=== PATIENT | male | born 1945 | race Hispanic/Latino ===

== ENCOUNTER 2017-11-07 10:12 | Emergency (ER) | payer MEDICARE, OTHER ==
--- NOTE | 2017-11-07 11:08 | RAD ---
CHEST ONE VIEW: HISTORY: Chest pain. COMPARISON: 03/29/2016 FINDINGS: Since the prior examination, the dialysis catheter has been removed. Heart size is normal. No peric ardial effusion. No focal air space consolidation. IMPRESSION: No acute intrathoracic abnormality. POS: [facility]
[2017-11-07 11:18] LABS: #Eosinphils 0.1 thou/uL (0.0-0.7); #Monocytes 0.9 thou/uL (0.11-0.59); #Neutrophils 6.2 thou/uL (1.40-6.50); %Basophils 0.5 % (0.0-1.0); %Eosinophils 1.4 % (0.0-10.0); %Lymphocytes 12.5 % (21.0-51.0); %Monocytes 11.2 % (0.0-10.0); %Neutrophils 74.4 % (42.0-75.0); Hemoglobin 11.3 g/dL (14.0-18.0); Mean Corpuscular HGB CONC 32.7 g/dL (32.0-36.0); Mean Corpuscular Hemoglobin 31.1 pg (27.0-31.0); Mean Platelet Volume 9.4 fL (7.4-10.4); Platelet Count 170 thou/uL (130-400); RBC Distribution Width 14.3 % (11.5-14.5); Red Blood Cell (RBC) Count 3.62 mill/uL (4.70-6.10); White Blood Cell (WBC) Count 8.3 thou/uL (4.8-10.8)
[2017-11-07 11:39] LABS: ALT (SGPT) 13 U/L (8-55); AST (SGOT) 17 U/L (5-34); Albumin 4.2 g/dL (3.4-4.8); Alkaline Phosphatase 103 U/L (40-150); Anion Gap 20 mmol/L (10-20); BUN (Urea Nitrogen) 24 mg/dL (8.4-25.7); Bilirubin, Total 0.6 mg/dL (0.2-1.2); Calc. Creatinine Clearance 0 mL/min (70-130); Calcium 9.5 mg/dL (7.8-10.44); Carbon Dioxide 25 mmol/L (23-31); Chloride 95 mmol/L (98-107); Estimated GFR-MDRD 10; Globulin 4.9 g/dL (2.4-3.5); Glucose 141 mg/dL (83-110); Potassium 4.2 mmol/L (3.5-5.1); Protein, Total 9.1 g/dL (5.8-8.1); Sodium 136 mmol/L (136-145)
[2017-11-07] MEDS ORDERED: Amlodipine 5 MG TAB ONE (12:48)
[2017-11-07 13:03] LABS: Bilirubin Negative (Negative); Blood, Urine Trace (Negative); Clarity CLEAR (Clear); Glucose, Urine (Dipstick) 250 mg/dL (Negative); Leukocyte Negative (Negative); Nitrite Negative (Negative); Protein, Urine (Dipstick) 100 mg/dL (Neg-Trace); Urobilinogen 0.2 mg/dL (0.2-1.0)
[2017-11-07 13:05] LABS: Bacteria/HPF None Seen HPF (None Seen); Hyaline Casts/LPF 0-3 HYALINE CAST LPF (0-3 Hyaline); Pathc Cast-AUWi Flag 0.14 (0-2.49); RBC/HPF 0-3 HPF (0-3); Squamous Epithelial 0-3 HPF (0-3); WBC/HPF 0-3 HPF (0-3)
--- NOTE | 2017-11-10 12:25 | EKG ---
Test Reason : Blood Pressure : / mmHG Vent. Rate : 101 BPM Atrial Rate : 101 BPM P-R Int : 140 ms QRS Dur : 086 ms QT Int : 378 ms P-R-T Axes : 013 008 136 degrees QTc Int : 490 ms Sinus tachycardia Possible Left atrial enlargement Left ventricular hypertrophy with repolarization abnormality Abnormal ECG Confirmed by OLGA MCKEON ([id number]), purchasing expeditor MISHEL PEDRAZA ([id number]) on 11/10/2017 12:24:52 PM Referred By: Confirmed By:OLGA MCKEON
== END 2017-11-07 13:41 | disposition home or self-care (01) ==
LOC: ERS 10:12
DX: R53.83 Other fatigue (principal); I10 Essential (primary) hypertension; E11.9 Type 2 diabetes mellitus without complications; E78.5 Hyperlipidemia, unspecified; Z79.899 Other long term (current) drug therapy
CPT/HCPCS: 36415; 71045; 80053; 81003; 81015; 83605; 85025; 87040; 87804; 93005; 94760

== ENCOUNTER 2017-12-24 02:11 | Inpatient (IN) | payer MEDICARE, OTHER ==
[2017-12-24 02:43] LABS: #Basophils 0.1 thou/uL (0.0-0.2); #Eosinphils 0.1 thou/uL (0.0-0.7); #Lymphocytes 1.3 thou/uL (1.20-3.40); #Monocytes 1.4 thou/uL (0.11-0.59); #Neutrophils 13.6 thou/uL (1.40-6.50); %Basophils 0.4 % (0.0-1.0); %Eosinophils 0.7 % (0.0-10.0); %Lymphocytes 7.9 % (21.0-51.0); %Monocytes 8.6 % (0.0-10.0); %Neutrophils 82.4 % (42.0-75.0); Hemoglobin 10.7 g/dL (14.0-18.0); Mean Corpuscular Hemoglobin 32.7 pg (27.0-31.0); Mean Corpuscular Volume 96.3 fL (78.0-98.0); Mean Platelet Volume 9.2 fL (7.4-10.4); Platelet Count 238 thou/uL (130-400); RBC Distribution Width 13.8 % (11.5-14.5); Red Blood Cell (RBC) Count 3.27 mill/uL (4.70-6.10); White Blood Cell (WBC) Count 16.5 thou/uL (4.8-10.8)
[2017-12-24 03:07] LABS: ALT (SGPT) 11 U/L (8-55); AST (SGOT) 23 U/L (5-34); Albumin 3.7 g/dL (3.4-4.8); Alkaline Phosphatase 84 U/L (40-150); Anion Gap 23 mmol/L (10-20); BUN (Urea Nitrogen) 76 mg/dL (8.4-25.7); Bilirubin, Total 0.6 mg/dL (0.2-1.2); CK (CPK) 38 U/L (30-200); Calc. Creatinine Clearance 0 mL/min (70-130); Calcium 9.6 mg/dL (7.8-10.44); Carbon Dioxide 20 mmol/L (23-31); Chloride 99 mmol/L (98-107); Estimated GFR-MDRD 5; Globulin 4.9 g/dL (2.4-3.5); Glucose 178 mg/dL (83-110); Potassium 5.6 mmol/L (3.5-5.1); Protein, Total 8.6 g/dL (5.8-8.1); Sodium 136 mmol/L (136-145)
[2017-12-24 03:08] LABS: CKMB 1.5 ng/mL (0-6.6)
[2017-12-24 03:16] LABS: Troponin I 0.492 ng/mL (< 0.028)
[2017-12-24] MEDS ORDERED: Morphine 4 MG/ML VIAL ONE (03:21)
[2017-12-24] MEDS ORDERED: Nitroglycerin 0.4 MG TAB (25 Tab Bottle) ONE ×2 (03:59→20:11)
[2017-12-24] MEDS ORDERED: Nitroglycerin 2% Ointment 1 INCH/1 GM Packet ONE (03:59)
[2017-12-24] MEDS ORDERED: Enoxaparin Sodium 80 MG/0.8 ML SYRINGE ONE (04:16)
[2017-12-24] MEDS ORDERED: Piperacillin/Tazobactam 3.375 GM VIAL ONE (04:49)
[2017-12-24] MEDS ORDERED: Ondansetron ODT 4 MG TAB SL PRN (05:30)
[2017-12-24] MEDS ORDERED: Acetaminophen 325 MG TAB PO PRN (05:30)
[2017-12-24] MEDS ORDERED: Ondansetron PF 4 MG/2 ML Vial IVP PRN (05:30)
[2017-12-24 05:35] VITALS: BMI 30.5
[2017-12-24 06:43] LABS: Troponin I 0.496 ng/mL (< 0.028)
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
--- NOTE | 2017-12-24 08:59 | RAD ---
CHEST 1 VIEW: HISTORY: Chest pain. COMPARISON: Radiograph 11/07/2017. FINDINGS: There are moderate bilateral perihilar opacities. No pneumothorax. No large effusion. Cardiac silh ouette is similar. IMPRESSION: Small effusions with bilateral perihilar opacities concerning for edema, hemorrhage or ARDS. POS: [facility]
[2017-12-24 09:54] LABS: Troponin I 0.775 ng/mL (< 0.028)
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
[2017-12-24] MEDS ORDERED: Piperacillin/Tazobactam 3.375 GM in Sodium Chloride 0.9% 100 ML IVPB SCH (12:00)
[2017-12-24] MEDS ORDERED: Amlodipine 10 MG TAB PO SCH (12:15)
[2017-12-24] MEDS ORDERED: hydrALAZINE 20 MG/ML VIAL SLOW IVP PRN (12:16)
[2017-12-24] MEDS ORDERED: Labetalol HCl 100 MG/20 ML VIAL SLOW IVP PRN (12:17)
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
[2017-12-24] MEDS ORDERED: Dextrose 50% Abboject 50 ML SYRINGE SLOW IVP PRN (12:57)
[2017-12-24] MEDS ORDERED: Dextrose 5% in Water 1,000 ML IV PRN (12:57)
[2017-12-24] MEDS ORDERED: Calcium Carbonate 500 MG ChewTAB PO PRN (12:58)
[2017-12-24] MEDS: HumaLOG 300 UNITS/3 ML VIAL SC PRN (13:16)
[2017-12-24] MEDS: Gabapentin 300 MG CAP PO SCH ×2 (14:46→22:02)
[2017-12-24] MEDS ORDERED: Gabapentin 300 MG CAP PO SCH (15:00)
[2017-12-24] MEDS ORDERED: Heparin 5,000 UNITS/ML VIAL SC SCH (15:00)
[2017-12-24] MEDS ORDERED: ISOVUE-370 76%-LOCM 1 ML ONE (15:01)
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
[2017-12-24] MEDS ORDERED: Calcium Acetate 667 MG CAP PO SCH (17:00)
[2017-12-24] MEDS: Calcium Acetate 667 MG CAP PO SCH (17:07)
[2017-12-24] MEDS ORDERED: Atorvastatin Calcium 20 MG TAB PO SCH (21:00)
[2017-12-24] MEDS: Amoxicillin/Potassium Clav 500 MG TAB PO SCH (22:02)
[2017-12-24] MEDS: Atorvastatin Calcium 40 MG TAB PO SCH (22:02)
[2017-12-25 05:30] LABS: #Eosinphils 0.1 thou/uL (0.0-0.7); #Lymphocytes 1.2 thou/uL (1.20-3.40); #Monocytes 0.8 thou/uL (0.11-0.59); #Neutrophils 7.6 thou/uL (1.40-6.50); %Basophils 0.4 % (0.0-1.0); %Eosinophils 1.3 % (0.0-10.0); %Lymphocytes 11.9 % (21.0-51.0); %Monocytes 8.1 % (0.0-10.0); %Neutrophils 78.4 % (42.0-75.0); Hemoglobin 9.8 g/dL (14.0-18.0); Mean Corpuscular HGB CONC 32.4 g/dL (32.0-36.0); Mean Corpuscular Volume 98.7 fL (78.0-98.0); Mean Platelet Volume 9.2 fL (7.4-10.4); Platelet Count 219 thou/uL (130-400); RBC Distribution Width 13.7 % (11.5-14.5); Red Blood Cell (RBC) Count 3.05 mill/uL (4.70-6.10); White Blood Cell (WBC) Count 9.7 thou/uL (4.8-10.8)
[2017-12-25 05:31] LABS: Anion Gap 18 mmol/L (10-20); BUN (Urea Nitrogen) 46 mg/dL (8.4-25.7); Calc. Creatinine Clearance 10 mL/min (70-130); Carbon Dioxide 26 mmol/L (23-31); Chloride 97 mmol/L (98-107); Estimated GFR-MDRD 7; Glucose 126 mg/dL (83-110); Potassium 4.3 mmol/L (3.5-5.1); Sodium 137 mmol/L (136-145)
[2017-12-25] MEDS ORDERED: Levothyroxine Sodium 75 MCG TAB PO SCH (06:00)
[2017-12-25] MEDS: Levothyroxine Sodium 75 MCG TAB PO SCH (06:17)
[2017-12-25] MEDS ORDERED: Communication Order-Pharmacy FS SCH (09:00)
[2017-12-25] MEDS ORDERED: Amlodipine 10 MG TAB PO SCH (09:00)
--- NOTE | 2017-12-25 09:05 | PRG ---
DATE OF SERVICE: 12/25/2017 Mr. Gonzalez is currently doing well, no current complaints of chest pain or pressure. PHYSICAL EXAMINATION: VITAL SIGNS: Blood pressure is 135/64, pulse 95, temperature 98.3. LUNGS: Clear to auscultation. CARDIAC: Regular rate and rhythm. ABDOMEN: Soft, nontender, nondistended. EXTREMITIES: No edema. IMPRESSION: 1. Non-Q wave myocardial infarction. 2. End-stage renal disease. RECOMMENDATIONS: I discussed aggressive versus conservative approach with Mr. Gonzalez. Given his trop onin, would recommend coronary angiography plus PCI. I discussed the procedure in detail with he and his . The risks included, but are not limited to the following: , stroke, RI, need for emergency surgery, loss of limb, bleeding, and infection, as well as a re action to the dye causing kidney failure and needing long-term dialysis. I also discussed the risks of PCI to include all of the above including coronary dissection and perforation in addition to acute stent thrombosis and restenosis. All questions about the procedure were answered. Given the above, the patient agreed to proceed with coronary angiography and possible PCI. All questions were answered. The patient is agreeable. I also discussed drug-coated versus nondrug stent placement. We will proceed with drug-coated stent placement. There are no contraindications a fter discussing this in detail. Mr. Gonzalez will have dialysis prior to proceeding.
[2017-12-25] MEDS ORDERED: Lidocaine 1% (PF) 30 ML VIAL ONE (12:10)
[2017-12-25] MEDS: Gabapentin 300 MG CAP PO SCH ×3 (14:00→22:17)
[2017-12-25] MEDS: Calcium Acetate 667 MG CAP PO SCH ×3 (14:01→17:35)
[2017-12-25] MEDS: Folic Acid 1 MG TAB PO SCH (14:02)
[2017-12-25] MEDS: NIFEdipine XL 60 MG TAB PO SCH (14:02)
[2017-12-25] MEDS: Amlodipine 10 MG TAB PO SCH (14:04)
[2017-12-25] MEDS: Amoxicillin/Potassium Clav 500 MG TAB PO SCH ×2 (14:07→22:15)
--- NOTE | 2017-12-25 16:46 | PRG ---
DATE OF SERVICE: 12/25/2017 SERVICE: Pulmonary Medicine. INTERVAL HISTORY: The patient is doing great from a respiratory standpoint. That being said, last n ight, he had an episode of chest discomfort. He got 3 nitro's and his pain improved. He has never h ad an event like this before. Otherwise, there has been no interval change to his condition. PHYSICAL EXAMINATION: VITAL SIGNS: Afebrile, pulse 95, blood pressure 134/60, respirations 20, saturation 94% on 2 liters nasal cannula. GENERAL: The patient is awake, alert, no apparent distress. LUNGS: Decent air entry. There is no prolonged expiratory phase or wheezing present. 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 HEART: Normal rate, regular. ABDOMEN: Soft, nontender, nondistended. Bowel sounds are positive. MUSCULOSKELETAL: No cyanosis or clubbing. No pitting in the bilateral lower extremities. NEUROLOGIC: Grossly nonfocal. LABORATORY DATA: WBC 9.7, hemoglobin 9.8, platelets 219,000. Creatinine 7.40, dramatically improved , BUN 46. Basic metabolic profile is otherwise unremarkable. TSH is unremarkable. One or two blood cultures is growing coag-negative staph. IMAGING: Echocardiogram demonstrates a 45-50% ejection fraction. There is some diastolic dysfunctio n. ASSESSMENT: 1. Acute hypoxic respiratory failure, improved. 2. Acute on chronic diastolic heart failure. 3. Acute systolic heart failure. 4. Non-ST elevation myocardial infarction. 5. Chest pain. 6. Bilateral pleural effusions, and other CT findings consistent with volume overload. 7. End-stage renal disease, on hemodialysis, DISCUSSION AND PLAN: The patient is going to undergo a cardiac catheterization today. We will yohannes nue to pull fluid off with dialysis and wean oxygen as tolerated.
[2017-12-25] MEDS: HumaLOG 300 UNITS/3 ML VIAL SC PRN (17:44)
--- NOTE | 2017-12-25 20:19 | PDOC.PN ---
- Subjective Encounter Start Date: 12/25/17 Encounter Start Time: 14:00 Feeling much better today. Breathing better. Had episode of CP last night. Required nitro. - Objective Resuscitation Status: Resuscitation Status FULL:Full Resuscitation Vital Signs & Weight: Vital Signs (12 hours) Temp Pulse Resp BP Pulse Ox 12/25/17 16:30 97.9 F 94 16 142/59 H 95 12/25/17 14:04 95 12/25/17 14:02 95 Weight Weight 169 lb 12.095 oz I&O: 12/24/17 12/25/17 12/26/17 06:59 06:59 06:59 Intake Total 1050 Output Total 2475 Balance -1425 Result Diagrams: 12/25/17 04:20 12/25/17 04:20 Additional Labs: Accuchecks 12/25/17 12/25/17 12/24/17 16:36 05:45 20:32 POC Glucose 230 H 137 H 213 H Phys Exam - Physical Examination Constitutional: NAD NC O2 Respiratory: no wheezing, no rales, no rhonchi, clear to auscultation bilateral Cardiovascular: RRR, no significant murmur Gastrointestinal: soft, non-tender, no distention, positive bowel sounds Musculoskeletal: 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 Improved with fluid removal from dialysis. (2) NSTEMI (non-ST elevated myocardial infarction) Code(s): I21.4 - NON-ST ELEVATION (NSTEMI) MYOCARDIAL INFARCTION Status: Acute Comment: Cath tomorrow. (3) Volume overload Code(s): E87.70 - FLUID OVERLOAD, UNSPECIFIED Status: Acute Comment: Improved with dialysis. (4) DM type 2 (diabetes mellitus, type 2) Status: Chronic Comment: SSI and accuchecks. (5) ESRD (end stage renal disease) on dialysis Code(s): N18.6 - END STAGE RENAL DISEASE; Z99.2 - DEPENDENCE ON RENAL DIALYSIS Status: Chronic Comment: Followed by Nephrology. Continuing HD. (6) HTN (hypertension) Code(s): I10 - ESSENTIAL (PRIMARY) HYPERTENSION Status: Chronic Qualifiers: Hypertension type: essential hypertension Qualified Code(s): I10 - Essential (primary) hypertension Comment: Continue home meds. (7) Hypothyroidism Code(s): E03.9 - HYPOTHYROIDISM, UNSPECIFIED Status: Chronic Comment: Continue synthroid. (8) Dyslipidemia Code(s): E78.5 - HYPERLIPIDEMIA, UNSPECIFIED Status: Chronic Comment: Continue Statin - Plan * Above.
[2017-12-25] MEDS ORDERED: Heparin 5,000 UNITS/ML VIAL SC SCH (20:45)
[2017-12-25] MEDS: Atorvastatin Calcium 40 MG TAB PO SCH (22:15)
[2017-12-26 05:59] LABS: #Basophils 0.1 thou/uL (0.0-0.2); #Eosinphils 0.2 thou/uL (0.0-0.7); #Lymphocytes 1.8 thou/uL (1.20-3.40); #Monocytes 1.1 thou/uL (0.11-0.59); #Neutrophils 7.3 thou/uL (1.40-6.50); %Basophils 0.7 % (0.0-1.0); %Eosinophils 1.7 % (0.0-10.0); %Lymphocytes 17.6 % (21.0-51.0); %Monocytes 10.2 % (0.0-10.0); %Neutrophils 69.9 % (42.0-75.0); Hemoglobin 10.3 g/dL (14.0-18.0); Mean Corpuscular HGB CONC 33.1 g/dL (32.0-36.0); Mean Corpuscular Hemoglobin 32.1 pg (27.0-31.0); Mean Corpuscular Volume 96.9 fL (78.0-98.0); Mean Platelet Volume 9.2 fL (7.4-10.4); Platelet Count 222 thou/uL (130-400); RBC Distribution Width 13.5 % (11.5-14.5); Red Blood Cell (RBC) Count 3.21 mill/uL (4.70-6.10); White Blood Cell (WBC) Count 10.4 thou/uL (4.8-10.8)
[2017-12-26 06:18] LABS: Anion Gap 19 mmol/L (10-20); BUN (Urea Nitrogen) 32 mg/dL (8.4-25.7); Calc. Creatinine Clearance 12 mL/min (70-130); Calcium 9.2 mg/dL (7.8-10.44); Carbon Dioxide 25 mmol/L (23-31); Chloride 95 mmol/L (98-107); Estimated GFR-MDRD 10; Glucose 119 mg/dL (83-110); Potassium 4.5 mmol/L (3.5-5.1); Sodium 134 mmol/L (136-145)
[2017-12-26] MEDS: Levothyroxine Sodium 75 MCG TAB PO SCH (06:30)
[2017-12-26] MEDS: Folic Acid 1 MG TAB PO SCH (06:30)
[2017-12-26] MEDS: Amoxicillin/Potassium Clav 500 MG TAB PO SCH ×2 (06:30→20:55)
[2017-12-26] MEDS: Gabapentin 300 MG CAP PO SCH ×3 (06:31→20:56)
[2017-12-26] MEDS: NIFEdipine XL 60 MG TAB PO SCH (06:31)
[2017-12-26] MEDS: Amlodipine 10 MG TAB PO SCH (06:31)
[2017-12-26] MEDS ORDERED: Lidocaine 1% (PF) 30 ML VIAL ONE (06:38)
[2017-12-26] MEDS ORDERED: Midazolam HCl 2 mg/2 ml Vial ONE (07:26)
[2017-12-26] MEDS ORDERED: Fentanyl 100 MCG/2 ML VIAL ONE (07:27)
[2017-12-26] MEDS ORDERED: Acetaminophen/Codeine 30-300mg Tablet PO PRN ×2 (07:56)
[2017-12-26] MEDS ORDERED: traMADol HCl 50 MG TAB PO PRN (07:56)
[2017-12-26] MEDS ORDERED: Nitroglycerin 0.4 MG TAB (25 Tab Bottle) SL PRN (07:56)
[2017-12-26] MEDS ORDERED: Sodium Chloride 0.9% 200 ML IV SCH (08:00)
[2017-12-26] MEDS: Calcium Acetate 667 MG CAP PO SCH ×3 (09:17→16:46)
[2017-12-26] MEDS ORDERED: Iopamidol 370 76% 100 ML VIAL ONE (10:44)
--- NOTE | 2017-12-26 15:20 | PRG ---
DATE OF SERVICE: 12/26/2017 SERVICE: Pulmonary Medicine. INTERVAL HISTORY: Patient is doing fine from a respiratory standpoint. He is breathing comfortably. There has been no interval change to his condition. He did not have any more chest pain episodes. PHYSICAL EXAMINATION: VITAL SIGNS: Afebrile, pulse 81, blood pressure 126/62, respirations 16, saturation 96% on 2 liters nasal cannula. GENERAL: The patient is awake, alert, no apparent distress. LUNGS: Excellent air entry without prolonged expiratory phase or wheezing. HEART: Normal rate, regular. ABDOMEN: Soft, nontender, nondistended. Bowel sounds are positive. MUSCULOSKELETAL: No cyanosis or clubbing. There is no pitting in the bilateral lower extremities. NEUROLOGIC: Grossly nonfocal. LABORATORY DATA: WBC 10.4, hemoglobin 10.3, platelets 222,000. Creatinine 5.68, continuing to downt rend, BUN 32. Basic metabolic profile is otherwise unremarkable. One of two blood cultures growing coag-negative staph. ASSESSMENT: 1. Acute hypoxic respiratory failure, resolved. 2. Acute systolic heart failure. 3. Acute on chronic diastolic heart failure. 4. Non-ST elevation myocardial infarction. 5. Coronary artery disease, severe. 6. Angina, resolved. 7. Bilateral pleural effusions and other CT findings consistent with volume overload, likely improve d following significant volume removal. 8. End-stage renal disease. DISCUSSION AND PLAN: A Cardiothoracic Surgery consultation is currently pending. Pulmonary will con tinue to follow along as the patient is likely heading towards a bypass graft. He is currently optim ized from a respiratory standpoint to proceed with the surgery.
[2017-12-26] MEDS ORDERED: Heparin 10,000 UNITS/ 10 ML VIAL ONE (17:54)
[2017-12-26] MEDS: Atorvastatin Calcium 40 MG TAB PO SCH (20:56)
[2017-12-26] MEDS: HumaLOG 300 UNITS/3 ML VIAL SC PRN (21:16)
--- NOTE | 2017-12-26 22:58 | PDOC.PN ---
- Subjective Encounter Start Date: 12/26/17 Encounter Start Time: 10:30 Feeling much better. Had another episode of episode of chest pain. Relieved with nitro. - Objective Resuscitation Status: Resuscitation Status FULL:Full Resuscitation Vital Signs & Weight: Vital Signs (12 hours) Temp Pulse Resp BP Pulse Ox 12/26/17 20:00 98.4 F 86 18 143/63 H 98 12/26/17 12:00 98.1 F 81 16 126/62 96 Weight Weight 167 lb 4.8 oz I&O: 12/25/17 12/26/17 12/27/17 06:59 06:59 06:59 Intake Total 1050 50 Output Total 2475 0 Balance -1425 50 Result Diagrams: 12/26/17 04:48 12/26/17 04:48 Additional Labs: Accuchecks 12/26/17 12/26/17 12/26/17 20:24 11:03 05:58 POC Glucose 262 H 120 H 134 H Phys Exam - Physical Examination Constitutional: NAD Respiratory: no wheezing, no rales, no rhonchi, clear to auscultation bilateral Cardiovascular: no significant murmur II/ mumur Gastrointestinal: soft, non-tender, no distention Musculoskeletal: no edema Dx/Plan (1) Acute respiratory failure with hypoxemia Code(s): J96.01 - ACUTE RESPIRATORY FAILURE WITH HYPOXIA Status: Acute Comment: Secondary to volume overload. Improved with fluid removal from dialysis. (2) NSTEMI (non-ST elevated myocardial infarction) Code(s): I21.4 - NON-ST ELEVATION (NSTEMI) MYOCARDIAL INFARCTION Status: Acute Comment: Multivessel disease on cath. (3) Volume overload Code(s): E87.70 - FLUID OVERLOAD, UNSPECIFIED Status: Acute Comment: Improved with dialysis. (4) DM type 2 (diabetes mellitus, type 2) Status: Chronic Comment: SSI and accuchecks. (5) ESRD (end stage renal disease) on dialysis Code(s): N18.6 - END STAGE RENAL DISEASE; Z99.2 - DEPENDENCE ON RENAL DIALYSIS Status: Chronic Comment: Followed by Nephrology. Continuing HD. (6) HTN (hypertension) Code(s): I10 - ESSENTIAL (PRIMARY) HYPERTENSION Status: Chronic Qualifiers: Hypertension type: essential hypertension Qualified Code(s): I10 - Essential (primary) hypertension Comment: Continue home meds. (7) Hypothyroidism Code(s): E03.9 - HYPOTHYROIDISM, UNSPECIFIED Status: Chronic Comment: Continue synthroid. (8) Dyslipidemia Code(s): E78.5 - HYPERLIPIDEMIA, UNSPECIFIED Status: Chronic Comment: Continue Statin (9) Coronary artery disease Code(s): I25.10 - ATHSCL HEART DISEASE OF [place] CORONARY ARTERY W/O ANG PCTRS Status: Acute Comment: Severe three vessel disease. CV surgery consult pending. - Plan * CV surgery consult pending. * Continue HD under care of nephrology.
[2017-12-27 06:18] LABS: #Basophils 0.1 thou/uL (0.0-0.2); #Eosinphils 0.1 thou/uL (0.0-0.7); #Lymphocytes 1.1 thou/uL (1.20-3.40); #Monocytes 0.9 thou/uL (0.11-0.59); #Neutrophils 10.7 thou/uL (1.40-6.50); %Basophils 0.4 % (0.0-1.0); %Eosinophils 0.9 % (0.0-10.0); %Lymphocytes 8.7 % (21.0-51.0); Hemoglobin 10.3 g/dL (14.0-18.0); Mean Corpuscular HGB CONC 33.3 g/dL (32.0-36.0); Mean Corpuscular Hemoglobin 32.1 pg (27.0-31.0); Mean Corpuscular Volume 96.5 fL (78.0-98.0); Mean Platelet Volume 8.9 fL (7.4-10.4); Platelet Count 216 thou/uL (130-400); RBC Distribution Width 13.4 % (11.5-14.5); Red Blood Cell (RBC) Count 3.21 mill/uL (4.70-6.10); White Blood Cell (WBC) Count 12.9 thou/uL (4.8-10.8)
[2017-12-27 06:21] LABS: Anion Gap 15 mmol/L (10-20); BUN (Urea Nitrogen) 26 mg/dL (8.4-25.7); Calc. Creatinine Clearance 15 mL/min (70-130); Calcium 9.2 mg/dL (7.8-10.44); Carbon Dioxide 26 mmol/L (23-31); Chloride 97 mmol/L (98-107); Estimated GFR-MDRD 12; Glucose 158 mg/dL (83-110); Potassium 4.4 mmol/L (3.5-5.1); Sodium 134 mmol/L (136-145)
[2017-12-27] MEDS: Levothyroxine Sodium 75 MCG TAB PO SCH (06:22)
[2017-12-27] MEDS: Calcium Acetate 667 MG CAP PO SCH ×3 (08:14→17:17)
[2017-12-27] MEDS: Gabapentin 300 MG CAP PO SCH ×3 (08:14→20:44)
[2017-12-27] MEDS: Folic Acid 1 MG TAB PO SCH (08:14)
[2017-12-27] MEDS: NIFEdipine XL 60 MG TAB PO SCH (08:14)
[2017-12-27] MEDS: Amoxicillin/Potassium Clav 500 MG TAB PO SCH ×2 (08:14→20:44)
[2017-12-27] MEDS: Amlodipine 10 MG TAB PO SCH (08:14)
[2017-12-27] MEDS ORDERED: Clopidogrel Bisulfate 300 MG TAB PO SCH (11:00)
--- NOTE | 2017-12-27 19:23 | PDOC.PN ---
- Subjective Encounter Start Date: 12/27/17 Encounter Start Time: 16:00 Subjective: nsg notes rev, alejandrina ovn, no new issues today. family incl at bedside -: want to know if he will be getting surgery in [place] or not - Objective Resuscitation Status: Resuscitation Status FULL:Full Resuscitation Vital Signs & Weight: Vital Signs (12 hours) Temp Pulse Pulse Pulse Resp BP BP 12/27/17 11:35 98.1 F 60 16 12/27/17 11:26 84 95 150/66 H 12/27/17 08:14 82 139/63 12/27/17 08:00 12/27/17 07:35 98.3 F 82 18 BP BP Pulse Ox Pulse Ox Pulse Ox 12/27/17 11:35 129/60 96 12/27/17 11:26 160/69 H 96 99 12/27/17 08:14 12/27/17 08:00 97 12/27/17 07:35 139/63 97 Weight Weight 168 lb 3.2 oz I&O: 12/26/17 12/27/17 12/28/17 06:59 06:59 06:59 Intake Total 50 100 Output Total 0 100 Balance 50 0 Result Diagrams: 12/27/17 05:13 12/27/17 05:13 Additional Labs: Accuchecks 12/27/17 12/27/17 12/27/17 17:10 11:12 06:33 POC Glucose 138 H 198 H 150 H 12/26/17 20:24 POC Glucose 262 H Dx/Plan - Plan - Physical Examination Constitutional: NAD, lying in hospital bed Respiratory: no wheezing, no rales, no rhonchi, clear to auscultation bilateral Cardiovascular: no significant murmur II/ mumur Gastrointestinal: soft, non-tender, no distention Musculoskeletal: no edema in LLE, noted RLE prosthesis Dx/Plan (1) Acute respiratory failure with hypoxemia Code(s): J96.01 - ACUTE RESPIRATORY FAILURE WITH HYPOXIA Status: Acute. resolved Comment: Secondary to volume overload. Improved with fluid removal from dialysis. continue to closely monitor respiratory status (2) NSTEMI (non-ST elevated myocardial infarction) Code(s): I21.4 - NON-ST ELEVATION (NSTEMI) MYOCARDIAL INFARCTION Status: Acute Comment: Multivessel disease on cath. Apprec cardiology c/s and CV surg c/s regarding further mgmt (3) Volume overload Code(s): E87.70 - FLUID OVERLOAD, UNSPECIFIED Status: Acute Comment: Improved with dialysis. (4) DM type 2 (diabetes mellitus, type 2) Status: Chronic Comment: SSI and accuchecks. (5) ESRD (end stage renal disease) on dialysis Code(s): N18.6 - END STAGE RENAL DISEASE; Z99.2 - DEPENDENCE ON RENAL DIALYSIS Status: Chronic Comment: Followed by Nephrology. Continuing HD. (6) HTN (hypertension) Code(s): I10 - ESSENTIAL (PRIMARY) HYPERTENSION Status: Chronic Qualifiers: Hypertension type: essential hypertension Qualified Code(s): I10 - Essential (primary) hypertension Comment: Continue home meds. (7) Hypothyroidism Code(s): E03.9 - HYPOTHYROIDISM, UNSPECIFIED Status: Chronic Comment: Continue synthroid. (8) Dyslipidemia Code(s): E78.5 - HYPERLIPIDEMIA, UNSPECIFIED Status: Chronic Comment: Continue Statin (9) Coronary artery disease Code(s): I25.10 - ATHSCL HEART DISEASE OF [place] CORONARY ARTERY W/O ANG PCTRS Status: Acute Comment: Severe three vessel disease. - Plan d/w pt and his family at bedside that we will continue with medical management for the time being and monitor progression. greater than 30 min spent at bedside answering questions and discussing plan of care Review of Systems - Medications/Allergies Allergies/Adverse Reactions: Allergies Allergy/AdvReac Type Severity Reaction Status Date / Time No Known Allergies Allergy Verified 03/30/16 02:14 Medications: Current Medications Acetaminophen/Codeine Phosphate (Tylenol #3) 1 tab PO Q4H PRN PRN Reason: Mild Pain (1-3) Acetaminophen/Codeine Phosphate (Tylenol #3) 2 tab PO Q4H PRN PRN Reason: Moderate Pain (4-6) Amlodipine Besylate (Norvasc) 10 mg PO DAILY [facility] Last Admin: 12/27/17 08:14 Dose: 10 mg Amoxicillin/Clavulanate Potassium (Augmentin) 500 mg PO Q12HR [facility] Stop: 12/28/17 21:01 Last Admin: 12/27/17 08:14 Dose: 500 mg Aspirin (Aspirin Chewable) 81 mg PO DAILY [facility] Last Admin: 12/27/17 08:14 Dose: 81 mg Atorvastatin Calcium (Lipitor) 20 mg PO HS [facility] Last Admin: 12/26/17 20:56 Dose: 20 mg Calcium Acetate (Phoslo) 1,334 mg PO AC [facility] Last Admin: 12/27/17 17:17 Dose: 1,334 mg Calcium Carbonate (Tums) 1,000 mg PO BID-WM PRN PRN Reason: Indigestion Carvedilol (Coreg) 3.125 mg PO BID [facility] Cholecalciferol (Vitamin D3) 2,000 units PO DAILY [facility] Last Admin: 12/27/17 08:14 Dose: 2,000 units Clopidogrel Bisulfate (Plavix) 75 mg PO DAILY [facility] Dextrose/Water (Dextrose 50%) 25 gm SLOW IVP PRN PRN PRN Reason: Hypoglycemia Epoetin Michael (Procrit) 6,000 units SC Q7DAYS [facility] Folic Acid (Folvite) 1 mg PO DAILY [facility] Last Admin: 12/27/17 08:14 Dose: 1 mg Gabapentin (Neurontin) 300 mg PO TID [facility] Last Admin: 12/27/17 17:17 Dose: 300 mg Glucagon (Glucagon) 1 mg IM PRN PRN PRN Reason: Hypoglycemia Dextrose/Water (D5w) 1,000 mls @ 0 mls/hr IV .Q0M PRN PRN Reason: Hypoglycemia Insulin Human Lispro (Humalog) 0 units SC .MILD SLIDING SCALE PRN PRN Reason: Mild Correctional Scale Last Admin: 12/26/17 21:16 Dose: 4 unit Isosorbide Mononitrate (Imdur Er) 30 mg PO DAILY [facility] Labetalol HCl (Normodyne) 20 mg SLOW IVP Q15MIN PRN PRN Reason: SBP Greater Than 180 Levothyroxine Sodium (Synthroid) 75 mcg PO 0600 [facility] Last Admin: 12/27/17 06:22 Dose: 75 mcg Nifedipine (Procardia Xl) 60 mg PO DAILY [facility] Last Admin: 12/27/17 08:14 Dose: 60 mg Nitroglycerin (Nitrostat) 0.4 mg SL Q5MIN PRN PRN Reason: Chest Pain Sodium Chloride (Flush - Normal Saline) 10 ml IVF Q12HR [facility] Last Admin: 12/27/17 08:14 Dose: 10 ml Sodium Chloride (Flush - Normal Saline) 10 ml IVF PRN PRN PRN Reason: Saline Flush Tramadol HCl (Ultram) 50 mg PO Q6H PRN PRN Reason: Moderate Pain (4-6)
[2017-12-27] MEDS: Atorvastatin Calcium 40 MG TAB PO SCH (20:45)
[2017-12-27] MEDS: Carvedilol 3.125 MG TAB PO SCH (20:46)
[2017-12-28 05:38] LABS: #Eosinphils 0.2 thou/uL (0.0-0.7); #Lymphocytes 1.3 thou/uL (1.20-3.40); #Neutrophils 11.1 thou/uL (1.40-6.50); %Basophils 0.1 % (0.0-1.0); %Eosinophils 1.4 % (0.0-10.0); %Lymphocytes 9.8 % (21.0-51.0); %Monocytes 7.5 % (0.0-10.0); %Neutrophils 81.2 % (42.0-75.0); Hemoglobin 9.6 g/dL (14.0-18.0); Mean Corpuscular HGB CONC 32.8 g/dL (32.0-36.0); Mean Corpuscular Hemoglobin 31.9 pg (27.0-31.0); Mean Corpuscular Volume 97.3 fL (78.0-98.0); Platelet Count 201 thou/uL (130-400); RBC Distribution Width 13.5 % (11.5-14.5); Red Blood Cell (RBC) Count 3.02 mill/uL (4.70-6.10); White Blood Cell (WBC) Count 13.6 thou/uL (4.8-10.8)
[2017-12-28 05:54] LABS: Anion Gap 17 mmol/L (10-20); BUN (Urea Nitrogen) 48 mg/dL (8.4-25.7); Calc. Creatinine Clearance 10 mL/min (70-130); Calcium 8.8 mg/dL (7.8-10.44); Carbon Dioxide 24 mmol/L (23-31); Chloride 96 mmol/L (98-107); Estimated GFR-MDRD 7; Glucose 126 mg/dL (83-110); Potassium 4.9 mmol/L (3.5-5.1); Sodium 132 mmol/L (136-145)
[2017-12-28] MEDS: Levothyroxine Sodium 75 MCG TAB PO SCH (06:09)
--- NOTE | 2017-12-28 06:39 | PDOC.CTH ---
Cardiology Progress Note - Subjective Nocomplaints - Objective Vital Signs Temp Pulse Resp BP Pulse Ox 12/28/17 04:28 97.7 F 81 20 130/60 94 L 12/28/17 00:14 98.5 F 81 20 133/64 91 L 12/27/17 20:00 98.2 F 82 18 154/69 H 96 Weight 170 lb 6.4 oz 12/26/17 12/27/17 12/28/17 06:59 06:59 06:59 Intake Total 50 580 480 Output Total 0 1800 Balance 50 -1220 480 - Physical Examination General/Neuro: alert & oriented x3, NAD Neck: carotid US brisk, no JVD present Lungs: CTA, unlabored respirations Heart: PMI normal, RRR Abdomen: NT/ND, soft Extremities: + femoral B - Labs Result Diagrams: 12/28/17 05:11 12/28/17 05:11 Troponin/CKMB CK-MB (CK-2) 1.5 ng/mL (0-6.6) 12/24/17 02:35 Troponin I 0.775 ng/mL (< 0.028) H* 12/24/17 09:08 - Assessment/Plan [facility] Severe CAD ESRD Had a long discussion with family on 12/26, 12/28 on the plan to proceed with meds vs transfer to [place] for surgery 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
[2017-12-28] MEDS: Amlodipine 10 MG TAB PO SCH (10:04)
[2017-12-28] MEDS: Calcium Acetate 667 MG CAP PO SCH ×3 (10:04→16:40)
[2017-12-28] MEDS: Carvedilol 3.125 MG TAB PO SCH ×2 (10:04→21:11)
[2017-12-28] MEDS: Amoxicillin/Potassium Clav 500 MG TAB PO SCH ×2 (10:04→21:11)
[2017-12-28] MEDS: Gabapentin 300 MG CAP PO SCH ×3 (10:05→21:11)
[2017-12-28] MEDS: Folic Acid 1 MG TAB PO SCH (10:05)
[2017-12-28] MEDS: NIFEdipine XL 60 MG TAB PO SCH (10:05)
[2017-12-28] MEDS: Clopidogrel Bisulfate 75 MG TAB PO SCH (10:05)
[2017-12-28] MEDS ORDERED: Heparin 1,000 UNITS/ML VIAL ONE (11:11)
[2017-12-28] MEDS: Atorvastatin Calcium 40 MG TAB PO SCH (21:11)
--- NOTE | 2017-12-28 22:57 | PDOC.PN ---
- Subjective Encounter Start Date: 12/28/17 Encounter Start Time: 12:00 Subjective: nsg notes rev, alejandrina ovn, pt and pts at bedside, no new c/o - Objective Resuscitation Status: Resuscitation Status FULL:Full Resuscitation Vital Signs & Weight: Vital Signs (12 hours) Temp Pulse Resp BP BP Pulse Ox 12/28/17 16:00 98.5 F 97 16 117/58 L 99 12/28/17 12:00 98.5 F 100 18 135/63 98 12/28/17 11:40 99 Weight Weight 170 lb 6.4 oz I&O: 12/27/17 12/28/17 12/29/17 06:59 06:59 06:59 Intake Total 580 480 420 Output Total 1800 Balance -1220 480 420 Result Diagrams: 12/28/17 05:11 12/28/17 05:11 Additional Labs: Accuchecks 12/28/17 12/28/17 12/28/17 20:47 17:03 11:40 POC Glucose 173 H 151 H 130 H 12/28/17 06:00 POC Glucose 156 H Dx/Plan - Plan Physical Examination Constitutional: NAD, lying in hospital bed Respiratory: no wheezing, no rales, no rhonchi, clear to auscultation bilateral Cardiovascular: no significant murmur II/ mumur Gastrointestinal: soft, non-tender, no distention Musculoskeletal: no edema in LLE, noted RLE prosthesis Dx/Plan (1) Acute respiratory failure with hypoxemia Code(s): J96.01 - ACUTE RESPIRATORY FAILURE WITH HYPOXIA Status: Acute. resolved Comment: Secondary to volume overload. Improved with fluid removal from dialysis. continue to closely monitor respiratory status (2) NSTEMI (non-ST elevated myocardial infarction) Code(s): I21.4 - NON-ST ELEVATION (NSTEMI) MYOCARDIAL INFARCTION Status: Acute Comment: Multivessel disease on cath. Apprec cardiology c/s and CV surg c/s Pt will trial medical management at home first with very close outpatient cardiology follow up and then further determine course of action (3) Volume overload Code(s): E87.70 - FLUID OVERLOAD, UNSPECIFIED Status: Acute Comment: Improved with dialysis. Hemodynamically stable (4) DM type 2 (diabetes mellitus, type 2) Status: Chronic Comment: SSI and accuchecks. (5) ESRD (end stage renal disease) on dialysis Code(s): N18.6 - END STAGE RENAL DISEASE; Z99.2 - DEPENDENCE ON RENAL DIALYSIS Status: Chronic Comment: Followed by Nephrology. Continuing HD. (6) HTN (hypertension) Code(s): I10 - ESSENTIAL (PRIMARY) HYPERTENSION Status: Chronic Qualifiers: Hypertension type: essential hypertension Qualified Code(s): I10 - Essential (primary) hypertension Comment: Continue home meds. (7) Hypothyroidism Code(s): E03.9 - HYPOTHYROIDISM, UNSPECIFIED Status: Chronic Comment: Continue synthroid. (8) Dyslipidemia Code(s): E78.5 - HYPERLIPIDEMIA, UNSPECIFIED Status: Chronic Comment: Continue Statin (9) Coronary artery disease Code(s): I25.10 - ATHSCL HEART DISEASE OF [place] CORONARY ARTERY W/O ANG PCTRS Status: Acute Comment: Severe three vessel disease. See discussion above - Plan d/w pt and and pts at bedside d/w Dr. Gonsales Greater than 30 min spent discussing plan of care at bedside Review of Systems - Medications/Allergies Allergies/Adverse Reactions: Allergies Allergy/AdvReac Type Severity Reaction Status Date / Time No Known Allergies Allergy Verified 03/30/16 02:14 Medications: Current Medications Acetaminophen/Codeine Phosphate (Tylenol #3) 1 tab PO Q4H PRN PRN Reason: Mild Pain (1-3) Acetaminophen/Codeine Phosphate (Tylenol #3) 2 tab PO Q4H PRN PRN Reason: Moderate Pain (4-6) Amlodipine Besylate (Norvasc) 10 mg PO DAILY [facility] Last Admin: 12/28/17 10:04 Dose: Not Given Aspirin (Aspirin Chewable) 81 mg PO DAILY [facility] Last Admin: 12/28/17 10:04 Dose: Not Given Atorvastatin Calcium (Lipitor) 20 mg PO HS [facility] Last Admin: 12/28/17 21:11 Dose: 20 mg Calcium Acetate (Phoslo) 1,334 mg PO AC [facility] Last Admin: 12/28/17 16:40 Dose: 1,334 mg Calcium Carbonate (Tums) 1,000 mg PO BID-WM PRN PRN Reason: Indigestion Carvedilol (Coreg) 3.125 mg PO BID [facility] Last Admin: 12/28/17 21:11 Dose: 3.125 mg Cholecalciferol (Vitamin D3) 2,000 units PO DAILY [facility] Last Admin: 12/28/17 10:05 Dose: Not Given Clopidogrel Bisulfate (Plavix) 75 mg PO DAILY [facility] Last Admin: 12/28/17 10:05 Dose: Not Given Dextrose/Water (Dextrose 50%) 25 gm SLOW IVP PRN PRN PRN Reason: Hypoglycemia Epoetin Michael (Procrit) 6,000 units SC Q7DAYS [facility] Folic Acid (Folvite) 1 mg PO DAILY [facility] Last Admin: 12/28/17 10:05 Dose: Not Given Gabapentin (Neurontin) 300 mg PO TID [facility] Last Admin: 12/28/17 21:11 Dose: 300 mg Glucagon (Glucagon) 1 mg IM PRN PRN PRN Reason: Hypoglycemia Dextrose/Water (D5w) 1,000 mls @ 0 mls/hr IV .Q0M PRN PRN Reason: Hypoglycemia Insulin Human Lispro (Humalog) 0 units SC .MILD SLIDING SCALE PRN PRN Reason: Mild Correctional Scale Last Admin: 12/26/17 21:16 Dose: 4 unit Isosorbide Mononitrate (Imdur Er) 30 mg PO DAILY [facility] Last Admin: 12/28/17 10:05 Dose: Not Given Labetalol HCl (Normodyne) 20 mg SLOW IVP Q15MIN PRN PRN Reason: SBP Greater Than 180 Levothyroxine Sodium (Synthroid) 75 mcg PO 0600 [facility] Last Admin: 12/28/17 06:09 Dose: 75 mcg Nifedipine (Procardia Xl) 60 mg PO DAILY [facility] Last Admin: 12/28/17 10:05 Dose: Not Given Nitroglycerin (Nitrostat) 0.4 mg SL Q5MIN PRN PRN Reason: Chest Pain Sodium Chloride (Flush - Normal Saline) 10 ml IVF Q12HR [facility] Last Admin: 12/28/17 21:11 Dose: 10 ml Sodium Chloride (Flush - Normal Saline) 10 ml IVF PRN PRN PRN Reason: Saline Flush Tramadol HCl (Ultram) 50 mg PO Q6H PRN PRN Reason: Moderate Pain (4-6)
[2017-12-28] MEDS ORDERED: Bisacodyl 5 MG TAB PO SCH (23:30)
[2017-12-29] MEDS: Levothyroxine Sodium 75 MCG TAB PO SCH (05:20)
[2017-12-29 05:30] LABS: #Eosinphils 0.2 thou/uL (0.0-0.7); #Lymphocytes 1.6 thou/uL (1.20-3.40); #Neutrophils 10.6 thou/uL (1.40-6.50); %Basophils 0.3 % (0.0-1.0); %Eosinophils 1.2 % (0.0-10.0); %Lymphocytes 11.8 % (21.0-51.0); %Monocytes 7.6 % (0.0-10.0); %Neutrophils 79.1 % (42.0-75.0); Hemoglobin 8.7 g/dL (14.0-18.0); Mean Corpuscular Hemoglobin 32.1 pg (27.0-31.0); Mean Corpuscular Volume 97.3 fL (78.0-98.0); Mean Platelet Volume 8.6 fL (7.4-10.4); Platelet Count 181 thou/uL (130-400); RBC Distribution Width 13.6 % (11.5-14.5); Red Blood Cell (RBC) Count 2.72 mill/uL (4.70-6.10); White Blood Cell (WBC) Count 13.4 thou/uL (4.8-10.8)
[2017-12-29 06:12] LABS: Anion Gap 11 mmol/L (10-20); BUN (Urea Nitrogen) 32 mg/dL (8.4-25.7); Calc. Creatinine Clearance 13 mL/min (70-130); Calcium 8.7 mg/dL (7.8-10.44); Carbon Dioxide 30 mmol/L (23-31); Chloride 97 mmol/L (98-107); Estimated GFR-MDRD 10; Glucose 123 mg/dL (83-110); Potassium 4.4 mmol/L (3.5-5.1); Sodium 134 mmol/L (136-145)
[2017-12-29 07:53] VITALS: TEMP 98.3
[2017-12-29] MEDS: NIFEdipine XL 60 MG TAB PO SCH (09:05)
[2017-12-29] MEDS: Folic Acid 1 MG TAB PO SCH (09:06)
[2017-12-29] MEDS: Clopidogrel Bisulfate 75 MG TAB PO SCH (09:06)
[2017-12-29] MEDS: Amlodipine 10 MG TAB PO SCH (09:06)
[2017-12-29] MEDS: Calcium Acetate 667 MG CAP PO SCH ×2 (09:06→11:28)
[2017-12-29] MEDS: Gabapentin 300 MG CAP PO SCH ×2 (09:06→14:36)
[2017-12-29] MEDS: Carvedilol 3.125 MG TAB PO SCH (09:06)
--- NOTE | 2017-12-29 12:06 | PDOC.PN ---
- Subjective Encounter Start Date: 12/29/17 Encounter Start Time: 12:05 Mr. Gonzalez was seen today in follow-up of CAD and NSTEMI. He says he feels much better, He denies chest pain or dyspnea. - Objective Resuscitation Status: Resuscitation Status FULL:Full Resuscitation MAR Reviewed: Yes Vital Signs & Weight: Vital Signs (12 hours) Temp Pulse Resp BP BP Pulse Ox 12/29/17 09:06 80 12/29/17 09:05 80 127/60 12/29/17 07:32 98.3 F 80 14 127/60 92 L 12/29/17 04:00 98 F 80 18 128/60 94 L Weight Weight 171 lb 9.6 oz I&O: 12/28/17 12/29/17 12/30/17 06:59 06:59 06:59 Intake Total 480 420 Balance 480 420 Result Diagrams: 12/29/17 05:12 12/29/17 05:12 Additional Labs: Accuchecks 12/29/17 12/29/17 12/28/17 11:12 05:27 20:47 POC Glucose 130 H 127 H 173 H 12/28/17 17:03 POC Glucose 151 H Phys Exam - Physical Examination HEENT: PERRLA Respiratory: no wheezing, no rales, no rhonchi, clear to auscultation bilateral Cardiovascular: RRR, no significant murmur, no rub Gastrointestinal: soft, non-tender, no distention, positive bowel sounds Musculoskeletal: no edema Dx/Plan (1) Coronary artery disease Code(s): I25.10 - ATHSCL HEART DISEASE OF [place] CORONARY ARTERY W/O ANG PCTRS Status: Acute Comment: Severe three vessel disease. CV surgery consult pending. (2) NSTEMI (non-ST elevated myocardial infarction) Code(s): I21.4 - NON-ST ELEVATION (NSTEMI) MYOCARDIAL INFARCTION Status: Acute Comment: Multivessel disease on cath. (3) DM type 2 (diabetes mellitus, type 2) Status: Chronic Comment: SSI and accuchecks. (4) ESRD (end stage renal disease) on dialysis Code(s): N18.6 - END STAGE RENAL DISEASE; Z99.2 - DEPENDENCE ON RENAL DIALYSIS Status: Chronic Comment: Followed by Nephrology. Continuing HD. (5) HTN (hypertension) Code(s): I10 - ESSENTIAL (PRIMARY) HYPERTENSION Status: Chronic Qualifiers: Hypertension type: essential hypertension Qualified Code(s): I10 - Essential (primary) hypertension Comment: Continue home meds. - Plan * NSTEMI- the patient has opted for medical management * He is stable for discharge home..
[2017-12-29 12:55] VITALS: BP 141/65
--- NOTE | 2017-12-29 13:36 | DIS ---
DATE OF ADMISSION: 12/24/2017 DATE OF DISCHARGE: 12/29/2017 PRIMARY CARE PHYSICIAN: [facility] DISCHARGE DISPOSITION: Home. PRIMARY DISCHARGE DIAGNOSES: 1. Non-ST elevation myocardial infarction. 2. Coronary artery disease. 3. End-stage renal disease on hemodialysis. 4. Diabetes mellitus type 2, which is diet controlled. 5. Hyperlipidemia. DISCHARGE MEDICATIONS: Include Imdur 30 mg 1 p.o. daily, Procrit 6000 units as directed, Plavix 75 m g daily, carvedilol 3.125 mg twice daily, nifedipine 60 mg daily, levothyroxine 75 mcg daily, gabapen tin 300 mg t.i.d., folic acid 1 mg daily, vitamin D3 2000 units daily, calcium carbonate 1000 mg twic e a day, PhosLo 1334 mg p.o. q.a.c., Lipitor 20 mg at bedtime, aspirin 81 mg daily, amlodipine 10 mg daily. Carvedilol, Imdur and Plavix are new medications. PROCEDURES DONE DURING ADMISSION: The patient had a cardiac catheterization on 12/24/2017. It showe d 3-vessel coronary artery disease with 75% stenosis to the mid LAD, 80% stenosis of the first diagon al and 99% stenosis of the RCA. 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 The patient also had an ech ocardiogram showing an ejection fraction estimated at 45%-50%. There was some E to A flow reversal s uggestive of diastolic dysfunction, moderate mitral regurgitation. CODE STATUS: FULL CODE. ALLERGIES: No known drug allergies. HOSPITAL COURSE: Mr. Gonzalez is a pleasant 72-year-old gentleman who presented to the emergency room w ith complaints of chest pain. He also had some cough and some dyspnea. When he was evaluated in the emergency room, he was found to have an elevated troponin. Cardiology was consulted and the patient went urgently to cardiac catheterization. He was found to have 3-vessel coronary artery disease. H owever, due to the patient's end-stage renal disease and the anatomy that was found on the cardiac ca theterization, he was felt to be high risk for bypass surgery at our facility. He was given the opti on to be transferred to a tertiary care center in [place] versus being treated medically. The patien t opted for medical management and close follow up with Dr. Gonsales in the outpatient setting. The refore, after he was stabilized, he was subsequently discharged home to follow up with his primary ca re physician in 1-2 weeks and also with Dr. Gonsales as instructed.
[2017-12-31] MEDS ORDERED: Epoetin (ESRD) 20,000 UNITS/ML SC SCH (09:00)
== END 2017-12-29 14:45 | disposition home or self-care (01) | DRG 280 ==
LOC: ERS 02:11 → IMCU/EMU 05:17 → 2NO 18:38
PROVIDERS: ADMIT Internal Medicine; ATTEND Internal Medicine
PROC: 4A023N7 Measurement of Cardiac Sampling and Pressure, Left Heart, Percutaneous Approach (ICD-10-PCS; principal; 2017-12-24)
PROC: B2111ZZ Fluoroscopy of Multiple Coronary Arteries using Low Osmolar Contrast (ICD-10-PCS; 2017-12-24)
PROC: B2151ZZ Fluoroscopy of Left Heart using Low Osmolar Contrast (ICD-10-PCS; 2017-12-24)
PROC: 5A09357 Assistance with Respiratory Ventilation, Less than 24 Consecutive Hours, Continuous Positive Airway Pressure (ICD-10-PCS; 2017-12-24)
PROC: 5A1D70Z Performance of Urinary Filtration, Intermittent, Less than 6 Hours Per Day (ICD-10-PCS; 2017-12-24)
DX: I21.4 Non-ST elevation (NSTEMI) myocardial infarction (principal); N18.6 End stage renal disease; J96.01 Acute respiratory failure with hypoxia; I50.33 Acute on chronic diastolic (congestive) heart failure; I13.2 Hypertensive heart and chronic kidney disease with heart failure and with stage 5 chronic kidney disease, or end stage renal disease; J90 Pleural effusion, not elsewhere classified; E11.22 Type 2 diabetes mellitus with diabetic chronic kidney disease; E78.5 Hyperlipidemia, unspecified; Z89.511 Acquired absence of right leg below knee; Z99.2 Dependence on renal dialysis; Z86.73 Personal history of transient ischemic attack (TIA), and cerebral infarction without residual deficits; Z79.899 Other long term (current) drug therapy; Z79.82 Long term (current) use of aspirin; I25.119 Atherosclerotic heart disease of native coronary artery with unspecified angina pectoris; I34.0 Nonrheumatic mitral (valve) insufficiency; I95.9 Hypotension, unspecified; I73.9 Peripheral vascular disease, unspecified; E03.9 Hypothyroidism, unspecified
CPT/HCPCS: 36415; 36416; 70450; 70486; 71045; 71275; 72125; 80048; 80053; 82553; 83880; 84443; 84484; 85025; 87040; 87149; 90935; 93005; 93306; 93458; 93798; 94660; 94760; 96372; 96374; C1769; G0257; J1644; J1650; J2001; J2250; J2270; J2543; J3010; J7050; Q4081

== ENCOUNTER 2017-12-31 12:02 | Inpatient (IN) | payer MEDICARE, OTHER ==
[2017-12-31] MEDS ORDERED: ISOVUE-370 76%-LOCM 1 ML ONE (12:33)
[2017-12-31 12:41] LABS: #Monocytes 1.3 thou/uL (0.11-0.59); #Neutrophils 15.3 thou/uL (1.40-6.50); %Basophils 0.1 % (0.0-1.0); %Eosinophils 0.2 % (0.0-10.0); %Lymphocytes 5.7 % (21.0-51.0); %Monocytes 7.3 % (0.0-10.0); %Neutrophils 86.7 % (42.0-75.0); Hemoglobin 9.7 g/dL (14.0-18.0); Mean Corpuscular HGB CONC 33.6 g/dL (32.0-36.0); Mean Corpuscular Hemoglobin 31.9 pg (27.0-31.0); Mean Platelet Volume 9.6 fL (7.4-10.4); Platelet Count 243 thou/uL (130-400); RBC Distribution Width 13.6 % (11.5-14.5); Red Blood Cell (RBC) Count 3.04 mill/uL (4.70-6.10); White Blood Cell (WBC) Count 17.6 thou/uL (4.8-10.8)
--- NOTE | 2017-12-31 13:17 | RAD ---
SINGLE VIEW OF THE CHEST: Comparison: 12-24-17 History: Lethargy. Cough. FINDINGS: Single view of the chest shows a cardiomediastinal silhouette which is upper limits of normal in size with atherosclerotic calcifications in the aorta. Airspace opacity is seen in the right lung consist ent with pulmonary infiltrate. IMPRESSION: Right pulmonary infiltrate. POS: [facility]
[2017-12-31 13:21] LABS: ALT (SGPT) 12 U/L (8-55); AST (SGOT) 15 U/L (5-34); Albumin 3.6 g/dL (3.4-4.8); Alkaline Phosphatase 86 U/L (40-150); Anion Gap 24 mmol/L (10-20); BUN (Urea Nitrogen) 88 mg/dL (8.4-25.7); Bilirubin, Total 0.6 mg/dL (0.2-1.2); Calc. Creatinine Clearance 0 mL/min (70-130); Carbon Dioxide 17 mmol/L (23-31); Chloride 93 mmol/L (98-107); Estimated GFR-MDRD 5; Globulin 4.3 g/dL (2.4-3.5); Glucose 153 mg/dL (83-110); Potassium 5.2 mmol/L (3.5-5.1); Protein, Total 7.9 g/dL (5.8-8.1); Sodium 129 mmol/L (136-145)
--- NOTE | 2017-12-31 14:49 | CT ---
CT BRAIN WITHOUT CONTRAST: Date: 12/31/17 HISTORY: Fever. COMPARISON: CT brain dated 12/24/17. FINDINGS: No acute infarct or hemorrhage. No midline shift or mass effect. Ventricular size and extra-axial CSF spaces are normal. Calvarium is intact. Paranasal sinuses and mastoids are clear. IMPRESSION: Chronic changes. No acute intracranial abnormality. POS: [facility]
--- NOTE | 2017-12-31 14:55 | CT ---
CT ABDOMEN AND PELVIS WITH CONTRAST: Date: HISTORY: Abdominal pain. COMPARISON: None. FINDINGS: Abnormal air space opacities are present throughout the right middle and lower lobe. Small right effu sree. No pericardial effusion. There is a peripherally calcified area of fat necrosis on the midline anteri or abdominal wall. This is at prior incision. Prior ventral hernia repair. Extensive atherosclerotic plaque with narrowing at the origin of the celiac trunk and superior mesent rj arteries. Calcified and soft plaque. No retroperitoneal adenopathy. There is abnormal edema and inflammatory change along the right groin. There is focal occlusion of the right femoral artery. The adrenal glands are normal. IMPRESSION: 1. Extensive ground-glass opacity throughout the right middle and lower lobes, as well as layering e ffusion, reflecting asymmetric edema versus atypical infection. Bronchopneumonia is a possibility. 2. There is what appears to be possible hematoma on the right groin with occlusion of the right femo ral artery. Clinical correlation with recent procedure. 3. Low grade submucosal edema of the ascending colon, a sequelae of colitis, either infectious or in flammatory. 4. Extensive atherosclerotic plaque with moderate 50% narrowing of the trunk of the superior mesente nigel artery and the celiac trunk due to extensive calcific and soft plaque. 5. Hypodense inferior pole right kidney, not definitively a cyst. Nonemergent follow-up renal protoc ol CT or MRI in 6 months recommended. This measures approximately 1.3 cm in size. CODE: T POS: [facility]
[2017-12-31 14:59] LABS: Bilirubin Negative (Negative); Blood, Urine Trace (Negative); Clarity CLEAR (Clear); Glucose, Urine (Dipstick) 250 mg/dL (Negative); Leukocyte Negative (Negative); Nitrite Negative (Negative); Protein, Urine (Dipstick) 100 mg/dL (Neg-Trace); Specific Gravity, Urine 1.012 (1.002-1.036); Urobilinogen 0.2 mg/dL (0.2-1.0)
[2017-12-31 15:01] LABS: Bacteria/HPF None Seen HPF (None Seen); Hyaline Casts/LPF 0-3 HYALINE CAST LPF (0-3 Hyaline); RBC/HPF 0-3 HPF (0-3); Squamous Epithelial 0-3 HPF (0-3); WBC/HPF 0-3 HPF (0-3)
[2017-12-31] MEDS ORDERED: Piperacillin/Tazobactam 4.5 GM VIAL ONE (15:22)
[2017-12-31 15:52] LABS: CKMB 1.1 ng/mL (0-6.6); Troponin I 0.055 ng/mL (< 0.028)
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
[2017-12-31 16:53] LABS: Lactic Acid 0.8 mmol/L (0.5-2.2)
[2017-12-31] MEDS ORDERED: Zolpidem Tartrate 5 MG TAB PO PRN (19:00)
[2017-12-31] MEDS ORDERED: Calcium Carbonate 500 MG ChewTAB PO PRN (19:00)
[2017-12-31] MEDS ORDERED: Ondansetron PF 4 MG/2 ML Vial IVP PRN (19:00)
[2017-12-31] MEDS ORDERED: Levofloxacin 750 mg/D5W 500 MG in Premix Bag 1 BAG IVPB SCH (19:00)
[2017-12-31] MEDS ORDERED: Calcium Acetate 667 MG CAP PO SCH (19:15)
[2017-12-31] MEDS ORDERED: Cefepime 2 GM in Sodium Chloride 0.9% 100 ML IVPB SCH (21:00)
[2017-12-31 21:28] VITALS: BMI 28.2
[2017-12-31 21:35] LABS: Troponin I 0.138 ng/mL (< 0.028)
[2017-12-31] MEDS: Carvedilol 3.125 MG TAB PO SCH (21:53)
[2017-12-31] MEDS: Atorvastatin Calcium 20 MG TAB PO SCH (21:53)
[2017-12-31] MEDS: Heparin 5,000 UNITS/ML VIAL SC SCH (21:54)
[2018-01-01 02:24] LABS: CKMB 1.1 ng/mL (0-6.6); Troponin I 0.152 ng/mL (< 0.028)
[2018-01-01] MEDS: Levothyroxine Sodium 75 MCG TAB PO SCH (05:12)
[2018-01-01] MEDS: Carvedilol 3.125 MG TAB PO SCH ×2 (08:22→20:30)
[2018-01-01] MEDS: Clopidogrel Bisulfate 75 MG TAB PO SCH (08:22)
[2018-01-01] MEDS: NIFEdipine XL 60 MG TAB PO SCH (08:22)
[2018-01-01] MEDS: Folic Acid 1 MG TAB PO SCH (08:23)
[2018-01-01] MEDS: Amlodipine 10 MG TAB PO SCH (08:23)
[2018-01-01] MEDS: Calcium Acetate 667 MG CAP PO SCH ×3 (08:23→16:51)
[2018-01-01] MEDS: Heparin 5,000 UNITS/ML VIAL SC SCH ×3 (08:23→20:30)
[2018-01-01] MEDS: Acetaminophen 325 MG TAB PO PRN ×2 (08:28→19:44)
[2018-01-01] MEDS ORDERED: Prevnar 13-Val Conj/PF 0.5 ML SYRINGE IM ONE (09:00)
[2018-01-01] MEDS ORDERED: Epoetin (ESRD) 20,000 UNITS/ML SC SCH (09:00)
[2018-01-01] MEDS ORDERED: Cefepime 1 GM in Sodium Chloride 0.9% 100 ML IVPB SCH (10:00)
--- NOTE | 2018-01-01 10:17 | PDOC.PN ---
- Subjective Encounter Start Date: 01/01/18 Encounter Start Time: 10:14 Subjective: cogh, some fever - Objective Resuscitation Status: Resuscitation Status FULL:Full Resuscitation MAR Reviewed: Yes Vital Signs & Weight: Vital Signs (12 hours) Temp Pulse Resp BP BP Pulse Ox 01/01/18 08:23 98 142/59 H 01/01/18 08:22 92 142/59 H 01/01/18 08:00 100.0 F H 92 18 142/59 H 95 01/01/18 04:00 100.6 F H 98 18 135/71 92 L 01/01/18 00:00 99.6 F 102 H 18 111/65 95 Weight Weight 164 lb 4 oz I&O: 12/31/17 01/01/18 01/02/18 06:59 06:59 06:59 Intake Total 120 Balance 120 Result Diagrams: 12/31/17 12:15 12/31/17 12:15 Additional Labs: Accuchecks 01/01/18 04:18 POC Glucose 166 H Phys Exam - Physical Examination rales R post lung Cardiovascular: RRR, no significant murmur Gastrointestinal: soft Dx/Plan (1) PNA (pneumonia) Code(s): J18.9 - PNEUMONIA, UNSPECIFIED ORGANISM Status: Acute Qualifiers: Pneumonia type: due to unspecified organism Laterality: right Lung location: lower lobe of lung Qualified Code(s): J18.1 - Lobar pneumonia, unspecified organism (2) ESRD (end stage renal disease) Code(s): N18.6 - END STAGE RENAL DISEASE Status: Chronic (3) Coronary artery disease Code(s): I25.10 - ATHSCL HEART DISEASE OF [place] CORONARY ARTERY W/O ANG PCTRS Status: Acute Qualifiers: Coronary Disease-Associated Artery/Lesion type: [place] artery [place] vs. transplanted heart: [place] heart Associated angina: without angina Qualified Code(s): I25.10 - Atherosclerotic heart disease of [place] coronary artery without angina pectoris Comment: Severe three vessel disease. CV surgery consult pending. 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 (5) HTN (hypertension) Code(s): I10 - ESSENTIAL (PRIMARY) HYPERTENSION Status: Chronic Qualifiers: Hypertension type: essential hypertension Qualified Code(s): I10 - Essential (primary) hypertension Comment: Continue home meds. (6) Hypothyroidism Code(s): E03.9 - HYPOTHYROIDISM, UNSPECIFIED Status: Chronic Qualifiers: Hypothyroidism type: unspecified Qualified Code(s): E03.9 - Hypothyroidism , unspecified Comment: Continue synthroid. - Plan cont iv antibx-await C&S results -: cont selected home msds -: HD per renal * .
--- NOTE | 2018-01-01 15:00 | EKG ---
Test Reason : ELEV TROPONIN Blood Pressure : / mmHG Vent. Rate : 091 BPM Atrial Rate : 091 BPM P-R Int : 162 ms QRS Dur : 098 ms QT Int : 370 ms P-R-T Axes : 035 023 196 degrees QTc Int : 455 ms Normal sinus rhythm Possible Left atrial enlargement Left ventricular hypertrophy with repolarization abnormality Abnormal ECG Confirmed by DR. Jemima ADAIR ([id number]) on 01/01/2018 2:59:25 PM Referred By: Enedelia DEE Confirmed By:DR. Jemima ADAIR
[2018-01-01 20:13] LABS: CKMB 0.8 ng/mL (0-6.6); Troponin I 0.139 ng/mL (< 0.028)
[2018-01-01] MEDS: Atorvastatin Calcium 20 MG TAB PO SCH (20:30)
[2018-01-02] MEDS: Acetaminophen 325 MG TAB PO PRN ×2 (05:36→18:45)
[2018-01-02] MEDS: Levothyroxine Sodium 75 MCG TAB PO SCH (05:36)
--- NOTE | 2018-01-02 08:41 | PQF ---
SAP Supervisor Telephone Information Crystal Reports SHON Haines RUBÉN COBB MD [phone] [facility] [id number] CLINICAL DOCUMENTATION IMPROVEMENT CLARIFICATION FORM: ICD-10 Updated PLEASE DO AN ADDENDUM TO THE PROGRESS NOTE WITH ANY DOCUMENTATION UPDATES OR ADDITIONS AND CARRY THROUGH TO DC SUMMARY. THANK YOU. DATE: 01/02 ATTN: DR. RUBÉN DEE Please exercise your independent, professional judgment in responding to the clarification form. Clinical indicators are provided on the bottom of this form for your review. Please check appropriate box(s): [ ] Aspiration Pneumonia [ x ] Empirically treating Gram Negative Pneumonia [ ] Bronchopneumonia [ ] Other diagnosis [ ] Unable to determine For continuity of documentation, please document condition throughout progress notes and discharge summary. Thank You. CLINICAL INDICATORS - SIGNS / SYMPTOMS / LABS CXR 12/31: IMPRESSION: RIGHT PULMONARY INFILTRATE ER PHYSICIAN DOCUMENTATION 12/31: CC: SUDDEN ONSET GENERALIZED WEAKNESS & SLURRED SPEECH THAT OCCURRED TODAY. FAMILY REPORTS HIS SPEECH IS NOT CURRENTLY AT BASELINE. ER PHYSICIAN DIAGNOSIS 12/31: RIGHT SIDED PNEUMONIA H&P DOCUMENTATION 12/31: IMAGING: CXR REVEALS RIGHT MIDDLE LOBE & LOWER LOBE PNEUMONIA. ADMITTING DIAGNOSES: 1) HOSPITAL-ACQUIRED PNEUMONIA PN 01/01: DX/PLAN: 1) ACUTE, RLL PNEUMONIA RISK FACTOR: RECENT HOSPITALIZATION FOR HI TREATMENT: IV ANTIBIOTICS (CEFEPIME & LEVAQUIN 12/31 - PRESENT; VANCOMYCIN & ZOSYN IN ER ) THANK YOU! Marisel (This form is maintained as a part of the permanent medical record) 2014 [employer]. All Rights Reserved Marisel Dhillon RN, BSN [email or web address] Office: [phone] [facility] CENTERMelissa
[2018-01-02] MEDS: Calcium Acetate 667 MG CAP PO SCH ×3 (09:16→18:52)
[2018-01-02] MEDS: Amlodipine 10 MG TAB PO SCH (09:16)
[2018-01-02] MEDS: Clopidogrel Bisulfate 75 MG TAB PO SCH (09:17)
[2018-01-02] MEDS: Folic Acid 1 MG TAB PO SCH (09:17)
[2018-01-02] MEDS: Heparin 5,000 UNITS/ML VIAL SC SCH ×3 (09:17→20:38)
[2018-01-02] MEDS: Carvedilol 3.125 MG TAB PO SCH ×2 (09:17→20:40)
[2018-01-02] MEDS: NIFEdipine XL 60 MG TAB PO SCH (09:17)
--- NOTE | 2018-01-02 13:18 | PDOC.PN ---
- Subjective Encounter Start Date: 01/02/18 Encounter Start Time: 13:16 Subjective: code teresita called for AMS post HD - Objective Resuscitation Status: Resuscitation Status FULL:Full Resuscitation MAR Reviewed: Yes Vital Signs & Weight: Vital Signs (12 hours) Temp Pulse Resp BP Pulse Ox 01/02/18 09:17 83 01/02/18 09:16 83 01/02/18 08:00 99 01/02/18 07:32 98.2 F 83 17 122/54 L 99 01/02/18 04:00 98.4 F 84 16 116/56 L 97 Weight Admit Weight 164 lb 4 oz Weight 164 lb 4 oz I&O: 01/01/18 01/02/18 01/03/18 06:59 06:59 06:59 Intake Total 120 240 Balance 120 240 Result Diagrams: 01/02/18 13:18 01/02/18 13:18 Additional Labs: Accuchecks 01/02/18 01/01/18 01/01/18 04:11 19:15 16:45 POC Glucose 164 H 209 H 177 H Radiology Reviewed by me: Yes (CT brain- no acute intracranial process) EKG Reviewed by me: Yes (RSR, LVH with repolarization abnormality) Phys Exam - Physical Examination eyes open, moaning, does not respond to questions Neck: no JVD Respiratory: clear to auscultation bilateral on L, post rales on right Gastrointestinal: soft, positive bowel sounds tender R inguinal area Dx/Plan (1) PNA (pneumonia) Code(s): J18.9 - PNEUMONIA, UNSPECIFIED ORGANISM Status: Acute Qualifiers: Pneumonia type: due to unspecified organism Laterality: right Lung location: lower lobe of lung Qualified Code(s): J18.1 - Lobar pneumonia, unspecified organism (2) ESRD (end stage renal disease) Code(s): N18.6 - END STAGE RENAL DISEASE Status: Chronic (3) Coronary artery disease Code(s): I25.10 - ATHSCL HEART DISEASE OF [place] CORONARY ARTERY W/O ANG PCTRS Status: Acute Qualifiers: Coronary Disease-Associated Artery/Lesion type: [place] artery [place] vs. transplanted heart: [place] heart Associated angina: without angina Qualified Code(s): I25.10 - Atherosclerotic heart disease of [place] coronary artery without angina pectoris Comment: Severe three vessel disease. CV surgery consult pending. 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 (5) HTN (hypertension) Code(s): I10 - ESSENTIAL (PRIMARY) HYPERTENSION Status: Chronic Qualifiers: Hypertension type: essential hypertension Qualified Code(s): I10 - Essential (primary) hypertension Comment: Continue home meds. (6) Hypothyroidism Code(s): E03.9 - HYPOTHYROIDISM, UNSPECIFIED Status: Chronic Qualifiers: Hypothyroidism type: unspecified Qualified Code(s): E03.9 - Hypothyroidism , unspecified Comment: Continue synthroid. (7) Acute encephalopathy Code(s): G93.40 - ENCEPHALOPATHY, UNSPECIFIED Status: Acute (8) Femoral artery pseudo-aneurysm, right Code(s): I72.4 - ANEURYSM OF ARTERY OF LOWER EXTREMITY Status: Acute - Plan STAT CBC, CMP, ABG, CT head -: CVS consult, US right groin -: added vancomycin IV * .
[2018-01-02 13:21] LABS: Actual Bicarbonate (HCO3a) 25.6 mEq/L (22-28); Base Excess (BEa) 4.2 mEq/L (-2.0 to +3.0); CO2 Tension 27.6 mmHg (35.0-45.0); Calcium, Ionized 1.09 mmol/L (1.12-1.30); Carboxyhemoglobin (COHb) 1.5 gm% (0.0-3.0); Hemoglobin (Hb) 10.1 g/dL (14.0-18.0); Potassium - ABG Lab 4.59 mmol/L (3.70-5.30)
[2018-01-02 13:22] LABS: pH, Arterial 7.59 (7.35-7.45)
[2018-01-02 13:23] LABS: Puncture Site RT. AC
[2018-01-02 13:46] LABS: Hemoglobin 9.8 g/dL (14.0-18.0); Mean Corpuscular HGB CONC 31.6 g/dL (32.0-36.0); Mean Corpuscular Hemoglobin 31.1 pg (27.0-31.0); Mean Corpuscular Volume 98.6 fL (78.0-98.0); Mean Platelet Volume 9.6 fL (7.4-10.4); Platelet Count 266 thou/uL (130-400); RBC Distribution Width 13.7 % (11.5-14.5); Red Blood Cell (RBC) Count 3.15 mill/uL (4.70-6.10); White Blood Cell (WBC) Count 23.6 thou/uL (4.8-10.8)
[2018-01-02 14:02] LABS: ALT (SGPT) 15 U/L (8-55); AST (SGOT) 19 U/L (5-34); Albumin 3.7 g/dL (3.4-4.8); Alkaline Phosphatase 94 U/L (40-150); Anion Gap 20 mmol/L (10-20); BUN (Urea Nitrogen) 16 mg/dL (8.4-25.7); Bilirubin, Total 0.7 mg/dL (0.2-1.2); Calc. Creatinine Clearance 20 mL/min (70-130); Calcium 9.9 mg/dL (7.8-10.44); Carbon Dioxide 25 mmol/L (23-31); Chloride 98 mmol/L (98-107); Estimated GFR-MDRD 18; Glucose 145 mg/dL (83-110); Potassium 4.7 mmol/L (3.5-5.1); Protein, Total 8.7 g/dL (5.8-8.1); Sodium 138 mmol/L (136-145)
[2018-01-02] MEDS: Cefepime 1 GM in Sodium Chloride 0.9% 100 ML IVPB SCH (14:08)
[2018-01-02 14:23] LABS: Actual Bicarbonate (HCO3a) 21.8 mEq/L (22-28); Base Excess (BEa) 3.5 mEq/L (-2.0 to +3.0); Calcium, Ionized 1.07 mmol/L (1.12-1.30); Carboxyhemoglobin (COHb) 1.2 gm% (0.0-3.0); Hemoglobin (Hb) 11.9 g/dL (14.0-18.0); O2 Tension (PaO2) 112.4 mmHg (> 70.0); Potassium - ABG Lab 4.33 mmol/L (3.70-5.30)
[2018-01-02 14:24] LABS: CO2 Tension 18.4 mmHg (35.0-45.0); Puncture Site RBA; pH, Arterial 7.69 (7.35-7.45)
[2018-01-02 14:24] LABS: INR-International Normal Ratio 1.2; PTT 33.9 SEC (22.9-36.1); Prothrombin Time 14.9 SEC (12.0-14.7)
[2018-01-02 14:26] LABS: Band 2 % (5-11); Eosinophils 2 % (0-10); Lymphocytes 6 % (21-51); MDiff Complete? YES; Monocytes 6 % (0-10); Neutrophil 84 % (42-75); PLT Morphology Comment Appears Adequate; Polychromasia SLIGHT = 2-3 cells (100X) (0-2/hpf); Tear Drops SLIGHT = 2-5 cells (100X) (0-1/hpf)
[2018-01-02] MEDS ORDERED: Vancomycin HCl 1.5 GM in Sodium Chloride 0.9% 250 ML 300 ML IVPB SCH (14:30)
--- NOTE | 2018-01-02 14:34 | CT ---
CT HEAD NONCONTRAST: HISTORY: Altered mental status. Stroke alert. COMPARISON: 12/31/2017. FINDINGS: There is no evidence of acute intracranial hemorrhage or infarct. Diffuse cortical atrophy and chron ic ischemic small-vessel disease are again demonstrated. There is no mass effect or shift of midline structures. Visualized paranasal sinuses remain well aerated. IMPRESSION: Chronic-type findings are stable. No acute intracranial abnormalities are demonstrated. Findings were called to Dr. Gomez at 1322 hours. CODE CR POS: [facility]
[2018-01-02 14:42] LABS: Troponin I 0.099 ng/mL (< 0.028)
--- NOTE | 2018-01-02 15:12 | PDOC.EVN ---
Event Note - Event Note Event Note: cxr right sided infiltrate essentially cleared. now suspect dependent R PVC instead of PNA. Will cont vancomycin and cefepine, for infection, unknown source
--- NOTE | 2018-01-02 15:37 | RAD ---
RADIOGRAPH CHEST 1 VIEW: Date: 01-02-18 Time: 1:25 p.m. HISTORY: 72-year-old male with pneumonia. COMPARISON: 12-31-17 FINDINGS: The previously demonstrated extensive right sided infiltrates have dramatically improved. There is cu rrently mild residual subtle streaky linear density in the right lower lung zone. The rest of the rig ht lung is slightly hazy. The left lung is clear. No cardiomegaly. Lateral costophrenic angles are sh elfego. No pneumothorax. IMPRESSION: Significant interval improvement in the right sided infiltrates. MARYBETH POS: [facility]
[2018-01-02] MEDS ORDERED: VANCOMYCIN IVPB PRN (18:19)
--- NOTE | 2018-01-02 18:19 | PDOC.EVN ---
Event Note - Event Note Event Note: now awake, alert, appropriate, moves all ext, etc
[2018-01-02] MEDS ORDERED: Vancomycin HCl 500 MG in Sodium Chloride 0.9% 100 ML IVPB SCH (18:45)
[2018-01-02] MEDS ORDERED: Vancomycin HCl 1.25 GM in Sodium Chloride 0.9% 250 ML 250 ML IVPB SCH (18:45)
[2018-01-02] MEDS ORDERED: Vancomycin HCl 1 GM in Premix Bag 1 BAG IVPB SCH (18:45)
[2018-01-02] MEDS ORDERED: Vancomycin HCl 750 MG in Sodium Chloride 0.9% 250 ML 250 ML IVPB SCH (18:45)
[2018-01-02] MEDS ORDERED: HOLD VANCOMYCIN FOR LEVEL >20 FS SCH (18:45)
--- NOTE | 2018-01-02 19:00 | ULT ---
DOPPLER ARTERIAL EVALUATION OF THE RIGHT INGUINAL REGION 01/02/18 INDICATION: Concern for pseudoaneurysm. TECHNIQUE: Spectral doppler, dick scale and color doppler images were obtained in a right inguinal region. FINDINGS: There is a 2.5 x 1.4 cm hematoma adjacent to the right common femoral artery. No pseudoaneurysm is ev ident. There is a monophasic waveform within the right common femoral artery. There is appropriate fl ow within the right common femoral vein. IMPRESSION: Right inguinal hematoma. No pseudoaneurysm demonstrated. POS: [facility]
[2018-01-02] MEDS: Atorvastatin Calcium 20 MG TAB PO SCH (20:39)
--- NOTE | 2018-01-02 22:39 | CON ---
DATE OF CONSULTATION: 01/02/2018 HISTORY OF PRESENT ILLNESS: This is a 72-year-old dialysis patient who underwent cardiac catheterization last week for non-STEMI. He had severe triple vessel coronary artery disease, but unfortunately had a moderate-to- heavily calcified ascending aorta and it was recommended that he would be evaluated at another facility for possible ascending aortic replacement. In any event, he was constipated after discharge at home and was trying to have a bowel movement one evening, when he was noted to have trouble standing with his artificial limb. His brought him to the emergency room, where he was evaluated with chest x-ray, abdominal pelvic CT and brain CT scan. At that time , his abdominal CT scan was notable for some ecchymosis in the region of his cardiac catheterization site. His abdominal CT scan also showed bilateral pulmonary infiltrates with the right side being much more impressive than the left side and at least involving the lower lobe and the upper lobe was not clearly evaluated. He was begun on antibiotics; however, today he had an episode of confusion with a blank stare on his face. White count was noted to be increased from 17,000 to 23,000 and concern was raised as to whether he could have had a septic complication from his catheterization site. PAST MEDICAL HISTORY: Otherwise significant for diabetes mellitus, dyslipidemia , and hypertension. He reportedly has had a stroke in the past, although his CT scan showing no significant findings during this admission. PAST SURGICAL HISTORY: Includes hernia repair, appendectomy, and a previous right lower extremity amputation related to trauma. SOCIAL HISTORY: He is accompanied today by his ex- with whom he lives. MEDICATIONS: Listed in the chart and include nifedipine, Lipitor, levothyroxine , Coreg, Plavix, amlodipine. PHYSICAL EXAMINATION: VITAL SIGNS: Afebrile. Temperature is 98, blood pressure is 140 systolic, heart rate 90. GENERAL: He is awake, somewhat confused, but does respond to questions. NECK: Soft, nontender, mobile. LUNGS: Clear to auscultation anteriorly with no rales or rhonchi. CARDIAC: Systolic murmur with mild resting tachycardia. ABDOMEN: Soft. EXTREMITIES: No tenderness at all on superficial or deep palpation. His right groin also was soft. No ecchymosis, warmth, or cellulitis and is nontender to palpation. Both legs are somewhat cool to palpation. At this time, I think the pneumonia still the most likely etiology of his sepsis and certainly examination of the right groin is rather unremarkable at the present time and I do not think this is the source of sepsis. GIBSON
[2018-01-03] MEDS: Acetaminophen 325 MG TAB PO PRN (02:17)
[2018-01-03] MEDS: Levothyroxine Sodium 75 MCG TAB PO SCH (05:50)
[2018-01-03] MEDS: NIFEdipine XL 60 MG TAB PO SCH (08:19)
[2018-01-03] MEDS: Calcium Acetate 667 MG CAP PO SCH ×3 (08:19→16:17)
[2018-01-03] MEDS: Clopidogrel Bisulfate 75 MG TAB PO SCH (08:20)
[2018-01-03] MEDS: Carvedilol 3.125 MG TAB PO SCH ×2 (08:20→21:50)
[2018-01-03] MEDS: Heparin 5,000 UNITS/ML VIAL SC SCH ×3 (08:20→21:50)
[2018-01-03] MEDS: Amlodipine 10 MG TAB PO SCH (08:20)
[2018-01-03] MEDS: Folic Acid 1 MG TAB PO SCH (08:20)
[2018-01-03] MEDS: Cefepime 1 GM in Sodium Chloride 0.9% 100 ML IVPB SCH (11:18)
--- NOTE | 2018-01-03 11:45 | PDOC.PN ---
- Subjective Encounter Start Date: 01/03/18 Encounter Start Time: 09:00 Subjective: no chest pain, is not fully oriented, is awake -: moving all extemities - Objective Resuscitation Status: Resuscitation Status FULL:Full Resuscitation MAR Reviewed: Yes Vital Signs & Weight: Vital Signs (12 hours) Temp Pulse Resp BP Pulse Ox 01/03/18 08:20 75 01/03/18 08:19 75 01/03/18 07:46 97.9 F 75 16 157/70 H 100 01/03/18 04:00 98.6 F 75 16 126/60 96 01/02/18 23:56 97.9 F 79 18 132/60 99 Weight Admit Weight 164 lb 4 oz Weight 164 lb 4 oz I&O: 01/02/18 01/03/18 01/04/18 06:59 06:59 06:59 Intake Total 240 500 Balance 240 500 Result Diagrams: 01/02/18 13:18 01/02/18 13:18 Additional Labs: Accuchecks 01/03/18 01/03/18 01/02/18 10:37 05:45 20:41 POC Glucose 129 H 169 H 163 H 01/02/18 01/02/18 17:40 13:03 POC Glucose 139 H 141 H Phys Exam - Physical Examination HEENT: PERRLA, moist MMs Neck: no JVD, supple Respiratory: no wheezing, no rales Cardiovascular: RRR, no significant murmur Gastrointestinal: soft, non-tender, positive bowel sounds Musculoskeletal: no edema, pulses present Neurological: non-focal, moves all 4 limbs Dx/Plan (1) Acute encephalopathy Code(s): G93.40 - ENCEPHALOPATHY, UNSPECIFIED Status: Acute (2) PNA (pneumonia) Code(s): J18.9 - PNEUMONIA, UNSPECIFIED ORGANISM Status: Acute Qualifiers: Pneumonia type: due to unspecified organism Laterality: right Lung location: lower lobe of lung Qualified Code(s): J18.1 - Lobar pneumonia, unspecified organism (3) ESRD (end stage renal disease) Code(s): N18.6 - END STAGE RENAL DISEASE Status: Chronic (4) Carotid artery disease Code(s): I77.9 - DISORDER OF ARTERIES AND ARTERIOLES, UNSPECIFIED Status: Chronic (5) Coronary artery disease Code(s): I25.10 - ATHSCL HEART DISEASE OF [place] CORONARY ARTERY W/O ANG PCTRS Status: Acute Qualifiers: Coronary Disease-Associated Artery/Lesion type: [place] artery [place] vs. transplanted heart: [place] heart Associated angina: without angina Qualified Code(s): I25.10 - Atherosclerotic heart disease of [place] coronary artery without angina pectoris Comment: Severe three vessel disease. (6) Anemia of renal disease Code(s): D63.1 - ANEMIA IN CHRONIC KIDNEY DISEASE Status: Chronic (7) DM type 2 (diabetes mellitus, type 2) Status: Chronic Qualifiers: Diabetes mellitus senior care insulin use: without upset operator use Diabetes mellitus complication status: with kidney complications Chronic kidney disease stage: on chronic dialysis Comment: SSI and accuchecks. (8) Dyslipidemia Code(s): E78.5 - HYPERLIPIDEMIA, UNSPECIFIED Status: Chronic Comment: Continue Statin (9) HTN (hypertension) Code(s): I10 - ESSENTIAL (PRIMARY) HYPERTENSION Status: Chronic Qualifiers: Hypertension type: essential hypertension Qualified Code(s): I10 - Essential (primary) hypertension Comment: Continue home meds. (10) Hypothyroidism Code(s): E03.9 - HYPOTHYROIDISM, UNSPECIFIED Status: Chronic Qualifiers: Hypothyroidism type: unspecified Qualified Code(s): E03.9 - Hypothyroidism , unspecified Comment: Continue synthroid. - Plan still encephalopathic -: continue levaq, cefepime and vanc -: on procardia, coreg, asp, plavix and lipitor -: says he has f/u appt to see on when decision to go t -: -o [place] for cabg and avr will be decided * . Review of Systems - Medications/Allergies Allergies/Adverse Reactions: Allergies Allergy/AdvReac Type Severity Reaction Status Date / Time No Known Allergies Allergy Verified 01/01/18 11:29 Medications: Current Medications Acetaminophen (Tylenol) 650 mg PO Q4H PRN PRN Reason: Headache/Fever/Mild Pain (1-3) Last Admin: 01/03/18 02:17 Dose: 650 mg Amlodipine Besylate (Norvasc) 10 mg PO DAILY [facility] Last Admin: 01/03/18 08:20 Dose: 10 mg Aspirin (Aspirin Chewable) 81 mg PO DAILY [facility] Last Admin: 01/03/18 08:20 Dose: 81 mg Atorvastatin Calcium (Lipitor) 20 mg PO HS [facility] Last Admin: 01/02/18 20:39 Dose: 20 mg Calcium Acetate (Phoslo) 1,334 mg PO AC [facility] Last Admin: 01/03/18 11:17 Dose: 1,334 mg Calcium Carbonate (Tums) 1,000 mg PO BID-WM PRN PRN Reason: Indigestion Carvedilol (Coreg) 3.125 mg PO BID [facility] Last Admin: 01/03/18 08:20 Dose: 3.125 mg Clopidogrel Bisulfate (Plavix) 75 mg PO DAILY [facility] Last Admin: 01/03/18 08:20 Dose: 75 mg Epoetin Michael (Procrit) 6,000 units SC Q7DAYS [facility] Last Admin: 01/01/18 11:54 Dose: 6,000 units Folic Acid (Folvite) 1 mg PO DAILY [facility] Last Admin: 01/03/18 08:20 Dose: 1 mg Heparin Sodium (Porcine) (Heparin) 5,000 units SC TID [facility] Last Admin: 01/03/18 08:20 Dose: 5,000 units Levofloxacin 500 mg/ Device 100 mls @ 100 mls/hr IVPB Q2D@1700 [facility] Last Admin: 01/02/18 18:38 Dose: 100 mls Cefepime HCl 1 gm/ Sodium (Chloride) 100 mls @ 200 mls/hr IVPB Q24HR [facility] Last Admin: 01/03/18 11:18 Dose: 100 mls Vancomycin HCl 1.25 gm/ Sodium (Chloride) 250 mls @ 166.667 mls/hr IVPB WILLCALL [facility] Vancomycin HCl 1 gm/ Device 200 mls @ 200 mls/hr IVPB [facility] Vancomycin HCl 750 mg/ Sodium (Chloride) 250 mls @ 250 mls/hr IVPB [facility] Vancomycin HCl 500 mg/ Sodium (Chloride) 100 mls @ 100 mls/hr IVPB [facility] Isosorbide Mononitrate (Imdur Er) 30 mg PO DAILY [facility] Last Admin: 01/03/18 08:19 Dose: 30 mg Levothyroxine Sodium (Synthroid) 75 mcg PO 0600 [facility] Last Admin: 01/03/18 05:50 Dose: 75 mcg Miscellaneous Medication (Pharmacy To Dose) 1 each IVPB PRN PRN PRN Reason: Pharmacy to dose Nifedipine (Procardia Xl) 60 mg PO QAM [facility] Last Admin: 01/03/18 08:19 Dose: 60 mg Hold Vancomycin For (Level >20) 0 each FS .AT DIALYSIS [facility] Ondansetron HCl (Zofran) 4 mg IVP Q6H PRN PRN Reason: Nausea/Vomiting Zolpidem Tartrate (Ambien) 5 mg PO HSPRN PRN PRN Reason: Insomnia
[2018-01-03] MEDS: Atorvastatin Calcium 20 MG TAB PO SCH (21:50)
[2018-01-04] MEDS: Levothyroxine Sodium 75 MCG TAB PO SCH (05:36)
[2018-01-04 08:24] LABS: #Eosinphils 0.3 thou/uL (0.0-0.7); #Lymphocytes 1.5 thou/uL (1.20-3.40); #Monocytes 1.3 thou/uL (0.11-0.59); %Basophils 0.3 % (0.0-1.0); %Eosinophils 2.2 % (0.0-10.0); %Lymphocytes 12.3 % (21.0-51.0); %Monocytes 10.8 % (0.0-10.0); %Neutrophils 74.3 % (42.0-75.0); Hemoglobin 8.8 g/dL (14.0-18.0); Mean Corpuscular HGB CONC 32.8 g/dL (32.0-36.0); Mean Corpuscular Hemoglobin 31.8 pg (27.0-31.0); Mean Platelet Volume 8.8 fL (7.4-10.4); Platelet Count 226 thou/uL (130-400); RBC Distribution Width 13.5 % (11.5-14.5); Red Blood Cell (RBC) Count 2.76 mill/uL (4.70-6.10); White Blood Cell (WBC) Count 12.2 thou/uL (4.8-10.8)
[2018-01-04 08:47] LABS: Anion Gap 20 mmol/L (10-20); BUN (Urea Nitrogen) 56 mg/dL (8.4-25.7); Calc. Creatinine Clearance 8 mL/min (70-130); Calcium 9.1 mg/dL (7.8-10.44); Carbon Dioxide 25 mmol/L (23-31); Chloride 97 mmol/L (98-107); Estimated GFR-MDRD 7; Glucose 116 mg/dL (83-110); Potassium 4.6 mmol/L (3.5-5.1); Sodium 137 mmol/L (136-145)
[2018-01-04 09:07] LABS: Vancomycin, Random 32.4 ug/mL (See Comment)
--- NOTE | 2018-01-04 10:53 | PDOC.PN ---
- Subjective Encounter Start Date: 01/04/18 Encounter Start Time: 09:30 Subjective: is getting HD now -: no sob or chest pain - Objective Resuscitation Status: Resuscitation Status FULL:Full Resuscitation MAR Reviewed: Yes Vital Signs & Weight: Vital Signs (12 hours) Temp Pulse Resp BP Pulse Ox 01/04/18 07:53 97.7 F 100 22 H 177/75 H 93 L 01/04/18 04:00 98.2 F 72 19 130/60 100 01/03/18 23:57 97.8 F 74 18 130/60 94 L Weight Admit Weight 164 lb 4 oz Weight 164 lb 4 oz I&O: 01/03/18 01/04/18 01/05/18 06:59 06:59 06:59 Intake Total 500 250 Balance 500 250 Result Diagrams: 01/04/18 07:52 01/04/18 07:52 Additional Labs: Accuchecks 01/04/18 01/03/18 01/03/18 05:57 20:05 16:43 POC Glucose 119 H 137 H 168 H 01/03/18 10:37 POC Glucose 129 H Phys Exam - Physical Examination HEENT: PERRLA, moist MMs Neck: no JVD, supple Respiratory: no wheezing, no rales Cardiovascular: RRR, no significant murmur Gastrointestinal: soft, non-tender, positive bowel sounds Musculoskeletal: no edema, pulses present Neurological: non-focal, moves all 4 limbs Dx/Plan (1) Acute encephalopathy Code(s): G93.40 - ENCEPHALOPATHY, UNSPECIFIED Status: Acute Comment: resolving (2) PNA (pneumonia) Code(s): J18.9 - PNEUMONIA, UNSPECIFIED ORGANISM Status: Acute Qualifiers: Pneumonia type: due to unspecified organism Laterality: right Lung location: lower lobe of lung Qualified Code(s): J18.1 - Lobar pneumonia, unspecified organism (3) ESRD (end stage renal disease) Code(s): N18.6 - END STAGE RENAL DISEASE Status: Chronic (4) Carotid artery disease Code(s): I77.9 - DISORDER OF ARTERIES AND ARTERIOLES, UNSPECIFIED Status: Chronic (5) Coronary artery disease Code(s): I25.10 - ATHSCL HEART DISEASE OF [place] CORONARY ARTERY W/O ANG PCTRS Status: Acute Qualifiers: Coronary Disease-Associated Artery/Lesion type: [place] artery [place] vs. transplanted heart: [place] heart Associated angina: without angina Qualified Code(s): I25.10 - Atherosclerotic heart disease of [place] coronary artery without angina pectoris Comment: Severe three vessel disease. (6) Anemia of renal disease Code(s): D63.1 - ANEMIA IN CHRONIC KIDNEY DISEASE Status: Chronic (7) DM type 2 (diabetes mellitus, type 2) Status: Chronic Qualifiers: Diabetes mellitus paint roller covers supervisor insulin use: without paint roller covers supervisor use Diabetes mellitus complication status: with kidney complications Chronic kidney disease stage: on chronic dialysis Comment: SSI and accuchecks. (8) Dyslipidemia Code(s): E78.5 - HYPERLIPIDEMIA, UNSPECIFIED Status: Chronic Comment: Continue Statin (9) HTN (hypertension) Code(s): I10 - ESSENTIAL (PRIMARY) HYPERTENSION Status: Chronic Qualifiers: Hypertension type: essential hypertension Qualified Code(s): I10 - Essential (primary) hypertension Comment: Continue home meds. (10) Hypothyroidism Code(s): E03.9 - HYPOTHYROIDISM, UNSPECIFIED Status: Chronic Qualifiers: Hypothyroidism type: unspecified Qualified Code(s): E03.9 - Hypothyroidism , unspecified Comment: Continue synthroid. - Plan d/w ex at bedside, was cognitively good last evening when he was talki -: -ng to his son who came to visit him -: is mostly oriented now but still gets to repeat some things over and over -: will need placement, tx to medical floor -: to amb as tolerated, oob to chair as tolerated * . is on vanc, cefepime and levaquin, will switch to omnicef bid continue asp, lipitor, plavix, coreg and procardia. Review of Systems - Medications/Allergies Allergies/Adverse Reactions: Allergies Allergy/AdvReac Type Severity Reaction Status Date / Time No Known Allergies Allergy Verified 01/01/18 11:29 Medications: Current Medications Acetaminophen (Tylenol) 650 mg PO Q4H PRN PRN Reason: Headache/Fever/Mild Pain (1-3) Last Admin: 01/03/18 02:17 Dose: 650 mg Aspirin (Aspirin Chewable) 81 mg PO DAILY [facility] Last Admin: 01/03/18 08:20 Dose: 81 mg Atorvastatin Calcium (Lipitor) 20 mg PO HS [facility] Last Admin: 01/03/18 21:50 Dose: 20 mg Calcium Acetate (Phoslo) 1,334 mg PO AC [facility] Last Admin: 01/03/18 16:17 Dose: 1,334 mg Calcium Carbonate (Tums) 1,000 mg PO BID-WM PRN PRN Reason: Indigestion Carvedilol (Coreg) 3.125 mg PO BID [facility] Last Admin: 01/03/18 21:50 Dose: 3.125 mg Clopidogrel Bisulfate (Plavix) 75 mg PO DAILY [facility] Last Admin: 01/03/18 08:20 Dose: 75 mg Epoetin Michael (Procrit) 6,000 units SC Q7DAYS [facility] Last Admin: 01/01/18 11:54 Dose: 6,000 units Folic Acid (Folvite) 1 mg PO DAILY [facility] Last Admin: 01/03/18 08:20 Dose: 1 mg Heparin Sodium (Porcine) (Heparin) 5,000 units SC TID [facility] Last Admin: 01/03/18 21:50 Dose: 5,000 units Levofloxacin 500 mg/ Device 100 mls @ 100 mls/hr IVPB Q2D@1700 [facility] Last Admin: 01/02/18 18:38 Dose: 100 mls Cefepime HCl 1 gm/ Sodium (Chloride) 100 mls @ 200 mls/hr IVPB Q24HR [facility] Last Admin: 01/03/18 11:18 Dose: 100 mls Vancomycin HCl 1.25 gm/ Sodium (Chloride) 250 mls @ 166.667 mls/hr IVPB [facility]CALL [facility] Vancomycin HCl 1 gm/ Device 200 mls @ 200 [facility]ls[facility] Vancomycin HCl 750 mg/ Sodium (Chloride) 250 mls @ 250 mls/hr [facility] Vancomycin HCl 500 mg/ Sodium (Chloride) 100 mls @ 100 mls/hr IVPB [facility] Isosorbide Mononitrate (Imdur Er) 30 mg PO DAILY [facility] Last Admin: 01/03/18 08:19 Dose: 30 mg Levothyroxine Sodium (Synthroid) 75 mcg PO 0600 [facility] Last Admin: 01/04/18 05:36 Dose: 75 mcg Miscellaneous Medication (Pharmacy To Dose) 1 each IVPB PRN PRN PRN Reason: Pharmacy to dose Nifedipine (Procardia Xl) 60 mg PO QAM [facility] Last Admin: 01/03/18 08:19 Dose: 60 mg Hold Vancomycin For (Level >20) 0 each FS .AT [facility]YS[facility] Ondansetron HCl (Zofran) 4 mg IVP Q6H PRN PRN Reason: Nausea/Vomiting Zolpidem Tartrate (Ambien) 5 mg PO HSPRN PRN PRN Reason: Insomnia
[2018-01-04] MEDS: Heparin 5,000 UNITS/ML VIAL SC SCH ×3 (12:17→21:15)
[2018-01-04] MEDS: NIFEdipine XL 60 MG TAB PO SCH (12:27)
[2018-01-04] MEDS: Calcium Acetate 667 MG CAP PO SCH ×3 (12:28→18:33)
[2018-01-04] MEDS: Carvedilol 3.125 MG TAB PO SCH ×2 (12:29→21:15)
[2018-01-04] MEDS: Clopidogrel Bisulfate 75 MG TAB PO SCH (12:29)
[2018-01-04] MEDS: Folic Acid 1 MG TAB PO SCH (12:29)
--- NOTE | 2018-01-04 17:22 | ULT ---
BILATERAL LOWER EXTREMITY VENOUS DOPPLER ULTRASOUND: 01/04/18 HISTORY: Right leg amputation just below knee. Bilateral lower extremity pain. TECHNIQUE: [place] scale ultrasound with color flow and spectral doppler imaging of the deep venous system of the l ower extremities performed bilaterally. FINDINGS: There is flow, compression and augmentation noted in the common femoral, femoral, deep femoral, popli teal, veins and saphenofemoral junctions bilaterally and the left posterior tibial vein. IMPRESSION: No evidence of DVT in either lower extremity. POS: ADA
[2018-01-04 19:02] LABS: Legionella Urinary Ag Negative (Negative); Strep pneumo Urine Ag NEGATIVE (NEGATIVE)
--- NOTE | 2018-01-04 19:41 | CON ---
DATE OF CONSULTATION: 01/04/2018 REASON FOR CONSULTATION: Concern with sepsis, change in mental status. HISTORY OF PRESENT ILLNESS: A 72-year-old patient who has a history of type 2 diabetes with end-stag e renal disease on hemodialysis through an AV fistula in the left upper extremity as well as recent n on-ST segment elevation FL with cardiac catheterization. The patient was discharged on 12/29/2017 on Imdur, Procrit, Plavix, Coreg, nifedipine among other medications. The coronary angiogram showed 3- vessel coronary artery disease and apparently patient has been referred to [place] for bypass surgery because of the risk of the procedure in his case. Two days after admission, he developed cough, chi lls, and sweats and according to one of the relatives, he developed temperature of 102 and was admitt ed with abnormal chest x-ray in the right side, possible community or healthcare-associated pneumonia . The patient was given cefepime and levofloxacin, initially admitted to the 4th floor medical unit, but there developed change in mental status and was transferred to the neuro unit. Workup with CT o f brain, abdomen and pelvis ultrasound, chest x-ray remarkable for right inguinal hematoma. Normal C T of brain or at least without any acute findings and evidence of improvement in the right-sided infi ltrates. Also, his mental state has returned to normal. Right now, he is awake and oriented, appear s in no distress. No headaches, no change in visual symptoms, sore throat, odynophagia, dysphagia, n o toothache or back pain. A little bit of cough, but that has improved as well. No sputum productio n, no hemoptysis. No abdominal tenderness, no diarrhea. He still has some urinary output intermitte ntly. No joint symptoms. 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 FAMILY HISTORY: Noncontributory. SOCIAL HISTORY: Never a smoker. Lives in town. ALLERGIES: NONE. CURRENT MEDICATIONS: Tylenol, aspirin, Lipitor, PhosLo, Tums, Coreg, Omnicef, Plavix, Procrit, hepar in and nifedipine. PHYSICAL EXAMINATION: VITAL SIGNS: T-max 98.7, blood pressure 130/60, pulse 90, respirations 16. SKIN: Exam shows mild erythema in the presacral region. The patient has a functional left upper ext remity AV fistula, no Mendoza catheter. Right BKA stump appears normal. No lymphadenopathy. HEENT: Ocular movements conjugate. Sclerae are white. Pupils are equal. Oral cavity normal. [place]ume max[place] missing teeth with the remainder ones with quite a bit of decay and gum disease. NECK: Supple. No jugular vein distention. LUNGS: With symmetric air entry, fairly clear breath sounds. HEART: S1, S2, regular rate. No S3, S4. ABDOMEN: Soft, nondistended or tender. No bladder distention. EXTREMITIES: No joint inflammatory activity. Pulses diminished in dorsalis pedis. NEUROLOGIC: His cognitive function appears to be back to normal. LABORATORY DATA: White cell count 17,000 up to 23 and now it is down to 12.2, hemoglobin 8.8, platel ets 226, 74% neutrophils. Sodium 137 and creatinine 8.05. Liver profile within normal limits. Urin alysis was normal except for proteinuria. Microbiology with coagulase negative Staph and corynebacte rium from 12/24/2017, likely contaminant. More recent blood cultures no growth at 48 hours. Urine c ulture no growth at 48 hours. We have not had any recent influenza tests done. ASSESSMENT: 1. End-stage renal disease secondary to type 2 diabetes on hemodialysis through an AV fistula. 2. Coronary artery disease with recent non-ST segment elevation FL with planned bypass graft surgery in [place] shortly. 3. Recrudescence of fever, altered mental status with abnormal chest x-ray with fairly diffuse infil trates in the right hemithorax, which have cleared pretty much completely within 48 hours of admissio n. This was associated with neutrophilia with left shift, which is improving steadily. DISCUSSION: Differential diagnosis includes healthcare associated with community acquired pneumonia, viral pneumonia versus bacterial, noninfectious pneumonitis. Aspiration pneumonia appears to be les s likely, pulmonary hemorrhage also less likely. Patient has been transitioned to oral antimicrobial therapy and seems to have resumed his previous mental state, which was probably related to the toxic metabolic encephalopathy. May consider submitting legionella and strep pneumo antigen in urine to [facility] if we can achieve more precise diagnosis as well as respiratory virus PCR in view of the rapid imp rovement which would be somewhat too quick for a bacterial pneumonitis. Otherwise, would not change antimicrobial therapy at this point.
[2018-01-04] MEDS: Atorvastatin Calcium 20 MG TAB PO SCH (21:15)
[2018-01-05] MEDS: Levothyroxine Sodium 75 MCG TAB PO SCH (06:00)
[2018-01-05 06:23] LABS: #Basophils 0.1 thou/uL (0.0-0.2); #Eosinphils 0.2 thou/uL (0.0-0.7); #Lymphocytes 1.7 thou/uL (1.20-3.40); #Monocytes 1.4 thou/uL (0.11-0.59); #Neutrophils 9.3 thou/uL (1.40-6.50); %Basophils 0.5 % (0.0-1.0); %Eosinophils 1.4 % (0.0-10.0); %Lymphocytes 13.3 % (21.0-51.0); %Monocytes 10.7 % (0.0-10.0); %Neutrophils 74.1 % (42.0-75.0); Hemoglobin 9.9 g/dL (14.0-18.0); Mean Corpuscular HGB CONC 31.4 g/dL (32.0-36.0); Mean Corpuscular Hemoglobin 30.3 pg (27.0-31.0); Mean Corpuscular Volume 96.3 fL (78.0-98.0); Platelet Count 273 thou/uL (130-400); RBC Distribution Width 13.6 % (11.5-14.5); Red Blood Cell (RBC) Count 3.28 mill/uL (4.70-6.10); White Blood Cell (WBC) Count 12.6 thou/uL (4.8-10.8)
[2018-01-05 06:50] LABS: Anion Gap 20 mmol/L (10-20); BUN (Urea Nitrogen) 33 mg/dL (8.4-25.7); Calc. Creatinine Clearance 11 mL/min (70-130); Calcium 9.6 mg/dL (7.8-10.44); Carbon Dioxide 26 mmol/L (23-31); Chloride 95 mmol/L (98-107); Estimated GFR-MDRD 9; Glucose 130 mg/dL (83-110); Potassium 4.6 mmol/L (3.5-5.1); Sodium 136 mmol/L (136-145)
[2018-01-05] MEDS: Folic Acid 1 MG TAB PO SCH (07:51)
[2018-01-05] MEDS: Calcium Acetate 667 MG CAP PO SCH ×2 (07:51→12:04)
[2018-01-05] MEDS: NIFEdipine XL 60 MG TAB PO SCH (07:51)
[2018-01-05] MEDS: Carvedilol 3.125 MG TAB PO SCH (07:51)
[2018-01-05] MEDS: Clopidogrel Bisulfate 75 MG TAB PO SCH (07:51)
[2018-01-05] MEDS: Heparin 5,000 UNITS/ML VIAL SC SCH ×2 (07:53→15:08)
[2018-01-05 08:09] VITALS: BP 133/62; TEMP 98.2
[2018-01-05] MEDS ORDERED: Cefdinir 300 MG CAP PO SCH (09:00)
--- NOTE | 2018-01-05 10:21 | PDOC.PN ---
- Subjective Encounter Start Date: 01/05/18 Encounter Start Time: 10:00 Subjective: awake and oriented well this morning -: no sob or palp -: wants to wear his prosthesis and walk today - Objective Resuscitation Status: Resuscitation Status FULL:Full Resuscitation MAR Reviewed: Yes Vital Signs & Weight: Vital Signs (12 hours) Temp Pulse Resp BP Pulse Ox 01/05/18 08:00 98.2 F 80 18 133/62 97 01/05/18 07:51 78 01/05/18 04:21 98.3 F 78 16 131/60 96 01/05/18 00:24 98.5 F 72 14 122/56 L 98 Weight Admit Weight 164 lb 4 oz Weight 164 lb 4 oz I&O: 01/04/18 01/05/18 01/06/18 06:59 06:59 06:59 Intake Total 250 Balance 250 Result Diagrams: 01/05/18 06:10 01/05/18 06:10 Additional Labs: Accuchecks 01/04/18 01/04/18 01/04/18 21:21 17:24 12:37 POC Glucose 193 H 159 H 117 H Phys Exam - Physical Examination HEENT: PERRLA, moist MMs Neck: no JVD, supple Respiratory: no wheezing, no rales Cardiovascular: RRR, no significant murmur Gastrointestinal: soft, non-tender, positive bowel sounds Musculoskeletal: no edema, pulses present Neurological: non-focal, moves all 4 limbs right bka Psychiatric: normal affect, A&O x 3 Dx/Plan (1) Acute encephalopathy Code(s): G93.40 - ENCEPHALOPATHY, UNSPECIFIED Status: Resolved (2) PNA (pneumonia) Code(s): J18.9 - PNEUMONIA, UNSPECIFIED ORGANISM Status: Acute Qualifiers: Pneumonia type: due to unspecified organism Laterality: right Lung location: lower lobe of lung Qualified Code(s): J18.1 - Lobar pneumonia, unspecified organism (3) ESRD (end stage renal disease) Code(s): N18.6 - END STAGE RENAL DISEASE Status: Chronic (4) Carotid artery disease Code(s): I77.9 - DISORDER OF ARTERIES AND ARTERIOLES, UNSPECIFIED Status: Chronic (5) Coronary artery disease Code(s): I25.10 - ATHSCL HEART DISEASE OF [place] CORONARY ARTERY W/O ANG PCTRS Status: Acute Qualifiers: Coronary Disease-Associated Artery/Lesion type: [place] artery [place] vs. transplanted heart: [place] heart Associated angina: without angina Qualified Code(s): I25.10 - Atherosclerotic heart disease of [place] coronary artery without angina pectoris Comment: Severe three vessel disease. (6) Anemia of renal disease Code(s): D63.1 - ANEMIA IN CHRONIC KIDNEY DISEASE Status: Chronic (7) DM type 2 (diabetes mellitus, type 2) Status: Chronic Qualifiers: Diabetes mellitus fpc insulin use: without terminal system operator use Diabetes mellitus complication status: with kidney complications Chronic kidney disease stage: on chronic dialysis Comment: SSI and accuchecks. (8) Dyslipidemia Code(s): E78.5 - HYPERLIPIDEMIA, UNSPECIFIED Status: Chronic Comment: Continue Statin (9) HTN (hypertension) Code(s): I10 - ESSENTIAL (PRIMARY) HYPERTENSION Status: Chronic Qualifiers: Hypertension type: essential hypertension Qualified Code(s): I10 - Essential (primary) hypertension Comment: Continue home meds. (10) Hypothyroidism Code(s): E03.9 - HYPOTHYROIDISM, UNSPECIFIED Status: Chronic Qualifiers: Hypothyroidism type: unspecified Qualified Code(s): E03.9 - Hypothyroidism , unspecified Comment: Continue synthroid. - Plan hemostable -: on omnicef -: is fully oriented this morning, ex- at bedside -: awaiting rehab placement/swing bed -: to amb as tolerated with assistance and rw * . continue asp, lipitor, plavix, procardia and coreg Will eventually need cabg with aortic valve replacement in [place] when he gets physically stronger. Review of Systems - Medications/Allergies Allergies/Adverse Reactions: Allergies Allergy/AdvReac Type Severity Reaction Status Date / Time No Known Allergies Allergy Verified 01/01/18 11:29 Medications: Current Medications Acetaminophen (Tylenol) 650 mg PO Q4H PRN PRN Reason: Headache/Fever/Mild Pain (1-3) Last Admin: 01/03/18 02:17 Dose: 650 mg Aspirin (Aspirin Chewable) 81 mg PO DAILY [facility] Last Admin: 01/05/18 07:51 Dose: 81 mg Atorvastatin Calcium (Lipitor) 20 mg PO HS [facility] Last Admin: 01/04/18 21:15 Dose: 20 mg Calcium Acetate (Phoslo) 1,334 mg PO AC [facility] Last Admin: 01/05/18 07:51 Dose: 1,334 mg Calcium Carbonate (Tums) 1,000 mg PO BID-WM PRN PRN Reason: Indigestion Carvedilol (Coreg) 3.125 mg PO BID [facility] Last Admin: 01/05/18 07:51 Dose: 3.125 mg Cefdinir (Omnicef) 300 mg PO DAILY [facility] Last Admin: 01/05/18 07:51 Dose: 300 mg Clopidogrel Bisulfate (Plavix) 75 mg PO DAILY [facility] Last Admin: 01/05/18 07:51 Dose: 75 mg Epoetin Michael (Procrit) 6,000 units SC Q7DAYS [facility] Last Admin: 01/01/18 11:54 Dose: 6,000 units Folic Acid (Folvite) 1 mg PO DAILY [facility] Last Admin: 01/05/18 07:51 Dose: 1 mg Heparin Sodium (Porcine) (Heparin) 5,000 units SC TID [facility] Last Admin: 01/05/18 07:53 Dose: 5,000 units Isosorbide Mononitrate (Imdur Er) 30 mg PO DAILY [facility] Last Admin: 01/05/18 07:51 Dose: 30 mg Levothyroxine Sodium (Synthroid) 75 mcg PO 0600 [facility] Last Admin: 01/05/18 06:00 Dose: 75 mcg Nifedipine (Procardia Xl) 60 mg PO QAM [facility] Last Admin: 01/05/18 07:51 Dose: 60 mg Ondansetron HCl (Zofran) 4 mg IVP Q6H PRN PRN Reason: Nausea/Vomiting
--- NOTE | 2018-01-05 10:26 | EKG ---
Test Reason : Blood Pressure : / mmHG Vent. Rate : 087 BPM Atrial Rate : 087 BPM P-R Int : 156 ms QRS Dur : 114 ms QT Int : 372 ms P-R-T Axes : 032 017 184 degrees QTc Int : 447 ms Normal sinus rhythm Left ventricular hypertrophy with repolarization abnormality Abnormal ECG No previous ECGs available Confirmed by DR. Jemima ADAIR ([id number]) on 01/05/2018 10:26:16 AM Referred By: SANTA Confirmed By:DR. Jemima ADAIR
--- NOTE | 2018-01-05 21:59 | DIS ---
DATE OF ADMISSION: 12/31/2017 DATE OF DISCHARGE: 01/05/2018 DISCHARGE DISPOSITION: To inpatient rehabilitation. PRIMARY DISCHARGE DIAGNOSES: Acute encephalopathy, resolved; pneumonia, resolving; end-stage renal d isease on hemodialysis; patient has severe coronary artery disease for coronary artery bypass graftin and aortic valve replacement to be done in [place] when is more physically stronger; chronic anemia ; diabetes mellitus, type 2; dyslipidemia; hypertension; hypothyroidism. PROCEDURES DONE DURING HOSPITALIZATION: Abdominal and pelvic CAT scan done on the day of admission s howed extensive ground-glass opacity throughout right middle and lower lobes as well as layering effu sree, the possible hematoma in the right groin with occlusion of the right femoral artery. Extensive atherosclerotic plaque with moderate 50% narrowing of the trunk of the superior mesenteric artery an d the celiac trunk due to extensive calcific and soft plaque. Chest x-ray done showed right pulmonar y infiltrate. CT brain showed chronic findings with no acute intracranial abnormality. Ultrasound o f the abdomen and pelvis done showed right inguinal hematoma. No pseudoaneurysm was seen. The hemat laura is 2.5 x 1.4 cm adjacent to the right common femoral artery. There is also monophasic waveform w ithin the right common femoral artery. There is appropriate flow in the right common femoral vein. Blood cultures x2 no growth. Urine culture no growth. Respiratory virus panel, PCR negative. Ultra sound venous Doppler of lower extremities was negative for DVT. Had a white count of 17 on admission , which peaked up to 23 and discharge numbers of 12. H&H 10 and 31, platelet count is 273, BUN 33, c reatinine 6.1 on the day of discharge. Troponin indeterminate with peaking up to 0.13, CK-MB 0.8. L egionella pneumophila antigen was negative. Urine Strep pneumo antigen negative. INPATIENT CONSULTS: Dr. Damian for infectious disease; Dr. Delgado for thoracic surgery; Dr. Vito burleson for nephrology. DISCHARGE MEDICATIONS: Aspirin 81 mg p.o. daily, Plavix 75 mg p.o. daily, atorvastatin 20 mg p.o. at bedtime, calcium acetate 667 mg p.o. before meals, calcium carbonate 1000 mg p.o. twice daily, vitam in D3 of 2000 units p.o. daily, folic acid 1 mg p.o. daily, levothyroxine 75 mcg p.o. daily, Procardi a-XL 30 mg p.o. daily, Coreg 3.125 mg p.o. twice daily, Omnicef 300 mg p.o. daily for another 5 days, Imdur 30 mg p.o. daily. ALLERGIES: No known drug allergies. DISCHARGE PLAN: Patient is being discharged to inpatient rehab for further recuperation. He needs f ollow up with Dr. Gonsales and discuss about CABG and aortic valve replacement in [place]. BRIEF COURSE DURING HOSPITALIZATION: Patient initially got admitted on the with complaints of w eakness, cough, chills, sweating and confusion. His initial workup revealed right lung pneumonia. Oscar leal has had multiple workups done other than pneumonia, no acute abnormality explaining his symptoms we re seen. Patient has known history of severe 3-vessel coronary artery disease in need of CABG and po ssible aortic valve replacement as well. Due to his high risk CABG, he has been advised to go to [facility] in [place] to get the same done. He is awaiting follow up with Dr. Gonsales to set this u p per ex-, who is also the power of trade mark attorney for patient. Patient was on IV antibiotics and has had back to back hemodialysis done here. This morning, he is fully alert and oriented well. Patient has known history of [id number] on the left side and uses a prosthesis for ambulation. Oscar leal was deconditioning now and is being accepted to inpatient rehabilitation. Patient needs to get phy sically stronger prior to having his CABG done. Please see a [id number] documentation on [facility] for the day of discharge. The patient needs to continue Omnicef for a total of 5 days once daily. H is medications were optimized as well during his stay here. A total of 35 minutes was spent on discharge plan.
== END 2018-01-05 15:36 | DRG 193 ==
LOC: ERS 12:02 → ERHOLD 15:49 → T4-B 17:24 → 2SE 01-02 14:26 → ONC 01-04 20:06
PROVIDERS: ADMIT Internal Medicine; ATTEND Internal Medicine
DX: J18.9 Pneumonia, unspecified organism (principal); N18.6 End stage renal disease; I21.4 Non-ST elevation (NSTEMI) myocardial infarction; G93.40 Encephalopathy, unspecified; Y95 Nosocomial condition; Z89.511 Acquired absence of right leg below knee; I25.10 Atherosclerotic heart disease of native coronary artery without angina pectoris; E11.9 Type 2 diabetes mellitus without complications; E78.5 Hyperlipidemia, unspecified; I10 Essential (primary) hypertension; Z86.73 Personal history of transient ischemic attack (TIA), and cerebral infarction without residual deficits; Z99.2 Dependence on renal dialysis; E11.22 Type 2 diabetes mellitus with diabetic chronic kidney disease; Z79.899 Other long term (current) drug therapy; Z79.02 Long term (current) use of antithrombotics/antiplatelets; Z79.82 Long term (current) use of aspirin; E03.9 Hypothyroidism, unspecified; I77.9 Disorder of arteries and arterioles, unspecified; I72.4 Aneurysm of artery of lower extremity
CPT/HCPCS: 36415; 36416; 51701; 70450; 71045; 74177; 76700; 80048; 80053; 80202; 81003; 81015; 82550; 82553; 82805; 83021; 83605; 83690; 84165; 84484; 85025; 85610; 85730; 87086; 87633; 87899; 90471; 90670; 90935; 93005; 93010; 93970; 96365; 96375; G0009; G0257; G8978-GP-CM; G8979-GP-CK; G8987-GO-CM; G8988-GO-CK; J0692; J1644; J1956; J2543; J3370; J7050; Q4081

== ENCOUNTER 2018-06-20 08:10 | Inpatient (IN) | payer MEDICARE, OTHER ==
[2018-06-20 08:46] LABS: #Eosinphils 0.1 thou/uL (0.0-0.7); #Lymphocytes 0.9 thou/uL (1.20-3.40); #Monocytes 0.7 thou/uL (0.11-0.59); #Neutrophils 8.4 thou/uL (1.40-6.50); %Basophils 0.4 % (0.0-1.0); %Eosinophils 0.8 % (0.0-10.0); %Lymphocytes 8.6 % (21.0-51.0); %Monocytes 7.1 % (0.0-10.0); %Neutrophils 83.1 % (42.0-75.0); Hemoglobin 9.7 g/dL (14.0-18.0); Mean Corpuscular HGB CONC 30.5 g/dL (32.0-36.0); Mean Corpuscular Hemoglobin 29.1 pg (27.0-31.0); Mean Corpuscular Volume 95.7 fL (78.0-98.0); Mean Platelet Volume 9.2 fL (7.4-10.4); Platelet Count 238 thou/uL (130-400); RBC Distribution Width 14.1 % (11.5-14.5); Red Blood Cell (RBC) Count 3.33 mill/uL (4.70-6.10); White Blood Cell (WBC) Count 10.1 thou/uL (4.8-10.8)
[2018-06-20 09:20] LABS: ALT (SGPT) 8 U/L (8-55); AST (SGOT) 10 U/L (5-34); Albumin 3.4 g/dL (3.4-4.8); Alkaline Phosphatase 89 U/L (40-150); Anion Gap 19 mmol/L (10-20); BUN (Urea Nitrogen) 37 mg/dL (8.4-25.7); Bilirubin, Total 0.8 mg/dL (0.2-1.2); CK (CPK) 82 U/L (30-200); Calc. Creatinine Clearance 0 mL/min (70-130); Calcium 8.3 mg/dL (7.8-10.44); Carbon Dioxide 25 mmol/L (23-31); Chloride 100 mmol/L (98-107); Estimated GFR-MDRD 8; Globulin 3.2 g/dL (2.4-3.5); Glucose 166 mg/dL (83-110); Potassium 4.5 mmol/L (3.5-5.1); Protein, Total 6.6 g/dL (5.8-8.1); Sodium 139 mmol/L (136-145)
--- NOTE | 2018-06-20 09:28 | RAD ---
PORTABLE CHEST: Date: 06/20/18 HISTORY: Shortness of breath. COMPARISON: 01/02/18 study. FINDINGS: Heart size is within normal limits. There are atherosclerotic changes of the aorta. There are increas ed predominantly parahilar alveolar lung changes. Appearance is most suggestive of pulmonary edema, l ess likely some type of diffuse pneumonia. IMPRESSION: Parahilar interstitial and alveolar lung change, probably related to pulmonary edema, less likely on the basis of a diffuse pneumonia. POS: ADA
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
[2018-06-20 14:17] LABS: Troponin I 0.037 ng/mL (< 0.028)
[2018-06-20 16:20] LABS: Troponin I 0.032 ng/mL (< 0.028)
[2018-06-20 16:58] LABS: HBSAg Index 0.32 S/CO (0-0.99); Hep B Surf Ag Non-Reactive S/CO (NonReactive)
[2018-06-20] MEDS ORDERED: Ondansetron ODT 4 MG TAB SL PRN (18:42)
[2018-06-20] MEDS ORDERED: Acetaminophen 325 MG TAB PO PRN (18:42)
[2018-06-20] MEDS ORDERED: Ondansetron PF 4 MG/2 ML Vial IVP PRN (18:42)
[2018-06-20] MEDS ORDERED: Dextrose 5% in Water 1,000 ML IV PRN (20:56)
[2018-06-20] MEDS ORDERED: Dextrose 50% Abboject 50 ML SYRINGE SLOW IVP PRN (20:56)
[2018-06-20] MEDS ORDERED: HumaLOG 300 UNITS/3 ML VIAL SC PRN (20:56)
[2018-06-20 20:58] VITALS: BMI 28.5
[2018-06-20] MEDS ORDERED: Furosemide 40 MG/4 ML VIAL IVP SCH (21:00)
[2018-06-20] MEDS: Heparin 5,000 UNITS/ML VIAL SC SCH (21:08)
[2018-06-20 21:24] LABS: Hemoglobin A1c 5.6 % (4.0-6.0)
[2018-06-21 05:54] LABS: Anion Gap 17 mmol/L (10-20); BUN (Urea Nitrogen) 23 mg/dL (8.4-25.7); Calc. Creatinine Clearance 15 mL/min (70-130); Calcium 8.8 mg/dL (7.8-10.44); Carbon Dioxide 28 mmol/L (23-31); Chloride 98 mmol/L (98-107); Estimated GFR-MDRD 12; Glucose 119 mg/dL (83-110); Potassium 4.5 mmol/L (3.5-5.1); Sodium 138 mmol/L (136-145)
--- NOTE | 2018-06-21 06:27 | PDOC.FM ---
- Subjective Subjective: Reports improvement in shortness of breath after dialysis yesterday. Was able to lay down to sleep overnight. Denies fevers, chills. Cough improved. Urinated multiple times overnight - Objective MAR Reviewed: Yes Vital Signs & Weight: Vital Signs (12 hours) Temp Pulse Resp BP Pulse Ox 06/21/18 03:32 98.5 F 80 17 136/62 92 L 06/20/18 20:46 98.2 F 96 18 141/63 H 95 06/20/18 20:09 95 Weight Weight 75.614 kg I&O: 06/19/18 06/20/18 06/21/18 06:59 06:59 06:59 Intake Total 400 Output Total 100 Balance 300 Result Diagrams: 06/20/18 08:35 06/21/18 05:00 Phys Exam - Physical Examination Constitutional: NAD HEENT: moist MMs Neck: supple faint crackles. Decreased breath sounds diffusely, Much improved from yeste Cardiovascular: RRR systolic murmur Gastrointestinal: soft, non-tender, positive bowel sounds Musculoskeletal: no edema Right BKA Neurological: non-focal Psychiatric: normal affect, A&O x 3 Skin: no rash Dx/Plan (1) Coronary artery disease Code(s): I25.10 - ATHSCL HEART DISEASE OF [place] CORONARY ARTERY W/O ANG PCTRS Status: Acute Qualifiers: Coronary Disease-Associated Artery/Lesion type: [place] artery [place] vs. transplanted heart: [place] heart Associated angina: without angina Qualified Code(s): I25.10 - Atherosclerotic heart disease of [place] coronary artery without angina pectoris (2) Hemodialysis access, AV graft Code(s): Z99.2 - DEPENDENCE ON RENAL DIALYSIS Status: Acute (3) Hemodialysis patient Code(s): Z99.2 - DEPENDENCE ON RENAL DIALYSIS Status: Acute (4) Volume overload Code(s): E87.70 - FLUID OVERLOAD, UNSPECIFIED Status: Acute (5) Anemia of renal disease Code(s): D63.1 - ANEMIA IN CHRONIC KIDNEY DISEASE Status: Chronic (6) DM type 2 (diabetes mellitus, type 2) Status: Chronic Qualifiers: Diabetes mellitus nursing home insulin use: without nursing home use Diabetes mellitus complication status: with kidney complications Chronic kidney disease stage: on chronic dialysis (7) ESRD (end stage renal disease) Code(s): N18.6 - END STAGE RENAL DISEASE Status: Chronic (8) Hypertension Code(s): I10 - ESSENTIAL (PRIMARY) HYPERTENSION Status: Chronic (9) Hypothyroidism Code(s): E03.9 - HYPOTHYROIDISM, UNSPECIFIED Status: Chronic Qualifiers: Hypothyroidism type: unspecified Qualified Code(s): E03.9 - Hypothyroidism , unspecified - Plan Plan: Mr Gonzalez is a 72yo male with pmh of CAD, DMII, hx of [place], HTN, HFpEF and ESRD on HD MWF presenting with volume overload ESRD on HD MWF with pulmonary congestion 2/2 volume overload - CXR: pulm edema - Dr Barrera, nephrology consulted from ED. Apprec recs. Dialysis yesterday with plan again today - Continue to monitor resp status, currently on 2L NC. Wean O2 as tolerated. Keep O2 sats >94% - Strict I&Os - Daily wts, renal high protein diet with 1500ml fluid restriction - Echo to eval for worsening cardiac function DMII - A1c 5.6 - CC diet - ACHS accuchecks, mild SSI, hypoglycemic protocol HLD - Continue home meds HTN - Continue home meds CAD - Continue home meds Code Status: FULL DVT ppx: Heparin PCP: [facility] Addendum - Attending - Attending Attestation Date/Time: 06/21/18 1002 I personally evaluated the patient and discussed the management with Dr. Kerr. I agree with the History, Examination, Assessment and Plan documented above with any addition or exceptions noted below. The patient was seen in dialysis. He had some shortness of breath this morning but is starting to feel better.
[2018-06-21] MEDS ORDERED: Heparin 1,000 UNITS/ML VIAL ONE (11:11)
[2018-06-21] MEDS: Heparin 5,000 UNITS/ML VIAL SC SCH ×3 (11:28→20:05)
[2018-06-21] MEDS: Gabapentin 300 MG CAP PO SCH ×2 (16:30→20:04)
[2018-06-21] MEDS: Carvedilol 6.25 MG TAB PO SCH (20:05)
[2018-06-21] MEDS: Pantoprazole 40 MG GRANULES PACKET PO SCH (20:05)
[2018-06-21] MEDS ORDERED: Non-Formulary Item 1 EACH (Pantoprazole Sodium [Pantoprazole Sodium] 20 MG) PO SCH (21:00)
[2018-06-22 05:43] LABS: Anion Gap 18 mmol/L (10-20); BUN (Urea Nitrogen) 22 mg/dL (8.4-25.7); Calc. Creatinine Clearance 15 mL/min (70-130); Calcium 8.8 mg/dL (7.8-10.44); Carbon Dioxide 25 mmol/L (23-31); Chloride 96 mmol/L (98-107); Estimated GFR-MDRD 13; Glucose 125 mg/dL (83-110); Potassium 4.5 mmol/L (3.5-5.1); Sodium 134 mmol/L (136-145)
--- NOTE | 2018-06-22 06:33 | PDOC.FM ---
- Subjective Subjective: NAEO. Patient states he feels well this AM. Reports continued improvement in respiratory status and says he no longer has orthopnea. Denies any chest pain, fever/chills, LE edema, or N/V/D. - Objective MAR Reviewed: Yes Vital Signs & Weight: Vital Signs (12 hours) Temp Pulse Resp BP BP Pulse Ox 06/22/18 03:24 97.4 F L 70 18 144/60 H 96 06/21/18 20:11 94 L 06/21/18 20:05 122/60 06/21/18 19:54 98.2 F 92 16 122/60 94 L Weight Weight 71.668 kg I&O: 06/20/18 06/21/18 06/22/18 06:59 06:59 06:59 Intake Total 400 Output Total 100 Balance 300 Result Diagrams: 06/20/18 08:35 06/22/18 05:16 Radiology Reviewed by me: Yes (ECHO: EF of 35-40% w/ diastolic dysfunction) Phys Exam - Physical Examination Constitutional: NAD HEENT: moist MMs, sclera anicteric Neck: supple, full ROM Respiratory: no wheezing, no rales, no rhonchi, clear to auscultation bilateral Cardiovascular: RRR 3/6 systolic murmur heard best at R sternal border Musculoskeletal: no edema, pulses present Neurological: non-focal, moves all 4 limbs Psychiatric: normal affect, A&O x 3 Skin: no rash, normal turgor Dx/Plan (1) Coronary artery disease Code(s): I25.10 - ATHSCL HEART DISEASE OF [place] CORONARY ARTERY W/O ANG PCTRS Status: Chronic Qualifiers: Coronary Disease-Associated Artery/Lesion type: [place] artery [place] vs. transplanted heart: [place] heart Associated angina: without angina Qualified Code(s): I25.10 - Atherosclerotic heart disease of [place] coronary artery without angina pectoris (2) Hemodialysis patient Code(s): Z99.2 - DEPENDENCE ON RENAL DIALYSIS Status: Chronic (3) Anemia of renal disease Code(s): D63.1 - ANEMIA IN CHRONIC KIDNEY DISEASE Status: Chronic (4) DM type 2 (diabetes mellitus, type 2) Status: Chronic Qualifiers: Diabetes mellitus chcf insulin use: without chcf use Diabetes mellitus complication status: with kidney complications Chronic kidney disease stage: on chronic dialysis (5) ESRD (end stage renal disease) on dialysis Code(s): N18.6 - END STAGE RENAL DISEASE; Z99.2 - DEPENDENCE ON RENAL DIALYSIS Status: Chronic (6) Hypertension Code(s): I10 - ESSENTIAL (PRIMARY) HYPERTENSION Status: Chronic (7) Hypothyroidism Code(s): E03.9 - HYPOTHYROIDISM, UNSPECIFIED Status: Chronic Qualifiers: Hypothyroidism type: unspecified Qualified Code(s): E03.9 - Hypothyroidism , unspecified (8) Secondary hyperparathyroidism of renal origin Code(s): N25.81 - SECONDARY HYPERPARATHYROIDISM OF RENAL ORIGIN Status: Chronic - Plan Plan: Mr Gonzalez is a 72YOM with a pmh of CAD, DMII, hx of [place], HTN, HFpEF and ESRD on MWF HD presenting with volume overload. ESRD on HD MWF with pulmonary congestion 2/2 volume overload - CXR on admission significant for pulm edema. - Dr Barrera, nephrology, consulted from ED. Apprec recs. Recommended 3 dialysis sessions with plan for last session again today. However, patient significantly improved after 2 sessions so will touch base with Bruce today to relay patient' s status and decide if patient is ok to discharge and resume regular HD schedule rather than being dialyzed again today. - Continue to monitor resp status. Now off of supplemental O2 & maintaining sats of 94-98% on RA in last 24 hours. - Will continue strict I&Os, daily wts, & renal high protein diet with 1500ml QD fluid restriction - Likely a CHF component to overload as well as ECHO done yesterday showed worsening of EF down to 35-40% & noted diastolic dysfunction as well. Will consult CHF team for evaluation prior to discharge. DMII - A1c 5.6 - CC diet - ACHS accuchecks, mild SSI, hypoglycemic protocol HLD - Continue home meds HTN - Continue home meds CAD - Continue home meds Code Status: FULL DVT ppx: Heparin PCP: [facility] Dispo: Possible d/c home today with close follow-up with cardiology and nephrology. Addendum - Attending - Attending Attestation Date/Time: 06/22/18 1159 I personally evaluated the patient and discussed the management with Dr. Funes. I agree with the History, Examination, Assessment and Plan documented above with any addition or exceptions noted below. Pt is sitting up in bed and states "I feel 100% better." Will talk with Dr. Barrera to see if he was planning further dialysis, if not he can d/c home. Pt' s echo shows a decrease in systolic function and he has good follow-up with Dr. Gonsales, his clay press operator.
[2018-06-22 07:56] VITALS: TEMP 97.8
[2018-06-22] MEDS: Carvedilol 6.25 MG TAB PO SCH (08:27)
[2018-06-22] MEDS: Pantoprazole 40 MG GRANULES PACKET PO SCH (08:28)
[2018-06-22] MEDS: Gabapentin 300 MG CAP PO SCH ×2 (08:28→15:01)
[2018-06-22] MEDS: Heparin 5,000 UNITS/ML VIAL SC SCH ×2 (08:28→15:02)
[2018-06-22 08:37] VITALS: BP 122/60
[2018-06-22] MEDS ORDERED: NIFEdipine XL 60 MG TAB PO SCH (09:00)
[2018-06-22] MEDS ORDERED: Levothyroxine Sodium 75 MCG TAB PO SCH (09:00)
[2018-06-22] MEDS ORDERED: Atorvastatin Calcium 40 MG TAB PO SCH (09:00)
[2018-06-22] MEDS ORDERED: Clopidogrel Bisulfate 75 MG TAB PO SCH (09:00)
[2018-06-22] MEDS ORDERED: Allopurinol 100 MG TAB PO SCH (09:00)
[2018-06-22] MEDS ORDERED: Folic Acid 1 MG TAB PO SCH (09:00)
[2018-06-22] MEDS ORDERED: Non-Formulary Item 1 EACH (Cholecalciferol (Vitamin D3) [Vitamin D3] 2,000 UNIT) PO SCH (09:00)
--- NOTE | 2018-06-25 03:52 | PQF ---
[employer] Inspector Crystal Reports Winform Viewer SHON BENTLEY HUGO FOWLER MD [id number] CLINICAL DOCUMENTATION CLARIFICATION FORM: POST DISCHARGE Addendum to original discharge summary date: ____ Late entry note date: __ DATE: 06-25-2018 ATTN: Hugo Quintanilla Please exercise your independent, professional judgment in responding to the clarification form. Clinical indicators are provided on the bottom of this form for your review Based on your clinical judgment kindly clarify the acuity of the patients Diastolic CHF. Please check appropriate box(s): DIASTOLIC HEART FAILURE: ACUITY [ ] Acute [ x ] Acute on Chronic [ ] Chronic [ ] Other diagnosis please specify: [ ] Unable to determine In addition, please specify: Present on Admission (POA): [ x ] Yes [ ] No [ ] Unable to determine For continuity of documentation, please document condition throughout progress notes and discharge summary. Thank You. CLINICAL INDICATORS: H&P 05/ Pg1 by Dr. Kerr Reports SOB and weakness that worsened this morning which is what brought him to ED. H&P 05/ Pg5 by Dr. Kerr ESRD on HD with pulmonary congestion 2/2 volume overload H&P 05/ Pg6-[address] Kerr Acute hypoxic respiratory distress 2/2 pulmonary edema 2/2 ESRD vs HF exacerbation H&P 05/ Pg6-[address] Kerr CXR with pulmonary edema PN 05/ pg3 by Dr. Funes Likely a CHF component to overload as well as echo done yesterday showed worsening of EF down to 35-40% and noted diastolic dysfunction as well RISKS: H&P Dr. Kerr- CAD H&P Dr. Kerr-DM II H&P Dr. Kerr-HTN H&P Dr. Kerr-HfpEF H&P Dr. Kerr-ESRD TREATMENTS: H&P by Dr. Kerr 03/23- 2L NC H&P by Dr. Kerr 03/23-Fluid restriction H&P by Dr. Kerr 03/23-Daily Weighs Imaging by Dr. Dunn Chest Xray Echocardiogram by Dr. Escobar 06/21 Dialysis treatment (This form is maintained as a part of the permanent medical record) 2014 [employer]. All Rights Reserved Sharri [email or web address] [not provided] MTDD
== END 2018-06-22 18:50 | disposition home or self-care (01) | DRG 291 ==
LOC: ERS 08:10 → ERHOLD 14:27 → 2NO 18:42
PROVIDERS: ADMIT Family Medicine; ATTEND Family Medicine
PROC: 5A1D70Z Performance of Urinary Filtration, Intermittent, Less than 6 Hours Per Day (ICD-10-PCS; principal; 2018-06-20)
DX: I13.0 Hypertensive heart and chronic kidney disease with heart failure and stage 1 through stage 4 chronic kidney disease, or unspecified chronic kidney disease (principal); N18.6 End stage renal disease; I50.33 Acute on chronic diastolic (congestive) heart failure; N25.81 Secondary hyperparathyroidism of renal origin; I50.32 Chronic diastolic (congestive) heart failure; I25.10 Atherosclerotic heart disease of native coronary artery without angina pectoris; E11.22 Type 2 diabetes mellitus with diabetic chronic kidney disease; I25.2 Old myocardial infarction; D63.1 Anemia in chronic kidney disease; E03.9 Hypothyroidism, unspecified; E78.5 Hyperlipidemia, unspecified; J44.9 Chronic obstructive pulmonary disease, unspecified; Z90.49 Acquired absence of other specified parts of digestive tract; Z79.899 Other long term (current) drug therapy; Z89.511 Acquired absence of right leg below knee; Z99.2 Dependence on renal dialysis
CPT/HCPCS: 36415; 36416; 71045; 80048; 80053; 82550; 83036; 84145; 84484; 85025; 87340; 93005; 93306; 94760; J1644; J1940

== ENCOUNTER 2018-08-08 22:23 | Inpatient (IN) | payer MEDICARE ==
--- NOTE | 2018-08-08 23:12 | RAD ---
PORTABLE CHEST: 08/08/18 COMPARISON: 06/20/18 study. HISTORY: Dyspnea. Heart size appears slightly enlarged. Some of which may be related to the portable technique. There a re atherosclerotic changes of the aorta. Mild vascular engorgement but no overt failure. IMPRESSION: Borderline heart size with mild vascular prominence but no overt failure. POS: OFF
[2018-08-08 23:46] LABS: #Eosinphils 0.2 thou/uL (0.0-0.7); #Lymphocytes 1.1 thou/uL (1.20-3.40); #Monocytes 0.9 thou/uL (0.11-0.59); #Neutrophils 4.9 thou/uL (1.40-6.50); %Basophils 0.6 % (0.0-1.0); %Eosinophils 3.2 % (0.0-10.0); %Lymphocytes 14.9 % (21.0-51.0); %Monocytes 12.4 % (0.0-10.0); %Neutrophils 68.9 % (42.0-75.0); Hemoglobin 10.1 g/dL (14.0-18.0); Mean Corpuscular HGB CONC 33.4 g/dL (32.0-36.0); Mean Corpuscular Hemoglobin 32.8 pg (27.0-31.0); Mean Corpuscular Volume 98.3 fL (78.0-98.0); Mean Platelet Volume 7.8 fL (7.4-10.4); Platelet Count 184 thou/uL (130-400); RBC Distribution Width 14.8 % (11.5-14.5); Red Blood Cell (RBC) Count 3.07 mill/uL (4.70-6.10); White Blood Cell (WBC) Count 7.1 thou/uL (4.8-10.8)
[2018-08-09 00:08] LABS: ALT (SGPT) 13 U/L (8-55); AST (SGOT) 18 U/L (5-34); Albumin 3.5 g/dL (3.4-4.8); Alkaline Phosphatase 83 U/L (40-150); Anion Gap 20 mmol/L (10-20); BUN (Urea Nitrogen) 26 mg/dL (8.4-25.7); Bilirubin, Total 0.5 mg/dL (0.2-1.2); CK (CPK) 39 U/L (30-200); Calc. Creatinine Clearance 0 mL/min (70-130); Calcium 8.3 mg/dL (7.8-10.44); Carbon Dioxide 21 mmol/L (23-31); Chloride 101 mmol/L (98-107); Estimated GFR-MDRD 9; Globulin 3.3 g/dL (2.4-3.5); Glucose 103 mg/dL (83-110); Lipase 158 U/L (8-78); Potassium 4.2 mmol/L (3.5-5.1); Protein, Total 6.8 g/dL (5.8-8.1); Sodium 138 mmol/L (136-145)
[2018-08-09 00:29] LABS: CKMB 0.7 ng/mL (0-6.6)
[2018-08-09] MEDS ORDERED: Aspirin Chewable 81 MG TAB ONE (01:28)
[2018-08-09 03:14] LABS: Troponin I 0.037 ng/mL (< 0.028)
[2018-08-09 06:54] LABS: Troponin I 0.047 ng/mL (< 0.028)
[2018-08-09] MEDS ORDERED: HumaLOG 300 UNITS/3 ML VIAL SC PRN ×2 (08:07)
[2018-08-09] MEDS ORDERED: hydrALAZINE 20 MG/ML VIAL SLOW IVP PRN (08:07)
[2018-08-09] MEDS ORDERED: Dextrose 50% Abboject 50 ML SYRINGE SLOW IVP PRN (08:07)
[2018-08-09] MEDS ORDERED: Dextrose 5% in Water 1,000 ML IV PRN (08:07)
--- NOTE | 2018-08-09 10:07 | HP ---
PRIMARY CARE PHYSICIAN: Dr. Edgar Del Rio. CHIEF COMPLAINT: Generalized weakness. HISTORY OF PRESENT ILLNESS: The history of present illness is taken primarily from the patient in addition to reviewing the emergency room records as the family has left. The patient says that his daughter had to leave and take her home so he could work. Mr. Gonzalez is a 72-year-old gentleman, who has a history of end-stage renal disease, diabetes, and hypertension. He says that he has been extremely weak and he describes the problem as it started off like an explosion in his body that left him weak in both of his arms and legs and now he is unable to ambulate and has been essentially bedbound. Apparently, this all happened when he was in [place]. He went to the hospital there and apparently suffered a stroke while he was in the hospital. The patient says that he was brought here because it was easier for the family to come visit him and he would like to be placed in rehab so that he could strengthen himself and better ambulate. At this time, he has no complaints other than feeling weak and he says a little bit hot, but denies any fevers. No chills, no known sweats, no chest pain, no shortness of breath, no nausea, no vomiting, etc. REVIEW OF SYSTEMS: CONSTITUTIONAL: Again, no fevers or chills. No night sweats. No weight loss. HEENT: No headaches. No dizziness. No visual changes. No sore throat or rhinorrhea. NECK: No neck pain. No adenopathy. PULMONARY: No hemoptysis. No cough. No wheezing. CARDIOVASCULAR: He denies any chest pain. No shortness of breath. No PND. No orthopnea. GASTROINTESTINAL: He denies any abdominal pain. No nausea. No vomiting. No change in bowels. GENITOURINARY: No urinary frequency or hematuria. No hesitancy. NEUROLOGIC: He says that he is weak in both upper extremities as well as his left leg. He has an amputation on the right. However, he is alert and oriented to person, place, and time and situation. SKIN AND INTEGUMENT: He denies any skin changes. No rash. ENDOCRINE: No heat or cold intolerance. PAST MEDICAL HISTORY: Significant for end-stage renal disease, on hemodialysis; diabetes mellitus; hypertension; he has a history of ischemic colitis; coronary artery disease, status post [place]; and recently suffered a stroke about a week ago at a hospital in [place]. PAST SURGICAL HISTORY: He has had a right BKA as well as an umbilical hernia repair. ALLERGIES: NO KNOWN DRUG ALLERGIES. SOCIAL HISTORY: He is a nonsmoker and nondrinker. He lives with family. He is a full code. FAMILY HISTORY: No history of any heritable diseases. MEDICATIONS: Include; 1. Vitamin D3 of 2000 units daily. 2. Adalat CC 30 mg daily. 3. Atorvastatin 20 mg at bedtime. 4. Levothyroxine 75 mcg daily. 5. Folic acid 1 mg daily. PHYSICAL EXAMINATION: GENERAL: He is alert and oriented. He appears to be in no acute distress. VITAL SIGNS: Blood pressure is 140/80, heart rate 88, respiratory rate of 16, and temperature is 98.3. HEENT: Pupils are equal, round, and reactive to light. Extraocular muscles are intact. His sclerae are anicteric. Throat; there is no erythema. No exudates. He has poor dentition. NECK: No adenopathy. He had bilateral bruits. LUNGS: Clear to auscultation. There are no wheezing, no rales, no rhonchi. CARDIOVASCULAR: He has a normal S1 and S2. There is no S3 or S4. He did have a grade 2/6 systolic murmur, which radiated into the axilla. ABDOMEN: Soft. It is nontender and nondistended. Positive for bowel sounds. There is no rebound. No guarding. No organomegaly. EXTREMITIES: There is no edema. His stump site is good. There is a callus on the right stump. No skin breakdown. NEUROLOGIC: He did have some generalized weakness and discoordination in both his right and left upper extremity. He had some difficulty with [id number] as well as he had some past-pointing. SKIN AND INTEGUMENT: Again, the skin change on the stump with a callus, but no other rashes. LABORATORY DATA: White blood cell count 7.1, hemoglobin 10.1, hematocrit is 30.2, and platelet count was 184. Sodium 138, potassium 4.2, chloride is 101, CO2 is 21, BUN of 26, creatinine 6.01, and glucose is 103. Troponin 0.034. Natriuretic peptide was elevated at 2472. ASSESSMENT: This is a pleasant 72-year-old gentleman, who presents to the hospital with generalized weakness, which is more or less subacute. It appears that he has recently suffered a stroke in [place] and has gotten progressively weaker since then. It is unclear what sort of rehabilitation he had at that time. It does not appear that there is anything acute probably going on with him now. There does not appear to be any active infection. His troponins were slightly elevated but they tend to run a little bit high in review of his records. He may have a mild bit of failure, but this should easily be corrected with dialysis. 1. Generalized weakness. This is likely the result of the recent stroke. We will consult PT and OT and see if we can obtain the records from [place] and consult Case Management for rehab screen. 2. End-stage renal disease, on hemodialysis. We will consult Dr. Barrera, his purchasing supervisor for his maintenance hemodialysis and renal dose his medications. 3. Diabetes mellitus. We need to reconcile and restart his home medications and also place him on a sliding scale. 4. Hypertension. Again reconcile and restart home medicines as well as p.r.n. medications. 5. He will be placed on deep venous thrombosis and gastrointestinal prophylaxis. Job ID: [id number]
[2018-08-09 10:26] LABS: HBSAg Index 0.64 S/CO (0-0.99); Hep B Surf Ag Non-Reactive S/CO (NonReactive)
[2018-08-09] MEDS: Heparin 5,000 UNITS/ML VIAL SC SCH ×2 (10:38→19:45)
[2018-08-09] MEDS ORDERED: Heparin 1,000 UNITS/ML VIAL ONE (11:11)
[2018-08-09] MEDS: Acetaminophen 325 MG TAB PO PRN (19:47)
[2018-08-10 06:18] LABS: #Basophils 0.1 thou/uL (0.0-0.2); #Eosinphils 0.2 thou/uL (0.0-0.7); #Lymphocytes 1.1 thou/uL (1.20-3.40); #Monocytes 0.6 thou/uL (0.11-0.59); #Neutrophils 4.4 thou/uL (1.40-6.50); %Basophils 0.8 % (0.0-1.0); %Eosinophils 3.1 % (0.0-10.0); %Lymphocytes 17.4 % (21.0-51.0); %Monocytes 9.8 % (0.0-10.0); Hemoglobin 10.5 g/dL (14.0-18.0); Mean Corpuscular HGB CONC 32.8 g/dL (32.0-36.0); Mean Corpuscular Hemoglobin 32.3 pg (27.0-31.0); Mean Corpuscular Volume 98.6 fL (78.0-98.0); Mean Platelet Volume 7.9 fL (7.4-10.4); Platelet Count 164 thou/uL (130-400); RBC Distribution Width 14.7 % (11.5-14.5); Red Blood Cell (RBC) Count 3.26 mill/uL (4.70-6.10); White Blood Cell (WBC) Count 6.3 thou/uL (4.8-10.8)
[2018-08-10 06:40] LABS: Anion Gap 14 mmol/L (10-20); BUN (Urea Nitrogen) 17 mg/dL (8.4-25.7); Calc. Creatinine Clearance 14 mL/min (70-130); Calcium 8.7 mg/dL (7.8-10.44); Carbon Dioxide 28 mmol/L (23-31); Chloride 101 mmol/L (98-107); Estimated GFR-MDRD 13; Glucose 86 mg/dL (83-110); Potassium 3.7 mmol/L (3.5-5.1); Sodium 139 mmol/L (136-145)
[2018-08-10] MEDS: Heparin 5,000 UNITS/ML VIAL SC SCH ×2 (08:46→21:14)
--- NOTE | 2018-08-10 15:02 | PDOC.PN ---
- Subjective Encounter Start Date: 08/10/18 Encounter Start Time: 14:40 Subjective: f/u s/p CVA with general weakness, encephalopathy. Family -: reports some waxing and waning confusion and hallucinations. -: Overall improved from 2-3 days prior. - Objective Resuscitation Status - Order Detail: 08/09/18 07:40 Resuscitation Status Routine Resuscitation Status: FULL: Full Resuscitation MAR Reviewed: Yes Vital Signs & Weight: Vital Signs (12 hours) Temp Pulse Resp BP Pulse Ox 08/10/18 11:55 98.4 F 89 20 89/51 L 93 L 08/10/18 08:00 95 08/10/18 07:45 96.6 F L 82 18 124/59 L 95 08/10/18 04:00 97.9 F 82 20 106/53 L 99 Weight Admit Weight 157 lb Weight 153 lb 9.6 oz I&O: 08/09/18 08/10/18 08/11/18 06:59 06:59 06:59 Intake Total 720 350 Output Total 2000 Balance -1280 350 Result Diagrams: 08/10/18 05:44 08/10/18 05:44 Additional Labs: Accuchecks 08/10/18 08/10/18 08/09/18 10:29 05:43 20:08 POC Glucose 95 89 175 H Laboratory Tests 12/13/15 03/29/16 12/24/17 14:00 21:23 02:25 Hgb B-Natriuretic Peptide 952.3 H 418.8 H 1333.8 H Lipase 08/08/18 08/08/18 08/08/18 23:39 23:39 23:39 Hgb 10.1 L B-Natriuretic Peptide 2472.0 H Lipase 158 H Radiology Reviewed by me: Yes (PCXR - mild vasc prominence) EKG Reviewed by me: Yes (Tele - SR) Phys Exam - Physical Examination tearful, awake, states a few words HEENT: PERRLA, sclera anicteric, oral pharynx no lesions Neck: no nodes, no JVD, supple, full ROM Respiratory: no wheezing, no rales, no rhonchi, clear to auscultation bilateral S1, S2 Cardiovascular: RRR, no significant murmur, no rub, gallop Gastrointestinal: soft, non-tender, no distention, positive bowel sounds R BKA intact Musculoskeletal: no edema, pulses present Neurological: normal sensation, moves all 4 limbs Skin: normal turgor, cap refill <2 seconds Dx/Plan (1) CVA (cerebral vascular accident) Code(s): I63.9 - CEREBRAL INFARCTION, UNSPECIFIED Status: Acute Comment: Subacute CVA, supportive mgmt, Rehab evaluation, PT/OT for mobilization (2) Acute metabolic encephalopathy Code(s): G93.41 - METABOLIC ENCEPHALOPATHY Status: Acute Comment: Likely multifactorial including ESRD, recent CVA, limited mobility and recent hospitalization, supportive mgmt (3) ESRD (end stage renal disease) on dialysis Code(s): N18.6 - END STAGE RENAL DISEASE; Z99.2 - DEPENDENCE ON RENAL DIALYSIS Status: Chronic Comment: Followed by Nephrology. Continuing HD. (4) Generalized weakness Code(s): R53.1 - WEAKNESS Status: Chronic Comment: PT/OT for mobilization, fall risk precautions (5) Hypertension Code(s): I10 - ESSENTIAL (PRIMARY) HYPERTENSION Status: Chronic Qualifiers: Hypertension type: essential hypertension Qualified Code(s): I10 - Essential (primary) hypertension Comment: Resume home BP regimen, serial monitoring - Plan plan discussed w/ family, PT/OT, healthcare social worker, DVT proph w/SCDs Stable currently -: HD per Renal service -: Rehab screening in progress -: Resume home BP regimen -: AM lab: BMP * .
[2018-08-10] MEDS: Gabapentin 300 MG CAP PO SCH ×2 (16:24→21:13)
--- NOTE | 2018-08-10 16:42 | EKG ---
Test Reason : Blood Pressure : / mmHG Vent. Rate : 080 BPM Atrial Rate : 080 BPM P-R Int : 172 ms QRS Dur : 104 ms QT Int : 422 ms P-R-T Axes : 012 -11 148 degrees QTc Int : 486 ms Normal sinus rhythm Left ventricular hypertrophy with repolarization abnormality Prolonged QT Abnormal ECG Confirmed by COSME CAO, ROLAND ([id number]), acquisitions editor MISHEL PEDRAZA ([id number]) on 08/10/2018 4:42:24 PM Referred By: Confirmed By:ROLAND AGUIAR MD
[2018-08-10] MEDS: Carvedilol 6.25 MG TAB PO SCH (21:14)
[2018-08-11 04:08] LABS: Anion Gap 15 mmol/L (10-20); BUN (Urea Nitrogen) 13 mg/dL (8.4-25.7); Calc. Creatinine Clearance 17 mL/min (70-130); Calcium 9.1 mg/dL (7.8-10.44); Carbon Dioxide 29 mmol/L (23-31); Chloride 97 mmol/L (98-107); Estimated GFR-MDRD 16; Glucose 109 mg/dL (83-110); Potassium 3.8 mmol/L (3.5-5.1); Sodium 137 mmol/L (136-145)
[2018-08-11] MEDS: Levothyroxine Sodium 75 MCG TAB PO SCH (05:14)
[2018-08-11] MEDS: Carvedilol 6.25 MG TAB PO SCH (10:06)
[2018-08-11] MEDS: Clopidogrel Bisulfate 75 MG TAB PO SCH (10:06)
[2018-08-11] MEDS: Allopurinol 100 MG TAB PO SCH (10:06)
[2018-08-11] MEDS: Folic Acid 1 MG TAB PO SCH (10:06)
[2018-08-11] MEDS: Gabapentin 300 MG CAP PO SCH ×3 (10:07→21:12)
[2018-08-11] MEDS: Heparin 5,000 UNITS/ML VIAL SC SCH ×2 (10:07→21:12)
[2018-08-11 12:45] LABS: #Basophils 0.1 thou/uL (0.0-0.2); #Eosinphils 0.2 thou/uL (0.0-0.7); #Lymphocytes 1.2 thou/uL (1.20-3.40); #Monocytes 0.6 thou/uL (0.11-0.59); #Neutrophils 4.7 thou/uL (1.40-6.50); %Basophils 0.9 % (0.0-1.0); %Eosinophils 3.7 % (0.0-10.0); %Lymphocytes 17.1 % (21.0-51.0); %Monocytes 8.8 % (0.0-10.0); %Neutrophils 69.5 % (42.0-75.0); Hemoglobin 10.3 g/dL (14.0-18.0); Mean Corpuscular HGB CONC 32.8 g/dL (32.0-36.0); Mean Corpuscular Hemoglobin 32.5 pg (27.0-31.0); Mean Corpuscular Volume 99.1 fL (78.0-98.0); Mean Platelet Volume 8.2 fL (7.4-10.4); Platelet Count 170 thou/uL (130-400); RBC Distribution Width 14.8 % (11.5-14.5); Red Blood Cell (RBC) Count 3.16 mill/uL (4.70-6.10); White Blood Cell (WBC) Count 6.7 thou/uL (4.8-10.8)
--- NOTE | 2018-08-11 12:45 | PDOC.PN ---
- Subjective Encounter Start Date: 08/11/18 Encounter Start Time: 12:40 Subjective: Code Green for hypotension after receiving Coreg. Initially placed in -: Trendelenburg. Started IVF bolus x 2L now. - Objective Resuscitation Status - Order Detail: 08/09/18 07:40 Resuscitation Status Routine Resuscitation Status: FULL: Full Resuscitation MAR Reviewed: Yes Vital Signs & Weight: Vital Signs (12 hours) Temp Pulse Resp BP BP Pulse Ox 08/11/18 10:06 112/53 L 08/11/18 08:00 99.4 F 92 20 112/53 L 96 08/11/18 04:00 98.4 F 88 12 117/58 L 97 Weight Admit Weight 157 lb Weight 152 lb I&O: 08/10/18 08/11/18 08/12/18 06:59 06:59 06:59 Intake Total 720 1050 Output Total 1999 1999 Balance -1280 -950 Result Diagrams: 08/10/18 05:44 08/11/18 03:12 Additional Labs: Accuchecks 08/11/18 08/11/18 08/10/18 10:51 05:35 20:14 POC Glucose 127 H 105 118 H 08/10/18 17:03 POC Glucose 139 H Laboratory Tests 12/13/15 03/29/16 12/24/17 14:00 21:23 02:25 Hgb B-Natriuretic Peptide 952.3 H 418.8 H 1333.8 H Lipase 08/08/18 08/08/18 08/08/18 23:39 23:39 23:39 Hgb 10.1 L B-Natriuretic Peptide 2472.0 H Lipase 158 H Radiology Reviewed by me: Yes (Echo - EF 35-40%, + diast dysfxn) EKG Reviewed by me: Yes (NSR, no acute changes, nl axis) Phys Exam - Physical Examination alert, states a few words, answers questions HEENT: PERRLA, sclera anicteric, oral pharynx no lesions Neck: no nodes, no JVD, supple, full ROM Respiratory: no wheezing, no rhonchi, clear to auscultation bilateral Cardiovascular: RRR, no significant murmur, no rub, gallop Gastrointestinal: soft, non-tender, no distention, positive bowel sounds R BKA Musculoskeletal: no edema, pulses present Neurological: normal sensation, moves all 4 limbs alert, responsive to questions Skin: normal turgor, cap refill <2 seconds Dx/Plan (1) Hypotension Status: Acute Qualifiers: Hypotension type: hypotension due to drug Qualified Code(s): I95.2 - Hypotension due to drugs Comment: Iatrogenic hypotension due to Coreg, hold all BP meds, IVF NS x 2L now , transfer to CCU for close monitoring and potential need for vasopressor support (2) CVA (cerebral vascular accident) Code(s): I63.9 - CEREBRAL INFARCTION, UNSPECIFIED Status: Acute Comment: Subacute CVA, supportive mgmt, Rehab evaluation, PT/OT for mobilization when BP stabilizes (3) Acute metabolic encephalopathy Code(s): G93.41 - METABOLIC ENCEPHALOPATHY Status: Acute Comment: Likely multifactorial including ESRD, recent CVA, limited mobility and recent hospitalization, contribution of hypotension, see above (4) ESRD (end stage renal disease) on dialysis Code(s): N18.6 - END STAGE RENAL DISEASE; Z99.2 - DEPENDENCE ON RENAL DIALYSIS Status: Chronic Comment: Followed by Nephrology. Continuing HD. Last HD , hold HD until stabilizing BP trend (5) Generalized weakness Code(s): R53.1 - WEAKNESS Status: Chronic Comment: PT/OT for mobilization, fall risk precautions (6) Hypertension Code(s): I10 - ESSENTIAL (PRIMARY) HYPERTENSION Status: Chronic Qualifiers: Hypertension type: essential hypertension Qualified Code(s): I10 - Essential (primary) hypertension Comment: Resume home BP regimen, serial monitoring - Plan plan discussed w/ family, PT/OT, social worker health services Transfer to CCU -: IVF NS x 2L now -: Hold all BP medications -: Stat CMP, CBC, EKG -: AM lab: BMP, CBC * Consider Palliative care screening * * Total Critical care time: 35min
[2018-08-11 13:10] LABS: ALT (SGPT) 13 U/L (8-55); AST (SGOT) 17 U/L (5-34); Albumin 3.4 g/dL (3.4-4.8); Alkaline Phosphatase 81 U/L (40-150); Anion Gap 17 mmol/L (10-20); BUN (Urea Nitrogen) 19 mg/dL (8.4-25.7); Bilirubin, Total 0.5 mg/dL (0.2-1.2); Calc. Creatinine Clearance 13 mL/min (70-130); Calcium 8.7 mg/dL (7.8-10.44); Carbon Dioxide 26 mmol/L (23-31); Chloride 96 mmol/L (98-107); Estimated GFR-MDRD 12; Globulin 3.8 g/dL (2.4-3.5); Glucose 111 mg/dL (83-110); Potassium 4.5 mmol/L (3.5-5.1); Protein, Total 7.2 g/dL (5.8-8.1); Sodium 134 mmol/L (136-145)
[2018-08-12] MEDS ORDERED: Sodium Chloride 0.9% 500 ML IVPB SCH (01:30)
[2018-08-12] MEDS: Levothyroxine Sodium 75 MCG TAB PO SCH (06:14)
[2018-08-12 07:31] LABS: Anion Gap 19 mmol/L (10-20); BUN (Urea Nitrogen) 28 mg/dL (8.4-25.7); Calc. Creatinine Clearance 11 mL/min (70-130); Calcium 8.5 mg/dL (7.8-10.44); Carbon Dioxide 19 mmol/L (23-31); Chloride 104 mmol/L (98-107); Estimated GFR-MDRD 10; Glucose 90 mg/dL (83-110); Potassium 4.6 mmol/L (3.5-5.1); Sodium 137 mmol/L (136-145)
[2018-08-12] MEDS: Gabapentin 300 MG CAP PO SCH ×3 (08:07→21:21)
[2018-08-12] MEDS: Clopidogrel Bisulfate 75 MG TAB PO SCH (08:07)
[2018-08-12] MEDS: Folic Acid 1 MG TAB PO SCH (08:07)
[2018-08-12] MEDS: Allopurinol 100 MG TAB PO SCH (08:07)
[2018-08-12] MEDS: Heparin 5,000 UNITS/ML VIAL SC SCH ×2 (08:08→21:21)
[2018-08-12 08:28] LABS: Band 3 % (5-11); Eosinophils 2 % (0-10); Hemoglobin 10.1 g/dL (14.0-18.0); Lymphocytes 18 % (21-51); MDiff Complete? YES; Mean Corpuscular HGB CONC 33.5 g/dL (32.0-36.0); Mean Corpuscular Hemoglobin 32.8 pg (27.0-31.0); Mean Corpuscular Volume 97.9 fL (78.0-98.0); Mean Platelet Volume 8.4 fL (7.4-10.4); Neutrophil 77 % (42-75); Platelet Count 155 thou/uL (130-400); Platelet Morphology Comment Appears Adequate; Polychromasia SLIGHT = 2-3 cells (100X) (0-2/hpf); RBC Distribution Width 14.5 % (11.5-14.5); White Blood Cell (WBC) Count 7.9 thou/uL (4.8-10.8)
[2018-08-12] MEDS ORDERED: Heparin 10,000 UNITS/ 10 ML VIAL ONE (11:00)
--- NOTE | 2018-08-12 16:07 | PDOC.PN ---
- Subjective Encounter Start Date: 08/12/18 Encounter Start Time: 14:00 Subjective: f/u for iatrogenic hypotension. Feels much better overall. BP stabilizing -: per nursing. - Objective Resuscitation Status - Order Detail: 08/09/18 07:40 Resuscitation Status Routine Resuscitation Status: FULL: Full Resuscitation MAR Reviewed: Yes Vital Signs & Weight: Vital Signs (12 hours) Temp Pulse Ox 08/12/18 12:00 97.2 F L 08/12/18 08:00 97.0 F L 08/12/18 07:49 100 Weight Admit Weight 157 lb Weight 156 lb 15.506 oz Most Recent Monitor Data Heart Rate from ECG 83 NIBP 102/60 NIBP BP-Mean 74 Respiration from ECG 20 SpO2 100 I&O: 08/11/18 08/12/18 08/13/18 06:59 06:59 06:59 Intake Total 1050 3080 550 Output Total 2000 0 0 Balance -950 3080 550 Result Diagrams: 08/12/18 07:01 08/12/18 07:01 Additional Labs: Accuchecks 08/12/18 08/12/18 08/11/18 11:26 06:20 21:24 POC Glucose 105 95 109 08/11/18 17:28 POC Glucose 110 Laboratory Tests 12/13/15 03/29/16 12/24/17 14:00 21:23 02:25 Hgb B-Natriuretic Peptide 952.3 H 418.8 H 1333.8 H Lipase 08/08/18 08/08/18 08/08/18 23:39 23:39 23:39 Hgb 10.1 L B-Natriuretic Peptide 2472.0 H Lipase 158 H EKG Reviewed by me: Yes (Tele - SR) Phys Exam - Physical Examination Constitutional: NAD alert, responsive HEENT: PERRLA, sclera anicteric, oral pharynx no lesions Neck: no nodes, no JVD, supple, full ROM Respiratory: no wheezing, no rales, no rhonchi, clear to auscultation bilateral S1, S2 Cardiovascular: RRR, no significant murmur, no rub, gallop Gastrointestinal: soft, non-tender, no distention, positive bowel sounds R BKA with stump intact Musculoskeletal: pulses present Neurological: normal sensation, moves all 4 limbs Skin: normal turgor, cap refill <2 seconds Dx/Plan (1) Hypotension Status: Acute Qualifiers: Hypotension type: hypotension due to drug Qualified Code(s): I95.2 - Hypotension due to drugs Comment: Iatrogenic, improved, hold BP meds another 24-48h (2) CVA (cerebral vascular accident) Code(s): I63.9 - CEREBRAL INFARCTION, UNSPECIFIED Status: Acute Comment: Subacute CVA, supportive mgmt, Rehab evaluation, PT/OT for mobilization when BP stabilizes (3) Acute metabolic encephalopathy Code(s): G93.41 - METABOLIC ENCEPHALOPATHY Status: Acute Comment: Likely multifactorial including ESRD, recent CVA, limited mobility and recent hospitalization, contribution of hypotension, see above (4) ESRD (end stage renal disease) on dialysis Code(s): N18.6 - END STAGE RENAL DISEASE; Z99.2 - DEPENDENCE ON RENAL DIALYSIS Status: Chronic Comment: Followed by Nephrology. Continuing HD. Last HD , hold HD until stabilizing BP trend (5) Generalized weakness Code(s): R53.1 - WEAKNESS Status: Chronic Comment: PT/OT for mobilization, fall risk precautions (6) Hypertension Code(s): I10 - ESSENTIAL (PRIMARY) HYPERTENSION Status: Chronic Qualifiers: Hypertension type: essential hypertension Qualified Code(s): I10 - Essential (primary) hypertension Comment: BP meds on hold - Plan PT/OT, social work program coordinator Stable currently -: Hold all BP meds -: OOB/PT -: Rehab screening -: Transfer to Telemetry * HD when BP stabilizes, limit volume removal when resuming
[2018-08-13] MEDS: Levothyroxine Sodium 75 MCG TAB PO SCH (06:05)
[2018-08-13] MEDS: Folic Acid 1 MG TAB PO SCH (09:50)
[2018-08-13] MEDS: Gabapentin 300 MG CAP PO SCH ×3 (09:50→20:56)
[2018-08-13] MEDS: Allopurinol 100 MG TAB PO SCH (09:51)
[2018-08-13] MEDS: Heparin 5,000 UNITS/ML VIAL SC SCH ×2 (09:51→20:56)
[2018-08-13] MEDS: Clopidogrel Bisulfate 75 MG TAB PO SCH (09:51)
[2018-08-13] MEDS: Acetaminophen 325 MG TAB PO PRN (09:54)
--- NOTE | 2018-08-13 14:43 | PDOC.PN ---
- Subjective Encounter Start Date: 08/13/18 Encounter Start Time: 14:35 Subjective: f/u for iatrogenic hypotension now resolved. Feels better overall -: and tolerating po intake. - Objective Resuscitation Status - Order Detail: 08/09/18 07:40 Resuscitation Status Routine Resuscitation Status: FULL: Full Resuscitation MAR Reviewed: Yes Vital Signs & Weight: Vital Signs (12 hours) Temp Pulse Ox 08/13/18 11:00 98.9 F 08/13/18 08:00 99 08/13/18 07:00 98.1 F 08/13/18 04:00 98.2 F Weight Admit Weight 157 lb Weight 154 lb 8.705 oz Most Recent Monitor Data Heart Rate from ECG 80 NIBP 135/66 NIBP BP-Mean 89 Respiration from ECG 25 SpO2 100 I&O: 08/12/18 08/13/18 08/14/18 06:59 06:59 06:59 Intake Total 3080 870 640 Output Total 0 1 1 Balance 3080 869 639 Result Diagrams: 08/12/18 07:01 08/12/18 07:01 Additional Labs: Accuchecks 08/13/18 08/13/18 08/12/18 11:44 06:09 21:26 POC Glucose 102 101 114 H 08/12/18 17:13 POC Glucose 145 H Laboratory Tests 12/13/15 03/29/16 12/24/17 14:00 21:23 02:25 Hgb B-Natriuretic Peptide 952.3 H 418.8 H 1333.8 H Lipase 08/08/18 08/08/18 08/08/18 23:39 23:39 23:39 Hgb 10.1 L B-Natriuretic Peptide 2472.0 H Lipase 158 H EKG Reviewed by me: Yes (Tele - SR) Phys Exam - Physical Examination Constitutional: NAD HEENT: PERRLA, sclera anicteric, oral pharynx no lesions Neck: no nodes, no JVD, supple, full ROM Respiratory: no wheezing, no rales, no rhonchi, clear to auscultation bilateral S1, S2 Cardiovascular: RRR, no significant murmur, no rub, gallop Gastrointestinal: soft, non-tender, no distention, positive bowel sounds LUE with AV fistula in place Musculoskeletal: no edema, pulses present Neurological: normal sensation, moves all 4 limbs Psychiatric: A&O x 3 Skin: normal turgor, cap refill <2 seconds Dx/Plan (1) Hypotension Status: Acute Qualifiers: Hypotension type: hypotension due to drug Qualified Code(s): I95.2 - Hypotension due to drugs Comment: Iatrogenic, improved, hold BP meds another 24-48h (2) CVA (cerebral vascular accident) Code(s): I63.9 - CEREBRAL INFARCTION, UNSPECIFIED Status: Acute Comment: Subacute CVA, supportive mgmt, Rehab evaluation, PT/OT for mobilization when BP stabilizes (3) Acute metabolic encephalopathy Code(s): G93.41 - METABOLIC ENCEPHALOPATHY Status: Acute Comment: Likely multifactorial including ESRD, recent CVA, limited mobility and recent hospitalization, contribution of hypotension, see above (4) ESRD (end stage renal disease) on dialysis Code(s): N18.6 - END STAGE RENAL DISEASE; Z99.2 - DEPENDENCE ON RENAL DIALYSIS Status: Chronic Comment: Followed by Nephrology. Continuing HD. Last HD , hold HD until stabilizing BP trend (5) Generalized weakness Code(s): R53.1 - WEAKNESS Status: Chronic Comment: PT/OT for mobilization, fall risk precautions (6) Hypertension Code(s): I10 - ESSENTIAL (PRIMARY) HYPERTENSION Status: Chronic Qualifiers: Hypertension type: essential hypertension Qualified Code(s): I10 - Essential (primary) hypertension Comment: BP meds on hold - Plan PT/OT, social secretary, out of bed/ambulate Stable currently -: Hold all BP meds -: OOB/PT -: CM for Rehab/SNF options -: Transfer to telemetry * Continue Plavix 75mg daily
--- NOTE | 2018-08-13 15:59 | CON ---
DATE OF CONSULTATION: 08/13/2018 HISTORY OF PRESENT ILLNESS: Mr. Gonzalez is a pleasant 72-year-old male, who is admitted with weakness. Apparently, he is on dialysis Sunday, Sunday, and Sunday. He apparently was recently hospitalized at [facility] with a stroke. He subsequently was admitted and then yesterday became hypotensive with morning medications, was transferred to critical care unit. He says he feels fine now. PAST MEDICAL HISTORY: Remarkable for; 1. End-stage renal disease. 2. Diabetes. 3. Hypertension. 4. History of ischemic colitis. 5. Recent stroke. 6. History of myocardial infarction. 7. History of a right BKA. 8. History of herniorrhaphy. SOCIAL HISTORY: He is not a smoker or drinker. ALLERGIES: HE HAS NO DRUG ALLERGIES. FAMILY HISTORY: Negative for lung disease in early age. MEDICATIONS: Prior to admission, he is on; 1. Adalat. 2. Atorvastatin. 3. Synthroid. 4. Folate. 5. I was told Coreg was the drug that created the hypotension yesterday. REVIEW OF SYSTEMS: A 10-point review of systems completed, otherwise negative. Other than being weak, he says he is back to his baseline. PHYSICAL EXAMINATION: GENERAL: Mr. Gonzalez is a pleasant 72-year-old male. VITAL SIGNS: He is afebrile and heart rate is 80. Blood pressure 135/66. Intake and output are recorded as positive 869. HEENT: Sclerae is anicteric. NECK: Supple. No lymphadenopathy. LUNGS: Clear. HEART: Regular rhythm. S1 and S2 are normal. ABDOMEN: Soft and nontender. EXTREMITIES: No isolated lower extremity edema. LABORATORY DATA: White count 7.9, hemoglobin 10.1, and platelets 155. Sodium 137, potassium 4.6, chloride 104, bicarb 19, BUN 20, and creatinine 5.74. IMPRESSION AND PLAN: Transient hypotension associated with a blood pressure medication. He appears to be stable at this time. He can be moved out of the critical care unit. TIME SPENT: This is a 50-minute consult, with greater than 50% of the time was spent on the unit coordinating care. Job ID: [id number] MTDD
[2018-08-14] MEDS: Levothyroxine Sodium 75 MCG TAB PO SCH (05:24)
[2018-08-14] MEDS: Heparin 5,000 UNITS/ML VIAL SC SCH ×2 (13:56→22:45)
[2018-08-14] MEDS: Allopurinol 100 MG TAB PO SCH (13:56)
[2018-08-14] MEDS: Folic Acid 1 MG TAB PO SCH (13:57)
[2018-08-14] MEDS: Gabapentin 300 MG CAP PO SCH ×3 (13:57→22:45)
[2018-08-14] MEDS: Clopidogrel Bisulfate 75 MG TAB PO SCH (13:58)
--- NOTE | 2018-08-14 15:04 | PRG ---
DATE OF SERVICE: 08/14/2018 SUBJECTIVE: Mr. Gonzalez had no complaints today. . OBJECTIVE: VITAL SIGNS: He is afebrile. Heart rate 82, respiratory rate , oximetry is 100% on room air, blood pressure 135/61. LUNGS: Clear. HEART: Regular rhythm. ABDOMEN: Soft. LABORATORY DATA: Glucose 116 today. IMPRESSION: 1. Status post hypotension, brought on by Coreg. 2. End-stage renal disease, on dialysis. 3. Recent cerebrovascular accident. 4. Diabetes. 5. Hypertension. 6. History of ischemic colitis. 7. History of myocardial infarction. 8. History of right below knee amputation. 9. History of herniorrhaphy. PLAN: Continue supportive care. No suggestions. At this point, there are no acute pulmonary issues. We will sign off. Job ID: [id number]
--- NOTE | 2018-08-14 17:43 | PDOC.PN ---
- Subjective Encounter Start Date: 08/14/18 Encounter Start Time: 17:15 Subjective: f/u for iatrogenic hypotension, ESRD on HD and s/p CVA with -: residual dysarthria and weakness. Feels better overall. - Objective Resuscitation Status - Order Detail: 08/09/18 07:40 Resuscitation Status Routine Resuscitation Status: FULL: Full Resuscitation MAR Reviewed: Yes Vital Signs & Weight: Vital Signs (12 hours) Temp Pulse Pulse Pulse Resp BP BP 08/14/18 14:47 84 82 117/57 L 119/59 L 08/14/18 12:05 97.6 F 82 18 08/14/18 07:50 97.4 F L 82 18 08/14/18 07:45 BP Pulse Ox 08/14/18 14:47 08/14/18 12:05 135/61 100 08/14/18 07:50 108/60 98 08/14/18 07:45 98 Weight Admit Weight 157 lb Weight 156 lb Most Recent Monitor Data Heart Rate from ECG 80 NIBP 155/77 NIBP BP-Mean 103 Respiration from ECG 24 SpO2 100 I&O: 08/13/18 08/14/18 08/15/18 06:59 06:59 06:59 Intake Total 870 1190 Output Total 1 1 Balance 869 1189 Result Diagrams: 08/12/18 07:01 08/12/18 07:01 Additional Labs: Accuchecks 08/14/18 08/13/18 08/13/18 05:17 20:52 08:11 POC Glucose 116 H 105 98 Laboratory Tests 12/13/15 03/29/16 12/24/17 14:00 21:23 02:25 Hgb B-Natriuretic Peptide 952.3 H 418.8 H 1333.8 H Lipase 08/08/18 08/08/18 08/08/18 23:39 23:39 23:39 Hgb 10.1 L B-Natriuretic Peptide 2472.0 H Lipase 158 H EKG Reviewed by me: Yes (Tele - SR) Phys Exam - Physical Examination Constitutional: NAD HEENT: PERRLA, sclera anicteric, oral pharynx no lesions Neck: no nodes, no JVD, supple, full ROM Respiratory: no wheezing, no rales, no rhonchi, clear to auscultation bilateral S1, S2 Cardiovascular: RRR, no significant murmur, no rub, gallop Gastrointestinal: soft, non-tender, no distention, positive bowel sounds Musculoskeletal: no edema, pulses present dysarthria Neurological: normal sensation, moves all 4 limbs Skin: normal turgor, cap refill <2 seconds Dx/Plan (1) Hypotension Status: Acute Qualifiers: Hypotension type: hypotension due to drug Qualified Code(s): I95.2 - Hypotension due to drugs Comment: Iatrogenic, improved, hold BP meds and monitor serial BP trend (2) CVA (cerebral vascular accident) Code(s): I63.9 - CEREBRAL INFARCTION, UNSPECIFIED Status: Acute Comment: Subacute CVA, supportive mgmt, Rehab evaluation, PT/OT for mobilization when BP stabilizes (3) Acute metabolic encephalopathy Code(s): G93.41 - METABOLIC ENCEPHALOPATHY Status: Acute Comment: Likely multifactorial including ESRD, recent CVA, limited mobility and recent hospitalization, contribution of hypotension, see above (4) ESRD (end stage renal disease) on dialysis Code(s): N18.6 - END STAGE RENAL DISEASE; Z99.2 - DEPENDENCE ON RENAL DIALYSIS Status: Chronic Comment: Followed by Nephrology. Continuing HD. Last HD , hold HD until stabilizing BP trend (5) Generalized weakness Code(s): R53.1 - WEAKNESS Status: Chronic Comment: PT/OT for mobilization, fall risk precautions (6) Hypertension Code(s): I10 - ESSENTIAL (PRIMARY) HYPERTENSION Status: Chronic Qualifiers: Hypertension type: essential hypertension Qualified Code(s): I10 - Essential (primary) hypertension Comment: BP meds on hold - Plan PT/OT, social sciences chair, out of bed/ambulate Stable currently -: Continue Plavix 75mg daily -: PT/OT for mobilization/ROM excercises -: CM for SNF options -: HD per Renal service * .
[2018-08-14 20:13] LABS: #Basophils 0.1 thou/uL (0.0-0.2); #Eosinphils 0.1 thou/uL (0.0-0.7); #Lymphocytes 0.9 thou/uL (1.20-3.40); #Monocytes 0.5 thou/uL (0.11-0.59); #Neutrophils 4.3 thou/uL (1.40-6.50); %Eosinophils 2.1 % (0.0-10.0); %Lymphocytes 15.7 % (21.0-51.0); %Monocytes 8.7 % (0.0-10.0); %Neutrophils 72.4 % (42.0-75.0); Hemoglobin 10.3 g/dL (14.0-18.0); Mean Corpuscular HGB CONC 32.6 g/dL (32.0-36.0); Mean Corpuscular Hemoglobin 31.6 pg (27.0-31.0); Mean Corpuscular Volume 96.9 fL (78.0-98.0); Mean Platelet Volume 8.9 fL (7.4-10.4); Platelet Count 121 thou/uL (130-400); RBC Distribution Width 14.3 % (11.5-14.5); Red Blood Cell (RBC) Count 3.24 mill/uL (4.70-6.10)
--- NOTE | 2018-08-14 20:26 | PDOC.EVN ---
Event Note - Event Note Event Note: Code teresita called for patient having low BP, systolic into the 60s. Patient had once before with significant weakness symptoms, but this time feels fine. Recheck low multiple times. Bolus of fluid given and came up to 70s. Had 1 liter of fluid removed at dialysis today. Will bolus up to 1 liter of fluid to improve BP. Move to IMCU (CCU since no beds) and monitor closely. EKG without acute changes. No fever/tachycardia/chest pain/SOB/N/V/abd pain or other symptoms.
[2018-08-14 20:42] LABS: Lactic Acid 1.8 mmol/L (0.5-2.2)
[2018-08-14 21:00] LABS: ALT (SGPT) 20 U/L (8-55); AST (SGOT) 18 U/L (5-34); Albumin 3.3 g/dL (3.4-4.8); Alkaline Phosphatase 89 U/L (40-150); Anion Gap 17 mmol/L (10-20); BUN (Urea Nitrogen) 17 mg/dL (8.4-25.7); Bilirubin, Total 0.4 mg/dL (0.2-1.2); CK (CPK) 23 U/L (30-200); Calc. Creatinine Clearance 16 mL/min (70-130); Calcium 8.3 mg/dL (7.8-10.44); Carbon Dioxide 25 mmol/L (23-31); Chloride 96 mmol/L (98-107); Estimated GFR-MDRD 15; Globulin 3.4 g/dL (2.4-3.5); Glucose 160 mg/dL (83-110); Magnesium 1.7 mg/dL (1.6-2.6); Potassium 4.1 mmol/L (3.5-5.1); Protein, Total 6.7 g/dL (5.8-8.1); Sodium 134 mmol/L (136-145)
[2018-08-15 02:15] LABS: Troponin I 0.032 ng/mL (< 0.028)
[2018-08-15] MEDS: Levothyroxine Sodium 75 MCG TAB PO SCH (06:25)
[2018-08-15 07:45] LABS: #Eosinphils 0.1 thou/uL (0.0-0.7); #Lymphocytes 1.1 thou/uL (1.20-3.40); #Monocytes 0.6 thou/uL (0.11-0.59); #Neutrophils 4.4 thou/uL (1.40-6.50); %Basophils 0.4 % (0.0-1.0); %Eosinophils 2.3 % (0.0-10.0); %Lymphocytes 17.6 % (21.0-51.0); %Monocytes 9.2 % (0.0-10.0); %Neutrophils 70.5 % (42.0-75.0); Hemoglobin 8.9 g/dL (14.0-18.0); Mean Corpuscular HGB CONC 33.8 g/dL (32.0-36.0); Mean Corpuscular Hemoglobin 32.9 pg (27.0-31.0); Mean Corpuscular Volume 97.3 fL (78.0-98.0); Platelet Count 112 thou/uL (130-400); RBC Distribution Width 14.6 % (11.5-14.5); Red Blood Cell (RBC) Count 2.71 mill/uL (4.70-6.10); White Blood Cell (WBC) Count 6.2 thou/uL (4.8-10.8)
[2018-08-15 08:00] LABS: Anion Gap 14 mmol/L (10-20); BUN (Urea Nitrogen) 24 mg/dL (8.4-25.7); Calc. Creatinine Clearance 14 mL/min (70-130); Calcium 7.9 mg/dL (7.8-10.44); Carbon Dioxide 23 mmol/L (23-31); Chloride 101 mmol/L (98-107); Estimated GFR-MDRD 12; Glucose 102 mg/dL (83-110); Potassium 4.3 mmol/L (3.5-5.1); Sodium 134 mmol/L (136-145)
[2018-08-15] MEDS: Allopurinol 100 MG TAB PO SCH (09:20)
[2018-08-15] MEDS: Clopidogrel Bisulfate 75 MG TAB PO SCH (09:20)
[2018-08-15] MEDS: Folic Acid 1 MG TAB PO SCH (09:21)
[2018-08-15] MEDS: Heparin 5,000 UNITS/ML VIAL SC SCH ×2 (09:21→20:19)
[2018-08-15] MEDS: Gabapentin 300 MG CAP PO SCH ×3 (09:21→20:19)
--- NOTE | 2018-08-15 15:13 | PDOC.PN ---
- Subjective Encounter Start Date: 08/15/18 Encounter Start Time: 15:10 Subjective: f/u for hypotensive episode last pm after HD. Received IVF bolus -: and transferred to [facility] for observation. Feels ok overall but weak. - Objective Resuscitation Status - Order Detail: 08/09/18 07:40 Resuscitation Status Routine Resuscitation Status: FULL: Full Resuscitation MAR Reviewed: Yes Vital Signs & Weight: Vital Signs (12 hours) Temp 08/15/18 11:27 97.5 F L 08/15/18 07:41 97.9 F 08/15/18 03:51 97.8 F Weight Admit Weight 157 lb Weight 162 lb 14.746 oz Most Recent Monitor Data Heart Rate from ECG 85 NIBP 85/62 NIBP BP-Mean 69 Respiration from ECG 12 SpO2 97 I&O: 08/14/18 08/15/18 08/16/18 06:59 06:59 06:59 Intake Total 1190 220 Output Total 1 Balance 1189 220 Result Diagrams: 08/15/18 07:17 08/15/18 07:17 Additional Labs: Accuchecks 08/15/18 08/15/18 08/14/18 10:35 05:40 19:56 POC Glucose 147 H 107 165 H Laboratory Tests 12/13/15 03/29/16 12/24/17 14:00 21:23 02:25 Hgb B-Natriuretic Peptide 952.3 H 418.8 H 1333.8 H Lipase 08/08/18 08/08/18 08/08/18 23:39 23:39 23:39 Hgb 10.1 L B-Natriuretic Peptide 2472.0 H Lipase 158 H EKG Reviewed by me: Yes (Tele - SR) Phys Exam - Physical Examination Constitutional: NAD HEENT: PERRLA, sclera anicteric, oral pharynx no lesions Neck: no nodes, no JVD, supple, full ROM Respiratory: no wheezing, no rales, no rhonchi, clear to auscultation bilateral S1, S2 Cardiovascular: RRR, no significant murmur, no rub, gallop Gastrointestinal: soft, non-tender, no distention, positive bowel sounds Musculoskeletal: no edema, pulses present Neurological: normal sensation, moves all 4 limbs Skin: normal turgor, cap refill <2 seconds Dx/Plan (1) Hypotension Status: Acute Qualifiers: Hypotension type: hypotension due to drug Qualified Code(s): I95.2 - Hypotension due to drugs Comment: Iatrogenic, improved, all BP meds discontinued, may need adjustment to HD and volume removed due to recurrent hypotension (2) CVA (cerebral vascular accident) Code(s): I63.9 - CEREBRAL INFARCTION, UNSPECIFIED Status: Acute Comment: Subacute CVA, supportive mgmt, Rehab evaluation, PT/OT for mobilization when BP stabilizes (3) Acute metabolic encephalopathy Code(s): G93.41 - METABOLIC ENCEPHALOPATHY Status: Acute Comment: Likely multifactorial including ESRD, recent CVA, limited mobility and recent hospitalization, contribution of hypotension, see above (4) ESRD (end stage renal disease) on dialysis Code(s): N18.6 - END STAGE RENAL DISEASE; Z99.2 - DEPENDENCE ON RENAL DIALYSIS Status: Chronic Comment: Followed by Nephrology. Continuing HD. Last HD , hold HD until stabilizing BP trend (5) Generalized weakness Code(s): R53.1 - WEAKNESS Status: Chronic Comment: PT/OT for mobilization, fall risk precautions (6) Hypertension Code(s): I10 - ESSENTIAL (PRIMARY) HYPERTENSION Status: Chronic Qualifiers: Hypertension type: essential hypertension Qualified Code(s): I10 - Essential (primary) hypertension Comment: BP meds discontinued due to persistent hypotension - Plan PT/OT, healthcare social worker Stable currently -: Continue supportive mgmt -: D/C all BP meds -: Limited HD due to persistent hypotension -: CM for SNF options * AM lab: H/H
[2018-08-16 01:40] LABS: #Basophils 0.1 thou/uL (0.0-0.2); #Eosinphils 0.2 thou/uL (0.0-0.7); #Lymphocytes 1.1 thou/uL (1.20-3.40); #Monocytes 0.5 thou/uL (0.11-0.59); #Neutrophils 5.8 thou/uL (1.40-6.50); %Basophils 0.7 % (0.0-1.0); %Eosinophils 2.8 % (0.0-10.0); %Lymphocytes 14.1 % (21.0-51.0); %Monocytes 5.9 % (0.0-10.0); %Neutrophils 76.5 % (42.0-75.0); Hemoglobin 10.2 g/dL (14.0-18.0); Mean Corpuscular HGB CONC 32.9 g/dL (32.0-36.0); Mean Corpuscular Hemoglobin 32.4 pg (27.0-31.0); Mean Corpuscular Volume 98.4 fL (78.0-98.0); Mean Platelet Volume 9.1 fL (7.4-10.4); Platelet Count 137 thou/uL (130-400); RBC Distribution Width 14.6 % (11.5-14.5); Red Blood Cell (RBC) Count 3.15 mill/uL (4.70-6.10); White Blood Cell (WBC) Count 7.6 thou/uL (4.8-10.8)
[2018-08-16 02:00] LABS: ALT (SGPT) 27 U/L (8-55); AST (SGOT) 24 U/L (5-34); Albumin 3.5 g/dL (3.4-4.8); Alkaline Phosphatase 95 U/L (40-150); Anion Gap 18 mmol/L (10-20); BUN (Urea Nitrogen) 41 mg/dL (8.4-25.7); Bilirubin, Total 0.5 mg/dL (0.2-1.2); Calc. Creatinine Clearance 10 mL/min (70-130); Carbon Dioxide 23 mmol/L (23-31); Chloride 98 mmol/L (98-107); Estimated GFR-MDRD 8; Globulin 3.8 g/dL (2.4-3.5); Glucose 124 mg/dL (83-110); Magnesium 1.7 mg/dL (1.6-2.6); Potassium 4.4 mmol/L (3.5-5.1); Protein, Total 7.3 g/dL (5.8-8.1); Sodium 135 mmol/L (136-145)
[2018-08-16] MEDS: Levothyroxine Sodium 75 MCG TAB PO SCH (06:31)
--- NOTE | 2018-08-16 07:54 | RAD ---
XR Chest 1 View Portable History: Chest pain. Shortness of breath. Comparison: Radiograph 08/08/2017 Findings: Mild interstitial developing alveolar edema. Mild thickening right minor fissure. There is a focal area of consolidation within the right upper lobe. Mild blunting left lateral costophrenic sulcus. No pneumothorax. Impression: Progressive interstitial and alveolar opacities suggesting pulmonary edema. Likely a foca l area of alveolar edema and less likely infiltrate right upper lobe. Follow-up recommended.
[2018-08-16] MEDS: Clopidogrel Bisulfate 75 MG TAB PO SCH (09:25)
[2018-08-16] MEDS: Allopurinol 100 MG TAB PO SCH (09:25)
[2018-08-16] MEDS: Gabapentin 300 MG CAP PO SCH ×3 (09:25→20:35)
[2018-08-16] MEDS: Folic Acid 1 MG TAB PO SCH (09:25)
[2018-08-16] MEDS: Heparin 5,000 UNITS/ML VIAL SC SCH ×2 (09:26→20:35)
--- NOTE | 2018-08-16 15:36 | PDOC.PN ---
- Subjective Encounter Start Date: 08/16/18 Encounter Start Time: 15:35 Subjective: 72 y/o male with ESRD on HD, DM admitted due to generalized weakness. -: Has had 2 code green since admission for hypotension which resolved with NS -: Feeling better but still weak. - Objective Resuscitation Status - Order Detail: 08/09/18 07:40 Resuscitation Status Routine Resuscitation Status: FULL: Full Resuscitation Vital Signs & Weight: Vital Signs (12 hours) Temp Pulse Ox 08/16/18 12:00 97.8 F 08/16/18 08:00 97.9 F 08/16/18 07:45 95 08/16/18 04:00 97.6 F Weight Admit Weight 157 lb Weight 153 lb 7.068 oz Most Recent Monitor Data Heart Rate from ECG 101 NIBP 133/81 NIBP BP-Mean 98 Respiration from ECG 16 SpO2 94 I&O: 08/15/18 08/16/18 08/17/18 06:59 06:59 06:59 Intake Total 220 240 Balance 220 240 Result Diagrams: 08/16/18 01:19 08/16/18 01:19 Additional Labs: Accuchecks 08/16/18 08/16/18 08/15/18 11:09 05:58 19:49 POC Glucose 171 H 111 H 107 08/15/18 16:42 POC Glucose 116 H Phys Exam - Physical Examination Constitutional: NAD HEENT: moist MMs Neck: no JVD fair air enbtry bilaterally with few bibasal crackles Cardiovascular: RRR murmur noted Gastrointestinal: soft, non-tender, no distention, positive bowel sounds Musculoskeletal: no edema, pulses present Pulse are weak however Neurological: non-focal, moves all 4 limbs Sleepy Psychiatric: A&O x 3 Dx/Plan (1) Physical deconditioning Code(s): R53.81 - OTHER MALAISE Status: Acute (2) Acute metabolic encephalopathy Code(s): G93.41 - METABOLIC ENCEPHALOPATHY Status: Acute Comment: Likely multifactorial including ESRD, recent CVA, limited mobility and recent hospitalization, contribution of hypotension, see above (3) Hypotension Status: Acute Qualifiers: Hypotension type: hypotension due to drug Qualified Code(s): I95.2 - Hypotension due to drugs Comment: Iatrogenic, improved, all BP meds discontinued, may need adjustment to HD and volume removed due to recurrent hypotension (4) Generalized weakness Code(s): R53.1 - WEAKNESS Status: Chronic Comment: PT/OT for mobilization, fall risk precautions (5) Hemodialysis access, AV graft Code(s): Z99.2 - DEPENDENCE ON RENAL DIALYSIS Status: Acute (6) Anemia of renal disease Code(s): D63.1 - ANEMIA IN CHRONIC KIDNEY DISEASE Status: Chronic (7) DM type 2 (diabetes mellitus, type 2) Status: Chronic Qualifiers: Diabetes mellitus prison insulin use: without buttermaker continuous churn use Diabetes mellitus complication status: with kidney complications Chronic kidney disease stage: on chronic dialysis Comment: SSI and accuchecks. (8) ESRD (end stage renal disease) on dialysis Code(s): N18.6 - END STAGE RENAL DISEASE; Z99.2 - DEPENDENCE ON RENAL DIALYSIS Status: Chronic Comment: Followed by Nephrology. Continuing HD. Last HD , hold HD until stabilizing BP trend (9) Hypothyroidism Code(s): E03.9 - HYPOTHYROIDISM, UNSPECIFIED Status: Chronic Qualifiers: Hypothyroidism type: unspecified Qualified Code(s): E03.9 - Hypothyroidism , unspecified Comment: Continue synthroid. - Plan Rule out acute PA with serial troponin. -: Get cortisol and calcitonin -: Continue close monitoring and supportive care. -: HD as per Credit Union Examiner * .
[2018-08-16 16:21] LABS: Troponin I 1.311 ng/mL (< 0.028)
[2018-08-17] MEDS: Levothyroxine Sodium 75 MCG TAB PO SCH (05:57)
[2018-08-17] MEDS: Heparin 5,000 UNITS/ML VIAL SC SCH ×2 (09:20→20:18)
[2018-08-17] MEDS: Gabapentin 300 MG CAP PO SCH ×3 (09:20→20:18)
[2018-08-17] MEDS: Folic Acid 1 MG TAB PO SCH (09:20)
[2018-08-17] MEDS: Allopurinol 100 MG TAB PO SCH (09:20)
[2018-08-17] MEDS: Clopidogrel Bisulfate 75 MG TAB PO SCH (09:20)
--- NOTE | 2018-08-17 13:47 | PDOC.PN ---
- Subjective Encounter Start Date: 08/17/18 Encounter Start Time: 13:46 Subjective: Still complaining of generalized weakness. denied chest pain. -: Tolerated HD yesterday. - Objective Resuscitation Status - Order Detail: 08/09/18 07:40 Resuscitation Status Routine Resuscitation Status: FULL: Full Resuscitation Vital Signs & Weight: Vital Signs (12 hours) Temp Pulse Ox 08/17/18 11:16 97.8 F 08/17/18 08:13 97 08/17/18 07:18 97.8 F 08/17/18 03:42 98.7 F Weight Admit Weight 157 lb Weight 152 lb 1.903 oz Most Recent Monitor Data Heart Rate from ECG 87 NIBP 104/62 NIBP BP-Mean 76 Respiration from ECG 10 SpO2 100 I&O: 08/16/18 08/17/18 08/18/18 06:59 06:59 06:59 Intake Total 240 1150 Output Total 1500 Balance 240 -350 Result Diagrams: 08/16/18 01:19 08/16/18 01:19 Additional Labs: Accuchecks 08/17/18 08/16/18 08/16/18 10:48 19:40 16:42 POC Glucose 138 H 107 118 H Phys Exam - Physical Examination Constitutional: NAD fatigued HEENT: moist MMs Neck: no JVD, supple Respiratory: no wheezing, no rhonchi, clear to auscultation bilateral Cardiovascular: RRR systolic murmur noted Gastrointestinal: soft, non-tender, no distention, positive bowel sounds Musculoskeletal: no edema, pulses present Right BKA noted Neurological: non-focal conscious and alert, moves all limbs but weakly Dx/Plan (1) Elevated troponin Code(s): R74.8 - ABNORMAL LEVELS OF OTHER SERUM ENZYMES Status: Acute Comment: This in the context of hypotension and generalized weakness is concerning for CAD. (2) Physical deconditioning Code(s): R53.81 - OTHER MALAISE Status: Acute (3) Acute metabolic encephalopathy Code(s): G93.41 - METABOLIC ENCEPHALOPATHY Status: Acute Comment: Likely multifactorial including ESRD, recent CVA, limited mobility and recent hospitalization, contribution of hypotension, see above (4) Hypotension Status: Acute Qualifiers: Hypotension type: hypotension due to drug Qualified Code(s): I95.2 - Hypotension due to drugs Comment: Iatrogenic, improved, all BP meds discontinued, may need adjustment to HD and volume removed due to recurrent hypotension (5) Generalized weakness Code(s): R53.1 - WEAKNESS Status: Chronic Comment: PT/OT for mobilization, fall risk precautions (6) Hemodialysis access, AV graft Code(s): Z99.2 - DEPENDENCE ON RENAL DIALYSIS Status: Acute (7) Anemia of renal disease Code(s): D63.1 - ANEMIA IN CHRONIC KIDNEY DISEASE Status: Chronic (8) DM type 2 (diabetes mellitus, type 2) Status: Chronic Qualifiers: Diabetes mellitus terminal carman insulin use: without terminal carman use Diabetes mellitus complication status: with kidney complications Chronic kidney disease stage: on chronic dialysis Comment: SSI and accuchecks. (9) ESRD (end stage renal disease) on dialysis Code(s): N18.6 - END STAGE RENAL DISEASE; Z99.2 - DEPENDENCE ON RENAL DIALYSIS Status: Chronic Comment: Followed by Nephrology. Continuing HD. Last HD , hold HD until stabilizing BP trend (10) Hypothyroidism Code(s): E03.9 - HYPOTHYROIDISM, UNSPECIFIED Status: Chronic Qualifiers: Hypothyroidism type: unspecified Qualified Code(s): E03.9 - Hypothyroidism , unspecified Comment: Continue synthroid. - Plan Continue to hold antihypertensives. -: Start ASA -: Consult cardiology -: PT/OT * .
[2018-08-17 14:28] LABS: Platelet Count 140 thou/uL (130-400)
--- NOTE | 2018-08-17 14:52 | CON ---
DATE OF CONSULTATION: 08/17/2018 PRIMARY FORENSIC SCIENCE TECHNICIAN: Remington Gonsales MD REASON FOR CONSULTATION: Chest pain and non-STEMI. HISTORY OF PRESENT ILLNESS: Mr. Gonzalez is a pleasant 72-year-old gentleman, who comes to the hospital for weakness and shortness of breath. He has end-stage renal disease and has been on dialysis for some years now. He had a heart catheterization by Dr. Gonsales last year and he had multivessel coronary artery disease. Revascularization was only possible with bypass. He was deemed to be too weak for this and he would not survive, so he has been treated medically since. He has been in the hospital for the weakness and he has been dialyzed on and off. His blood pressure dropped when they take just a little bit of fluid out. He had an episode of chest pain yesterday. Troponins were drawn in the positive range and Cardiology consulted for this. On my evaluation, Mr. Gonzalez has not had any chest pain since last night. PAST MEDICAL HISTORY: 1. End-stage renal disease on hemodialysis. 2. Type 2 diabetes. 3. Hypertension. 4. History of ischemic colitis. 5. Multivessel coronary artery disease. 6. Stroke, 2 week ago in a hospital at [place]. PAST SURGICAL HISTORY: 1. Right BKA. 2. Umbilical hernia repair . SOCIAL HISTORY: No alcohol, tobacco, or drugs. MEDICATIONS: Outpatient medications; 1. Pantoprazole 20 mg p.o. b.i.d. 2. Nifedipine 60 mg a day. 3. Levothyroxine 75 mcg a day. 4. Isosorbide mononitrate 30 mg a day. 5. Gabapentin. 6. Folic acid. 7. Plavix 75 mg a day. 8. Vitamin D3. 9. Coreg 6.25 b.i.d. 10. Atorvastatin 40 mg at bedtime. 11. Allopurinol. ALLERGIES: NO KNOWN DRUG ALLERGIES. REVIEW OF SYSTEMS: A 12-point review of systems was done and was all negative unless stated in the history of present illness. PHYSICAL EXAMINATION: VITAL SIGNS: Temperature 97.8, pulse 86, respiratory rate 12, sat 100% on 2 L nasal cannula, blood pressure 104/62. GENERAL: Awake, alert, oriented x3. No distress. HEENT: Normocephalic and atraumatic. NECK: Supple. LUNGS: Clear. CARDIOVASCULAR: S1 and S2. No S3 or S4. No murmurs. There is a grade 2/6 systolic murmur at the right upper sternal border. ABDOMEN: Soft. Positive bowel sounds. EXTREMITIES: BKA. SKIN: Warm and dry. LABORATORY DATA: Laboratory work was reviewed. CBC; white count of 7, hemoglobin of 10, hematocrit of 31, and platelet count of 137. Chemistry; most recent troponin initially of 0.02 which was negative, then 0.19, now 1.3. BNP on arrival. Sodium was 135 otherwise, BUN 21, creatinine of 6.6, GFR of 8, albumin of 3.5. Serology, hep B surface antigen was nonreactive. EKG was reviewed. ASSESSMENT/PLAN: 1. Pps-JC-pyxkayyob myocardial infarction. 2. End-stage renal disease. 3. Multivessel severe coronary artery disease. 4. Severe deconditioning. PLAN: 1. His coronary anatomy is severe that it requires bypass for revascularization. He is too weak and would not survive an open-heart procedure at this time. We can only do medical therapy for this. I would do full anticoagulation for 48 hours with heparin. Continue his other medications, some of them are being held due to low blood pressure which is inevitable at this time. 2. He has an ischemic cardiomyopathy and EF of 35% to 40% on an echo about 2 months ago. 3. We will continue to monitor in IMCU. 4. He is severely ill and would not be unexpected. The family and his were updated about this. Thank you for allowing me to participate in the care of your patient. We will follow. Job ID: [id number]
[2018-08-17] MEDS: Heparin 10,000 UNITS/ 10 ML VIAL SLOW IVP SCH (17:27)
[2018-08-17] MEDS: Heparin 25,000 units/D5W 500 ML IVPB SCH (17:32)
--- NOTE | 2018-08-17 17:40 | RAD ---
CHEST ONE VIEW: 08/17/18 COMPARISON: 08/16/18 HISTORY: Central line placement. FINDINGS: Interval placement of a left sided subclavian central venous catheter. Distal tip projects over the e xpected region of the superior vena cava. Stable atherosclerosis, cardiomegaly, pulmonary vascular pr ominence and interstitial/alveolar opacification. IMPRESSION: 1. Stable findings compatible with congestive heart failure. 2. Interval placement of a left sided subclavian central venous catheter. No pneumothorax. POS: OFF
--- NOTE | 2018-08-18 01:48 | OP ---
DATE OF PROCEDURE: 08/17/2018 PREOPERATIVE DIAGNOSES: 1. Acute qxv-PS-yofbttupg myocardial infarction. 2. Chronic renal failure. POSTOPERATIVE DIAGNOSES: 1. Acute phx-OC-jjrkirbmq myocardial infarction. 2. Chronic renal failure. PROCEDURE PERFORMED: Placement of left subclavian triple-lumen central venous catheter. INDICATIONS FOR PROCEDURE: A 72-year-old man admitted with acute ysd-WD-ajpbcsxrj myocardial infarction. The patient has a history of diabetes mellitus, essential hypertension, and chronic kidney failure. Multiple attempts to secure the peripheral IV access has been unsuccessful. I was asked to place a central venous catheter to facilitate therapeutic intervention. DESCRIPTION OF PROCEDURE: Informed consent was obtained from the patient and was placed in supine position. The left chest wall was sterilely prepped and draped in usual fashion. The skin below the left clavicle was anesthetized with 1% lidocaine. Left subclavian vein was cannulated with an 18-gauge introducer needle returning dark venous blood. Guidewire was passed through the needle and advanced into the left subclavian vein without resistance. Needle was withdrawn over the guidewire. A stab incision was made adjacent to the guidewire using 11 scalpel. Dilator was passed over the guidewire dilating the subcutaneous tissues. Dilator was removed and a triple-lumen central venous catheter was advanced over the guidewire and placed in the left subclavian vein without resistance and stopping at the 18 cm geoffrey. Guidewire was removed. Dark venous blood was aspirated from all 3 ports, which were individually flushed with saline. The catheter was secured to the anterior chest wall using 3-0 silk suture at 2 points. Sterile dressings were applied. The patient tolerated the procedure without any apparent complication. He remained hemodynamically stable following completion of procedure. A chest x-ray obtained confirming proper placement of the catheter and no pneumothorax was present. Job ID: [id number]
[2018-08-18] MEDS: Levothyroxine Sodium 75 MCG TAB PO SCH (05:56)
[2018-08-18] MEDS: Folic Acid 1 MG TAB PO SCH (10:48)
[2018-08-18] MEDS: Aspirin Chewable 81 MG TAB PO SCH (10:48)
[2018-08-18] MEDS: Clopidogrel Bisulfate 75 MG TAB PO SCH (10:48)
[2018-08-18] MEDS: Allopurinol 100 MG TAB PO SCH (10:48)
[2018-08-18] MEDS: Gabapentin 300 MG CAP PO SCH ×3 (10:48→20:29)
[2018-08-18] MEDS: Heparin 5,000 UNITS/ML VIAL SC SCH (10:49)
--- NOTE | 2018-08-18 11:44 | PDOC.CTH ---
Cardiology Progress Note - Subjective Doing well. No chest pain. - Objective Vital Signs Temp Pulse Ox 08/18/18 11:03 97.8 F 08/18/18 07:59 95 08/18/18 07:23 97.7 F 08/18/18 04:00 97.6 F 08/18/18 00:00 97.5 F L Admit Weight 157 lb Weight 154 lb 8 oz 08/17/18 08/18/18 08/19/18 06:59 06:59 06:59 Intake Total 1150 1303 Output Total 1500 0 Balance -350 1303 - Physical Examination General/Neuro: alert & oriented x3, NAD Neck: no JVD present Lungs: CTA, unlabored respirations Heart: RRR Abdomen: NT/ND Extremities: other: (no edema) - Telemetry Telemetry Rhythm: NSR - Labs Result Diagrams: 08/17/18 14:16 08/16/18 01:19 Troponin/CKMB CK-MB (CK-2) 5.0 ng/mL (0-6.6) 08/16/18 07:16 Troponin I 1.311 ng/mL (< 0.028) H* 08/16/18 15:33 - Assessment/Plan 1. NSTEMI 2. ESRD 3. Multivessel CAD. 4. Severe deconditioning. 5. Iscghemic CM EF at 35-40% on last echo 2 months ago. PLAN: - Continue conservative management as he would not survive surgical revascularization in his weakened state. - Heparin drip for 48 hrs - Aspirin, will add statin. - BP borderline low to start BB ort ACEI. - Continue plavix. - Will need to re evaluate echo make sure LV has not dropped further as he may need a lifevest or AICD. - 30 minutes critical care.
--- NOTE | 2018-08-18 13:21 | PDOC.PN ---
- Subjective Encounter Start Date: 08/18/18 Encounter Start Time: 13:19 Subjective: No new problem. -: Feeling better. denied chest pain, nausea, or vomiting. - Objective Resuscitation Status - Order Detail: 08/09/18 07:40 Resuscitation Status Routine Resuscitation Status: FULL: Full Resuscitation Vital Signs & Weight: Vital Signs (12 hours) Temp Pulse Ox 08/18/18 11:03 97.8 F 08/18/18 07:59 95 08/18/18 07:23 97.7 F 08/18/18 04:00 97.6 F Weight Admit Weight 157 lb Weight 154 lb 8 oz Most Recent Monitor Data Heart Rate from ECG 84 NIBP 93/62 NIBP BP-Mean 72 Respiration from ECG 7 SpO2 99 I&O: 08/17/18 08/18/18 08/19/18 06:59 06:59 06:59 Intake Total 1150 1303 Output Total 1500 0 Balance -350 1303 Result Diagrams: 08/17/18 14:16 08/16/18 01:19 Additional Labs: Accuchecks 08/18/18 08/17/18 08/17/18 10:39 21:37 16:38 POC Glucose 134 H 144 H 108 08/17/18 05:58 POC Glucose 124 H Phys Exam - Physical Examination chronically ill looking. afebrile HEENT: moist MMs Neck: no JVD, supple Respiratory: no rales, no rhonchi, clear to auscultation bilateral Cardiovascular: RRR systolic murmur noted Gastrointestinal: soft, non-tender, no distention Musculoskeletal: no edema, pulses present Right BKA noted Neurological: non-focal, moves all 4 limbs Sleeping but arousable Dx/Plan (1) NSTEMI (non-ST elevated myocardial infarction) Code(s): I21.4 - NON-ST ELEVATION (NSTEMI) MYOCARDIAL INFARCTION Status: Acute (2) Elevated troponin Code(s): R74.8 - ABNORMAL LEVELS OF OTHER SERUM ENZYMES Status: Acute Comment: This in the context of hypotension and generalized weakness is concerning for CAD. (3) Physical deconditioning Code(s): R53.81 - OTHER MALAISE Status: Acute (4) Acute metabolic encephalopathy Code(s): G93.41 - METABOLIC ENCEPHALOPATHY Status: Acute Comment: Likely multifactorial including ESRD, recent CVA, limited mobility and recent hospitalization, contribution of hypotension, see above (5) Hypotension Status: Acute Qualifiers: Hypotension type: hypotension due to drug Qualified Code(s): I95.2 - Hypotension due to drugs Comment: Medications +/- NSTEMI. improved. (6) Generalized weakness Code(s): R53.1 - WEAKNESS Status: Chronic Comment: PT/OT for mobilization, fall risk precautions (7) Hemodialysis access, AV graft Code(s): Z99.2 - DEPENDENCE ON RENAL DIALYSIS Status: Acute (8) Anemia of renal disease Code(s): D63.1 - ANEMIA IN CHRONIC KIDNEY DISEASE Status: Chronic (9) DM type 2 (diabetes mellitus, type 2) Status: Chronic Qualifiers: Diabetes mellitus terminal superintendent insulin use: without fdc use Diabetes mellitus complication status: with kidney complications Chronic kidney disease stage: on chronic dialysis Comment: SSI and accuchecks. (10) ESRD (end stage renal disease) on dialysis Code(s): N18.6 - END STAGE RENAL DISEASE; Z99.2 - DEPENDENCE ON RENAL DIALYSIS Status: Chronic Comment: Followed by Nephrology. Continuing HD. Last HD , hold HD until stabilizing BP trend (11) Hypothyroidism Code(s): E03.9 - HYPOTHYROIDISM, UNSPECIFIED Status: Chronic Qualifiers: Hypothyroidism type: unspecified Qualified Code(s): E03.9 - Hypothyroidism , unspecified Comment: Continue synthroid. - Plan Continue antithrombotic therapy with heparin, ASA and plavix. -: No KEON/ARB or beta henny due to low BP. -: Awaiting repeat echo for systolic function assessment. -: HD as per nephrology -: Continue other treatments * .
[2018-08-18] MEDS: Heparin 10,000 UNITS/ 10 ML VIAL SLOW IVP SCH (19:23)
[2018-08-18] MEDS: Atorvastatin Calcium 20 MG TAB PO SCH (20:29)
[2018-08-18] MEDS: Acetaminophen 325 MG TAB PO PRN (22:36)
[2018-08-18] MEDS ORDERED: Nitroglycerin 0.4 MG TAB (25 Tab Bottle) SL PRN (23:54)
[2018-08-19] MEDS: Heparin 25,000 units/D5W 500 ML IVPB SCH (01:14)
[2018-08-19] MEDS: Levothyroxine Sodium 75 MCG TAB PO SCH (06:01)
[2018-08-19] MEDS: Aspirin Chewable 81 MG TAB PO SCH (09:42)
[2018-08-19] MEDS: Allopurinol 100 MG TAB PO SCH (09:42)
[2018-08-19] MEDS: Gabapentin 300 MG CAP PO SCH ×3 (09:42→19:38)
[2018-08-19] MEDS: Clopidogrel Bisulfate 75 MG TAB PO SCH (09:42)
[2018-08-19] MEDS: Folic Acid 1 MG TAB PO SCH (09:42)
--- NOTE | 2018-08-19 11:08 | PDOC.PN ---
- Subjective Encounter Start Date: 08/19/18 Encounter Start Time: 11:07 Patient seen and examined, no new issues or complaints, all questions answered. No family at bedside. - Objective Resuscitation Status - Order Detail: 08/09/18 07:40 Resuscitation Status Routine Resuscitation Status: FULL: Full Resuscitation Vital Signs & Weight: Vital Signs (12 hours) Temp 08/19/18 07:16 97.4 F L 08/19/18 04:00 98.4 F 08/19/18 00:00 99.0 F Weight Admit Weight 157 lb Weight 157 lb Most Recent Monitor Data Heart Rate from ECG 100 NIBP 119/71 NIBP BP-Mean 87 Respiration from ECG 16 SpO2 98 I&O: 08/18/18 08/19/18 08/20/18 06:59 06:59 06:59 Intake Total 1303 1806 Output Total 0 Balance 1303 1806 Result Diagrams: 08/17/18 14:16 08/16/18 01:19 Additional Labs: Accuchecks 08/19/18 08/18/18 08/18/18 10:36 20:01 16:40 POC Glucose 125 H 126 H 135 H 08/18/18 06:08 POC Glucose 113 H Phys Exam - Physical Examination Constitutional: NAD HEENT: PERRLA, moist MMs, sclera anicteric Neck: no nodes, no JVD, supple Respiratory: no wheezing, no rales, no rhonchi Cardiovascular: RRR, no significant murmur, no rub Gastrointestinal: soft, non-tender, no distention, positive bowel sounds Musculoskeletal: no edema, pulses present Dx/Plan (1) Hypotension Status: Acute Qualifiers: Hypotension type: hypotension due to drug Qualified Code(s): I95.2 - Hypotension due to drugs Comment: Medications +/- NSTEMI. improved. (2) NSTEMI (non-ST elevated myocardial infarction) Code(s): I21.4 - NON-ST ELEVATION (NSTEMI) MYOCARDIAL INFARCTION Status: Acute (3) Physical deconditioning Code(s): R53.81 - OTHER MALAISE Status: Acute (4) Hemodialysis access, AV graft Code(s): Z99.2 - DEPENDENCE ON RENAL DIALYSIS Status: Acute (5) DM type 2 (diabetes mellitus, type 2) Status: Chronic Qualifiers: Diabetes mellitus fpc insulin use: without terminal operations supervisor use Diabetes mellitus complication status: with kidney complications Chronic kidney disease stage: on chronic dialysis Comment: SSI and accuchecks. (6) Dyslipidemia Code(s): E78.5 - HYPERLIPIDEMIA, UNSPECIFIED Status: Chronic Comment: Continue Statin (7) HTN (hypertension) Code(s): I10 - ESSENTIAL (PRIMARY) HYPERTENSION Status: Chronic Qualifiers: Hypertension type: essential hypertension Qualified Code(s): I10 - Essential (primary) hypertension Comment: Continue home meds. (8) Hypothyroidism Code(s): E03.9 - HYPOTHYROIDISM, UNSPECIFIED Status: Chronic Qualifiers: Hypothyroidism type: unspecified Qualified Code(s): E03.9 - Hypothyroidism , unspecified Comment: Continue synthroid. - Plan * talk had with patient regarding expectations vs what is realistically achievable, patient states he would like some time to make a decision * palliative care team also following * will continue current plan of care for now * overall prognosis appears to be poor * HD per renal
[2018-08-19 12:47] LABS: #Eosinphils 0.3 thou/uL (0.0-0.7); #Lymphocytes 0.9 thou/uL (1.20-3.40); #Monocytes 0.6 thou/uL (0.11-0.59); #Neutrophils 5.6 thou/uL (1.40-6.50); %Basophils 0.4 % (0.0-1.0); %Eosinophils 3.5 % (0.0-10.0); %Lymphocytes 12.5 % (21.0-51.0); %Monocytes 7.8 % (0.0-10.0); %Neutrophils 75.8 % (42.0-75.0); Hemoglobin 8.7 g/dL (14.0-18.0); Mean Corpuscular HGB CONC 33.9 g/dL (32.0-36.0); Mean Corpuscular Hemoglobin 32.5 pg (27.0-31.0); Mean Corpuscular Volume 95.7 fL (78.0-98.0); Mean Platelet Volume 8.8 fL (7.4-10.4); Platelet Count 155 thou/uL (130-400); RBC Distribution Width 14.6 % (11.5-14.5); Red Blood Cell (RBC) Count 2.67 mill/uL (4.70-6.10); White Blood Cell (WBC) Count 7.4 thou/uL (4.8-10.8)
[2018-08-19 12:48] LABS: Hemoglobin 8.6 g/dL (14.0-18.0); Platelet Count 159 thou/uL (130-400)
[2018-08-19 13:08] LABS: Albumin 3.1 g/dL (3.4-4.8); Anion Gap 21 mmol/L (10-20); BUN (Urea Nitrogen) 62 mg/dL (8.4-25.7); BUN/Creatinine Ratio 7.08; Calc. Creatinine Clearance 7 mL/min (70-130); Calcium 8.2 mg/dL (7.8-10.44); Carbon Dioxide 21 mmol/L (23-31); Chloride 92 mmol/L (98-107); Estimated GFR-MDRD 6; Glucose 138 mg/dL (83-110); Phosphorus 6.2 mg/dL (2.3-4.7); Potassium 4.6 mmol/L (3.5-5.1); Sodium 129 mmol/L (136-145)
--- NOTE | 2018-08-19 14:50 | PDOC.PALCO ---
Palliative Care Consult - Consult Details Requesting Physician: Dr Rodriguez Reason for Consult: complex decision-making Family Members Present: Angela patient ex-, daughter Pearl - Pertinent HPI Patient has an amputation to his right lower extremity related to a work accident. Has been on dialysis for aprox 4 years. Patient was in [place] in June to see a family member graduate, had an exacerbation of symptoms and ended up in the hospital s/p cpr. Patient was eventually brought to [facility] from the hospital in [place]. Patient admitted, fragile state. Hypotensive, angina, difficulty with dialysis secondary to decline/hypotension. - Pertinent PMH Acute metabolic encepha, hypotension, ESRD on dialysis, hypothyroid, Anemia related to renal disease, nonstemi, CVD,DM II - Social History Living Situation: with partner - Medications MAR Reviewed: Yes - Allergies Allergies/Adverse Reactions: Allergies Allergy/AdvReac Type Severity Reaction Status Date / Time No Known Drug Allergies Allergy Verified 02/05/18 15:01 - Subjective Patient chronically ill appearing. Patient mildly lethargic, but oriented. Tearful. - Objective Vital Signs: Vital Signs - Most Recent Temp Pulse Resp BP Pulse Ox 97.5 F L 92 14 132/65 97 08/19/18 11:15 08/15/18 15:50 08/18/18 20:25 08/15/18 15:50 08/19/18 07:51 Palliative Performance Scale: 30 - Advance Directives Medical Power of Negotiator: Patient Angela - Physical Exam Constitutional: mild distress HEENT: moist MMs, EOMI Deviation from normal: Perioribital edema Gastrointestinal: soft Deviation from normal: mildly distended, umbilical hernia Musculoskeletal: edema present Deviation from normal: right bka Deviation from normal: Depressed Deviation from normal: Brusing to abdomen, dressing over wound to right stump - Problem List (1) Palliative care encounter Code(s): Z51.5 - ENCOUNTER FOR PALLIATIVE CARE Current Visit: Yes Status: Acute Comments: Lengthy discussion with patient, ex , and daughter in relation to recent CPR , current health status. - Plan/Recommendations Plan: *MPOA signed today *Discussion in relation to fragile health status with limited life span *Return 08/20 to further explore realistic outcomes to determine plan of care for quality of life. [80] minutes spent on this encounter with >50% of the time in counseling and coordination of care. Thank you for this very appropriate consult.
--- NOTE | 2018-08-19 18:36 | PRG ---
DATE OF SERVICE: SUBJECTIVE: Mr. Gonzalez is doing well. He continues to be weak. No current complaints. No chest pain, pressure, or other associated symptoms. His most recent echo dated 08/18/2018 with LVEF 35% to 40%. I also reviewed his previous angio. He has a severe 3-vessel disease. He also had a code green called due to abnormal behavior and drowsiness. The patient's blood pressure is also markedly diminished. He was resuscitated successfully. OBJECTIVE: GENERAL: Patient is a pleasant male, who is in no acute distress. The patient appears their stated age. VITAL SIGNS: Blood pressure 105/56, pulse 99, temperature afebrile. NEUROLOGIC: The patient is alert and oriented x3 with no focal neurologic deficits. HEENT: Sclerae without icterus. Mouth has moist mucous membranes with normal pallor. NECK: No JVD. Carotid upstroke brisk. No bruits bilaterally. LUNGS: Clear to auscultation with unlabored respirations. BACK: No scoliosis or kyphosis. CARDIAC: Regular rate and rhythm with normal S1 and S2. No S3 or S4 noted. No significant rubs, murmurs, thrills, or gallops noted throughout the precordium. PMI is not displaced. There is no parasternal heave. ABDOMEN: Soft, nontender, nondistended. No peritoneal signs present. No hepatosplenomegaly. No abnormal striae. EXTREMITIES: 2+ femoral and 2+ dorsalis pedis pulses. No cyanosis, clubbing, or edema. SKIN: No gross abnormalities. PERTINENT LABORATORY DATA: Hemoglobin 8.7. Creatinine 8.76, sodium 129. IMPRESSION: 1. Weakness, fatigue. 2. Shortness of breath. 3. Severe 3-vessel disease. 4. Ischemic cardiomyopathy. 5. End-stage renal disease. 6. Recent stroke. RECOMMENDATIONS: I had a long discussion with Mr. Gonzalez as well as his family. I discussed treatment options knowing the treatment options have been limited. We would recommend to continue medical therapy. I would not recommend a more aggressive approach. He is not felt to be an appropriate candidate for percutaneous intervention or for bypass surgery. At this point, the family is very reluctant to accept his terminal state. I did state he has multiorgan failure including end-stage renal disease, cardiomyopathy, and recent stroke. I discussed DNR status with the family. At this point, they are not ready to make him a true DNR. From a CV standpoint, we will continue aspirin, atorvastatin in addition to Plavix. We would also recommend low-dose beta-henny therapy once the blood pressure and heart rate are more stable. Otherwise, I have limited options. Job ID: [id number]
[2018-08-19] MEDS: Atorvastatin Calcium 20 MG TAB PO SCH (19:38)
[2018-08-19] MEDS: Acetaminophen 325 MG TAB PO PRN (21:16)
[2018-08-20] MEDS: Heparin 25,000 units/D5W 500 ML IVPB SCH (00:36)
[2018-08-20] MEDS: Levothyroxine Sodium 75 MCG TAB PO SCH (05:42)
--- NOTE | 2018-08-20 08:43 | PDOC.CTH ---
Cardiology Progress Note - Subjective No changes noted overnight - Objective Vital Signs Temp Pulse Ox 08/20/18 07:44 97 08/20/18 07:13 97.6 F 08/20/18 03:51 97.2 F L 08/20/18 00:00 98.8 F Admit Weight 157 lb Weight 157 lb 13.616 oz 08/19/18 08/20/18 08/21/18 06:59 06:59 06:59 Intake Total 1806 1684 Output Total 1400 Balance 1806 284 - Physical Examination General/Neuro: alert & oriented x3, NAD Neck: carotid US brisk, no JVD present Lungs: unlabored respirations Heart: RRR Abdomen: NT/ND, soft Extremities: + femoral B - Labs Result Diagrams: 08/19/18 12:32 08/19/18 12:32 Troponin/CKMB CK-MB (CK-2) 5.0 ng/mL (0-6.6) 08/16/18 07:16 Troponin I 1.311 ng/mL (< 0.028) H* 08/16/18 15:33 - Assessment/Plan Severe CAD SOB Weakness ESRD Previous CVA Non-ambulatory See previous note No good supervisor intermediates options Recommend continued medial therapy with ASA, statin, BB (when tolerated), ACEI, nitrates Was not a good candiatie for CABG 6 months ago and has continued to decline No further reocmmendations Reconsult if changes occur that my input would change pts course
[2018-08-20] MEDS: Clopidogrel Bisulfate 75 MG TAB PO SCH (09:38)
[2018-08-20] MEDS: Gabapentin 300 MG CAP PO SCH ×3 (09:38→20:48)
[2018-08-20] MEDS: Folic Acid 1 MG TAB PO SCH (09:38)
[2018-08-20] MEDS: Aspirin Chewable 81 MG TAB PO SCH (09:38)
[2018-08-20] MEDS: Allopurinol 100 MG TAB PO SCH (09:38)
--- NOTE | 2018-08-20 11:34 | PDOC.PN ---
- Subjective Encounter Start Date: 08/20/18 Encounter Start Time: 11:32 Patient seen and examined, no new issues or complaints, all questions answered. - Objective Resuscitation Status - Order Detail: 08/09/18 07:40 Resuscitation Status Routine Resuscitation Status: FULL: Full Resuscitation Vital Signs & Weight: Vital Signs (12 hours) Temp Pulse Ox 08/20/18 10:31 98.2 F 08/20/18 07:44 97 08/20/18 07:13 97.6 F 08/20/18 03:51 97.2 F L 08/20/18 00:00 98.8 F Weight Admit Weight 157 lb Weight 157 lb 13.616 oz Most Recent Monitor Data Heart Rate from ECG 110 NIBP 103/66 NIBP BP-Mean 78 Respiration from ECG 24 SpO2 96 I&O: 08/19/18 08/20/18 08/21/18 06:59 06:59 06:59 Intake Total 1806 1684 Output Total 1400 Balance 1806 284 Result Diagrams: 08/19/18 12:32 08/19/18 12:32 Additional Labs: Accuchecks 08/20/18 08/20/18 08/19/18 10:01 05:36 20:20 POC Glucose 146 H 135 H 137 H 08/19/18 08/19/18 16:36 05:44 POC Glucose 100 121 H Phys Exam - Physical Examination Constitutional: NAD HEENT: PERRLA, moist MMs Neck: no nodes, no JVD, supple Respiratory: no wheezing, no rales, no rhonchi Cardiovascular: RRR systolic murmur Gastrointestinal: soft, non-tender, no distention Musculoskeletal: pulses present, edema present Dx/Plan (1) Hypotension Status: Acute Qualifiers: Hypotension type: hypotension due to drug Qualified Code(s): I95.2 - Hypotension due to drugs Comment: Medications +/- NSTEMI. improved. (2) NSTEMI (non-ST elevated myocardial infarction) Code(s): I21.4 - NON-ST ELEVATION (NSTEMI) MYOCARDIAL INFARCTION Status: Acute (3) Physical deconditioning Code(s): R53.81 - OTHER MALAISE Status: Acute (4) Hemodialysis access, AV graft Code(s): Z99.2 - DEPENDENCE ON RENAL DIALYSIS Status: Acute (5) DM type 2 (diabetes mellitus, type 2) Status: Chronic Qualifiers: Diabetes mellitus alf insulin use: without termite inspector use Diabetes mellitus complication status: with kidney complications Chronic kidney disease stage: on chronic dialysis Comment: MIGUEL ANGEL and accjay. (6) Dyslipidemia Code(s): E78.5 - HYPERLIPIDEMIA, UNSPECIFIED Status: Chronic Comment: Continue Statin (7) HTN (hypertension) Code(s): I10 - ESSENTIAL (PRIMARY) HYPERTENSION Status: Chronic Qualifiers: Hypertension type: essential hypertension Qualified Code(s): I10 - Essential (primary) hypertension Comment: Continue home meds. (8) Hypothyroidism Code(s): E03.9 - HYPOTHYROIDISM, UNSPECIFIED Status: Chronic Qualifiers: Hypothyroidism type: unspecified Qualified Code(s): E03.9 - Hypothyroidism , unspecified Comment: Continue synthroid. - Plan * cont current plan of care * overall prognosis is very poor, lengthy discussion held, palliative care team also at beside * patient stated he understood his condition and agreed to discuss hospice options * will place CM consult for hospice evaluation * overall prognosis is very poor and hospice would be the appropriate call her * patient states he'd like to talk to his prior to becoming DNR/DNI, will keep full code for now * case and plan d/w patient at length, he understood and agreed with this plan.
[2018-08-20] MEDS: EPOETIN ALFA-EPBX (ESRD) 3,000 UNIT/ML VIAL SC SCH (16:41)
[2018-08-20] MEDS: Atorvastatin Calcium 20 MG TAB PO SCH (20:48)
[2018-08-21] MEDS: Heparin 25,000 units/D5W 500 ML IVPB SCH (02:44)
[2018-08-21] MEDS: Levothyroxine Sodium 75 MCG TAB PO SCH (06:19)
[2018-08-21] MEDS: Gabapentin 300 MG CAP PO SCH ×3 (09:25→21:12)
[2018-08-21] MEDS: Clopidogrel Bisulfate 75 MG TAB PO SCH (09:25)
[2018-08-21] MEDS: Folic Acid 1 MG TAB PO SCH (09:25)
[2018-08-21] MEDS: Aspirin Chewable 81 MG TAB PO SCH (09:25)
[2018-08-21] MEDS: Allopurinol 100 MG TAB PO SCH (09:25)
[2018-08-21 14:59] LABS: Platelet Count 204 thou/uL (130-400)
--- NOTE | 2018-08-21 15:42 | PRG ---
DATE OF SERVICE: 08/21/2018 SUBJECTIVE: The patient is seen and examined at bedside. His is present in the room during my visit. She does not have much complaints to offer. OBJECTIVE: VITAL SIGNS: Blood pressure is 128/78, pulse is 95, and temperature is 98. HEENT: His head is atraumatic and normocephalic. He has some facial droop on the right side. His sclerae are nonicteric. NECK: Supple. LUNGS: Breath sounds diminished at both bases with bilateral crackles at both bases. HEART: S1 and S2, somewhat irregular. No S3. No S4. ABDOMEN: Soft and nontender. Bowel sounds present. EXTREMITIES: He has a left BKA. NEUROLOGIC: He follows my commands. LABORATORY DATA: Labs showed glycemia is ranging from 139 to 145. IMPRESSION: 1. Hypotension. 2. Non-ST elevation myocardial infarction. 3. Physical deconditioning. 4. Type 2 diabetes mellitus. 5. Dyslipidemia. 6. End-stage renal disease, on hemodialysis. 7. Hypertension. 8. Hypothyroidism. 9. Previous stroke and previous myocardial infarction. DISCUSSION: I had a long discussion with both of them and explained that he has multiple medical problems and long-term prognosis is very poor and he should reconsider hospice services at this point, they want to have him a full code and will discuss this and let me know whether hospice consultation will be allowed. I will continue his current regimen. His diabetes is well controlled. He will continue on his clopidogrel and atorvastatin along with aspirin, allopurinol, gabapentin, levothyroxine, and nitroglycerin p.r.n. He will continue his hemodialysis, which is somewhat limited because of his hypotension, which is somewhat better today. Job ID: [id number]
[2018-08-21] MEDS: Atorvastatin Calcium 20 MG TAB PO SCH (21:12)
[2018-08-22] MEDS: Levothyroxine Sodium 75 MCG TAB PO SCH (05:58)
[2018-08-22] MEDS: Aspirin Chewable 81 MG TAB PO SCH (09:32)
[2018-08-22] MEDS: Gabapentin 300 MG CAP PO SCH ×3 (09:32→21:30)
[2018-08-22] MEDS: Folic Acid 1 MG TAB PO SCH (09:32)
[2018-08-22] MEDS: Allopurinol 100 MG TAB PO SCH (09:32)
[2018-08-22] MEDS: Clopidogrel Bisulfate 75 MG TAB PO SCH (09:32)
--- NOTE | 2018-08-22 12:41 | PDOC.PN ---
- Subjective Encounter Start Date: 08/22/18 Encounter Start Time: 12:39 Patient seen and examined, no new issues, daughter at bedside, all questions answered. - Objective Resuscitation Status - Order Detail: 08/09/18 07:40 Resuscitation Status Routine Resuscitation Status: FULL: Full Resuscitation Vital Signs & Weight: Vital Signs (12 hours) Temp 08/22/18 10:43 98.6 F 08/22/18 07:07 98.3 F 08/22/18 04:00 98.0 F Weight Admit Weight 157 lb Weight 157 lb 3.033 oz Most Recent Monitor Data Heart Rate from ECG 81 NIBP 102/59 NIBP BP-Mean 73 Respiration from ECG 7 SpO2 99 I&O: 08/21/18 08/22/18 08/23/18 06:59 06:59 06:59 Intake Total 1449 680 Balance 1449 680 Result Diagrams: 08/21/18 14:45 08/19/18 12:32 Additional Labs: Accuchecks 08/22/18 08/22/18 08/21/18 10:30 05:42 20:34 POC Glucose 106 106 133 H 08/21/18 16:07 POC Glucose 139 H Phys Exam - Physical Examination Constitutional: NAD HEENT: PERRLA, moist MMs Neck: no nodes, no JVD, supple Respiratory: no wheezing, no rales, no rhonchi Cardiovascular: RRR, no significant murmur, no rub Gastrointestinal: no distention, positive bowel sounds Musculoskeletal: pulses present, edema present (trace) Dx/Plan (1) Hypotension Status: Acute Qualifiers: Hypotension type: hypotension due to drug Qualified Code(s): I95.2 - Hypotension due to drugs Comment: Medications +/- NSTEMI. improved. (2) NSTEMI (non-ST elevated myocardial infarction) Code(s): I21.4 - NON-ST ELEVATION (NSTEMI) MYOCARDIAL INFARCTION Status: Acute (3) Physical deconditioning Code(s): R53.81 - OTHER MALAISE Status: Acute (4) Hemodialysis access, AV graft Code(s): Z99.2 - DEPENDENCE ON RENAL DIALYSIS Status: Acute (5) DM type 2 (diabetes mellitus, type 2) Status: Chronic Qualifiers: Diabetes mellitus terminal computer operator insulin use: without terminal computer operator use Diabetes mellitus complication status: with kidney complications Chronic kidney disease stage: on chronic dialysis Comment: SSI and accuchecks. (6) Dyslipidemia Code(s): E78.5 - HYPERLIPIDEMIA, UNSPECIFIED Status: Chronic Comment: Continue Statin (7) HTN (hypertension) Code(s): I10 - ESSENTIAL (PRIMARY) HYPERTENSION Status: Chronic Qualifiers: Hypertension type: essential hypertension Qualified Code(s): I10 - Essential (primary) hypertension Comment: Continue home meds. (8) Hypothyroidism Code(s): E03.9 - HYPOTHYROIDISM, UNSPECIFIED Status: Chronic Qualifiers: Hypothyroidism type: unspecified Qualified Code(s): E03.9 - Hypothyroidism , unspecified Comment: Continue synthroid. - Plan * overall poor prognosis * lengthy discussion held with patient and daughter * want to be DNR and also requesting information on hospice * will change to DNR status, will also transfer to med/sx room * hospice evaluation pending for now * DC to SNF with hospice once arrangements made * supportive care till then * case and plan d/w patient and daughter at length, they understood and agreed with this plan.
[2018-08-22] MEDS: Atorvastatin Calcium 20 MG TAB PO SCH (21:30)
[2018-08-23] MEDS: Levothyroxine Sodium 75 MCG TAB PO SCH (06:12)
--- NOTE | 2018-08-23 12:49 | PDOC.PN ---
- Subjective Encounter Start Date: 08/23/18 Encounter Start Time: 12:47 Patient seen and examined, no new issues. - Objective Resuscitation Status - Order Detail: 08/09/18 07:40 Resuscitation Status Routine Resuscitation Status: DNAR: NO Resuscitation Discussed with: Patient and daughter Vital Signs & Weight: Vital Signs (12 hours) Temp Pulse Resp BP Pulse Ox 08/23/18 07:57 98.1 F 94 16 98/66 98 08/23/18 05:00 98.2 F 91 18 108/72 100 08/23/18 00:52 97.6 F 93 16 124/76 100 Weight Admit Weight 157 lb Weight 173 lb 14.4 oz Most Recent Monitor Data Heart Rate from ECG 93 NIBP 112/69 NIBP BP-Mean 83 Respiration from ECG 14 SpO2 100 I&O: 08/22/18 08/23/18 08/24/18 06:59 06:59 06:59 Intake Total 680 970 Balance 680 970 Result Diagrams: 08/21/18 14:45 08/19/18 12:32 Additional Labs: Accuchecks 08/23/18 08/22/18 08/22/18 05:36 20:27 16:25 POC Glucose 108 125 H 157 H Phys Exam - Physical Examination Constitutional: NAD HEENT: PERRLA, moist MMs Neck: no nodes, no JVD Respiratory: no wheezing, no rales, no rhonchi Cardiovascular: RRR, no significant murmur, no rub Gastrointestinal: soft, non-tender, no distention Musculoskeletal: pulses present, edema present Dx/Plan (1) Hypotension Status: Acute Qualifiers: Hypotension type: hypotension due to drug Qualified Code(s): I95.2 - Hypotension due to drugs Comment: Medications +/- NSTEMI. improved. (2) NSTEMI (non-ST elevated myocardial infarction) Code(s): I21.4 - NON-ST ELEVATION (NSTEMI) MYOCARDIAL INFARCTION Status: Acute (3) Physical deconditioning Code(s): R53.81 - OTHER MALAISE Status: Acute (4) Hemodialysis access, AV graft Code(s): Z99.2 - DEPENDENCE ON RENAL DIALYSIS Status: Acute (5) DM type 2 (diabetes mellitus, type 2) Status: Chronic Qualifiers: Diabetes mellitus fci insulin use: without long lines operator use Diabetes mellitus complication status: with kidney complications Chronic kidney disease stage: on chronic dialysis Comment: SSI and accuchecks. (6) Dyslipidemia Code(s): E78.5 - HYPERLIPIDEMIA, UNSPECIFIED Status: Chronic Comment: Continue Statin (7) HTN (hypertension) Code(s): I10 - ESSENTIAL (PRIMARY) HYPERTENSION Status: Chronic Qualifiers: Hypertension type: essential hypertension Qualified Code(s): I10 - Essential (primary) hypertension Comment: Continue home meds. (8) Hypothyroidism Code(s): E03.9 - HYPOTHYROIDISM, UNSPECIFIED Status: Chronic Qualifiers: Hypothyroidism type: unspecified Qualified Code(s): E03.9 - Hypothyroidism , unspecified Comment: Continue synthroid. - Plan * cont current plan of care * pending placement * overall very poor prognosis * no family at bedside.
[2018-08-23 14:22] LABS: Hemoglobin 8.4 g/dL (14.0-18.0); Platelet Count 218 thou/uL (130-400)
[2018-08-23] MEDS: Allopurinol 100 MG TAB PO SCH (14:29)
[2018-08-23] MEDS: Aspirin Chewable 81 MG TAB PO SCH (14:29)
[2018-08-23] MEDS: Folic Acid 1 MG TAB PO SCH (14:30)
[2018-08-23] MEDS: Gabapentin 300 MG CAP PO SCH ×3 (14:30→20:47)
[2018-08-23] MEDS: Clopidogrel Bisulfate 75 MG TAB PO SCH (14:37)
[2018-08-23] MEDS: Acetaminophen 325 MG TAB PO PRN (20:47)
[2018-08-23] MEDS: Atorvastatin Calcium 20 MG TAB PO SCH (20:47)
[2018-08-24] MEDS: Levothyroxine Sodium 75 MCG TAB PO SCH (06:18)
[2018-08-24] MEDS: Acetaminophen 325 MG TAB PO PRN (06:18)
[2018-08-24] MEDS: Aspirin Chewable 81 MG TAB PO SCH (08:19)
[2018-08-24] MEDS: Clopidogrel Bisulfate 75 MG TAB PO SCH (08:19)
[2018-08-24] MEDS: Gabapentin 300 MG CAP PO SCH ×3 (08:19→20:44)
[2018-08-24] MEDS: Folic Acid 1 MG TAB PO SCH (08:19)
[2018-08-24] MEDS: Allopurinol 100 MG TAB PO SCH (08:20)
--- NOTE | 2018-08-24 11:55 | PDOC.PN ---
- Subjective Encounter Start Date: 08/24/18 Encounter Start Time: 11:53 Patient seen and examined, family at bedside, as well, patient now states he'd like to not be a DNR and wants to be a full code, would like to try and get better and wants to go to a SNF to continue dialysis. - Objective Resuscitation Status - Order Detail: 08/23/18 20:49 Resuscitation Status Routine Co-Sign Provider: Resuscitation Status: FULL: Full Resuscitation Discussed with: Patient and daughter Additional comments: Patient refused to sign the DNR consent today and daughter states she is MPOA and both request a FULL code status. Discussed with MICHAEL Aguilar Vital Signs & Weight: Vital Signs (12 hours) Temp Pulse Resp BP BP Pulse Ox 08/24/18 08:00 97.3 F L 87 12 99/66 99 08/24/18 05:00 98.0 F 90 16 127/78 100 08/24/18 01:09 98.9 F 90 16 105/72 100 Weight Admit Weight 157 lb Weight 165 lb 9.074 oz Most Recent Monitor Data Heart Rate from ECG 93 NIBP 112/69 NIBP BP-Mean 83 Respiration from ECG 14 SpO2 100 I&O: 08/23/18 08/24/18 08/25/18 06:59 06:59 06:59 Intake Total 970 320 Balance 970 320 Result Diagrams: 08/23/18 14:05 08/19/18 12:32 Additional Labs: Accuchecks 08/24/18 08/24/18 08/23/18 05:21 00:05 19:11 POC Glucose 107 95 138 H 08/23/18 16:50 POC Glucose 145 H Phys Exam - Physical Examination Constitutional: NAD HEENT: PERRLA, moist MMs, sclera anicteric Neck: no nodes, no JVD, supple Respiratory: no wheezing, no rales, no rhonchi Cardiovascular: RRR, no significant murmur, no rub Gastrointestinal: soft, non-tender, no distention Musculoskeletal: no edema, pulses present Dx/Plan (1) Hypotension Status: Acute Qualifiers: Hypotension type: hypotension due to drug Qualified Code(s): I95.2 - Hypotension due to drugs Comment: Medications +/- NSTEMI. improved. (2) NSTEMI (non-ST elevated myocardial infarction) Code(s): I21.4 - NON-ST ELEVATION (NSTEMI) MYOCARDIAL INFARCTION Status: Acute (3) Physical deconditioning Code(s): R53.81 - OTHER [place] Status: Acute (4) Hemodialysis access, AV graft Code(s): Z99.2 - DEPENDENCE ON RENAL DIALYSIS Status: Acute (5) DM type 2 (diabetes mellitus, type 2) Status: Chronic Qualifiers: Diabetes mellitus fpc insulin use: without seismic engineer use Diabetes mellitus complication status: with kidney complications Chronic kidney disease stage: on chronic dialysis Comment: SSI and accuchecks. (6) Dyslipidemia Code(s): E78.5 - HYPERLIPIDEMIA, UNSPECIFIED Status: Chronic Comment: Continue Statin (7) HTN (hypertension) Code(s): I10 - ESSENTIAL (PRIMARY) HYPERTENSION Status: Chronic Qualifiers: Hypertension type: essential hypertension Qualified Code(s): I10 - Essential (primary) hypertension Comment: Continue home meds. (8) Hypothyroidism Code(s): E03.9 - HYPOTHYROIDISM, UNSPECIFIED Status: Chronic Qualifiers: Hypothyroidism type: unspecified Qualified Code(s): E03.9 - Hypothyroidism , unspecified Comment: Continue synthroid. - Plan * change code status to full code * will consult CM for SNF placement * patient keeps changing his decisions, at this point in time, after a lengthy discussion with patient and whole family, they understand he has very poor prognosis * HD per renal for now * no changes in plan of care * await placement * case and plan d/w patient and family at length, they understood and agreed with this plan.
[2018-08-24] MEDS: Atorvastatin Calcium 20 MG TAB PO SCH (20:44)
[2018-08-25] MEDS: Levothyroxine Sodium 75 MCG TAB PO SCH (05:46)
[2018-08-25] MEDS: Folic Acid 1 MG TAB PO SCH (08:55)
[2018-08-25] MEDS: Aspirin Chewable 81 MG TAB PO SCH (08:55)
[2018-08-25] MEDS: Allopurinol 100 MG TAB PO SCH (08:55)
[2018-08-25] MEDS: Gabapentin 300 MG CAP PO SCH ×3 (08:55→21:27)
[2018-08-25] MEDS: Clopidogrel Bisulfate 75 MG TAB PO SCH (08:55)
[2018-08-25 14:49] LABS: Hemoglobin 8.2 g/dL (14.0-18.0); Platelet Count 230 thou/uL (130-400)
--- NOTE | 2018-08-25 14:55 | PDOC.PN ---
- Subjective Encounter Start Date: 08/25/18 Encounter Start Time: 12:30 Subjective: pt up in bed eating with family - Objective Resuscitation Status - Order Detail: 08/23/18 20:49 Resuscitation Status Routine Co-Sign Provider: Resuscitation Status: FULL: Full Resuscitation Discussed with: Patient and daughter Additional comments: Patient refused to sign the DNR consent today and daughter states she is MPOA and both request a FULL code status. Discussed with MICHAEL Aguilar Vital Signs & Weight: Vital Signs (12 hours) Temp Pulse Resp BP Pulse Ox 08/25/18 07:36 97.8 F 91 18 118/74 100 Weight Admit Weight 157 lb Weight 167 lb 1.766 oz Most Recent Monitor Data Heart Rate from ECG 93 NIBP 112/69 NIBP BP-Mean 83 Respiration from ECG 14 SpO2 100 I&O: 08/24/18 08/25/18 08/26/18 06:59 06:59 06:59 Intake Total 320 350 Balance 320 350 Result Diagrams: 08/25/18 14:39 08/19/18 12:32 Additional Labs: Accuchecks 08/25/18 08/25/18 08/24/18 11:20 05:47 19:36 POC Glucose 169 H 110 174 H 08/24/18 16:32 POC Glucose 122 H Phys Exam - Physical Examination Neck: no nodes, no JVD, supple, full ROM Respiratory: no wheezing, no rales, no rhonchi, wheezing present, clear to auscultation bilateral Cardiovascular: RRR, no significant murmur, no rub, gallop, irregular Gastrointestinal: soft, non-tender, no distention, positive bowel sounds Dx/Plan (1) Hypotension Status: Acute Qualifiers: Hypotension type: hypotension due to drug Qualified Code(s): I95.2 - Hypotension due to drugs Comment: Medications +/- NSTEMI. improved. (2) CVA (cerebral vascular accident) Code(s): I63.9 - CEREBRAL INFARCTION, UNSPECIFIED Status: Acute Comment: Subacute CVA, supportive mgmt, Rehab evaluation, PT/OT for mobilization when BP stabilizes (3) NSTEMI (non-ST elevated myocardial infarction) Code(s): I21.4 - NON-ST ELEVATION (NSTEMI) MYOCARDIAL INFARCTION Status: Acute (4) Physical deconditioning Code(s): R53.81 - OTHER [place] Status: Acute (5) Generalized weakness Code(s): R53.1 - WEAKNESS Status: Chronic Comment: PT/OT for mobilization, fall risk precautions (6) Coronary artery disease Code(s): I25.10 - ATHSCL HEART DISEASE OF [place] CORONARY ARTERY W/O ANG PCTRS Status: Chronic Qualifiers: Coronary Disease-Associated Artery/Lesion type: [place] artery [place] vs. transplanted heart: [place] heart Associated angina: without angina Qualified Code(s): I25.10 - Atherosclerotic heart disease of [place] coronary artery without angina pectoris Comment: Severe three vessel disease. (7) Dyslipidemia Code(s): E78.5 - HYPERLIPIDEMIA, UNSPECIFIED Status: Chronic Comment: Continue Statin - Plan will continue curre mediacations -: waiting for placement -: vitals are stable * . Review of Systems - Review of Systems Cardiovascular: negative: chest pain, palpitations, orthopnea, paroxysmal nocturnal dyspnea, edema, light headedness, other Gastrointestinal: negative: Nausea, Vomiting, Abdominal Pain, Diarrhea, Constipation, Melena, Hematochezia, Other Genitourinary: negative: Dysuria, Frequency, Incontinence, Hematuria, Retention , Other - Medications/Allergies Allergies/Adverse Reactions: Allergies Allergy/AdvReac Type Severity Reaction Status Date / Time No Known Drug Allergies Allergy Verified 02/05/18 15:01 Medications: Current Medications Acetaminophen (Tylenol) 650 mg PO Q4H PRN PRN Reason: Headache/Fever/Mild Pain (1-3) Last Admin: 08/24/18 06:18 Dose: 650 mg Allopurinol (Zyloprim) 50 mg PO DAILY [facility] Last Admin: 08/25/18 08:55 Dose: 50 mg Aspirin (Aspirin Chewable) 81 mg PO DAILY [facility] Last Admin: 08/25/18 08:55 Dose: 81 mg Atorvastatin Calcium (Lipitor) 20 mg PO HS [facility] Last Admin: 08/24/18 20:44 Dose: 20 mg Cholecalciferol (Vitamin D3) 2,000 units PO DAILY [facility] Last Admin: 08/25/18 08:55 Dose: 2,000 units Clopidogrel Bisulfate (Plavix) 75 mg PO DAILY [facility] Last Admin: 08/25/18 08:55 Dose: 75 mg Dextrose/Water (Dextrose 50%) 25 gm SLOW IVP PRN PRN PRN Reason: Hypoglycemia Epoetin Michael-epbx (Retacrit) 6,000 unit SC Q7D [facility] Last Admin: 08/20/18 16:41 Dose: 6,000 unit Folic Acid (Folvite) 1 mg PO DAILY [facility] Last Admin: 08/25/18 08:55 Dose: 1 mg Gabapentin (Neurontin) 300 mg PO TID [facility] Last Admin: 08/25/18 08:55 Dose: 300 mg Glucagon (Glucagon) 1 mg IM PRN PRN PRN Reason: Hypoglycemia Dextrose/Water (D5w) 1,000 mls @ 0 mls/hr IV .Q0M PRN PRN Reason: Hypoglycemia Insulin Human Lispro (Humalog) 0 units SC .MODERATE SLIDING SC PRN PRN Reason: Moderate Correctional Scale Insulin Human Lispro (Humalog) 0 units SC .BEDTIME SLIDING SC PRN PRN Reason: Bedtime Correctional Scale Levothyroxine Sodium (Synthroid) 75 mcg PO 0600 [facility] Last Admin: 08/25/18 05:46 Dose: 75 mcg Nitroglycerin (Nitrostat) 0.4 mg SL Q5MIN PRN PRN Reason: Chest Pain Last Admin: 08/19/18 00:02 Dose: 0.4 mg Sodium Chloride (Flush - Normal Saline) 10 ml IVF Q12HR [facility] Last Admin: 08/25/18 08:55 Dose: 10 ml Sodium Chloride (Flush - Normal Saline) 10 ml IVF PRN PRN PRN Reason: Saline Flush
[2018-08-25] MEDS: Atorvastatin Calcium 20 MG TAB PO SCH (21:27)
[2018-08-26 00:03] LABS: Troponin I 8.318 ng/mL (< 0.028)
[2018-08-26 00:58] LABS: Troponin I 8.272 ng/mL (< 0.028)
[2018-08-26] MEDS ORDERED: Heparin 25,000 units/D5W 500 ML IVPB SCH (01:00)
[2018-08-26] MEDS ORDERED: Heparin 10,000 UNITS/ 10 ML VIAL SLOW IVP SCH (01:00)
--- NOTE | 2018-08-26 01:16 | PDOC.EVN ---
Event Note - Event Note Event Note: Patient c/o of chest pain this evening, EKG and Troponin ordered. Troponin was 8.318, nurse requested a redraw and it was 8.2. Patient reports CP has resolved. Heparin protocol started and patient transferred to Tele for monitoring. Per Dr. Gonsales's notes, patient has CAD which is being medically managed and is not currently a candidate for intervention. Cardiology has been involved in patient's case on this visit but signed off on 08/20. Will ask them to see patient later in AM. Case discussed with Dr. Berman who agrees with plan.
[2018-08-26 01:27] LABS: Hemoglobin 7.7 g/dL (14.0-18.0); Platelet Count 207 thou/uL (130-400)
[2018-08-26 05:21] LABS: Critical Call Chem Troponin I RESULT DECREASING; Troponin I 7.943 ng/mL (< 0.028)
[2018-08-26] MEDS: Levothyroxine Sodium 75 MCG TAB PO SCH (05:49)
[2018-08-26 08:19] LABS: Troponin I 7.799 ng/mL (< 0.028)
[2018-08-26 09:33] LABS: INR-International Normal Ratio 1.1; Prothrombin Time 14.2 SEC (12.0-14.7)
[2018-08-26 09:51] LABS: PTT 140.4 SEC (22.9-36.1)
[2018-08-26] MEDS: Aspirin Chewable 81 MG TAB PO SCH (10:09)
[2018-08-26] MEDS: Allopurinol 100 MG TAB PO SCH (10:09)
[2018-08-26] MEDS: Gabapentin 300 MG CAP PO SCH ×3 (10:09→20:28)
[2018-08-26] MEDS: Clopidogrel Bisulfate 75 MG TAB PO SCH (10:09)
[2018-08-26] MEDS: Folic Acid 1 MG TAB PO SCH (10:09)
[2018-08-26] MEDS ORDERED: Polyethylene Glycol 3350 17 GM Packet PO PRN (10:11)
--- NOTE | 2018-08-26 10:11 | PDOC.PN ---
- Subjective Encounter Start Date: 08/26/18 Encounter Start Time: 10:00 Subjective: f/u NSTEMI after c/o CP overnight. Started on Heparin gtt and transfused -: 1u PRBC's with Hbg 7.7. No new complaints of CP currently. Feels fatigued -: and receiving HD. - Objective Resuscitation Status - Order Detail: 08/23/18 20:49 Resuscitation Status Routine Co-Sign Provider: Resuscitation Status: FULL: Full Resuscitation Discussed with: Patient and daughter Additional comments: Patient refused to sign the DNR consent today and daughter states she is MPOA and both request a FULL code status. Discussed with MICHAEL Aguilar MAR Reviewed: Yes Vital Signs & Weight: Vital Signs (12 hours) Temp Pulse Pulse Resp BP BP Pulse Ox 08/26/18 07:49 98.3 F 91 15 111/67 95 08/26/18 06:10 98.5 F 87 18 118/67 100 08/26/18 03:30 97.9 F 86 18 120/60 96 08/26/18 03:14 98 F 86 18 123/59 L 96 08/26/18 02:55 96.6 F L 85 15 115/56 L 97 08/26/18 01:08 98.8 F 88 18 124/65 99 08/26/18 00:25 98.3 F 88 18 124/65 100 Weight Admit Weight 157 lb Weight 162 lb 6.4 oz Most Recent Monitor Data Heart Rate from ECG 93 NIBP 112/69 NIBP BP-Mean 83 Respiration from ECG 14 SpO2 100 I&O: 08/25/18 08/26/18 08/27/18 06:59 06:59 06:59 Intake Total 752.8 Balance 752.8 Result Diagrams: 08/26/18 01:20 08/19/18 12:32 Additional Labs: Accuchecks 08/26/18 08/25/18 08/25/18 05:20 19:15 16:21 POC Glucose 134 H 133 H 136 H 08/25/18 11:20 POC Glucose 169 H Laboratory Tests 12/13/15 03/29/16 12/24/17 14:00 21:23 02:25 Hgb B-Natriuretic Peptide 952.3 H 418.8 H 1333.8 H Troponin I Lipase 08/08/18 08/08/18 08/08/18 23:39 23:39 23:39 Hgb 10.1 L B-Natriuretic Peptide 2472.0 H Troponin I Lipase 158 H 08/16/18 08/19/18 08/19/18 15:33 12:32 12:32 Hgb 8.6 L 8.7 L B-Natriuretic Peptide Troponin I 1.311 H* Lipase 08/21/18 08/23/18 08/25/18 14:45 14:05 14:39 Hgb 9.0 L 8.4 L 8.2 L B-Natriuretic Peptide Troponin I Lipase 08/25/18 08/26/18 08/26/18 23:17 00:25 04:03 Hgb B-Natriuretic Peptide Troponin I 8.318 H* 8.272 H* 7.943 H* Lipase 08/26/18 07:24 Hgb B-Natriuretic Peptide Troponin I 7.799 H* Lipase Radiology Reviewed by me: Yes (Echo - EF 35-40%, mild LAE, diast dysfxn) EKG Reviewed by me: Yes (Tele - SR ) Phys Exam - Physical Examination Constitutional: NAD HEENT: PERRLA, sclera anicteric, oral pharynx no lesions Neck: no nodes, no JVD, supple, full ROM Respiratory: no wheezing, no rales, no rhonchi, clear to auscultation bilateral II/ DAISY in RUSB, S1, S2 Cardiovascular: RRR, no rub, gallop Gastrointestinal: soft, non-tender, no distention, positive bowel sounds Musculoskeletal: no edema, pulses present Neurological: normal sensation, moves all 4 limbs Skin: normal turgor, cap refill <2 seconds Dx/Plan (1) NSTEMI (non-ST elevated myocardial infarction) Code(s): I21.4 - NON-ST ELEVATION (NSTEMI) MYOCARDIAL INFARCTION Status: Acute Comment: Continue Heparin gtt, Cardiology consulted, continue ASA/Plavix , likely med mgmt is only option given multiple co-morbid conditions, EF 35-40% (2) Anemia of renal disease Code(s): D63.1 - ANEMIA IN CHRONIC KIDNEY DISEASE Status: Acute Comment: Acute/chronic anemia due to CKD, s/p 1u PRBC's, recheck H/H and monitor trend (3) Hypotension Status: Acute Qualifiers: Hypotension type: hypotension due to drug Qualified Code(s): I95.2 - Hypotension due to drugs Comment: Medications +/- NSTEMI, Improved overall trend (4) CVA (cerebral vascular accident) Code(s): I63.9 - CEREBRAL INFARCTION, UNSPECIFIED Status: Acute Comment: Subacute CVA, supportive mgmt, SNF pending, PT/OT for mobilization when BP stabilizes (5) Acute metabolic encephalopathy Code(s): G93.41 - METABOLIC ENCEPHALOPATHY Status: Acute Comment: Likely multifactorial including ESRD, recent CVA, limited mobility and recent hospitalization, contribution of hypotension, see above (6) ESRD (end stage renal disease) on dialysis Code(s): N18.6 - END STAGE RENAL DISEASE; Z99.2 - DEPENDENCE ON RENAL DIALYSIS Status: Chronic Comment: Followed by Nephrology. Continuing HD currently (7) Generalized weakness Code(s): R53.1 - WEAKNESS Status: Chronic Comment: PT/OT for mobilization, fall risk precautions (8) Hypertension Code(s): I10 - ESSENTIAL (PRIMARY) HYPERTENSION Status: Chronic Qualifiers: Hypertension type: essential hypertension Qualified Code(s): I10 - Essential (primary) hypertension Comment: BP meds discontinued due to persistent hypotension - Plan PT/OT, rn social services Continue Heparin gtt per protocol -: Continue ASA/Plavix -: Continue Lipitor -: Consider Palliative care options given multiple co-morbid conditions -: SNF options pending * Serial H/H monitoring * HD today * AM lab: H/H, BMP
[2018-08-26 14:31] LABS: Hemoglobin 8.8 g/dL (14.0-18.0); Platelet Count 194 thou/uL (130-400)
--- NOTE | 2018-08-26 14:40 | CON ---
DATE OF CONSULTATION: 08/26/2018 REASON FOR CONSULTATION: Non-Q-wave ID. HISTORY OF PRESENT ILLNESS: Mr. Gonzalez is a 72-year-old gentleman, whom I saw and evaluated in July. At that time, it was felt that he was not a revascularization candidate. He has a history of severe multivessel coronary artery disease and was turned down for surgery in January 2018. His clinical status has worsened. He has become weaker and has also developed a stroke. He recently complained of chest pain. His troponin was drawn and was elevated at 8. PAST MEDICAL HISTORY: End-stage renal disease, diabetes mellitus, hypertension, ischemic colitis, recent stroke, right BKA. CURRENT MEDICATIONS: Include, 1. Nifedipine. 2. Levothyroxine. 3. Isosorbide. 4. Gabapentin. 5. Folic acid. 6. Pantoprazole. 7. Plavix. 8. Coreg. 9. Atorvastatin. 10. Allopurinol. ALLERGIES: NONE. REVIEW OF SYMPTOMS: Ten-point review of systems is reviewed and as above, otherwise negative. PHYSICAL EXAMINATION: GENERAL: Patient is a pleasant male who is in no acute distress. The patient appears their stated age. VITAL SIGNS: Blood pressure 129/62, pulse 93, respirations 20. NEUROLOGIC: The patient is alert and oriented x3 with no focal neurologic deficits. HEENT: Sclerae without icterus. Mouth has moist mucous membranes with normal pallor. NECK: No JVD. Carotid upstroke brisk. No bruits bilaterally. LUNGS: Clear to auscultation with unlabored respirations. BACK: No scoliosis or kyphosis. CARDIAC: Regular rate and rhythm with normal S1 and S2. No S3 or S4 noted. No significant rubs, murmurs, thrills, or gallops noted throughout the precordium. PMI is not displaced. There is no parasternal heave. ABDOMEN: Soft, nontender, nondistended. No peritoneal signs present. No hepatosplenomegaly. No abnormal striae. EXTREMITIES: 2+ femoral and 2+ dorsalis pedis pulses. No cyanosis, clubbing, or edema. SKIN: No gross abnormalities. PERTINENT LABORATORY DATA: Hemoglobin 7.7. Peak troponin 8.3, CK-MB not drawn. IMPRESSION: 1. Non-Q-wave myocardial infarction. 2. End-stage renal disease. 3. Previous stroke. 4. Severe coronary artery disease. RECOMMENDATIONS: I once again reviewed Mr. Gonzalez's films. He has severe disease present of the proximal portion of the OM branch in addition to the mid circumflex artery at the branch point of the OM branch. There is also severe disease present within the LAD and completely occluded right coronary artery. I reviewed the film to see if there was a place where Mr. Gonzalez could be revascularized. I am unsure where his symptoms are actually coming from. They could be coming from his right coronary artery or his OM branch. He also has disease of a diagonal branch. At this point, recommendations are unchanged. We will continue with continued medical therapy. We will discontinue heparin after 24 hours. He is receiving blood transfusion for anemia. Unfortunately, as previously discussed, options are limited. The patient is aware and prepared. We will add low-dose Coreg. Continue aspirin and Plavix, and add low-dose Imdur. Job ID: [id number] MTDD
[2018-08-26 14:47] LABS: Anion Gap 14 mmol/L (10-20); BUN (Urea Nitrogen) 15 mg/dL (8.4-25.7); Calc. Creatinine Clearance 19 mL/min (70-130); Calcium 8.9 mg/dL (7.8-10.44); Carbon Dioxide 28 mmol/L (23-31); Chloride 98 mmol/L (98-107); Estimated GFR-MDRD 17; Glucose 225 mg/dL (83-110); Sodium 136 mmol/L (136-145)
[2018-08-26] MEDS: Atorvastatin Calcium 20 MG TAB PO SCH (20:28)
[2018-08-26] MEDS: Carvedilol 6.25 MG TAB PO SCH (20:28)
[2018-08-26] MEDS: Senokot S 8.6-50 MG TAB PO SCH (20:28)
[2018-08-27] MEDS: Levothyroxine Sodium 75 MCG TAB PO SCH (05:41)
[2018-08-27 05:50] LABS: Anion Gap 16 mmol/L (10-20); BUN (Urea Nitrogen) 26 mg/dL (8.4-25.7); Calc. Creatinine Clearance 14 mL/min (70-130); Calcium 9.1 mg/dL (7.8-10.44); Carbon Dioxide 25 mmol/L (23-31); Chloride 96 mmol/L (98-107); Estimated GFR-MDRD 12; Glucose 116 mg/dL (83-110); Potassium 4.5 mmol/L (3.5-5.1); Sodium 132 mmol/L (136-145)
--- NOTE | 2018-08-27 07:53 | PDOC.CTH ---
Cardiology Progress Note - Subjective NO new changes present. - Objective Vital Signs Temp Pulse Resp BP BP Pulse Ox 08/27/18 03:34 97.9 F 83 14 127/58 L 94 L 08/26/18 23:45 97.9 F 92 16 111/56 L 95 08/26/18 20:28 112/53 L 08/26/18 20:23 98.6 F 95 18 133/62 99 Admit Weight 157 lb Weight 158 lb 4.67 oz 08/26/18 08/27/18 08/28/18 06:59 06:59 06:59 Intake Total 752.8 300 Balance 752.8 300 - Physical Examination General/Neuro: NAD Neck: carotid US brisk, no JVD present Lungs: unlabored respirations Heart: RRR Abdomen: no HSM, NT/ND Extremities: + edema B - Labs Result Diagrams: 08/27/18 14:26 08/27/18 04:49 Troponin/CKMB CK-MB (CK-2) 5.0 ng/mL (0-6.6) 08/16/18 07:16 Troponin I 7.799 ng/mL (< 0.028) H* 08/26/18 07:24 - Assessment/Plan NQWMI CAD ESRD CVA Continue with conservative treatment See changes in meds 08/26 No good revascularization options Pt understands No other recommendations
[2018-08-27] MEDS: Allopurinol 100 MG TAB PO SCH (10:14)
[2018-08-27] MEDS: Clopidogrel Bisulfate 75 MG TAB PO SCH (10:15)
[2018-08-27] MEDS: Senokot S 8.6-50 MG TAB PO SCH ×2 (10:15→21:00)
[2018-08-27] MEDS: Aspirin Chewable 81 MG TAB PO SCH (10:15)
[2018-08-27] MEDS: Gabapentin 300 MG CAP PO SCH ×3 (10:16→21:00)
[2018-08-27] MEDS: Folic Acid 1 MG TAB PO SCH (10:16)
[2018-08-27] MEDS: Carvedilol 6.25 MG TAB PO SCH ×2 (10:16→21:00)
[2018-08-27] MEDS: EPOETIN ALFA-EPBX (ESRD) 3,000 UNIT/ML VIAL SC SCH (14:48)
[2018-08-27 14:53] LABS: Hemoglobin 9.4 g/dL (14.0-18.0); Platelet Count 223 thou/uL (130-400)
--- NOTE | 2018-08-27 15:11 | PDOC.PN ---
- Subjective Encounter Start Date: 08/27/18 Encounter Start Time: 15:09 Subjective: feels Ok. -: discussed cod estatus and wants everything done - Objective Resuscitation Status - Order Detail: 08/23/18 20:49 Resuscitation Status Routine Co-Sign Provider: Resuscitation Status: FULL: Full Resuscitation Discussed with: Patient and daughter Additional comments: Patient refused to sign the DNR consent today and daughter states she is MPOA and both request a FULL code status. Discussed with MICHAEL Aguilar MAR Reviewed: Yes Vital Signs & Weight: Vital Signs (12 hours) Temp Pulse Pulse Pulse Pulse Resp BP 08/27/18 11:22 98.3 F 82 20 08/27/18 09:56 88 85 93 93/52 L 08/27/18 08:15 08/27/18 08:00 97.8 F 85 20 08/27/18 03:34 97.9 F 83 14 BP BP BP BP Pulse Ox 08/27/18 11:22 91/51 L 98 08/27/18 09:56 83/43 L 100/51 L 08/27/18 08:15 95 08/27/18 08:00 107/55 L 95 08/27/18 03:34 127/58 L 94 L Weight Admit Weight 157 lb Weight 158 lb 4.67 oz Most Recent Monitor Data Heart Rate from ECG 93 NIBP 112/69 NIBP BP-Mean 83 Respiration from ECG 14 SpO2 100 I&O: 08/26/18 08/27/18 08/28/18 06:59 06:59 06:59 Intake Total 752.8 300 Balance 752.8 300 Result Diagrams: 08/27/18 14:26 08/27/18 04:49 Additional Labs: Accuchecks 08/27/18 08/27/18 08/26/18 11:11 05:24 20:22 POC Glucose 176 H 125 H 112 H 08/26/18 17:09 POC Glucose 110 Laboratory Tests 08/16/18 08/16/18 08/25/18 07:16 15:33 23:17 Troponin I 0.194 H 1.311 H* 8.318 H* 08/26/18 08/26/18 08/26/18 00:25 04:03 07:24 Troponin I 8.272 H* 7.943 H* 7.799 H* Phys Exam - Physical Examination Constitutional: NAD HEENT: PERRLA, moist MMs, sclera anicteric, oral pharynx no lesions Neck: no nodes, no JVD, supple, full ROM Respiratory: no wheezing, no rales, no rhonchi, clear to auscultation bilateral Cardiovascular: RRR, no significant murmur, no rub Gastrointestinal: soft, non-tender, no distention, positive bowel sounds Musculoskeletal: edema present (R BKA) R BKA Neurological: non-focal, normal sensation, moves all 4 limbs Psychiatric: normal affect, A&O x 3 Skin: no rash Dx/Plan (1) NSTEMI (non-ST elevated myocardial infarction) Code(s): I21.4 - NON-ST ELEVATION (NSTEMI) MYOCARDIAL INFARCTION Status: Acute Comment: Continue ASA+Plavix,Statin,Coreg and Imdur as much as BP tolerates. Cardiology recs noted, med mgmt is only option given multiple co-morbid conditions, EF 35-40% (2) Hypotension Status: Acute Comment: improved.monitor (3) Physical deconditioning Code(s): R53.81 - OTHER MALAISE Status: Chronic (4) Coronary artery disease Code(s): I25.10 - ATHSCL HEART DISEASE OF [place] CORONARY ARTERY W/O ANG PCTRS Status: Chronic Qualifiers: Coronary Disease-Associated Artery/Lesion type: [place] artery [place] vs. transplanted heart: [place] heart Associated angina: without angina Qualified Code(s): I25.10 - Atherosclerotic heart disease of [place] coronary artery without angina pectoris Comment: Severe three vessel disease. (5) DM type 2 (diabetes mellitus, type 2) Status: Chronic Qualifiers: Diabetes mellitus detention insulin use: without terminal carman use Diabetes mellitus complication status: with kidney complications Chronic kidney disease stage: on chronic dialysis Comment: SSI and accuchecks. (6) Dyslipidemia Code(s): E78.5 - HYPERLIPIDEMIA, UNSPECIFIED Status: Chronic Comment: Continue Statin (7) ESRD (end stage renal disease) on dialysis Code(s): N18.6 - END STAGE RENAL DISEASE; Z99.2 - DEPENDENCE ON RENAL DIALYSIS Status: Chronic (8) Hypertension Code(s): I10 - ESSENTIAL (PRIMARY) HYPERTENSION Status: Chronic Qualifiers: Hypertension type: essential hypertension Qualified Code(s): I10 - Essential (primary) hypertension Comment: BP meds discontinued due to persistent hypotension (9) Hypothyroidism Code(s): E03.9 - HYPOTHYROIDISM, UNSPECIFIED Status: Chronic Qualifiers: Hypothyroidism type: unspecified Qualified Code(s): E03.9 - Hypothyroidism , unspecified Comment: Continue synthroid. (10) Secondary hyperparathyroidism of renal origin Code(s): N25.81 - SECONDARY HYPERPARATHYROIDISM OF RENAL ORIGIN Status: Chronic - Plan DVT proph w/SCDs Full code -: placement as pt not rady for home w hospice -: cont meds as above and monitor BP response -: HD per nephrology -: am labs * . Review of Systems - Review of Systems Constitutional: weakness, malaise ENT: negative: Ear Pain, Ear Discharge, Nose Pain, Nose Discharge, Nose Congestion, Mouth Pain, Mouth Swelling, Throat Pain, Throat Swelling, Other Respiratory: negative: Cough, Dry, Shortness of Breath, Hemoptysis, SOB with Excertion, Pleuritic Pain, Sputum, Wheezing Cardiovascular: negative: chest pain, palpitations, orthopnea, paroxysmal nocturnal dyspnea, edema, light headedness, other Gastrointestinal: negative: Nausea, Vomiting, Abdominal Pain, Diarrhea, Constipation, Melena, Hematochezia, Other Genitourinary: negative: Dysuria, Frequency, Incontinence, Hematuria, Retention , Other Musculoskeletal: Other - Medications/Allergies Allergies/Adverse Reactions: Allergies Allergy/AdvReac Type Severity Reaction Status Date / Time No Known Drug Allergies Allergy Verified 02/05/18 15:01 Medications: Current Medications Acetaminophen (Tylenol) 650 mg PO Q4H PRN PRN Reason: Headache/Fever/Mild Pain (1-3) Last Admin: 08/24/18 06:18 Dose: 650 mg Allopurinol (Zyloprim) 50 mg PO DAILY [facility] Last Admin: 08/27/18 10:14 Dose: 50 mg Aspirin (Aspirin Chewable) 81 mg PO DAILY [facility] Last Admin: 08/27/18 10:15 Dose: 81 mg Atorvastatin Calcium (Lipitor) 20 mg PO HS [facility] Last Admin: 08/26/18 20:28 Dose: 20 mg Carvedilol (Coreg) 3.125 mg PO BID [facility] Last Admin: 08/27/18 10:16 Dose: 3.125 mg Cholecalciferol (Vitamin D3) 2,000 units PO DAILY [facility] Last Admin: 08/27/18 10:16 Dose: 2,000 units Clopidogrel Bisulfate (Plavix) 75 mg PO DAILY [facility] Last Admin: 08/27/18 10:15 Dose: 75 mg Dextrose/Water (Dextrose 50%) 25 gm SLOW IVP PRN PRN PRN Reason: Hypoglycemia Epoetin Michael-epbx (Retacrit) 6,000 unit SC Q7D [facility] Last Admin: 08/27/18 14:48 Dose: 6,000 unit Folic Acid (Folvite) 1 mg PO DAILY [facility] Last Admin: 08/27/18 10:16 Dose: 1 mg Gabapentin (Neurontin) 300 mg PO TID [facility] Last Admin: 08/27/18 14:46 Dose: 300 mg Glucagon (Glucagon) 1 mg IM PRN PRN PRN Reason: Hypoglycemia Dextrose/Water (D5w) 1,000 mls @ 0 mls/hr IV .Q0M PRN PRN Reason: Hypoglycemia Insulin Human Lispro (Humalog) 0 units SC .MODERATE SLIDING SC PRN PRN Reason: Moderate Correctional Scale Insulin Human Lispro (Humalog) 0 units SC .BEDTIME SLIDING SC PRN PRN Reason: Bedtime Correctional Scale Isosorbide Mononitrate (Imdur Er) 30 mg PO DAILY [facility] Last Admin: 08/27/18 10:16 Dose: 30 mg Levothyroxine Sodium (Synthroid) 75 mcg PO 0600 [facility] Last Admin: 08/27/18 05:41 Dose: 75 mcg Nitroglycerin (Nitrostat) 0.4 mg SL Q5MIN PRN PRN Reason: Chest Pain Last Admin: 08/19/18 00:02 Dose: 0.4 mg Polyethylene Glycol (Miralax) 17 gm PO DAILYPRN PRN PRN Reason: Constipation Senna/Docusate Sodium (Senokot S) 1 tab PO BID [facility] Last Admin: 08/27/18 10:15 Dose: 1 tab Sodium Chloride (Flush - Normal Saline) 10 ml IVF Q12HR [facility] Last Admin: 08/27/18 10:18 Dose: 10 ml Sodium Chloride (Flush - Normal Saline) 10 ml IVF PRN PRN PRN Reason: Saline Flush Sodium Chloride (Flush - Normal Saline) 10 ml IVF PRN PRN PRN Reason: Saline Flush
--- NOTE | 2018-08-27 16:40 | PDOC.EVN ---
Event Note - Event Note Event Note: Hold KEON-I/ARB as BP running low. start low dose if BP improves
[2018-08-27] MEDS: Atorvastatin Calcium 20 MG TAB PO SCH (21:00)
[2018-08-28] MEDS: Levothyroxine Sodium 75 MCG TAB PO SCH (06:41)
[2018-08-28] MEDS ORDERED: Heparin 10,000 UNITS/ 10 ML VIAL ONE (10:00)
[2018-08-28] MEDS: Allopurinol 100 MG TAB PO SCH (13:17)
[2018-08-28] MEDS: Aspirin Chewable 81 MG TAB PO SCH (13:18)
[2018-08-28] MEDS: Gabapentin 300 MG CAP PO SCH ×3 (13:18→22:21)
[2018-08-28] MEDS: Folic Acid 1 MG TAB PO SCH (13:19)
[2018-08-28] MEDS: Carvedilol 6.25 MG TAB PO SCH ×2 (13:21→22:17)
[2018-08-28] MEDS: Clopidogrel Bisulfate 75 MG TAB PO SCH (13:22)
[2018-08-28] MEDS: Senokot S 8.6-50 MG TAB PO SCH ×2 (13:22→22:16)
--- NOTE | 2018-08-28 13:22 | PDOC.PN ---
- Subjective Encounter Start Date: 08/28/18 Encounter Start Time: 13:20 Subjective: feels OK.seen & examined in dialysis. - Objective Resuscitation Status - Order Detail: 08/23/18 20:49 Resuscitation Status Routine Co-Sign Provider: Resuscitation Status: FULL: Full Resuscitation Discussed with: Patient and daughter Additional comments: Patient refused to sign the DNR consent today and daughter states she is MPOA and both request a FULL code status. Discussed with MIHCAEL Aguilar MAR Reviewed: Yes Vital Signs & Weight: Vital Signs (12 hours) Temp Pulse Resp BP BP Pulse Ox 08/28/18 07:36 95 08/28/18 07:32 97.5 F L 84 12 122/58 L 95 08/28/18 04:00 97.9 F 83 17 126/58 L 97 Weight Admit Weight 157 lb Weight 157 lb 10.088 oz Most Recent Monitor Data Heart Rate from ECG 93 NIBP 112/69 NIBP BP-Mean 83 Respiration from ECG 14 SpO2 100 I&O: 08/27/18 08/28/18 08/29/18 06:59 06:59 06:59 Intake Total 300 440 Balance 300 440 Result Diagrams: 08/27/18 14:26 08/27/18 04:49 Additional Labs: Accuchecks 08/28/18 08/28/18 08/27/18 11:05 05:18 17:32 POC Glucose 88 117 H 122 H Phys Exam - Physical Examination Constitutional: NAD HEENT: PERRLA, moist MMs, sclera anicteric, oral pharynx no lesions Neck: no nodes, no JVD, supple, full ROM Respiratory: no wheezing, no rales, no rhonchi, clear to auscultation bilateral Cardiovascular: RRR, no significant murmur Gastrointestinal: soft, non-tender, no distention, positive bowel sounds Musculoskeletal: no edema, pulses present R BKA Neurological: non-focal, normal sensation, moves all 4 limbs Dx/Plan (1) NSTEMI (non-ST elevated myocardial infarction) Code(s): I21.4 - NON-ST ELEVATION (NSTEMI) MYOCARDIAL INFARCTION Status: Acute Comment: Continue ASA+Plavix,Statin,Coreg and Imdur as much as BP tolerates. Cardiology recs noted, med mgmt is only option given multiple co-morbid conditions, EF 35-40% (2) Hypotension Status: Acute Comment: improved.monitor (3) Physical deconditioning Code(s): R53.81 - OTHER [place]AISE Status: Chronic (4) Coronary artery disease Code(s): I25.10 - ATHSCL HEART DISEASE OF [place] CORONARY ARTERY W/O ANG PCTRS Status: Chronic Qualifiers: Coronary Disease-Associated Artery/Lesion type: [place] artery [place] vs. transplanted heart: [place] heart Associated angina: without angina Qualified Code(s): I25.10 - Atherosclerotic heart disease of [place] coronary artery without angina pectoris Comment: Severe three vessel disease. (5) DM type 2 (diabetes mellitus, type 2) Status: Chronic Qualifiers: Diabetes mellitus exterminator helper insulin use: without exterminator helper use Diabetes mellitus complication status: with kidney complications Chronic kidney disease stage: on chronic dialysis Comment: SSI and accuchecks. (6) Dyslipidemia Code(s): E78.5 - HYPERLIPIDEMIA, UNSPECIFIED Status: Chronic Comment: Continue Statin (7) ESRD (end stage renal disease) on dialysis Code(s): N18.6 - END STAGE RENAL DISEASE; Z99.2 - DEPENDENCE ON RENAL DIALYSIS Status: Chronic Comment: HD as tolerated (8) Hypertension Code(s): I10 - ESSENTIAL (PRIMARY) HYPERTENSION Status: Chronic Qualifiers: Hypertension type: essential hypertension Qualified Code(s): I10 - Essential (primary) hypertension Comment: BP meds discontinued due to persistent hypotension (9) Hypothyroidism Code(s): E03.9 - HYPOTHYROIDISM, UNSPECIFIED Status: Chronic Qualifiers: Hypothyroidism type: unspecified Qualified Code(s): E03.9 - Hypothyroidism , unspecified Comment: Continue synthroid. (10) Secondary hyperparathyroidism of renal origin Code(s): N25.81 - SECONDARY HYPERPARATHYROIDISM OF RENAL ORIGIN Status: Chronic - Plan PT/OT, incentive spirometry, DVT proph w/SCDs PT will need to go to rehab as he does not want hospice -: discussed w CM.will arrange -: high risk of readmission given co-morbidities. -: am labs * . Review of Systems - Review of Systems Constitutional: weakness, malaise Respiratory: negative: Cough, Dry, Shortness of Breath, Hemoptysis, SOB with Excertion, Pleuritic Pain, Sputum, Wheezing Cardiovascular: negative: chest pain, palpitations, orthopnea, paroxysmal nocturnal dyspnea, edema, light headedness, other Gastrointestinal: negative: Nausea, Vomiting, Abdominal Pain, Diarrhea, Constipation, Melena, Hematochezia, Other Genitourinary: negative: Dysuria, Frequency, Incontinence, Hematuria, Retention , Other Musculoskeletal: negative: Neck Pain, Shoulder Pain, Arm Pain, Back Pain, Hand Pain, Leg Pain, Foot Pain, Other Neurological: negative: Weakness, Numbness, Incoordination, Change in Speech, Confusion, Seizures, Other - Medications/Allergies Allergies/Adverse Reactions: Allergies Allergy/AdvReac Type Severity Reaction Status Date / Time No Known Drug Allergies Allergy Verified 02/05/18 15:01 Medications: Current Medications Acetaminophen (Tylenol) 650 mg PO Q4H PRN PRN Reason: Headache/Fever/Mild Pain (1-3) Last Admin: 08/24/18 06:18 Dose: 650 mg Allopurinol (Zyloprim) 50 mg PO DAILY [facility] Last Admin: 08/27/18 10:14 Dose: 50 mg Aspirin (Aspirin Chewable) 81 mg PO DAILY [facility] Last Admin: 08/27/18 10:15 Dose: 81 mg Atorvastatin Calcium (Lipitor) 20 mg PO HS [facility] Last Admin: 08/27/18 21:00 Dose: Not Given Carvedilol (Coreg) 3.125 mg PO BID [facility] Last Admin: 08/27/18 21:00 Dose: 3.125 mg Cholecalciferol (Vitamin D3) 2,000 units PO DAILY [facility] Last Admin: 08/27/18 10:16 Dose: 2,000 units Clopidogrel Bisulfate (Plavix) 75 mg PO DAILY [facility] Last Admin: 08/27/18 10:15 Dose: 75 mg Dextrose/Water (Dextrose 50%) 25 gm SLOW IVP PRN PRN PRN Reason: Hypoglycemia Epoetin Michael-epbx (Retacrit) 6,000 unit SC Q7D [facility] Last Admin: 08/27/18 14:48 Dose: 6,000 unit Folic Acid (Folvite) 1 mg PO DAILY [facility] Last Admin: 08/27/18 10:16 Dose: 1 mg Gabapentin (Neurontin) 300 mg PO TID [facility] Last Admin: 08/27/18 21:00 Dose: 300 mg Glucagon (Glucagon) 1 mg IM PRN PRN PRN Reason: Hypoglycemia Dextrose/Water (D5w) 1,000 mls @ 0 mls/hr IV .Q0M PRN PRN Reason: Hypoglycemia Insulin Human Lispro (Humalog) 0 units SC .MODERATE SLIDING SC PRN PRN Reason: Moderate Correctional Scale Insulin Human Lispro (Humalog) 0 units SC .BEDTIME SLIDING SC PRN PRN Reason: Bedtime Correctional Scale Last Admin: 08/27/18 22:30 Dose: 2 unit Isosorbide Mononitrate (Imdur Er) 30 mg PO DAILY [facility] Last Admin: 08/27/18 10:16 Dose: 30 mg Levothyroxine Sodium (Synthroid) 75 mcg PO 0600 [facility] Last Admin: 08/28/18 06:41 Dose: 75 mcg Nitroglycerin (Nitrostat) 0.4 mg SL Q5MIN PRN PRN Reason: Chest Pain Last Admin: 08/19/18 00:02 Dose: 0.4 mg Polyethylene Glycol (Miralax) 17 gm PO DAILYPRN PRN PRN Reason: Constipation Senna/Docusate Sodium (Senokot S) 1 tab PO BID [facility] Last Admin: 08/27/18 21:00 Dose: 1 tab Sodium Chloride (Flush - Normal Saline) 10 ml IVF Q12HR [facility] Last Admin: 08/27/18 21:00 Dose: 10 ml Sodium Chloride (Flush - Normal Saline) 10 ml IVF PRN PRN PRN Reason: Saline Flush Sodium Chloride (Flush - Normal Saline) 10 ml IVF PRN PRN PRN Reason: Saline Flush
[2018-08-28] MEDS: Atorvastatin Calcium 20 MG TAB PO SCH (22:16)
[2018-08-29] MEDS ORDERED: Sodium Chloride 0.9% 250 ML IV SCH (03:00)
[2018-08-29 05:41] LABS: #Eosinphils 0.2 thou/uL (0.0-0.7); #Monocytes 0.6 thou/uL (0.11-0.59); %Basophils 0.1 % (0.0-1.0); %Eosinophils 2.4 % (0.0-10.0); %Monocytes 8.8 % (0.0-10.0); %Neutrophils 73.8 % (42.0-75.0); Hemoglobin 8.4 g/dL (14.0-18.0); Mean Corpuscular HGB CONC 32.9 g/dL (32.0-36.0); Mean Corpuscular Hemoglobin 32.3 pg (27.0-31.0); Mean Corpuscular Volume 98.2 fL (78.0-98.0); Mean Platelet Volume 8.3 fL (7.4-10.4); Platelet Count 210 thou/uL (130-400); RBC Distribution Width 15.5 % (11.5-14.5); Red Blood Cell (RBC) Count 2.59 mill/uL (4.70-6.10); White Blood Cell (WBC) Count 6.8 thou/uL (4.8-10.8)
[2018-08-29 06:01] LABS: Anion Gap 13 mmol/L (10-20); BUN (Urea Nitrogen) 21 mg/dL (8.4-25.7); Calc. Creatinine Clearance 15 mL/min (70-130); Calcium 8.9 mg/dL (7.8-10.44); Carbon Dioxide 28 mmol/L (23-31); Chloride 98 mmol/L (98-107); Estimated GFR-MDRD 13; Glucose 97 mg/dL (83-110); Potassium 4.3 mmol/L (3.5-5.1); Sodium 135 mmol/L (136-145)
[2018-08-29] MEDS: Levothyroxine Sodium 75 MCG TAB PO SCH (06:20)
[2018-08-29] MEDS: Allopurinol 100 MG TAB PO SCH (10:39)
[2018-08-29] MEDS: Aspirin Chewable 81 MG TAB PO SCH (10:40)
[2018-08-29] MEDS: Gabapentin 300 MG CAP PO SCH ×3 (10:40→20:36)
[2018-08-29] MEDS: Folic Acid 1 MG TAB PO SCH (10:40)
[2018-08-29] MEDS: Clopidogrel Bisulfate 75 MG TAB PO SCH (10:40)
[2018-08-29] MEDS: Senokot S 8.6-50 MG TAB PO SCH ×2 (10:40→20:36)
[2018-08-29] MEDS: Carvedilol 6.25 MG TAB PO SCH (10:41)
--- NOTE | 2018-08-29 16:27 | PDOC.PN ---
- Subjective Encounter Start Date: 08/29/18 Encounter Start Time: 16:25 Subjective: FEELS OK -: had code green last night for low BP. meds held this morning -: once again desires rehab and denies hospice - Objective Resuscitation Status - Order Detail: 08/23/18 20:49 Resuscitation Status Routine Co-Sign Provider: Resuscitation Status: FULL: Full Resuscitation Discussed with: Patient and daughter Additional comments: Patient refused to sign the DNR consent today and daughter states she is MPOA and both request a FULL code status. Discussed with MICHAEL Aguilar Reviewed: Yes Vital Signs & Weight: Vital Signs (12 hours) Temp Pulse Pulse Pulse Resp BP BP 08/29/18 14:22 87 88 123/59 L 08/29/18 10:41 92/53 L 08/29/18 07:49 97.7 F 83 20 BP BP Pulse Ox 08/29/18 14:22 111/56 L 08/29/18 10:41 08/29/18 07:49 98/54 L 100 Weight Admit Weight 157 lb Weight 163 lb 9.6 oz Most Recent Monitor Data Heart Rate from ECG 93 NIBP 112/69 NIBP BP-Mean 83 Respiration from ECG 14 SpO2 100 I&O: 08/28/18 08/29/18 08/30/18 06:59 06:59 06:59 Intake Total 440 1210 480 Output Total 1999 Balance 440 -790 480 Result Diagrams: 08/29/18 05:28 08/29/18 05:28 Additional Labs: Accuchecks 08/29/18 08/29/18 08/28/18 10:42 05:32 16:56 POC Glucose 141 H 118 H 115 H Laboratory Tests 08/26/18 08/26/18 08/27/18 01:20 14:16 14:26 Hgb 7.7 L 8.8 L 9.4 L 08/29/18 05:28 Hgb 8.4 L Phys Exam - Physical Examination Constitutional: NAD HEENT: PERRLA, moist MMs, sclera anicteric, oral pharynx no lesions Neck: no nodes, no JVD, supple, full ROM Respiratory: no wheezing, no rales, no rhonchi, clear to auscultation bilateral Cardiovascular: RRR, no significant murmur, no rub Gastrointestinal: soft, non-tender, no distention, positive bowel sounds Musculoskeletal: no edema, pulses present R BKA Neurological: non-focal, normal sensation, moves all 4 limbs Psychiatric: normal affect, A&O x 3 Skin: no rash Dx/Plan (1) NSTEMI (non-ST elevated myocardial infarction) Code(s): I21.4 - NON-ST ELEVATION (NSTEMI) MYOCARDIAL INFARCTION Status: Acute Comment: Continue ASA+Plavix,Statin,Coreg and Imdur as much as BP tolerates. Cardiology recs noted, med mgmt is only option given multiple co-morbid conditions, EF 35-40% (2) Hypotension Status: Acute Comment: improved.monitor (3) Physical deconditioning Code(s): R53.81 - OTHER [place]AISE Status: Chronic (4) Coronary artery disease Code(s): I25.10 - ATHSCL HEART DISEASE OF [place] CORONARY ARTERY W/O ANG PCTRS Status: Chronic Qualifiers: Coronary Disease-Associated Artery/Lesion type: [place] artery [place] vs. transplanted heart: [place] heart Associated angina: without angina Qualified Code(s): I25.10 - Atherosclerotic heart disease of [place] coronary artery without angina pectoris Comment: Severe three vessel disease. (5) DM type 2 (diabetes mellitus, type 2) Status: Chronic Qualifiers: Diabetes mellitus supervisor intermediates insulin use: without supervisor intermediates use Diabetes mellitus complication status: with kidney complications Chronic kidney disease stage: on chronic dialysis Comment: SSI and accuchecks. (6) Dyslipidemia Code(s): E78.5 - HYPERLIPIDEMIA, UNSPECIFIED Status: Chronic Comment: Continue Statin (7) ESRD (end stage renal disease) on dialysis Code(s): N18.6 - END STAGE RENAL DISEASE; Z99.2 - DEPENDENCE ON RENAL DIALYSIS Status: Chronic Comment: HD as tolerated (8) Hypertension Code(s): I10 - ESSENTIAL (PRIMARY) HYPERTENSION Status: Chronic Qualifiers: Hypertension type: essential hypertension Qualified Code(s): I10 - Essential (primary) hypertension Comment: BP meds discontinued due to persistent hypotension (9) Hypothyroidism Code(s): E03.9 - HYPOTHYROIDISM, UNSPECIFIED Status: Chronic Qualifiers: Hypothyroidism type: unspecified Qualified Code(s): E03.9 - Hypothyroidism , unspecified Comment: Continue synthroid. (10) Secondary hyperparathyroidism of renal origin Code(s): N25.81 - SECONDARY HYPERPARATHYROIDISM OF RENAL ORIGIN Status: Chronic - Plan PT/OT, respiratory therapy, incentive spirometry, DVT proph w/SCDs awaiting placement as he refused home w hospice -: monitor hemodynamics -: am labs * . Review of Systems - Review of Systems Constitutional: weakness, malaise Respiratory: negative: Cough, Dry, Shortness of Breath, Hemoptysis, SOB with Excertion, Pleuritic Pain, Sputum, Wheezing Cardiovascular: negative: chest pain, palpitations, orthopnea, paroxysmal nocturnal dyspnea, edema, light headedness, other Gastrointestinal: negative: Nausea, Vomiting, Abdominal Pain, Diarrhea, Constipation, Melena, Hematochezia, Other Genitourinary: negative: Dysuria, Frequency, Incontinence, Hematuria, Retention , Other - Medications/Allergies Allergies/Adverse Reactions: Allergies Allergy/AdvReac Type Severity Reaction Status Date / Time No Known Drug Allergies Allergy Verified 02/05/18 15:01 Medications: Current Medications Acetaminophen (Tylenol) 650 mg PO Q4H PRN PRN Reason: Headache/Fever/Mild Pain (1-3) Last Admin: 08/24/18 06:18 Dose: 650 mg Allopurinol (Zyloprim) 50 mg PO DAILY [facility] Last Admin: 08/29/18 10:39 Dose: 50 mg Aspirin (Aspirin Chewable) 81 mg PO DAILY [facility] Last Admin: 08/29/18 10:40 Dose: 81 mg Atorvastatin Calcium (Lipitor) 20 mg PO HS [facility] Last Admin: 08/28/18 22:16 Dose: 20 mg Carvedilol (Coreg) 3.125 mg PO BID [facility] Cholecalciferol (Vitamin D3) 2,000 units PO DAILY [facility] Last Admin: 08/29/18 10:40 Dose: 2,000 units Clopidogrel Bisulfate (Plavix) 75 mg PO DAILY [facility] Last Admin: 08/29/18 10:40 Dose: 75 mg Dextrose/Water (Dextrose 50%) 25 gm SLOW IVP PRN PRN PRN Reason: Hypoglycemia Epoetin Michael-epbx (Retacrit) 6,000 unit SC Q7D [facility] Last Admin: 08/27/18 14:48 Dose: 6,000 unit Folic Acid (Folvite) 1 mg PO DAILY [facility] Last Admin: 08/29/18 10:40 Dose: 1 mg Gabapentin (Neurontin) 300 mg PO TID [facility] Last Admin: 08/29/18 10:40 Dose: 300 mg Glucagon (Glucagon) 1 mg IM PRN PRN PRN Reason: Hypoglycemia Dextrose/Water (D5w) 1,000 mls @ 0 mls/hr IV .Q0M PRN PRN Reason: Hypoglycemia Insulin Human Lispro (Humalog) 0 units SC .MODERATE SLIDING SC PRN PRN Reason: Moderate Correctional Scale Insulin Human Lispro (Humalog) 0 units SC .BEDTIME SLIDING SC PRN PRN Reason: Bedtime Correctional Scale Last Admin: 08/27/18 22:30 Dose: 2 unit Isosorbide Mononitrate (Imdur Er) 30 mg PO DAILY [facility] Levothyroxine Sodium (Synthroid) 75 mcg PO 0600 [facility] Last Admin: 08/29/18 06:20 Dose: 75 mcg Nitroglycerin (Nitrostat) 0.4 mg SL Q5MIN PRN PRN Reason: Chest Pain Last Admin: 08/19/18 00:02 Dose: 0.4 mg Polyethylene Glycol (Miralax) 17 gm PO DAILYPRN PRN PRN Reason: Constipation Senna/Docusate Sodium (Senokot S) 1 tab PO BID [facility] Last Admin: 08/29/18 10:40 Dose: 1 tab Sodium Chloride (Flush - Normal Saline) 10 ml IVF Q12HR [facility] Last Admin: 08/29/18 10:41 Dose: 10 ml Sodium Chloride (Flush - Normal Saline) 10 ml IVF PRN PRN PRN Reason: Saline Flush Sodium Chloride (Flush - Normal Saline) 10 ml IVF PRN PRN PRN Reason: Saline Flush
[2018-08-29] MEDS: Carvedilol 3.125 MG TAB PO SCH (20:36)
[2018-08-29] MEDS: Atorvastatin Calcium 20 MG TAB PO SCH (20:40)
[2018-08-30 05:29] LABS: Anion Gap 17 mmol/L (10-20); BUN (Urea Nitrogen) 36 mg/dL (8.4-25.7); Calc. Creatinine Clearance 11 mL/min (70-130); Calcium 9.4 mg/dL (7.8-10.44); Carbon Dioxide 23 mmol/L (23-31); Chloride 94 mmol/L (98-107); Estimated GFR-MDRD 9; Glucose 140 mg/dL (83-110); Potassium 4.1 mmol/L (3.5-5.1); Sodium 130 mmol/L (136-145)
[2018-08-30] MEDS: Levothyroxine Sodium 75 MCG TAB PO SCH (06:02)
[2018-08-30] MEDS: Clopidogrel Bisulfate 75 MG TAB PO SCH (08:36)
[2018-08-30] MEDS: Carvedilol 3.125 MG TAB PO SCH ×2 (08:36→21:40)
[2018-08-30] MEDS: Aspirin Chewable 81 MG TAB PO SCH (08:36)
[2018-08-30] MEDS: Allopurinol 100 MG TAB PO SCH (08:36)
[2018-08-30] MEDS: Gabapentin 300 MG CAP PO SCH ×3 (08:36→21:40)
[2018-08-30] MEDS: Folic Acid 1 MG TAB PO SCH (08:36)
[2018-08-30] MEDS: Senokot S 8.6-50 MG TAB PO SCH ×2 (08:37→21:40)
--- NOTE | 2018-08-30 15:37 | PDOC.PN ---
- Subjective Encounter Start Date: 08/30/18 Encounter Start Time: 15:30 Subjective: f/u for deconditioining, hypotension, ESRD, end-stage CAD. Overall -: feels ok but very weak. - Objective Resuscitation Status - Order Detail: 08/23/18 20:49 Resuscitation Status Routine Co-Sign Provider: Resuscitation Status: FULL: Full Resuscitation Discussed with: Patient and daughter Additional comments: Patient refused to sign the DNR consent today and daughter states she is MPOA and both request a FULL code status. Discussed with MICHAEL Aguilar Reviewed: Yes Vital Signs & Weight: Vital Signs (12 hours) Temp Pulse Pulse Pulse Pulse Resp BP 08/30/18 14:00 87 92 87 125/60 08/30/18 12:32 97.9 F 88 14 08/30/18 08:00 08/30/18 07:39 97.9 F 86 16 BP BP BP Pulse Ox 08/30/18 14:00 146/65 H 84/53 L 08/30/18 12:32 121/62 98 08/30/18 08:00 98 08/30/18 07:39 132/64 98 Weight Admit Weight 157 lb Weight 163 lb 9.6 oz Most Recent Monitor Data Heart Rate from ECG 93 NIBP 112/69 NIBP BP-Mean 83 Respiration from ECG 14 SpO2 100 I&O: 08/29/18 08/30/18 08/31/18 06:59 06:59 06:59 Intake Total 1210 1470 Output Total 1999 Balance -790 1470 Result Diagrams: 08/29/18 05:28 08/30/18 04:49 Additional Labs: Accuchecks 08/30/18 08/30/18 08/29/18 12:31 05:16 20:13 POC Glucose 92 138 H 123 H 08/29/18 16:42 POC Glucose 125 H Laboratory Tests 12/13/15 03/29/16 12/24/17 14:00 21:23 02:25 Hgb B-Natriuretic Peptide 952.3 H 418.8 H 1333.8 H Troponin I Lipase 08/08/18 08/08/18 08/08/18 23:39 23:39 23:39 Hgb 10.1 L B-Natriuretic Peptide 2472.0 H Troponin I Lipase 158 H 08/16/18 08/19/18 08/19/18 15:33 12:32 12:32 Hgb 8.6 L 8.7 L B-Natriuretic Peptide Troponin I 1.311 H* Lipase 08/21/18 08/23/18 08/25/18 14:45 14:05 14:39 Hgb 9.0 L 8.4 L 8.2 L B-Natriuretic Peptide Troponin I Lipase 08/25/18 08/26/18 08/26/18 23:17 00:25 04:03 Hgb B-Natriuretic Peptide Troponin I 8.318 H* 8.272 H* 7.943 H* Lipase 08/26/18 07:24 Hgb B-Natriuretic Peptide Troponin I 7.799 H* Lipase EKG Reviewed by me: Yes (Tele - SR) Phys Exam - Physical Examination Constitutional: NAD HEENT: PERRLA, sclera anicteric, oral pharynx no lesions Neck: no nodes, no JVD, supple, full ROM Respiratory: no wheezing, no rales, no rhonchi, clear to auscultation bilateral S1, S2 Cardiovascular: RRR, no rub, gallop Gastrointestinal: soft, non-tender, no distention, positive bowel sounds Musculoskeletal: no edema, pulses present Neurological: moves all 4 limbs Skin: normal turgor, cap refill <2 seconds Dx/Plan (1) NSTEMI (non-ST elevated myocardial infarction) Code(s): I21.4 - NON-ST ELEVATION (NSTEMI) MYOCARDIAL INFARCTION Status: Acute Comment: Continue ASA+Plavix,Statin,Coreg and Imdur as much as BP tolerates. Cardiology recs noted, med mgmt is only option given multiple co-morbid conditions, EF 35-40% (2) Anemia of renal disease Code(s): D63.1 - ANEMIA IN CHRONIC KIDNEY DISEASE Status: Acute Comment: Acute/chronic anemia due to CKD, s/p 1u PRBC's, recheck H/H and monitor trend (3) Hypotension Status: Acute Qualifiers: Hypotension type: hypotension due to drug Qualified Code(s): I95.2 - Hypotension due to drugs Comment: Medications +/- NSTEMI, Improved overall trend (4) CVA (cerebral vascular accident) Code(s): I63.9 - CEREBRAL INFARCTION, UNSPECIFIED Status: Acute Comment: Subacute CVA, supportive mgmt, SNF pending, PT/OT for mobilization when BP stabilizes (5) Acute metabolic encephalopathy Code(s): G93.41 - METABOLIC ENCEPHALOPATHY Status: Acute Comment: Likely multifactorial including ESRD, recent CVA, limited mobility and recent hospitalization, contribution of hypotension, see above (6) ESRD (end stage renal disease) on dialysis Code(s): N18.6 - END STAGE RENAL DISEASE; Z99.2 - DEPENDENCE ON RENAL DIALYSIS Status: Chronic Comment: Followed by Nephrology. 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
[2018-08-30] MEDS: Atorvastatin Calcium 20 MG TAB PO SCH (21:40)
[2018-08-31] MEDS: Levothyroxine Sodium 75 MCG TAB PO SCH (05:27)
[2018-08-31 06:06] LABS: Anion Gap 14 mmol/L (10-20); BUN (Urea Nitrogen) 24 mg/dL (8.4-25.7); Calc. Creatinine Clearance 14 mL/min (70-130); Calcium 9.4 mg/dL (7.8-10.44); Carbon Dioxide 28 mmol/L (23-31); Chloride 97 mmol/L (98-107); Estimated GFR-MDRD 13; Glucose 109 mg/dL (83-110); Potassium 4.1 mmol/L (3.5-5.1); Sodium 135 mmol/L (136-145)
[2018-08-31] MEDS: Allopurinol 100 MG TAB PO SCH (08:28)
[2018-08-31] MEDS: Clopidogrel Bisulfate 75 MG TAB PO SCH (08:29)
[2018-08-31] MEDS: Aspirin Chewable 81 MG TAB PO SCH (08:29)
[2018-08-31] MEDS: Carvedilol 3.125 MG TAB PO SCH ×2 (08:29→21:53)
[2018-08-31] MEDS: Folic Acid 1 MG TAB PO SCH (08:30)
[2018-08-31] MEDS: Gabapentin 300 MG CAP PO SCH ×3 (08:30→21:51)
[2018-08-31] MEDS: Senokot S 8.6-50 MG TAB PO SCH ×2 (08:30→21:51)
--- NOTE | 2018-08-31 10:01 | PDOC.PN ---
- Subjective Encounter Start Date: 08/31/18 Encounter Start Time: 09:40 Subjective: f/u for ESRD, hypotension and gen weakness. Tolerated HD 08/30/18 -: but still feels weak. Worked with PT but arm strength lagging. - Objective Resuscitation Status - Order Detail: 08/23/18 20:49 Resuscitation Status Routine Co-Sign Provider: Resuscitation Status: FULL: Full Resuscitation Discussed with: Patient and daughter Additional comments: Patient refused to sign the DNR consent today and daughter states she is MPOA and both request a FULL code status. Discussed with MICHAEL Aguilar MAR Reviewed: Yes Vital Signs & Weight: Vital Signs (12 hours) Temp Pulse Resp BP Pulse Ox 08/31/18 07:44 98.2 F 84 16 150/66 H 100 08/31/18 03:25 97.3 F L 84 18 121/59 L 95 Weight Admit Weight 157 lb Weight 152 lb Most Recent Monitor Data Heart Rate from ECG 93 NIBP 112/69 NIBP BP-Mean 83 Respiration from ECG 14 SpO2 100 I&O: 08/30/18 08/31/18 09/01/18 06:59 06:59 06:59 Intake Total 1470 960 Balance 1470 960 Result Diagrams: 08/29/18 05:28 08/31/18 05:12 Additional Labs: Accuchecks 08/31/18 08/30/18 08/30/18 05:32 20:21 17:13 POC Glucose 113 H 157 H 111 H 08/30/18 12:31 POC Glucose 92 Laboratory Tests 12/13/15 03/29/16 12/24/17 14:00 21:23 02:25 Hgb B-Natriuretic Peptide 952.3 H 418.8 H 1333.8 H Troponin I Lipase 08/08/18 08/08/18 08/08/18 23:39 23:39 23:39 Hgb 10.1 L B-Natriuretic Peptide 2472.0 H Troponin I Lipase 158 H 08/16/18 08/19/18 08/19/18 15:33 12:32 12:32 Hgb 8.6 L 8.7 L B-Natriuretic Peptide Troponin I 1.311 H* Lipase 08/21/18 08/23/18 08/25/18 14:45 14:05 14:39 Hgb 9.0 L 8.4 L 8.2 L B-Natriuretic Peptide Troponin I Lipase 08/25/18 08/26/18 08/26/18 23:17 00:25 04:03 Hgb B-Natriuretic Peptide Troponin I 8.318 H* 8.272 H* 7.943 H* Lipase 08/26/18 07:24 Hgb B-Natriuretic Peptide Troponin I 7.799 H* Lipase EKG Reviewed by me: Yes (Tele - SR) Phys Exam - Physical Examination Constitutional: NAD alert, responsive HEENT: PERRLA, sclera anicteric, oral pharynx no lesions Neck: no nodes, no JVD, supple, full ROM Respiratory: no wheezing, no rales, no rhonchi, clear to auscultation bilateral S1, S2 Cardiovascular: RRR, no rub, gallop Gastrointestinal: soft, non-tender, no distention, positive bowel sounds LUE AV fistula in place Musculoskeletal: no edema, pulses present Neurological: normal sensation, moves all 4 limbs A x O x 2 Skin: normal turgor, cap refill <2 seconds Dx/Plan (1) NSTEMI (non-ST elevated myocardial infarction) Code(s): I21.4 - NON-ST ELEVATION (NSTEMI) MYOCARDIAL INFARCTION Status: Acute Comment: Continue ASA+Plavix,Statin,Coreg and Imdur as much as BP tolerates. Cardiology recs noted, med mgmt is only option given multiple co-morbid conditions, EF 35-40% (2) Anemia of renal disease Code(s): D63.1 - ANEMIA IN CHRONIC KIDNEY DISEASE Status: Acute Comment: Acute/chronic anemia due to CKD, s/p 1u PRBC's, recheck H/H and monitor trend (3) Hypotension Status: Acute Qualifiers: Hypotension type: hypotension due to drug Qualified Code(s): I95.2 - Hypotension due to drugs Comment: Medications +/- NSTEMI, Improved overall trend (4) CVA (cerebral vascular accident) Code(s): I63.9 - CEREBRAL INFARCTION, UNSPECIFIED Status: Acute Comment: Subacute CVA, supportive mgmt, SNF pending, PT/OT for mobilization when BP stabilizes (5) Acute metabolic encephalopathy Code(s): G93.41 - METABOLIC ENCEPHALOPATHY Status: Acute Comment: Likely multifactorial including ESRD, recent CVA, limited mobility and recent hospitalization, contribution of hypotension, see above, improved (6) ESRD (end stage renal disease) on dialysis Code(s): N18.6 - END STAGE RENAL DISEASE; Z99.2 - DEPENDENCE ON RENAL DIALYSIS Status: Chronic Comment: Followed by Nephrology. 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
[2018-08-31] MEDS: Atorvastatin Calcium 20 MG TAB PO SCH (21:51)
[2018-09-01] MEDS: Levothyroxine Sodium 75 MCG TAB PO SCH (06:31)
[2018-09-01 06:59] LABS: Anion Gap 16 mmol/L (10-20); BUN (Urea Nitrogen) 39 mg/dL (8.4-25.7); Calc. Creatinine Clearance 10 mL/min (70-130); Calcium 9.1 mg/dL (7.8-10.44); Carbon Dioxide 26 mmol/L (23-31); Chloride 96 mmol/L (98-107); Estimated GFR-MDRD 8; Glucose 98 mg/dL (83-110); Potassium 4.2 mmol/L (3.5-5.1); Sodium 134 mmol/L (136-145)
[2018-09-01] MEDS: Allopurinol 100 MG TAB PO SCH (08:16)
[2018-09-01] MEDS: Aspirin Chewable 81 MG TAB PO SCH (08:16)
[2018-09-01] MEDS: Carvedilol 3.125 MG TAB PO SCH ×2 (08:17→21:24)
[2018-09-01] MEDS: Senokot S 8.6-50 MG TAB PO SCH ×2 (08:17→21:24)
[2018-09-01] MEDS: Clopidogrel Bisulfate 75 MG TAB PO SCH (08:17)
[2018-09-01] MEDS: Gabapentin 300 MG CAP PO SCH ×3 (08:17→21:22)
[2018-09-01] MEDS: Folic Acid 1 MG TAB PO SCH (08:17)
--- NOTE | 2018-09-01 12:52 | PDOC.PN ---
- Subjective Encounter Start Date: 09/01/18 Encounter Start Time: 12:25 Subjective: f/u for ESRD, hypotension, gen weakness. Feels weak in upper extremities. - Objective Resuscitation Status - Order Detail: 08/23/18 20:49 Resuscitation Status Routine Co-Sign Provider: Resuscitation Status: FULL: Full Resuscitation Discussed with: Patient and daughter Additional comments: Patient refused to sign the DNR consent today and daughter states she is MPOA and both request a FULL code status. Discussed with MICHAEL Aguilar MAR Reviewed: Yes Vital Signs & Weight: Vital Signs (12 hours) Temp Pulse Resp BP BP Pulse Ox 09/01/18 12:15 97.4 F L 80 18 122/59 L 99 09/01/18 07:40 98.2 F 84 18 111/62 96 09/01/18 04:00 97.9 F 81 18 118/58 L 98 Weight Admit Weight 157 lb Weight 155 lb Most Recent Monitor Data Heart Rate from ECG 93 NIBP 112/69 NIBP BP-Mean 83 Respiration from ECG 14 SpO2 100 I&O: 08/31/18 09/01/18 09/02/18 06:59 06:59 06:59 Intake Total 960 Balance 960 Result Diagrams: 08/29/18 05:28 09/01/18 06:31 Additional Labs: Accuchecks 09/01/18 09/01/18 08/31/18 11:09 05:29 20:29 POC Glucose 141 H 107 169 H 08/31/18 16:39 POC Glucose 141 H Laboratory Tests 12/13/15 03/29/16 12/24/17 14:00 21:23 02:25 Hgb B-Natriuretic Peptide 952.3 H 418.8 H 1333.8 H Troponin I Lipase 08/08/18 08/08/18 08/08/18 23:39 23:39 23:39 Hgb 10.1 L B-Natriuretic Peptide 2472.0 H Troponin I Lipase 158 H 08/16/18 08/19/18 08/19/18 15:33 12:32 12:32 Hgb 8.6 L 8.7 L B-Natriuretic Peptide Troponin I 1.311 H* Lipase 08/21/18 08/23/18 08/25/18 14:45 14:05 14:39 Hgb 9.0 L 8.4 L 8.2 L B-Natriuretic Peptide Troponin I Lipase 08/25/18 08/26/18 08/26/18 23:17 00:25 04:03 Hgb B-Natriuretic Peptide Troponin I 8.318 H* 8.272 H* 7.943 H* Lipase 08/26/18 07:24 Hgb B-Natriuretic Peptide Troponin I 7.799 H* Lipase EKG Reviewed by me: Yes (Tele - SR) Phys Exam - Physical Examination Constitutional: NAD HEENT: PERRLA, sclera anicteric, oral pharynx no lesions Neck: no nodes, no JVD, supple, full ROM Respiratory: no wheezing, no rales, no rhonchi, clear to auscultation bilateral S1, S2 Cardiovascular: RRR, no significant murmur, no rub, gallop Gastrointestinal: soft, non-tender, no distention, positive bowel sounds LUE AV fistula R BKA Musculoskeletal: pulses present Neurological: normal sensation, moves all 4 limbs Skin: normal turgor, cap refill <2 seconds Dx/Plan (1) NSTEMI (non-ST elevated myocardial infarction) Code(s): I21.4 - NON-ST ELEVATION (NSTEMI) MYOCARDIAL INFARCTION Status: Acute Comment: Continue ASA+Plavix,Statin,Coreg and Imdur as much as BP tolerates. Cardiology recs noted, med mgmt is only option given multiple co-morbid conditions, EF 35-40% (2) Anemia of renal disease Code(s): D63.1 - ANEMIA IN CHRONIC KIDNEY DISEASE Status: Acute Comment: Acute/chronic anemia due to CKD, s/p 1u PRBC's, recheck H/H and monitor trend (3) Hypotension Status: Acute Qualifiers: Hypotension type: hypotension due to drug Qualified Code(s): I95.2 - Hypotension due to drugs Comment: Medications +/- NSTEMI, Improved overall trend (4) CVA (cerebral vascular accident) Code(s): I63.9 - CEREBRAL INFARCTION, UNSPECIFIED Status: Acute Comment: Subacute CVA, supportive mgmt, SNF pending, PT/OT for mobilization when BP stabilizes (5) Acute metabolic encephalopathy Code(s): G93.41 - METABOLIC ENCEPHALOPATHY Status: Acute Comment: Likely multifactorial including ESRD, recent CVA, limited mobility and recent hospitalization, contribution of hypotension, see above, improved (6) ESRD (end stage renal disease) on dialysis Code(s): N18.6 - END STAGE RENAL DISEASE; Z99.2 - DEPENDENCE ON RENAL DIALYSIS Status: Chronic Comment: Followed by Nephrology. 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
[2018-09-01] MEDS: Atorvastatin Calcium 20 MG TAB PO SCH (21:22)
[2018-09-02 05:45] LABS: Anion Gap 17 mmol/L (10-20); BUN (Urea Nitrogen) 53 mg/dL (8.4-25.7); Calc. Creatinine Clearance 8 mL/min (70-130); Carbon Dioxide 23 mmol/L (23-31); Chloride 96 mmol/L (98-107); Estimated GFR-MDRD 6; Glucose 98 mg/dL (83-110); Potassium 4.4 mmol/L (3.5-5.1); Sodium 132 mmol/L (136-145)
[2018-09-02] MEDS: Levothyroxine Sodium 75 MCG TAB PO SCH (06:12)
[2018-09-02 12:48] VITALS: BMI 27.4
[2018-09-02] MEDS: Allopurinol 100 MG TAB PO SCH (13:16)
[2018-09-02] MEDS: Senokot S 8.6-50 MG TAB PO SCH ×2 (13:17→20:23)
[2018-09-02] MEDS: Carvedilol 3.125 MG TAB PO SCH ×2 (13:17→20:23)
[2018-09-02] MEDS: Aspirin Chewable 81 MG TAB PO SCH (13:17)
[2018-09-02] MEDS: Gabapentin 300 MG CAP PO SCH ×3 (13:18→20:23)
[2018-09-02] MEDS: Folic Acid 1 MG TAB PO SCH (13:18)
[2018-09-02] MEDS: Clopidogrel Bisulfate 75 MG TAB PO SCH (13:18)
--- NOTE | 2018-09-02 13:40 | PDOC.PN ---
- Subjective Encounter Start Date: 09/02/18 Encounter Start Time: 13:37 Subjective: slowly improving.tired with minimal exertion - Objective Resuscitation Status - Order Detail: 08/23/18 20:49 Resuscitation Status Routine Co-Sign Provider: Resuscitation Status: FULL: Full Resuscitation Discussed with: Patient and daughter Additional comments: Patient refused to sign the DNR consent today and daughter states she is MPOA and both request a FULL code status. Discussed with MICHAEL Aguilar MAR Reviewed: Yes Vital Signs & Weight: Vital Signs (12 hours) Temp Pulse Resp BP Pulse Ox 09/02/18 11:55 97.9 F 80 18 123/54 L 94 L 09/02/18 07:15 98.3 F 87 18 119/57 L 96 09/02/18 04:00 97.7 F 81 16 87/51 L 99 Weight Admit Weight 157 lb Weight 160 lb Most Recent Monitor Data Heart Rate from ECG 93 NIBP 112/69 NIBP BP-Mean 83 Respiration from ECG 14 SpO2 100 I&O: 09/01/18 09/02/18 09/03/18 06:59 06:59 06:59 Intake Total 240 Balance 240 Result Diagrams: 08/29/18 05:28 09/02/18 04:54 Additional Labs: Accuchecks 09/02/18 09/01/18 09/01/18 05:27 20:05 17:10 POC Glucose 113 H 142 H 122 H 08/28/18 08/27/18 20:04 20:27 POC Glucose 207 H 139 H Phys Exam - Physical Examination Neck: no JVD Respiratory: clear to auscultation bilateral Cardiovascular: RRR, no significant murmur Gastrointestinal: soft, positive bowel sounds Musculoskeletal: no edema Dx/Plan (1) Cardiomyopathy Code(s): I42.9 - CARDIOMYOPATHY, UNSPECIFIED Status: Acute (2) Acute metabolic encephalopathy Code(s): G93.41 - METABOLIC ENCEPHALOPATHY Status: Acute Comment: Likely multifactorial including ESRD, recent CVA, limited mobility and recent hospitalization, contribution of hypotension, see above, improved (3) Elevated troponin Code(s): R74.8 - ABNORMAL LEVELS OF OTHER SERUM ENZYMES Status: Acute Comment: This in the context of hypotension and generalized weakness is concerning for CAD. (4) Hypotension Status: Resolved Qualifiers: Hypotension type: hypotension due to drug Qualified Code(s): I95.2 - Hypotension due to drugs Comment: Medications +/- NSTEMI, Improved overall trend (5) NSTEMI (non-ST elevated myocardial infarction) Code(s): I21.4 - NON-ST ELEVATION (NSTEMI) MYOCARDIAL INFARCTION Status: Resolved Comment: Continue ASA+Plavix,Statin,Coreg and Imdur as much as BP tolerates. Cardiology recs noted, med mgmt is only option given multiple co-morbid conditions, EF 35-40% (6) Generalized weakness Code(s): R53.1 - WEAKNESS Status: Chronic Comment: PT/OT for mobilization, fall risk precautions, SNF options pending (7) Coronary artery disease Code(s): I25.10 - ATHSCL HEART DISEASE OF [place] CORONARY ARTERY W/O ANG PCTRS Status: Chronic Qualifiers: Coronary Disease-Associated Artery/Lesion type: [place] artery [place] vs. transplanted heart: [place] heart Associated angina: without angina Qualified Code(s): I25.10 - Atherosclerotic heart disease of [place] coronary artery without angina pectoris Comment: Severe three vessel disease. (8) ESRD (end stage renal disease) on dialysis Code(s): N18.6 - END STAGE RENAL DISEASE; Z99.2 - DEPENDENCE ON RENAL DIALYSIS Status: Chronic Comment: HD as tolerated (9) HTN (hypertension) Code(s): I10 - ESSENTIAL (PRIMARY) HYPERTENSION Status: Chronic Qualifiers: Hypertension type: essential hypertension Qualified Code(s): I10 - Essential (primary) hypertension Comment: Continue home meds. (10) Hypothyroidism Code(s): E03.9 - HYPOTHYROIDISM, UNSPECIFIED Status: Chronic Qualifiers: Hypothyroidism type: unspecified Qualified Code(s): E03.9 - Hypothyroidism , unspecified Comment: Continue synthroid. - Plan cont coreg,iisosorbide -: no KEON/ARB- renal failure/hypotension -: cont HD -: cont levo-thyroxine -: cont PT/OT * .
[2018-09-02] MEDS: Atorvastatin Calcium 20 MG TAB PO SCH (20:23)
[2018-09-03] MEDS: Levothyroxine Sodium 75 MCG TAB PO SCH (05:39)
[2018-09-03 05:49] LABS: Anion Gap 16 mmol/L (10-20); BUN (Urea Nitrogen) 28 mg/dL (8.4-25.7); Calc. Creatinine Clearance 13 mL/min (70-130); Carbon Dioxide 25 mmol/L (23-31); Chloride 98 mmol/L (98-107); Estimated GFR-MDRD 11; Glucose 91 mg/dL (83-110); Potassium 4.8 mmol/L (3.5-5.1); Sodium 134 mmol/L (136-145)
[2018-09-03] MEDS: Senokot S 8.6-50 MG TAB PO SCH (09:26)
[2018-09-03] MEDS: Clopidogrel Bisulfate 75 MG TAB PO SCH (09:26)
[2018-09-03] MEDS: Allopurinol 100 MG TAB PO SCH (09:26)
[2018-09-03] MEDS: Folic Acid 1 MG TAB PO SCH (09:26)
[2018-09-03] MEDS: Gabapentin 300 MG CAP PO SCH ×2 (09:26→15:08)
[2018-09-03] MEDS: Carvedilol 3.125 MG TAB PO SCH (09:27)
[2018-09-03] MEDS: Aspirin Chewable 81 MG TAB PO SCH (09:27)
--- NOTE | 2018-09-03 09:47 | PDOC.PN ---
- Subjective Encounter Start Date: 09/03/18 Encounter Start Time: 09:46 Subjective: no distress - Objective Resuscitation Status - Order Detail: 08/23/18 20:49 Resuscitation Status Routine Co-Sign Provider: Resuscitation Status: FULL: Full Resuscitation Discussed with: Patient and daughter Additional comments: Patient refused to sign the DNR consent today and daughter states she is MPOA and both request a FULL code status. Discussed with MICHAEL Aguilar Reviewed: Yes Vital Signs & Weight: Vital Signs (12 hours) Temp Pulse Resp BP Pulse Ox 09/03/18 04:00 99.6 F 85 18 120/58 L 96 09/02/18 23:56 98.1 F 86 18 137/64 93 L Weight Admit Weight 157 lb Weight 154 lb 15.759 oz Most Recent Monitor Data Heart Rate from ECG 93 NIBP 112/69 NIBP BP-Mean 83 Respiration from ECG 14 SpO2 100 I&O: 09/02/18 09/03/18 09/04/18 06:59 06:59 06:59 Intake Total 240 900 Output Total 60 Balance 240 840 Result Diagrams: 08/29/18 05:28 09/03/18 05:27 Additional Labs: Accuchecks 09/03/18 09/02/18 09/02/18 05:38 20:27 17:02 POC Glucose 95 118 H 136 H Phys Exam - Physical Examination Neck: no JVD Respiratory: clear to auscultation bilateral Cardiovascular: RRR, no significant murmur Gastrointestinal: soft, non-tender Musculoskeletal: no edema Dx/Plan (1) Cardiomyopathy Code(s): I42.9 - CARDIOMYOPATHY, UNSPECIFIED Status: Acute Qualifiers: Cardiomyopathy type: unspecified Qualified Code(s): I42.9 - Cardiomyopathy , unspecified (2) Acute metabolic encephalopathy Code(s): G93.41 - METABOLIC ENCEPHALOPATHY Status: Resolved Comment: Likely multifactorial including ESRD, recent CVA, limited mobility and recent hospitalization, contribution of hypotension, see above, improved (3) Elevated troponin Code(s): R74.8 - ABNORMAL LEVELS OF OTHER SERUM ENZYMES Status: Acute Comment: This in the context of hypotension and generalized weakness is concerning for CAD. (4) Hypotension Status: Resolved Qualifiers: Hypotension type: hypotension due to drug Qualified Code(s): I95.2 - Hypotension due to drugs Comment: Medications +/- NSTEMI, Improved overall trend (5) NSTEMI (non-ST elevated myocardial infarction) Code(s): I21.4 - NON-ST ELEVATION (NSTEMI) MYOCARDIAL INFARCTION Status: Resolved Comment: Continue ASA+Plavix,Statin,Coreg and Imdur as much as BP tolerates. Cardiology recs noted, med mgmt is only option given multiple co-morbid conditions, EF 35-40% (6) Generalized weakness Code(s): R53.1 - WEAKNESS Status: Chronic Comment: PT/OT for mobilization, fall risk precautions, SNF options pending (7) Coronary artery disease Code(s): I25.10 - ATHSCL HEART DISEASE OF [place] CORONARY ARTERY W/O ANG PCTRS Status: Chronic Qualifiers: Coronary Disease-Associated Artery/Lesion type: [place] artery [place] vs. transplanted heart: [place] heart Associated angina: without angina Qualified Code(s): I25.10 - Atherosclerotic heart disease of [place] coronary artery without angina pectoris Comment: Severe three vessel disease. (8) ESRD (end stage renal disease) on dialysis Code(s): N18.6 - END STAGE RENAL DISEASE; Z99.2 - DEPENDENCE ON RENAL DIALYSIS Status: Chronic Comment: HD as tolerated (9) HTN (hypertension) Code(s): I10 - ESSENTIAL (PRIMARY) HYPERTENSION Status: Chronic Qualifiers: Hypertension type: essential hypertension Qualified Code(s): I10 - Essential (primary) hypertension Comment: Continue home meds. (10) Hypothyroidism Code(s): E03.9 - HYPOTHYROIDISM, UNSPECIFIED Status: Chronic Qualifiers: Hypothyroidism type: unspecified Qualified Code(s): E03.9 - Hypothyroidism , unspecified Comment: Continue synthroid. - Plan cont HD -: cont OT/PT -: cont asa., plavix, coreg, imdur etc * .
[2018-09-03] MEDS: EPOETIN ALFA-EPBX (ESRD) 3,000 UNIT/ML VIAL SC SCH (11:48)
[2018-09-03 13:10] VITALS: TEMP 97.8
--- NOTE | 2018-09-03 15:25 | DIS ---
DATE OF ADMISSION: 08/09/2018 DATE OF DISCHARGE: 09/03/2018 PRIMARY CARE PROVIDER: Dr. dEgar Del Rio. DISCHARGE DISPOSITION: Discharged to [facility]. FINAL DIAGNOSES: 1. Non-ST elevation myocardial infarction. 2. End-stage renal disease, on hemodialysis. 3. Hypertension related to medical therapy. 4. Cardiomyopathy. 5. CVA. 6. Generalized weakness. 7. Physical deconditioning. 8. Acute encephalopathy, resolved. 9. Anemia of chronic renal disease. 10. History of ischemic colitis. 11. Lower GI bleed. 12. Coronary artery disease. 13. 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 14. Dyslipidemia. 15. Hyperkalemia, resolved. 16. Lactic acidosis, resolved. CODE STATUS: Full resuscitation. DIET: Renal high-protein. PENDING AT TIME OF DISCHARGE: Nothing. HOSPITAL COURSE: The patient was brought to the hospital. Emergency Department eventually referred to [facility]. The patient with end-stage renal disease, diabetes, hypertension, profound weakness, apparently was thought to have had a stroke when he was out of town. He was placed in the hospital with generalized weakness, end-stage renal disease, diabetes mellitus type 2, hypertension. On 08/11/2018, the patient had code green called for low blood pressure. He was transferred to CCU. The patient had had dialysis that day. He was given a fluid bolus. Blood pressure medicines at that time were discontinued. The patient was confused. His initial laboratory; hemoglobin 10.1, white count 7.1, platelet count 184,000. Initial chemistries; lytes were balanced, BUN 26, creatinine 6.01. Troponins were 0.034, 0.037, 0.047. BNP was 2472. Consultations on 08/13/[address] Francis Martinez. The patient was only transiently in ICU. On 08/17/2018, Dr. Lau was consulted for chest pain, recommended anticoagulation for 48 hours with heparin. Echocardiogram revealed ischemic cardiomyopathy 35% to 40% two months prior. Laboratory at that time revealed a troponin of 0.194 followed by 1.31 with a diagnosis of a non-ST elevation OR made. On 08/17/2018, Dr. Gael Golden put a left subclavian triple-lumen central venous catheter in. Echocardiogram done on 08/18/2018 again revealed an EF of 35% to 40%. He was seen by Palliative Care. Subsequent to all of these events, antihypertensives were reintroduced slowly. At the present time, the patient is profoundly weak, deconditioned, needing physical therapy, occupational therapy which is the reason for him being transferred to a intermediate facility. Currently, his cardiorespiratory exam is unremarkable. His vital signs; pulse of 80, respirations of 18, room air saturation in the mid 90s, blood pressure 125/60 and 134/63, temperature is afebrile. As I mentioned, chest is clear. Heart had a regular rate and rhythm. The patient is currently doing well, has improved well enough to go to intermediate facility. As I said, we will have physical therapy and occupational therapy there. Outpatient hemodialysis has been arranged on Sunday, Sunday, Sunday, for which he can be taken from the intermediate facility to dialysis. TIME SPENT: 35 minutes was spent preparing this discharge. Job ID: [id number]
[2018-09-03 19:56] VITALS: BP 102/58
== END 2018-09-03 17:55 | DRG 280 ==
LOC: ERS 22:23 → 2NO 08-09 01:05 → CCU 08-11 12:49 → 2NO 08-13 18:18 → IMCU/EMU 08-14 20:37 → T4-A 08-22 13:15 → 2NO 08-26 01:04
PROVIDERS: ADMIT Hospitalist; ATTEND Hospitalist
PROC: 05H633Z Insertion of Infusion Device into Left Subclavian Vein, Percutaneous Approach (ICD-10-PCS; principal; 2018-08-17)
DX: I21.4 Non-ST elevation (NSTEMI) myocardial infarction (principal); N18.6 End stage renal disease; I63.9 Cerebral infarction, unspecified; G93.41 Metabolic encephalopathy; I13.2 Hypertensive heart and chronic kidney disease with heart failure and with stage 5 chronic kidney disease, or end stage renal disease; K92.2 Gastrointestinal hemorrhage, unspecified; E87.2 Acidosis; N25.81 Secondary hyperparathyroidism of renal origin; Z51.5 Encounter for palliative care; D63.1 Anemia in chronic kidney disease; I25.10 Atherosclerotic heart disease of native coronary artery without angina pectoris; E11.22 Type 2 diabetes mellitus with diabetic chronic kidney disease; I25.5 Ischemic cardiomyopathy; I95.2 Hypotension due to drugs; T44.7X5A Adverse effect of beta-adrenoreceptor antagonists, initial encounter; E78.5 Hyperlipidemia, unspecified; E87.5 Hyperkalemia; E03.9 Hypothyroidism, unspecified; I25.2 Old myocardial infarction; Z79.4 Long term (current) use of insulin; Z89.511 Acquired absence of right leg below knee
CPT/HCPCS: 36415; 36416; 36430; 71045; 80048; 80053; 80069; 82533; 82550; 82553; 83605; 83690; 83735; 83880; 84145; 84484; 85007; 85014; 85018; 85025; 85027; 85049; 85610; 85730; 86850; 86900; 86901; 87340; 90935; 93005; 93010; 93306; G0257; J1644; P9016; Q5105

== ENCOUNTER 2018-11-01 12:21 | Inpatient (IN) | payer MEDICARE ==
[2018-11-01] MEDS ORDERED: ISOVUE-370 76%-LOCM 1 ML ONE (12:47)
[2018-11-01 13:01] LABS: #Eosinphils 0.1 thou/uL (0.0-0.7); #Lymphocytes 1.2 thou/uL (1.20-3.40); #Neutrophils 8.2 thou/uL (1.40-6.50); %Basophils 0.3 % (0.0-1.0); %Eosinophils 0.5 % (0.0-10.0); %Lymphocytes 11.1 % (21.0-51.0); %Monocytes 9.5 % (0.0-10.0); %Neutrophils 78.7 % (42.0-75.0); Hemoglobin 12.4 g/dL (14.0-18.0); Mean Corpuscular HGB CONC 33.6 g/dL (32.0-36.0); Mean Corpuscular Hemoglobin 32.8 pg (27.0-31.0); Mean Corpuscular Volume 97.5 fL (78.0-98.0); Platelet Count 161 thou/uL (130-400); RBC Distribution Width 14.8 % (11.5-14.5); Red Blood Cell (RBC) Count 3.79 mill/uL (4.70-6.10); White Blood Cell (WBC) Count 10.5 thou/uL (4.8-10.8)
[2018-11-01 13:07] LABS: INR-International Normal Ratio 1.1; PTT 29.1 SEC (22.9-36.1); Prothrombin Time 14.1 SEC (12.0-14.7)
--- NOTE | 2018-11-01 13:08 | CT ---
CT OF THE HEAD NONCONTRAST: INDICATION: Stroke. FINDINGS: There is no acute intracranial hemorrhage, mass effect, or midline shift. There is a stable remote c avitary lacunar infarction at the anterior left thalamus and anterior aspect of the posterior limb le ft internal capsule. There is scattered hypoattenuation indicative of microvascular ischemic disease . IMPRESSION: 1. No acute intracranial hemorrhage or mass effect. 2. Chronic ischemic disease and superimposed remote cavitary lacunar infarction. POS: [facility]
[2018-11-01 13:23] LABS: ALT (SGPT) 7 U/L (8-55); AST (SGOT) 18 U/L (5-34); Albumin 3.9 g/dL (3.4-4.8); Alkaline Phosphatase 89 U/L (40-150); Anion Gap 22 mmol/L (10-20); BUN (Urea Nitrogen) 54 mg/dL (8.4-25.7); Bilirubin, Total 1.1 mg/dL (0.2-1.2); CK (CPK) 26 U/L (30-200); Calc. Creatinine Clearance 0 mL/min (70-130); Calcium 9.2 mg/dL (7.8-10.44); Carbon Dioxide 24 mmol/L (23-31); Chloride 94 mmol/L (98-107); Estimated GFR-MDRD 7; Globulin 3.9 g/dL (2.4-3.5); Glucose 130 mg/dL (83-110); Potassium 5.8 mmol/L (3.5-5.1); Protein, Total 7.8 g/dL (5.8-8.1); Sodium 134 mmol/L (136-145)
--- NOTE | 2018-11-01 13:36 | CT ---
CTA Angio Head WITH AND WITHOUT PERFUSION CT ANGIOGRAM NECK WITH CONTRAST: History: Level 1 stroke. Comparison: CT angiogram 2017. Findings: CT angiogram of the head and neck was performed after the intravenous administration of contrast. 3- D rendering provided. Perfusion was added. There is no decreased cerebral blood flow, blood volume, or increase of mean transit time. There is a pproximately 50% narrowing distal left M1 segment for a length of 4 mm. Adequate peripheral vascular flow. [place] is otherwise intact. The right vertebral artery is very atretic. Severe calcificatio ns of the ectatic and tortuous right subclavian artery. Dense calcifications of the aorta. Pulmonary trunk is mildly dilated. Large effusions. High-grade pulmonary edema. Impression: 1. Approximately 50% narrowing terminal left M1 segment for length of 4 mm. Peripheral adequate vascu lar flow with normal perfusion. 2. Large bilateral pleural effusions with high-grade pulmonary edema. Code CR Transcribed Date/Time: 11/01/2018 2:47 PM
[2018-11-01] MEDS ORDERED: Aspirin Chewable 81 MG TAB ONE (16:12)
[2018-11-01 17:22] VITALS: BMI 27.0
[2018-11-01] MEDS ORDERED: HYDROcodone/Acetaminophen 5/325 mg Tablet PO PRN (17:50)
[2018-11-01] MEDS ORDERED: Acetaminophen 325 MG TAB PO PRN (17:50)
[2018-11-01] MEDS ORDERED: Polyethylene Glycol 3350 17 GM Packet PO PRN (17:56)
--- NOTE | 2018-11-01 19:30 | HP ---
PRIMARY CARE PHYSICIAN: [facility]. CHIEF COMPLAINT: Leg weakness, slurred speech. HISTORY OF PRESENT ILLNESS: Mr. Gonzalez is a 72-year-old man, who reported to the emergency room today after his family noted that he was having some slurred speech and trouble with his left leg. Family at the bedside reports that they tried to get him into the car to take him to his normal dialysis appointment and noticed that he was dragging his left leg. By the time they got to the dialysis center, he was not acting himself, and he was having difficulty moving the left side. The patient has a history of a previous stroke with right-sided residual. PAST MEDICAL HISTORY: Pertinent for end-stage renal disease, on hemodialysis; history of diabetes, diet controlled; hyperlipidemia; high cholesterol; hypertension; gets dialysis on Sunday, Sunday, Sunday; had a stroke in 2017 with right-sided facial deficit and has a history of [place] and a stroke in June 2018. PAST SURGICAL HISTORY: Right BKA, left arm surgery, back surgery, hernia repair, stent placed in June 2018. PSYCHIATRIC HISTORY: None. SOCIAL HISTORY: The patient lives at home with his family. He denies any alcohol or drug use. Has no smoking history. ALLERGIES: NONE. HOME MEDICATIONS: Per the ER, they still need to reconciled. 1. Adalat CC 30 mg p.o. once a day. 2. Atorvastatin 20 mg p.o. once a day at bedtime. 3. Calcium acetate 667 mg p.o. once a day after a meal. 4. Levothyroxine 75 mcg once a day. 5. Folic acid one tablet once a day. 6. Vitamin D3 of 2000 units one capsule once a day. 7. Aspirin 81 mg p.o. once a day. REVIEW OF SYSTEMS: The patient reports that he had some weakness on the left side. Family reports that he had some slurred speech, although that seems to be resolving. The patient is not a tPA candidate due to end-stage dialysis. He denied any headache, dizziness, chest pain, shortness of breath, abdominal pain, nausea, vomiting, or diarrhea. All other symptoms are reviewed and are negative unless mentioned in the HPI. PHYSICAL EXAMINATION: VITAL SIGNS: Blood pressure 88/54, pulse is 78, respirations are 15, pO2 saturations are 97% on 2 L of oxygen, temperature is 98.4. CONSTITUTIONAL: The patient appears nontoxic. He is alert and oriented to person, place, and time. He is in no apparent distress. HEENT: Head; there is some mild right facial droop. Otherwise, atraumatic, normocephalic. Eyes; eyelids are normal to inspection. Pupils are equally round and reactive to light. ENT; mouth exam is normal. Mucous membranes are moist. NECK: Normal range of motion. Trachea is midline. RESPIRATORY/CHEST: Breath sounds are clear. Chest movement is symmetrical. CARDIOVASCULAR/HEART: Regular rate and rhythm. Heart sounds are normal. ABDOMEN: Nontender. Bowel sounds are heard. BACK: Normal range of motion. No tenderness. EXTREMITIES: Upper extremities; normal range of motion. Strength is normal. Able to move and squeeze hands bilaterally. Sensation is equal. Radial pulses are normal. Lower extremities; motor strength is normal. Pedal pulse on the left leg is normal. The patient has a BKA on the right leg, but he is able to move both legs. NEUROLOGIC: Speech; difficulty speaking. SKIN: Warm, dry, normal color. PSYCHIATRIC: Normal affect. DIAGNOSTIC STUDIES: EKG in the emergency room shows beats per minute 80, marked ST abnormality, possible anterior subendocardial injury. [place] is normal. RADIOLOGY: Head CT is negative. CTA of the head and neck showed 50% narrowing for M1. Did perfusion scan, which looked normal per radiologist. ASSESSMENT AND PLAN: 1. Left-sided weakness is worrisome for repeat cerebrovascular accident. We will obtain an MRI of the brain without contrast. The patient had an echocardiogram done on 08/18/2018, which showed an EF of 35% to 40%, grade 2/3 diastolic dysfunction, mildly dilated left atrium, aortic stenosis. Aspirin will be given. We will restart statin. 2. End-stage renal disease. Dr. Barrera was contacted from the emergency room and he will arrange dialysis. Creatinine today is 7.48, which is more than it was on the last time it was checked on 09/03 and at that time, it was 5.10. 3. Hypercalcemia, mostly related to the fact that the patient did not have his dialysis today. See #2 above. We will recheck values in the morning. 4. Hypothyroidism. Restart home medications. We will check TSH in the morning. 5. Diabetes mellitus. We will reconcile home medications. Check sugar a.c. and h.s., and place him on a sliding scale. 6. Hypertension. Restart home medications, although he is a little on the low side today, which family reports is normal. 7. We will place on deep vein thrombosis prophylaxis and gastrointestinal prophylaxis. 8. Case was discussed with Dr. Samayoa, who agrees with plan. Job ID: [id number]
[2018-11-01 19:32] LABS: HBSAg Index 0.17 S/CO (0-0.99); Hep B Surf Ag Non-Reactive S/CO (NonReactive)
[2018-11-01] MEDS ORDERED: Atorvastatin Calcium 20 MG TAB PO SCH (21:00)
[2018-11-01] MEDS: Heparin 5,000 UNITS/ML VIAL SC SCH (21:31)
[2018-11-02 05:39] LABS: #Eosinphils 0.1 thou/uL (0.0-0.7); #Lymphocytes 0.7 thou/uL (1.20-3.40); #Monocytes 0.7 thou/uL (0.11-0.59); #Neutrophils 4.9 thou/uL (1.40-6.50); %Basophils 0.5 % (0.0-1.0); %Eosinophils 1.5 % (0.0-10.0); %Lymphocytes 11.6 % (21.0-51.0); %Monocytes 10.1 % (0.0-10.0); %Neutrophils 76.3 % (42.0-75.0); Hemoglobin 11.1 g/dL (14.0-18.0); Mean Corpuscular HGB CONC 33.7 g/dL (32.0-36.0); Mean Corpuscular Hemoglobin 33.3 pg (27.0-31.0); Mean Corpuscular Volume 99.1 fL (78.0-98.0); Platelet Count 129 thou/uL (130-400); RBC Distribution Width 14.5 % (11.5-14.5); Red Blood Cell (RBC) Count 3.33 mill/uL (4.70-6.10); White Blood Cell (WBC) Count 6.4 thou/uL (4.8-10.8)
[2018-11-02] MEDS ORDERED: Levothyroxine Sodium 75 MCG TAB PO SCH (06:00)
[2018-11-02 06:10] LABS: ALT (SGPT) Less than 7 U/L (8-55); AST (SGOT) 7 U/L (5-34); Albumin 3.5 g/dL (3.4-4.8); Alkaline Phosphatase 73 U/L (40-150); Anion Gap 13 mmol/L (10-20); BUN (Urea Nitrogen) 18 mg/dL (8.4-25.7); Bilirubin, Total 0.8 mg/dL (0.2-1.2); Calc. Creatinine Clearance 17 mL/min (70-130); Carbon Dioxide 29 mmol/L (23-31); Chloride 98 mmol/L (98-107); Estimated GFR-MDRD 15; Globulin 3.5 g/dL (2.4-3.5); Glucose 113 mg/dL (83-110); Potassium 3.6 mmol/L (3.5-5.1); Sodium 136 mmol/L (136-145)
[2018-11-02] MEDS ORDERED: Senokot S 8.6-50 MG TAB PO SCH (09:00)
[2018-11-02] MEDS ORDERED: Famotidine 20 MG TAB PO SCH (09:00)
[2018-11-02] MEDS ORDERED: Prevnar 13-Val Conj/PF 0.5 ML SYRINGE IM ONE (09:00)
[2018-11-02] MEDS ORDERED: Aspirin Chewable 81 MG TAB PO SCH (09:00)
[2018-11-02] MEDS: Heparin 5,000 UNITS/ML VIAL SC SCH ×2 (09:54→17:54)
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
--- NOTE | 2018-11-02 11:59 | PRG ---
DATE OF SERVICE: 11/02/2018 SUBJECTIVE: The patient is seen and examined at bedside. He feels weak and tired. OBJECTIVE: VITAL SIGNS: Blood pressure is 101/58, pulse is 84, respiratory rate is 16, and O2 saturation is 92% on room air. HEENT: His head is atraumatic and normocephalic. Eyes are PERRLA. Sclerae are nonicteric. He has a right facial droop. NECK: Supple. LUNGS: Clear. HEART: S1 and S2 normal. There is a systolic murmur 3 to 4/6 at the sternum bilaterally. ABDOMEN: Soft, nontender, and nondistended. EXTREMITIES: Right [id number] amputation status. Left lower extremity; no clubbing, cyanosis, or edema. NEUROLOGICAL: He follows my commands. He moves his all 4 extremities. There is no motor dysfunction in the upper and left lower extremity. He follows my commands. LABORATORY DATA: White count of 6.4, hemoglobin 11.1, hematocrit 33.0, and platelet count is 129,000. Normal electrolytes. Creatinine 3.94 and glucose 113. TSH 3rd generation 7.27. Hepatitis B surface antigen nonreactive. IMPRESSION: 1. Left-sided weakness improved. MRI of the brain is still pending. Neurology consultation is pending. 2. End-stage renal disease, on hemodialysis, status post dialysis yesterday. 3. Hyperkalemia, resolved post dialysis. 4. Hypothyroidism with elevated TSH. We will talk to the family to make sure that he is taking his thyroid supplement daily before we change the dosing. 5. Diabetes mellitus. 6. Cardiomyopathy with LVEF of 35%. 7. Anemia of chronic renal disease. 8. History of ischemic colitis. 9. History of lower gastrointestinal bleed. 10. Coronary artery disease. PLAN: Plan is to obtain MRI results. A neurology consultation is still pending, and based on those two, make decision about the next step. Job ID: [id number]
--- NOTE | 2018-11-02 14:17 | MRI ---
MRI brain without IV contrast: Multiplanar and multisequential imaging of brain obtained according to protocol. INDICATIONS: Left-sided weakness COMPARISON: none FINDINGS: Cortical volume loss. Ventricles have normal size and position. Moderate chronic ischemic white matte r change in both cerebral hemispheres. No evidence of restricted diffusion. No evidence of mass or edema. Intracranial internal carotid arteries, proximal cerebral arteries, and basilar arteries show normal flow voids. Dural venous sinuses appear patent. Mucous retention cyst in left maxillary sinus. Orbits appear unremarkable. Bony calvarium and soft tissues of the scalp appear unremarkable. IMPRESSION: No evidence of acute infarct. Moderate chronic ischemic white matter change.
[2018-11-02 15:58] VITALS: BP 129/70; TEMP 97.6
--- NOTE | 2018-11-02 16:00 | EKG ---
Test Reason : Blood Pressure : / mmHG Vent. Rate : 080 BPM Atrial Rate : 080 BPM P-R Int : 170 ms QRS Dur : 094 ms QT Int : 404 ms P-R-T Axes : 028 -01 181 degrees QTc Int : 465 ms Normal sinus rhythm Possible Left atrial enlargement Marked ST abnormality, possible anterior subendocardial injury Abnormal ECG Confirmed by DESHAUN CAO, FARSHAD ([id number]), field map editor MISHEL PEDRAZA ([id number]) on 11/02/2018 3:59:53 PM Referred By: Confirmed By:FARSHAD MEADE MD
--- NOTE | 2018-11-03 03:35 | DIS ---
DATE OF ADMISSION: 11/01/2018 DATE OF DISCHARGE: 11/02/2018 FINAL DIAGNOSES: 1. Transient ischemic attack. 2. End-stage renal disease, on hemodialysis. 3. Hyperkalemia, corrected. 4. Hypothyroidism with elevated TSH. 5. Diabetes mellitus. 6. Cardiomyopathy with left ventricular ejection fraction of 35%. 7. History of myocardial infarction. 8. Coronary artery disease, not amenable for any revascularization. 9. History of ischemic colitis. 10. History of lower gastrointestinal bleed. CONSULTANTS: 1. Dr. Blanco, Neurology Service. 2. Dr. Barrera. HOSPITAL COURSE: The patient is a 72-year-old male, who was admitted to the hospital with complaints of some left lower extremity weakness and some slurred speech. Apparently, the family reported that they try to get him into the car to take him to his normal dialysis appointment and they noticed that he was dragging his left foot and by the time when they got to the dialysis center, he was not acting himself. In the emergency room, his EKG showed normal sinus rhythm with ventricular rate of 80 beats per minute with some ST-T wave abnormalities in the precordial leads and radiology showed CT of the head was negative and CT angiogram of the head and neck showed 50% narrowing of M1. The patient got admitted to the hospital, was seen by neurologist, Dr. Blanco, who recommended 325 mg of aspirin instead of 81, he was taking prior to this hospitalization. Also, he received hemodialysis per Dr. Barrera, his dog catcher. His hyperkalemia was corrected. He is doing well. His weakness has gone in the left lower extremity and his speech is not slurred anymore. He had MRI of the brain done, which showed some ischemic changes, which is moderate and chronic, but no evidence of any acute infarction. He is discharged home in good condition with recommendation to stay on renal and heart healthy diet. MEDICATIONS: At the time of discharge: 1. Atorvastatin 20 mg at bedtime. 2. Levothyroxine 75 mcg daily. 3. Folic acid 1 mg daily. 4. Epoetin 6000 units subcutaneously every 7 days. 5. Vitamin D3 of 2000 units. FOLLOWUP: He is going to follow up with his primary care physician in 1 week. TIME SPENT: Time spent on this discharge is less than 30 minutes. Job ID: [id number]
--- NOTE | 2018-11-05 04:54 | PQF ---
SHON BENTLEY ZBIGNIEW A MD [id number] [address] [place] [address] [id number] CLINICAL DOCUMENTATION CLARIFICATION FORM: POST DISCHARGE Addendum to original discharge summary date: ____ Late entry note date: __ DATE: 11-05-18 ATTN: Melvin Cooney Please exercise your independent, professional judgment in responding to the clarification form. Clinical indicators are provided on the bottom of this form for your review Can you please clarify if the TIA is related to cerebral stenosis Please check appropriate box(s): TIA TYPE: TIA Stenosis / Syndrome related to: [ x] Cerebral/ Precerebral occlusion/ stenosis [ ] Other TIA [ ] Other diagnosis please specify: [ ] Unable to determine In addition, please specify: Present on Admission (POA): [ x ] Yes [ ] No [ ] Unable to determine For continuity of documentation, please document condition throughout progress notes and discharge summary. Thank You. CLINICAL INDICATORS: -Head/Neck CT 11/01 "approximately 50% narrowing of distal left M1 segment" -ED Notes 11/01 "CC: evaluation of motor deficit,leg weakness and slurred speech " -ED Notes 11/01 "sudden onset of stroke like symptoms" -Consult 11/02 "patient also had some slurred speech" -DS 11/02 "TIA" RISK FACTORS: -HP 11/01 - 72 years old man -HP 11/01 ESRD -HP 11/01 DM -HP 11/01 HLD -HP 11/01 Hypercholesterolemia -HP 11/01 - HTN -HP 11/01 - Old CVA TREATMENT: -Brain CT - Collected 11/01 -Brain MRI - Consult 11/02 -Neuro consult - Consult 11/02 -Aspirin 325mg Oral - Consult 11/02 -Atorvastatin 20mg Oral - DS 11/02 (This form is maintained as a part of the permanent medical record) 2014 [employer], [employer]. All Rights Reserved Sharri [email or web address] [not provided] MTDD
== END 2018-11-02 18:18 | disposition home or self-care (01) | DRG 67 ==
LOC: ERS 12:21 → 2SE 16:29
PROVIDERS: ADMIT Internal Medicine; ATTEND Internal Medicine
PROC: 5A1D70Z Performance of Urinary Filtration, Intermittent, Less than 6 Hours Per Day (ICD-10-PCS; principal; 2018-11-01)
DX: I66.02 Occlusion and stenosis of left middle cerebral artery (principal); N18.6 End stage renal disease; I69.351 Hemiplegia and hemiparesis following cerebral infarction affecting right dominant side; I12.0 Hypertensive chronic kidney disease with stage 5 chronic kidney disease or end stage renal disease; I42.9 Cardiomyopathy, unspecified; E78.00 Pure hypercholesterolemia, unspecified; E78.5 Hyperlipidemia, unspecified; E11.22 Type 2 diabetes mellitus with diabetic chronic kidney disease; I25.2 Old myocardial infarction; R47.81 Slurred speech; E83.52 Hypercalcemia; E03.9 Hypothyroidism, unspecified; D63.1 Anemia in chronic kidney disease; I25.10 Atherosclerotic heart disease of native coronary artery without angina pectoris; Z89.511 Acquired absence of right leg below knee; Z99.2 Dependence on renal dialysis; Z79.899 Other long term (current) drug therapy; Z79.82 Long term (current) use of aspirin; I69.392 Facial weakness following cerebral infarction
CPT/HCPCS: 0042T; 36415; 36416; 70450; 70496; 70498; 70551; 80053; 82550; 84443; 84484; 85025; 85610; 85730; 86850; 86900; 86901; 87340; 90935; 93005; 94760; 96360; G0257; J1644; Q9966

== ENCOUNTER 2018-12-14 17:12 | Emergency (ER) | payer MEDICARE ==
[2018-12-14] MEDS ORDERED: HYDROcodone/Acetaminophen 5/325 mg Tablet ONE (18:40)
--- NOTE | 2018-12-14 18:40 | RAD ---
RIGHT WRIST THREE VIEWS: 12/14/18 HISTORY: Pain. Injury. FINDINGS: Intercarpal and radiocarpal joint spaces are preserved. There is diffuse bone demineralization. Vascu lar calcifications are identified. No evidence of fracture. IMPRESSION: Diffuse bone demineralization. No fracture. POS: [facility]
== END 2018-12-14 18:53 | disposition home or self-care (01) ==
LOC: ERS 17:12
DX: S63.501A Unspecified sprain of right wrist, initial encounter (principal); E78.00 Pure hypercholesterolemia, unspecified; E78.5 Hyperlipidemia, unspecified; I12.0 Hypertensive chronic kidney disease with stage 5 chronic kidney disease or end stage renal disease; N18.6 End stage renal disease; Z79.899 Other long term (current) drug therapy; Z79.82 Long term (current) use of aspirin; W06.XXXA Fall from bed, initial encounter

== ENCOUNTER 2019-02-18 20:48 | Inpatient (IN) | payer MEDICARE ==
[~2019-02-18 20:48] MED LIST: Iopamidol 370 76% 100 ML VIAL ONE
[2019-02-18] MEDS ORDERED: Atropine Sulfate 1 mg/10 ml Syringe ONE (21:08)
[2019-02-18] MEDS ORDERED: Calcium Chloride 1 GM/10 ML Abboject SYRINGE ONE ×2 (21:11→22:20)
[2019-02-18 21:27] LABS: #Lymphocytes 1.2 thou/uL (1.20-3.40); #Monocytes 0.2 thou/uL (0.11-0.59); #Neutrophils 5.3 thou/uL (1.40-6.50); %Basophils 0.2 % (0.0-1.0); %Eosinophils 0.7 % (0.0-10.0); %Lymphocytes 17.4 % (21.0-51.0); %Monocytes 2.3 % (0.0-10.0); %Neutrophils 79.3 % (42.0-75.0); Hemoglobin 10.9 g/dL (14.0-18.0); Mean Corpuscular Hemoglobin 32.8 pg (27.0-31.0); Mean Corpuscular Volume 99.5 fL (78.0-98.0); Platelet Count 115 thou/uL (130-400); RBC Distribution Width 15.1 % (11.5-14.5); Red Blood Cell (RBC) Count 3.31 mill/uL (4.70-6.10); White Blood Cell (WBC) Count 6.6 thou/uL (4.8-10.8)
--- NOTE | 2019-02-18 21:30 | RAD ---
EXAM: Portable chest PROVIDED CLINICAL HISTORY: Altered mental status COMPARISON: 08/17/2018 FINDINGS: Cardiac and mediastinal silhouette is unchanged in appearance. No focal consolidation, pleural fluid or pneumothorax evident. External defibrillator pad obscures the right chest. Vascular calcification is seen. IMPRESSION: No evidence for an acute cardiopulmonary process.
[2019-02-18 21:46] LABS: ALT (SGPT) 11 U/L (8-55); AST (SGOT) 16 U/L (5-34); Albumin 3.5 g/dL (3.4-4.8); Alkaline Phosphatase 86 U/L (40-110); Anion Gap 24 mmol/L (10-20); BUN (Urea Nitrogen) 30 mg/dL (8.4-25.7); Bilirubin, Total 0.9 mg/dL (0.2-1.2); CK (CPK) 21 U/L (30-200); Calc. Creatinine Clearance 0 mL/min (70-130); Calcium 8.6 mg/dL (7.8-10.44); Carbon Dioxide 26 mmol/L (23-31); Chloride 90 mmol/L (98-107); Estimated GFR-MDRD 9; Globulin 3.5 g/dL (2.4-3.5); Glucose 313 mg/dL (83-110); Lipase 64 U/L (8-78); Sodium 133 mmol/L (136-145)
[2019-02-18 21:52] LABS: Potassium 7.1 mmol/L (3.5-5.1)
--- NOTE | 2019-02-18 22:07 | CT ---
Exam: CT brain PROVIDED CLINICAL HISTORY: Altered mental status COMPARISON: 11/01/2018 FINDINGS: The ventricular system is normal in size and morphology. No evidence for intracranial hemorrhage or mass effect. The extracranial soft tissues and osseous structures demonstrate no evidence for an acute abnormality. Chronic microvascular ischemic changes involving the cerebral white matter are red emonstrated. IMPRESSION: No evidence for intracranial hemorrhage or mass effect.
[2019-02-18] MEDS ORDERED: Albuterol Sulfate 2.5 mg/0.5 ml Neb ONE (22:13)
[2019-02-18] MEDS ORDERED: Albuterol Sulfate 2.5 mg/3 ml Neb ONE (22:13)
[2019-02-18] MEDS ORDERED: Insulin Regular 300 UNITS/3 ML VIAL ONE (22:20)
[2019-02-18] MEDS ORDERED: Dextrose 50% Abboject 50 ML SYRINGE ONE (22:20)
--- NOTE | 2019-02-18 22:20 | CT ---
EXAM: CT angiogram chest and abdomen with IV contrast and three-dimensional reconstructions PROVIDED CLINICAL HISTORY: Chest pain COMPARISON: None FINDINGS: Extensive vascular calcification is noted including coronary calcium. There is no evidence for thorac ic or abdominal aortic aneurysm. There is no evidence for thoracic or abdominal aortic dissection. There is a moderate right pleural effusion. There is small left pleural effusion. Nonspecific inhomog eneous attenuation of the lung parenchyma without focal consolidation or nodule. Prominent by number but not pathologically enlarged mediastinal lymph nodes. The solid abdominal organs demonstrate are suboptimally evaluated in the arterial phase of contrast b ut demonstrate no significant abnormality. Apparent gallbladder wall thickening. No surrounding inflammatory change apparent. No bowel dilatatio n, free fluid or free air apparent. Peripherally calcified mass within the subcutaneous adipose layer of the anterior abdomen in the region of the umbilicus etiology and significance of which is un certain. IMPRESSION: 1. Moderate right and small left pleural effusions. 2. Apparent gallbladder wall thickening. Correlation with right upper quadrant ultrasound recommended . 3. No evidence for thoracic or abdominal aortic aneurysm/dissection. 4. Stents of atherosclerotic vascular calcification, including coronary calcium.
[2019-02-18] MEDS ORDERED: Sodium Bicarb 50 MEQ/50 ML VIAL ONE (22:21)
[2019-02-18] MEDS ORDERED: Sodium Bicarbonate 2.5 MEQ/5 ML VIAL ONE (22:24)
[2019-02-18] MEDS ORDERED: Sodium Bicarb 50 MEQ/50 ML Abboject 8.4% SYRINGE ONE (22:25)
[2019-02-18] MEDS ORDERED: Dextrose 5% in Water 1,000 ML IV PRN (23:24)
[2019-02-18] MEDS ORDERED: Dextrose 50% Abboject 50 ML SYRINGE SLOW IVP PRN (23:24)
[2019-02-18] MEDS ORDERED: Insulin Regular 300 UNITS/3 ML VIAL SC PRN ×2 (23:24)
[2019-02-18] MEDS ORDERED: Ondansetron ODT 4 MG TAB PO PRN (23:28)
[2019-02-18] MEDS ORDERED: Ondansetron PF 4 MG/2 ML Vial IVP PRN (23:28)
[2019-02-18] MEDS ORDERED: Acetaminophen 325 MG TAB PO PRN (23:28)
[2019-02-18] MEDS ORDERED: Bisacodyl 10 MG SUPP PR PRN (23:28)
[2019-02-18] MEDS ORDERED: Calcium Carbonate 500 MG ChewTAB PO PRN (23:28)
[2019-02-18] MEDS ORDERED: Senokot S 8.6-50 MG TAB PO PRN (23:28)
[2019-02-18] MEDS ORDERED: Nitroglycerin 0.4 MG TAB (25 Tab Bottle) PO PRN (23:32)
[2019-02-18] MEDS ORDERED: Acetaminophen 325 MG Suppository PR PRN (23:33)
[2019-02-18] MEDS ORDERED: Acetaminophen 325 MG/10.15 ML UDCUP PO PRN (23:33)
--- NOTE | 2019-02-18 23:54 | HP ---
PRIMARY CARE: [facility]. PRIMARY NEUROLOGIST: Vito Barrera MD CHIEF COMPLAINT: Altered mentation with generalized weakness. HISTORY OF PRESENT ILLNESS: The patient is a 73-year-old male with end-stage renal disease, on hemodialysis, diabetes mellitus type 2, hypertension, and hyperlipidemia, presented to the emergency room with above complaints. His last hospitalization at this facility was in October of this year for transient ischemic attack. He was discharged home on 325 aspirin instead of 81 which he was taking prior to admission. The patient underwent hemodialysis yesterday. His usual hemodialysis days are Sunday, Sunday, and Sunday. The patient was found to have altered mentation along with low heart rate. In the emergency room, his blood pressure was 79/47 with pulse rate in 40s, respirations of 14 to 18 with O2 saturation of 98% to 100% on 4 L nasal cannula. He was found to have potassium of 7.1. He received one amp sodium bicarbonate, insulin D50, albuterol inhalation, 0.5 mg atropine, one dose of glucagon, 100 mg of calcium chloride with a repeat dose of atropine 0.5 along with IV fluids. He is currently waiting for emergent hemodialysis. PAST MEDICAL HISTORY: 1. End-stage renal disease, on hemodialysis, Sunday, Sunday, and Sunday. 2. Chronic systolic heart failure, ejection fraction 35% to 40%. 3. Hypertension. 4. Hyperlipidemia. 5. Diabetes mellitus, type 2. 6. Coronary artery disease status post [place]. 7. History of TIA and CVA. 8. History of ischemic colitis. 9. Hypothyroidism. PAST SURGICAL HISTORY: 1. Right below-knee amputation. 2. Back surgery. 3. Hernia repair. 4. Left arm surgery. 5. Umbilical hernia repair. ALLERGIES: NO KNOWN DRUG ALLERGIES. CURRENT HOME MEDICATIONS: The patient is unable to provide the list of medications. The medications at discharge in October were 1. Aspirin 325 mg daily. 2. Lipitor 20 mg at bedtime. 3. Epogen as directed. 4. Sublingual nitroglycerin as needed. 5. Folic acid 1 mg daily. 6. Levothyroxine 75 mcg daily. SOCIAL HISTORY: The patient currently lives at home with his family. His spouse is at the bedside. He is full code. His spouse is the primary decision maker. No current use of smoking, alcohol, or drug use. FAMILY HISTORY: Negative for inheritable disease. REVIEW OF SYSTEMS: Cannot be obtained from the patient due to current clinical condition. PHYSICAL EXAMINATION: VITAL SIGNS: As discussed above. His blood pressure improved to 104/48. GENERAL: A 73-year-old male, ill appearing. Feeling generally cold. HEENT: Head, atraumatic and normocephalic. Sclerae anicteric. No oral lesion. NECK: Supple. No JVD. No carotid bruit. LUNGS: Show diminished air entry at bilateral bases with scattered rhonchi. No rales noted. HEART: S1, S2 present. Bradycardic. No rubs or gallops. No heaves or pulsation. ABDOMEN: Soft, nontender. Bowel sounds present. EXTREMITIES: No edema or calf tenderness. The patient is status post right BKA. NEUROLOGY/PSYCHIATRY: Cannot be reliably obtained due to current clinical condition. The patient is answering appropriately. He is moving all of his extremities on verbal command. SKIN: As discussed above. LYMPH NODES: No palpable lymph nodes in the neck. PERIPHERAL VASCULAR: Radial pulses palpable bilaterally. LABORATORY FINDINGS: WBC 6.6, hemoglobin 10.9, hematocrit 32.9, platelet 115. Chemistry showed sodium 133, potassium 7.1, chloride 90, bicarb 24, BUN 20, creatinine 6.32, glucose of 313. BNP was 2694. Troponin was negative. IMAGING STUDIES: Chest x-ray by my review was negative for infiltrate or edema. CT scan of the brain by my review was negative for acute CVA. CT aortic dissection protocol showed moderate right and small left pleural effusion with apparent gallbladder wall thickening. EKG by my review showed junctional rhythm. IMPRESSION: 1. Toxic metabolic encephalopathy. 2. Severe life-threatening hyperkalemia secondary to dietary noncompliance. 3. End-stage renal disease, on hemodialysis. 4. Hyponatremia. 5. Diabetes mellitus, type 2. 6. Abnormal gallbladder wall thickening on the CT dissection protocol. 7. Bilateral pleural effusion secondary to volume overload. 8. Three-vessel coronary artery disease. 9. Hypertension. 10. Dyslipidemia. 11. History of transient ischemic attack and cerebrovascular accident in the past, on aspirin. 12. Status post right below-knee amputation. 13. Chronic anemia secondary to renal insufficiency. PLAN: The patient will be monitored in the intensive care unit. Emergent hemodialysis will be arranged. Nephrology has been notified. We will start him on insulin sliding scale. Verify home medications. Continue aspirin. We will repeat labs after dialysis. Resume selected home medications once verified. Close monitoring. The patient was extensively counseled to be compliant with his diet. Right upper quadrant ultrasound will be obtained due to gallbladder wall thickening. The patient, however, does not have any right upper quadrant tenderness. Plan was discussed with the patient and the family in detail, they stated understanding. Job ID: [id number]
[2019-02-19] LABS: HBSAg Index 0.24 S/CO (0-0.99); Hep B Surf Ag Non-Reactive S/CO (NonReactive)
[2019-02-19] MEDS: Levothyroxine Sodium 75 MCG TAB PO SCH (06:14)
[2019-02-19] MEDS ORDERED: Nitroglycerin 0.4 MG TAB (25 Tab Bottle) SL PRN (07:51)
[2019-02-19] MEDS ORDERED: Polyethylene Glycol 3350 17 GM Packet PO PRN (07:51)
[2019-02-19] MEDS ORDERED: Senokot S 8.6-50 MG TAB PO PRN (07:51)
[2019-02-19] MEDS ORDERED: Acetaminophen 325 MG TAB PO PRN (07:51)
--- NOTE | 2019-02-19 08:07 | ULT ---
US Gallbladder RUQ: 02/19/2019 9:00 AM CLINICAL HISTORY: Gallbladder distention. STUDY: Limited right upper quadrant ultrasound of abdomen. COMPARISON: CT 02/18/2019 FINDINGS: Liver: Size: Normal. Echogenicity: Normal. Contour: Smooth. Mass: None. Bile ducts: No intrahepatic or extrahepatic biliary dilatation. Common bile duct measures 4 mm. Gallbladder: No calcifications. There is a thickened gallbladder wall which may be secondary to its d ecompressed state. Pancreas: Not visualized. Right kidney: No pelvicalyceal dilatation. Right kidney measuring 7.1 cm in length. Multiple hyperech oic foci are seen which may represent calcifications measuring up to 6 mm in size. An anechoic cyst measuring 2.0 cm is seen in the right kidney. IMPRESSION: 1. Right renal calcifications 2. Right renal cyst
[2019-02-19 08:09] LABS: Anion Gap 13 mmol/L (10-20); BUN (Urea Nitrogen) 12 mg/dL (8.4-25.7); Calc. Creatinine Clearance 21 mL/min (70-130); Calcium 9.5 mg/dL (7.8-10.44); Carbon Dioxide 32 mmol/L (23-31); Chloride 98 mmol/L (98-107); Estimated GFR-MDRD 20; Glucose 134 mg/dL (83-110); Potassium 4.2 mmol/L (3.5-5.1); Sodium 139 mmol/L (136-145)
[2019-02-19 08:19] LABS: Troponin I 0.027 ng/mL (< 0.028)
[2019-02-19] MEDS ORDERED: FLU VACC TS2019-20(65YR UP)/PF 180 MCG/0.5 ML SYRINGE IM ONE (09:00)
[2019-02-19] MEDS ORDERED: EPOETIN ALFA-EPBX (ESRD) 3,000 UNIT/ML VIAL SC SCH (09:00)
[2019-02-19] MEDS: Heparin 5,000 UNITS/ML VIAL SC SCH ×2 (09:12→20:40)
[2019-02-19] MEDS: Folic Acid 1 MG TAB PO SCH (09:13)
[2019-02-19] MEDS: Famotidine 20 MG TAB PO SCH (09:13)
[2019-02-19] MEDS: Aspirin 325 mg Enteric Coated Tablet PO SCH (09:13)
--- NOTE | 2019-02-19 12:10 | PDOC.HOSPP ---
- Subjective Encounter Date: 02/19/19 Encounter Time: 10:00 Subjective: Patient seen and examined. No new complaints. No overnight events - Objective Vital Signs & Weight: Vital Signs (12 hours) Temp Pulse Ox 02/19/19 08:00 98.9 F 93 L 02/19/19 07:00 98 F 02/19/19 03:01 100 02/19/19 03:00 97.6 F 02/19/19 01:32 100 02/19/19 01:00 97.9 F Weight Weight 156 lb 8.451 oz Most Recent Monitor Data Heart Rate from ECG 83 NIBP 131/62 NIBP BP-Mean 85 Respiration from ECG 17 SpO2 100 I&O: 02/18/19 02/19/19 02/20/19 06:59 06:59 06:59 Intake Total 340 50 Output Total 0 0 Balance 340 50 Result Diagrams: 02/18/19 21:11 02/19/19 07:22 Additional Labs: Accuchecks 02/19/19 02/19/19 02/19/19 11:35 07:24 06:03 POC Glucose 120 H 135 H 88 02/19/19 02/19/19 02/18/19 03:44 02:24 22:14 POC Glucose 73 60 L 224 H Radiology Reviewed by me: Yes EKG Reviewed by me: Yes Hospitalist ROS - Review of Systems ENT: denies: ear pain, ear discharge, nose pain, nose discharge, nose congestion , mouth pain, mouth swelling, throat pain, throat swelling, other Respiratory: denies: cough, dry, shortness of breath, hemoptysis, SOB with excertion, pleuritic pain, sputum, wheezing, other Cardiovascular: denies: chest pain, palpitations, orthopnea, paroxysmal noc. dyspnea, edema, light headedness, other Gastrointestinal: denies: nausea, vomiting, abdominal pain, diarrhea, constipation, melena, hematochezia, other Genitourinary: denies: dysuria, frequency, incontinence, hematuria, retention, other Musculoskeletal: denies: neck pain, shoulder pain, arm pain, back pain, hand pain, leg pain, foot pain, other - Medication Medications: Active Medications Generic Name Dose Route Start Last Admin Trade Name Freq PRN Reason Stop Dose Admin Aspirin 325 mg 02/19/19 09:00 02/19/19 09:13 Ecotrin PO 325 mg DAILY ANGELIQUE Administration Cholecalciferol 2,000 units 02/19/19 09:00 02/19/19 09:13 Vitamin D3 PO 2,000 units DAILY ANGELIQUE Administration Dextrose/Water 25 gm 02/18/19 23:24 02/19/19 02:29 Dextrose 50% SLOW IVP 25 gm PRN PRN Administration Hypoglycemia Epoetin Michael-epbx 6,000 unit 02/19/19 09:00 02/19/19 09:13 Retacrit SC 6,000 unit Q7D ANGELIQUE Administration Famotidine 20 mg 02/19/19 09:00 02/19/19 09:13 Pepcid PO 20 mg QAM ANGELIQUE Administration Folic Acid 1 mg 02/19/19 09:00 02/19/19 09:13 Folvite PO 1 mg DAILY ANGELIQUE Administration Heparin Sodium (Porcine) 5,000 units 02/19/19 09:00 02/19/19 09:12 Heparin SC 5,000 units BID ANGELIQUE Administration Levothyroxine Sodium 75 mcg 02/19/19 06:00 02/19/19 06:14 Synthroid PO 75 mcg 0600 ANGELIQUE Administration - Exam General Appearance: NAD, awake alert Eye: PERRL, anicteric sclera ENT: normocephalic atraumatic, no oropharyngeal lesions Neck: supple, symmetric, no JVD Heart: RRR, no murmur, no gallops, no rubs Respiratory: CTAB, no wheezes, no rales, no ronchi Gastrointestinal: soft, non-tender, non-distended, normal bowel sounds Extremities: no cyanosis, no clubbing, no edema Skin: normal turgor, no lesions Neurological: no focal deficits Musculoskeletal: normal tone, normal strength Psychiatric: normal affect, normal behavior Hosp A/P (1) Hyperkalemia Code(s): E87.5 - HYPERKALEMIA Status: Resolved (2) Acute metabolic encephalopathy Code(s): G93.41 - METABOLIC ENCEPHALOPATHY Status: Resolved (3) Coronary artery disease Code(s): I25.10 - ATHSCL HEART DISEASE OF [place] CORONARY ARTERY W/O ANG PCTRS Status: Chronic Qualifiers: (4) Diabetes mellitus type 2 in nonobese Code(s): E11.9 - TYPE 2 DIABETES MELLITUS WITHOUT COMPLICATIONS Status: Chronic (5) Dyslipidemia Code(s): E78.5 - HYPERLIPIDEMIA, UNSPECIFIED Status: Chronic (6) ESRD (end stage renal disease) on dialysis Code(s): N18.6 - END STAGE RENAL DISEASE; Z99.2 - DEPENDENCE ON RENAL DIALYSIS Status: Chronic (7) HTN (hypertension) Code(s): I10 - ESSENTIAL (PRIMARY) HYPERTENSION Status: Chronic Qualifiers: (8) Hypothyroidism Code(s): E03.9 - HYPOTHYROIDISM, UNSPECIFIED Status: Chronic Qualifiers: (9) Secondary hyperparathyroidism of renal origin Code(s): N25.81 - SECONDARY HYPERPARATHYROIDISM OF RENAL ORIGIN Status: Chronic - Plan old records reviewed/req 02/19/19 transfer to medical medication reviewed and continue to provide symptomatic treatment medication adjustment US RUQ thickning of gall bladder wall due to decompressed state
[2019-02-19] MEDS ORDERED: Atorvastatin Calcium 20 MG TAB PO SCH (21:00)
[2019-02-20 03:29] LABS: #Basophils 0.1 thou/uL (0.0-0.2); #Eosinphils 0.1 thou/uL (0.0-0.7); #Lymphocytes 1.1 thou/uL (1.20-3.40); #Monocytes 0.6 thou/uL (0.11-0.59); #Neutrophils 4.6 thou/uL (1.40-6.50); %Basophils 0.8 % (0.0-1.0); %Eosinophils 1.1 % (0.0-10.0); %Lymphocytes 16.9 % (21.0-51.0); %Monocytes 9.5 % (0.0-10.0); %Neutrophils 71.8 % (42.0-75.0); Hemoglobin 10.4 g/dL (14.0-18.0); Mean Corpuscular HGB CONC 33.4 g/dL (32.0-36.0); Mean Corpuscular Hemoglobin 32.6 pg (27.0-31.0); Mean Corpuscular Volume 97.7 fL (78.0-98.0); Mean Platelet Volume 9.8 fL (7.4-10.4); Platelet Count 91 thou/uL (130-400); White Blood Cell (WBC) Count 6.4 thou/uL (4.8-10.8)
[2019-02-20 03:53] LABS: Anion Gap 16 mmol/L (10-20); BUN (Urea Nitrogen) 24 mg/dL (8.4-25.7); Calc. Creatinine Clearance 12 mL/min (70-130); Calcium 8.8 mg/dL (7.8-10.44); Carbon Dioxide 27 mmol/L (23-31); Chloride 96 mmol/L (98-107); Estimated GFR-MDRD 11; Glucose 102 mg/dL (83-110); Potassium 4.1 mmol/L (3.5-5.1); Sodium 135 mmol/L (136-145)
[2019-02-20] MEDS: Levothyroxine Sodium 75 MCG TAB PO SCH (05:28)
[2019-02-20 07:37] VITALS: BP 157/77; TEMP 99.6
[2019-02-20] MEDS: Famotidine 20 MG TAB PO SCH (08:15)
[2019-02-20] MEDS: Folic Acid 1 MG TAB PO SCH (08:16)
[2019-02-20] MEDS: Heparin 5,000 UNITS/ML VIAL SC SCH (08:16)
[2019-02-20] MEDS: Aspirin 325 mg Enteric Coated Tablet PO SCH (08:16)
--- NOTE | 2019-02-20 11:34 | DIS ---
DATE OF ADMISSION: 02/19/2019 DATE OF DISCHARGE: 02/20/2019 PRIMARY CARE PHYSICIAN: [facility]. DISCHARGE DISPOSITION: Home. PRIMARY DISCHARGE DIAGNOSES: 1. Acute hyperkalemia, resolved. 2. Acute metabolic encephalopathy due to uremia, resolved. 3. Volume overload due to noncompliance with dialysis, resolved. SECONDARY DISCHARGE DIAGNOSES: Anemia of renal disease, carotid artery disease, coronary artery disease, diabetes type 2, dyslipidemia, end-stage renal disease on hemodialysis, hypertension, secondary hyperparathyroidism of renal origin, noncompliance with the treatment and diet, and thrombocytopenia. PRIMARY PROCEDURE/OPERATION: Hemodialysis. RADIOLOGICAL INVESTIGATION: CT brain on admission negative for any acute intracranial process. CT dissection was negative for any dissection and it showed some abnormal thickening of gallbladder and that is why ultrasound was done, which was negative for any pathology and reported as contracted gallbladder, that was contributing to gallbladder wall thickening. Chest x-ray showed no acute cardiopulmonary process other than pleural effusion on CT dissection protocol. SIGNIFICANT LABORATORY DATA: WBC 6.4, hemoglobin 10.4, and platelet 91. Sodium 135, potassium 4.1, BUN 24, creatinine 4.97, and calcium 8.8. DISCHARGE MEDICATIONS: 1. Vitamin D3 of 2000 units p.o. daily. 2. Folic acid 1 mg daily. 3. Synthroid 75 mcg daily. 4. Senokot one tablet b.i.d. p.r.n. 5. Nitroglycerin 0.4 mg sublingual p.r.n. 6. Tylenol 650 mg q.4 hourly p.r.n. 7. Aspirin 325 mg p.o. daily. 8. Lipitor 20 mg p.o. at bedtime. 9. Epogen every week. 10. MiraLAX 17 g p.o. daily p.r.n. CONTRAINDICATION: None. CODE STATUS: Full code. INPATIENT DIAGNOSTIC TECH: Dr. Burris was consulted for hemodialysis while in hospital. TEST RESULT PENDING ON DISCHARGE: None. ALLERGIES: NO KNOWN DRUG ALLERGIES. DISCHARGE PLAN: Posthospital, the patient will follow up with primary care physician in [facility]. HOSPITAL COURSE: A 73-year-old male with above-mentioned medical problem, who was admitted by Dr. Zack Owens, please see his H and P for further details. The patient was noncompliant with his diet as well as treatment and he came to emergency room with altered mental status and generalized weakness. His CT brain was negative for any acute intracranial process. His altered mental status was attributed to be due to metabolic etiology. He had hyperkalemia. In the emergency room, he was treated medically with sodium bicarbonate, D50 with insulin, and albuterol inhaler without any significant improvement and that is why he required emergent hemodialysis. The patient was admitted in ICU for emergent hemodialysis and after dialysis, his laboratory parameters significantly improved and his metabolic parameters also improved and the patient's mental status also improved. We transferred him to medical floor overnight. He remained stable and he will continue his maintenance hemodialysis as per schedule. The patient is seen and examined at bedside today. The patient is normal mentating as well as vitals shields stable, tolerating p.o. well and ambulatory. While in hospital, the patient had severe hyperkalemia and severe bradycardia because of hyperkalemia, that was resolved with potassium improvement. The patient was also given atropine in the emergency room for bradyarrhythmia from hyperkalemia, but that improved significantly. By the time of discharge, he does not have any more bradycardia and his potassium is normal. PHYSICAL EXAMINATION: VITAL SIGNS: Currently; temperature 98.4, pulse 78, respiratory rate 18, saturation 97% on room air, and blood pressure 161/75. Weight 150 pounds. GENERAL: The patient is alert and awake, no acute distress. HEENT: Head, normocephalic and atraumatic. Eyes, pupils round and reactive to light. Extraocular muscle intact. ENT, oropharynx within normal limits. Moist mucous membranes. No oral lesion. No pharyngeal erythema. No exudate. NECK: Supple. No JVD. No meningeal signs of irritation. LUNGS: Clear to auscultation without any rhonchi or rales. CARDIAC: S1 and S2. Regular. No murmur. No gallop. No rub. ABDOMEN: Soft and benign without any tenderness. EXTREMITIES: No edema. NEUROLOGIC: Nonfocal examination. While in hospital, I have provided the patient education about compliance with diet as well as low-potassium diet as well as medication and dialysis compliance. Job ID: [id number]
--- NOTE | 2019-02-20 13:13 | PDOC.HOSPP ---
- Subjective Encounter Date: 02/20/19 Encounter Time: 11:00 Subjective: Patient seen and examined. No new complaints. No overnight events - Objective Vital Signs & Weight: Vital Signs (12 hours) Temp Pulse Resp BP Pulse Ox 02/20/19 08:00 98 02/20/19 07:30 99.6 F 80 20 157/77 H 98 02/20/19 06:15 98.4 F 78 18 161/75 H 97 02/20/19 03:47 96 02/20/19 03:00 98.5 F Weight Weight 150 lb 9.211 oz Most Recent Monitor Data Heart Rate from ECG 86 NIBP 164/64 NIBP BP-Mean 122 Respiration from ECG 17 SpO2 92 I&O: 02/19/19 02/20/19 02/21/19 06:59 06:59 06:59 Intake Total 340 1210 240 Output Total 0 150 Balance 340 1060 240 Result Diagrams: 02/20/19 03:07 02/20/19 03:30 Additional Labs: Accuchecks 02/20/19 02/19/19 02/19/19 00:12 19:51 16:05 POC Glucose 108 167 H 133 H Hospitalist ROS - Review of Systems ENT: denies: ear pain, ear discharge, nose pain, nose discharge, nose congestion , mouth pain, mouth swelling, throat pain, throat swelling, other Respiratory: denies: cough, dry, shortness of breath, hemoptysis, SOB with excertion, pleuritic pain, sputum, wheezing, other Cardiovascular: denies: chest pain, palpitations, orthopnea, paroxysmal noc. dyspnea, edema, light headedness, other Gastrointestinal: denies: nausea, vomiting, abdominal pain, diarrhea, constipation, melena, hematochezia, other Genitourinary: denies: dysuria, frequency, incontinence, hematuria, retention, other Musculoskeletal: denies: neck pain, shoulder pain, arm pain, back pain, hand pain, leg pain, foot pain, other - Medication Medications: Active Medications Generic Name Dose Route Start Last Admin Trade Name Freq PRN Reason Stop Dose Admin Aspirin 325 mg 02/19/19 09:00 02/20/19 08:16 Ecotrin PO 325 mg DAILY ANGELIQUE Administration Atorvastatin Calcium 20 mg 02/19/19 21:00 02/19/19 20:40 Lipitor PO 20 mg HS ANGELIQUE Administration Cholecalciferol 2,000 units 02/19/19 09:00 02/20/19 08:15 Vitamin D3 PO 2,000 units DAILY ANGELIQUE Administration Dextrose/Water 25 gm 02/18/19 23:24 02/19/19 02:29 Dextrose 50% SLOW IVP 25 gm PRN PRN Administration Hypoglycemia Epoetin Michael-epbx 6,000 unit 02/19/19 09:00 02/19/19 09:13 Retacrit SC 6,000 unit Q7D ANGELIQUE Administration Famotidine 20 mg 02/19/19 09:00 02/20/19 08:15 Pepcid PO 20 mg QAM ANGELIQUE Administration Folic Acid 1 mg 02/19/19 09:00 02/20/19 08:16 Folvite PO 1 mg DAILY ANGELIQUE Administration Heparin Sodium (Porcine) 5,000 units 02/19/19 09:00 02/20/19 08:16 Heparin SC 5,000 units BID ANGELIQUE Administration Levothyroxine Sodium 75 mcg 02/19/19 06:00 02/20/19 05:28 Synthroid PO 75 mcg 0600 ANGELIQUE Administration Sodium Chloride 10 ml 02/18/19 23:28 02/20/19 08:16 Flush - Normal Saline IVF 10 ml PRN PRN Administration Saline Flush - Exam General Appearance: NAD, awake alert Eye: PERRL, anicteric sclera ENT: normocephalic atraumatic, no oropharyngeal lesions Neck: supple, symmetric, no JVD Heart: RRR, no murmur, no gallops Respiratory: CTAB, no wheezes, no rales Gastrointestinal: soft, non-tender, non-distended, normal bowel sounds Extremities: no cyanosis, no clubbing Extremities - other findings: bka noted Skin: normal turgor Neurological: no focal deficits Musculoskeletal: normal tone, normal strength Psychiatric: normal affect, normal behavior Hosp A/P (1) Hyperkalemia Code(s): E87.5 - HYPERKALEMIA Status: Resolved (2) Acute metabolic encephalopathy Code(s): G93.41 - METABOLIC ENCEPHALOPATHY Status: Resolved (3) Coronary artery disease Code(s): I25.10 - ATHSCL HEART DISEASE OF [place] CORONARY ARTERY W/O ANG PCTRS Status: Chronic Qualifiers: (4) Diabetes mellitus type 2 in nonobese Code(s): E11.9 - TYPE 2 DIABETES MELLITUS WITHOUT COMPLICATIONS Status: Chronic (5) Dyslipidemia Code(s): E78.5 - HYPERLIPIDEMIA, UNSPECIFIED Status: Chronic (6) ESRD (end stage renal disease) on dialysis Code(s): N18.6 - END STAGE RENAL DISEASE; Z99.2 - DEPENDENCE ON RENAL DIALYSIS Status: Chronic (7) HTN (hypertension) Code(s): I10 - ESSENTIAL (PRIMARY) HYPERTENSION Status: Chronic Qualifiers: (8) Hypothyroidism Code(s): E03.9 - HYPOTHYROIDISM, UNSPECIFIED Status: Chronic Qualifiers: (9) Secondary hyperparathyroidism of renal origin Code(s): N25.81 - SECONDARY HYPERPARATHYROIDISM OF RENAL ORIGIN Status: Chronic - Plan old records reviewed/req 02/19/19 transfer to medical medication reviewed and continue to provide symptomatic treatment medication adjustment US RUQ thickning of gall bladder wall due to decompressed state 02/20/19 stable for discharge see discharge misty
== END 2019-02-20 16:14 | disposition home or self-care (01) | DRG 640 ==
LOC: ERS 20:48 → CCU 02-19 00:34 → T4-A 02-20 06:21
PROVIDERS: ADMIT Internal Medicine; ATTEND Internal Medicine
PROC: 5A1D70Z Performance of Urinary Filtration, Intermittent, Less than 6 Hours Per Day (ICD-10-PCS; principal; 2019-02-19)
DX: E87.5 Hyperkalemia (principal); N18.6 End stage renal disease; G93.41 Metabolic encephalopathy; I13.2 Hypertensive heart and chronic kidney disease with heart failure and with stage 5 chronic kidney disease, or end stage renal disease; I50.22 Chronic systolic (congestive) heart failure; N25.81 Secondary hyperparathyroidism of renal origin; E11.22 Type 2 diabetes mellitus with diabetic chronic kidney disease; I25.10 Atherosclerotic heart disease of native coronary artery without angina pectoris; E78.5 Hyperlipidemia, unspecified; E03.9 Hypothyroidism, unspecified; E87.1 Hypo-osmolality and hyponatremia; D63.1 Anemia in chronic kidney disease; E87.70 Fluid overload, unspecified; D69.6 Thrombocytopenia, unspecified; Z89.511 Acquired absence of right leg below knee; Z99.2 Dependence on renal dialysis; Z86.73 Personal history of transient ischemic attack (TIA), and cerebral infarction without residual deficits; Z79.82 Long term (current) use of aspirin; Z91.11 Patient's noncompliance with dietary regimen
CPT/HCPCS: 36416; 70450; 71045; 71275; 72191; 74175; 76705; 80048; 80053; 82550; 83690; 83880; 84484; 85025; 87340; 93005; 94640; 94760; 96374; 96375; 96376; 99292; J0461; J1610; J1644; J1815; J7611; Q5105; Q9967

== ENCOUNTER 2019-02-21 22:24 | Inpatient (IN) | payer MEDICARE ==
[~2019-02-21 22:24] MED LIST changes: +Atropine Sulfate 1 mg/10 ml Syringe ONE; +Calcium Chloride 1 GM/10 ML Abboject SYRINGE ONE; +EPINEPHrine 1 MG/ML AMP ONE; -Iopamidol 370 76% 100 ML VIAL ONE; +Iopamidol-370 76% 500 ML 1 ML ONE
[2019-02-21] MEDS ORDERED: Calcium Gluc 4.6 MEQ/10 ML (100 MG/ML) ONE (22:41)
[2019-02-21] MEDS ORDERED: Sodium Bicarb 50 MEQ/50 ML VIAL ONE (22:41)
[2019-02-21] MEDS ORDERED: Rocuronium Bromide 10 MG/ML (10ML VIAL) ONE (22:47)
[2019-02-21] MEDS ORDERED: fentaNYL Citrate/PF 2,000 MCG in Sodium Chloride 0.9% 60 ML IV SCH (22:52)
[2019-02-21 22:55] LABS: #Basophils 0.1 thou/uL (0.0-0.2); #Eosinphils 0.1 thou/uL (0.0-0.7); #Lymphocytes 1.2 thou/uL (1.20-3.40); #Monocytes 0.5 thou/uL (0.11-0.59); #Neutrophils 5.4 thou/uL (1.40-6.50); %Basophils 0.8 % (0.0-1.0); %Eosinophils 0.9 % (0.0-10.0); %Lymphocytes 16.6 % (21.0-51.0); %Monocytes 7.4 % (0.0-10.0); %Neutrophils 74.3 % (42.0-75.0); Hemoglobin 10.9 g/dL (14.0-18.0); Mean Corpuscular HGB CONC 33.2 g/dL (32.0-36.0); Mean Corpuscular Hemoglobin 32.3 pg (27.0-31.0); Mean Corpuscular Volume 97.1 fL (78.0-98.0); Mean Platelet Volume 9.2 fL (7.4-10.4); Platelet Count 104 thou/uL (130-400); RBC Distribution Width 14.8 % (11.5-14.5); Red Blood Cell (RBC) Count 3.37 mill/uL (4.70-6.10); White Blood Cell (WBC) Count 7.2 thou/uL (4.8-10.8)
[2019-02-21 23:02] LABS: Base Excess-Venous 1.9 mmol/L (-2.0 to 3.0); Bicarbonate (HCO3v) 26.7 mmol/L (22.0-28.0); CO2 Tension (PvCO2) 41.2 mmHg (40.0-50.0); Calcium, Ionized 0.96 mmol/L (See Comments:); Chloride 97 mmol/L (98-107); Glucose 309 mg/dL (83-110); Hemoglobin - Calc 13.1 g/dL (14.0-18.0); Potassium 6.3 mmol/L (3.5-5.1); Sodium 134 mmol/L (138-145); T. Carbon Dioxide 27.9 mmol/L (22.0-28.0); vO2 Saturation-calc 15.6 % (60.0-85.0)
[2019-02-21 23:07] LABS: Acetaminophen Less than 6.0 mcg/mL (10.0-30.0); Alcohol Less than 10 mg/dL (Less than 10); Salicylate Less than 8.0 mg/dL (15.0-30.0)
[2019-02-21] MEDS ORDERED: Insulin Regular 300 UNITS/3 ML VIAL ONE ×2 (23:07→23:09)
[2019-02-21 23:14] LABS: ALT (SGPT) 20 U/L (8-55); AST (SGOT) 15 U/L (5-34); Albumin 3.4 g/dL (3.4-4.8); Alkaline Phosphatase 86 U/L (40-110); Anion Gap 20 mmol/L (10-20); BUN (Urea Nitrogen) 29 mg/dL (8.4-25.7); Bilirubin, Total 0.7 mg/dL (0.2-1.2); Calc. Creatinine Clearance 0 mL/min (70-130); Calcium 8.4 mg/dL (7.8-10.44); Carbon Dioxide 25 mmol/L (23-31); Chloride 95 mmol/L (98-107); Estimated GFR-MDRD 10; Globulin 3.5 g/dL (2.4-3.5); Glucose 270 mg/dL (83-110); Lipase 72 U/L (8-78); Magnesium 1.9 mg/dL (1.6-2.6); Potassium 5.9 mmol/L (3.5-5.1); Protein, Total 6.9 g/dL (5.8-8.1); Sodium 134 mmol/L (136-145)
[2019-02-21] MEDS ORDERED: Cefepime 2 GM VIAL ONE (23:19)
--- NOTE | 2019-02-21 23:42 | RAD ---
XR Chest 1 View Portable HISTORY: Altered mental status. Endotracheal tube placement. COMPARISON: 02/18/2019 exam. FINDINGS: Heart size is slightly enlarged. Endotracheal and NG tubes are in satisfactory position. Ri ght subclavian line is present. The catheter tip is overlying the superior vena cava right atrium junction. No pneumothorax. Pulmonary vessels are engorged with increased parahilar lung markings sugg esting element of edema. IMPRESSION: Endotracheal and NG tubes in satisfactory position. Right subclavian line also has been p laced no signs of pneumothorax. Mild pulmonary edema changes.
[2019-02-21 23:49] LABS: Amphetamine Not Detected (NotDetected); Barbiturates Screen Not Detected (NotDetected); Benzodiazepine Screen Not Detected (NotDetected); Cocaine Metabolite Screen Not Detected (NotDetected); Medtox Control Line Valid? VALID (VALID); Medtox Reader # READER 4; Methadone Not Detected (NotDetected); Methamphetamine Not Detected (NotDetected); Opiate Screen Not Detected (NotDetected); Oxycodone Screen Not Detected (NotDetected); Phencyclidine (PCP) Not Detected (NotDetected); THC/Cannabinoid Screen Not Detected (NotDetected); Tricyclic Screen Not Detected (NotDetected)
[2019-02-21 23:51] LABS: Bacteria/HPF None Seen HPF (None Seen); Bilirubin Negative (Negative); Blood, Urine Negative (Negative); Clarity Turbid (Clear); Glucose, Urine (Dipstick) 500 mg/dL (Negative); Leukocyte 25 Leu/uL (Negative); Nitrite Negative (Negative); Protein, Urine (Dipstick) 300 mg/dL (Neg-Trace); RBC/HPF 0-3 HPF (0-3); Squamous Epithelial 0-3 HPF (0-3); Urobilinogen Normal mg/dL (Less than 2)
[2019-02-22] MEDS ORDERED: Albuterol Sulfate 2.5 mg/0.5 ml Neb ONE (00:20)
[2019-02-22] MEDS ORDERED: Norepinephrine 8 MG/0.9% NS 250 ML ONE (00:21)
[2019-02-22] MEDS ORDERED: CCU Electrolyte Replacement 1 EACH IVPB ONE (01:16)
[2019-02-22] MEDS ORDERED: Norepinephrine 8 MG/0.9% NS 250 ML IVPB SCH (01:30)
[2019-02-22 01:36] LABS: Lactic Acid 3.5 mmol/L (0.5-2.2)
[2019-02-22] MEDS ORDERED: PHOS-NAK 1 PKT PACK PO PRN ×2 (02:40)
[2019-02-22] MEDS ORDERED: Potassium Phosphate 12 MMOL in Sodium Chloride 0.9% 250 ML 250 ML IV PRN (02:40)
[2019-02-22] MEDS ORDERED: Potassium Phosphate 15 MMOL in Sodium Chloride 0.9% 250 ML 250 ML IV PRN (02:40)
[2019-02-22] MEDS ORDERED: Magnesium 2 GM/50 ML 2 GM in Premix Bag 1 BAG IVPB PRN (02:40)
[2019-02-22] MEDS ORDERED: Potassium Chloride 40 MEQ in Sodium Chloride 0.9% 250 ML 250 ML IVPB PRN (02:40)
[2019-02-22] MEDS ORDERED: Magnesium Oxide 400 MG TAB PO PRN ×2 (02:40)
[2019-02-22] MEDS ORDERED: Potassium Chloride 20 MEQ TAB PO PRN (02:40)
[2019-02-22] MEDS ORDERED: Potassium Chloride 40 MEQ in Premix Bag 1 BAG IVPB PRN (02:40)
[2019-02-22] MEDS ORDERED: CCU ELECTROLYTE REPLACEMENT PROTOCOL FS PRN (02:40)
[2019-02-22] MEDS ORDERED: Potassium Phosphate 9 MMOL in Sodium Chloride 0.9% 100 ML IVPB PRN (02:40)
[2019-02-22] MEDS ORDERED: Sodium Chloride 0.9% 500 ML IV SCH (02:45)
[2019-02-22] MEDS ORDERED: fentaNYL Citrate/PF 2,000 MCG in Sodium Chloride 0.9% 60 ML IV SCH (02:52)
[2019-02-22] MEDS ORDERED: Propofol 1,000 MG/100 ML VIAL IV PRN (02:52)
[2019-02-22] MEDS ORDERED: Morphine 2 MG/ML SYRINGE SLOW IVP PRN (02:52)
[2019-02-22] MEDS ORDERED: Lorazepam 2 MG/ML VIAL SLOW IVP PRN (02:52)
[2019-02-22] MEDS ORDERED: Fentanyl BOLUS 250 ML IVPB PRN (02:52)
[2019-02-22] MEDS ORDERED: Propofol BOLUS 1,000 MG/100 ML VIAL IV PRN (02:52)
[2019-02-22 03:07] VITALS: BMI 24.2
[2019-02-22] MEDS ORDERED: Piperacillin/Tazobactam 3.375 GM in Sodium Chloride 0.9% 100 ML IVPB SCH (03:45)
[2019-02-22] MEDS ORDERED: Piperacillin/Tazobactam 0.75 GM, Admixture Fee 1 EACH in Sodium Chloride 0.9% 50 ML IVPB SCH (04:00)
[2019-02-22 04:37] LABS: Anion Gap 17 mmol/L (10-20); BUN (Urea Nitrogen) 34 mg/dL (8.4-25.7); Calc. Creatinine Clearance 11 mL/min (70-130); Calcium 9.5 mg/dL (7.8-10.44); Carbon Dioxide 28 mmol/L (23-31); Chloride 98 mmol/L (98-107); Estimated GFR-MDRD 10; Glucose 133 mg/dL (83-110); Potassium 4.2 mmol/L (3.5-5.1); Sodium 139 mmol/L (136-145)
--- NOTE | 2019-02-22 05:01 | HP ---
CHIEF COMPLAINT: Change in mental status. HISTORY OF PRESENT ILLNESS: The patient is a 73-year-old male with history of end-stage renal disease, on dialysis, has a history of diabetes, hypercholesterolemia, who presents to the hospital initially with change in mental status. The patient was just recently discharged from the hospital for generalized weakness, change in status and bradycardia and also was found to be hyperkalemic in his previous admissions. The patient at home appeared to be confused. His checked his blood pressure, his blood pressure was low, at this time, EMS was called. EMS stated that his blood sugar was in the 380s. However, his blood pressure was 76/50. At this time, the patient was brought into the hospital for further evaluation. In the ER, the patient became very lethargic and at this time, he was intubated for respiratory protection. There was no family present at bedside. PAST MEDICAL HISTORY: 1. End-stage renal disease, on dialysis. 2. Diabetes. 3. Hyperlipidemia. 4. Hypercholesterolemia. 5. Hypertension. 6. He has had a stroke with right-sided deficits. PAST SURGICAL HISTORY: He has a right BKA, left arm surgery, back surgery, hernia surgery, and stent placement. SOCIAL HISTORY: This is all per charts, the patient lives at home with family. No alcohol use, drug use, or smoking history. REVIEW OF SYSTEMS: Unable to obtain. The patient is intubated. ALLERGIES: NONE. HOME MEDICATIONS: 1. Atorvastatin 20 mg daily. 2. Calcium acetate 667 mg daily. 3. Levothyroxine 75 mcg daily. 4. Folic acid 1 p.o. daily. 5. Aspirin 81 mg daily. PHYSICAL EXAMINATION: VITAL SIGNS: Are as of the following, his temperature is 98.8, pulse 71, blood pressure , respirations are 18, and 100% on the vent. GENERAL: He is intubated. HEENT: Pupils are equal and reactive to light. CV: S1 and S2 present. No murmurs, rubs, or gallops. LUNGS: Mild rhonchi heard to bilateral lower lung area. ABDOMEN: Soft. He does have umbilical hernia. Bowel sounds are present x2. EXTREMITIES: He does have a right prosthesis on the left leg. Pedal pulses are faint, but present. NEUROVASCULAR: He is currently sedated. SKIN: No cuts, lesions, or bruises noted. LABORATORY RESULTS: As of the following, his sodium is 134, potassium was 6.3, BUN of 17, creatinine of 5.82. His glucose was 309. His lactic was 6.3. His troponin was normal and his BNP was 7000. Hematology: His WBCs of 7.2, hemoglobin of 10.9, hematocrit of 32.7, platelets of 104. He did have a chest x-ray, which indicated some mild pulmonary congestion. His CT of abdomen and pelvis indicated some gallbladder wall thickening. He did have abdominal ultrasound, however, there is just thickening. The official read is not up. He did have a CT brain and I was told that there was no acute intracranial abnormalities. ASSESSMENT AND PLAN: The patient is a very pleasant 73-year-old male, who presents to the hospital with altered mental status. 1. Acute respiratory failure. The patient currently is intubated. We will start the patient on some IV broad spectrum antibiotics. Pulmonology has been consulted. 2. Acute metabolic encephalopathy. I am not sure if this is due to hypotension. Upon reviewing his previous records, he has been here in the hospital multiple times and has been noted to be hypotensive and also has been bradycardic. He did have an echocardiogram in July, which indicated EF of 35% to 40% with mild concentric left ventricular hypertrophy and some mild valvular problems. We will consult Cardiology. I am not sure if the bradycardia is due to his electrolyte abnormalities versus cardiac related. 3. Hypotension. The patient has been hypotensive, this was his previous admission and also his current admission. We will start broad-spectrum antibiotics just in case if the gallbladder is the issue. He is a dialysis patient. He is currently on Levophed and his pressures are much improved and better. The patient does miss dialysis. I am not exactly sure what the patient's dry weight is. He goes to dialysis Sunday, , and Saturdays. 4. Hyperkalemia. This has been an ongoing problem. The patient is going to be dialyzed tonight. 5. Diabetes. Currently, the patient is hyperglycemic. We will start him on Accu-Cheks and also give him insulin as needed. 6. Deep venous thrombosis prophylaxis. We will put the patient on some enoxaparin. Job ID: [id number]
[2019-02-22] MEDS: Levothyroxine Sodium 75 MCG TAB PO SCH (05:27)
--- NOTE | 2019-02-22 07:44 | CT ---
PRELIMINARY REPORT/[facility]/AFTER HOURS PROCEDURE CT HEAD WITH INTRAVENOUS CONTRAST: CLINICAL HISTORY: M73 presents to the ED via EMS transport for AMS. EMS reports pt's BGL was measured at 380. BP 76/50. NSR. Patient missed dialysis today. Patient discharged 2 days ago for high K+. TECHNIQUE: Axial computed tomography images of the head/brain with intravenous contrast. CONTRAST: With Isovue-370mg 100 mL, COMPARISON: None provided. FINDINGS: BRAIN: No acute intraparenchymal hemorrhage. No mass lesion. No abnormal enhancement. No CT evidence for acute territorial infarct. No midline shift or extra-axial collection. There is a mild age approp riate brain atrophy with mild periventricular white matter disease. VENTRICLES: No hydrocephalus. ORBITS: The orbits are unremarkable. SINUSES AND MASTOIDS: The paranasal sinuses and mastoid air cells are clear. SOFT TISSUES: No significant facial or scalp soft tissue swelling evident. No radiopaque foreign body is seen. BONES: No acute skull fracture. IMPRESSION: 1. There is a mild age appropriate brain atrophy with mild periventricular white matter disease. 2. No acute intracranial abnormality. ELECTRONICALLY SIGNED BY: Brian Maurer MD Feb 22, 2019 1:01:57 AM SPECIAL SERVICES AGENT This report is intended for review by the ordering physician only, in accordance of law. If you recei ve this report in error, please call [facility] at [phone]. FINAL REPORT CT BRAIN WITHOUT CONTRAST: I agree with the preliminary report given by Dr. Brian Maurer of [facility]. No significant interval changes seen since previous exam of 02/18/2019. CODE QA POS: [facility]
--- NOTE | 2019-02-22 07:54 | CT ---
PRELIMINARY REPORT/[facility]/AFTER HOURS PROCEDURE CT ABDOMEN AND PELVIS WITH CONTRAST: COMPARISON: None. FINDINGS: Small bilateral pleural effusions with confluent density in the posterior lungs. Cardiomegaly and cor onary artery calcification. Normal esophageal gastric tube. Nodular liver. No hydronephrosis or symptomatic urinary calculus. Edema around the normal size gallbladder. No definite free fluid, or gallstone. No biliary obstructio n. No bowel obstruction, free fluid, free air, abscess or diverticulitis. Peripherally calcified cystic lesion at the umbilicus. Prior abdominal wall hernia repair mesh. No he rnia identified. Advanced atherosclerosis. Possible significant flow-limiting stenosis in the common iliac arteries an d superior mesenteric and celiac axis arteries. No findings suspicious for acute bowel ischemia. The appendix appears to be absent. Fusion of the sacroiliac joints. The urinary bladder is collapsed around a Mendoza catheter. IMPRESSION: 1. Small kidneys. No hydronephrosis. 2. Nodular liver. Correlate clinically for liver disease. 3. Confluent density in the lung bases may be atelectasis or pneumonia. 4. Small bilateral pleural effusions. There could be heart failure. Mild edema around the gallbladder is most likely benign. ELECTRONICALLY SIGNED BY: Angel Berrios MD Feb 22, 2019 1:10:01 AM CUPROUS CHLORIDE OPERATOR This report is intended for review by the ordering physician only, in accordance of law. If you recei ve this report in error, please call [facility] at [phone]. FINAL REPORT CT ABDOMEN AND PELVIS WITH IV CONTRAST: I agree with the preliminary report given by Dr. Angel Berrios of [facility]. CODE QA POS: [facility]
--- NOTE | 2019-02-22 07:58 | ULT ---
GALLBLADDER ULTRASOUND: HISTORY: Abnormal CT scan from earlier today. FINDINGS: The liver and pancreas are unremarkable. There is thickening and edema of the wall of the gallbladder , measuring about 7 mm. No pericholecystic fluid is seen. No shadowing gallstones are noted. The comm on duct measures 3 mm in diameter. There is a cyst on the right kidney. No right sided hydronephrosis is seen. There is thinning of the right renal cortex. No free fluid is noted in the Devi pouch. If there is concern for cholecystitis further evaluation with HIDA scan should be performed. IMPRESSION: Gallbladder wall thickening with edema without cholelithiasis. POS: [facility]
[2019-02-22] MEDS ORDERED: FLU VACC TS2019-20(65YR UP)/PF 180 MCG/0.5 ML SYRINGE IM ONE (09:00)
[2019-02-22] MEDS ORDERED: Enoxaparin Sodium 30 MG/0.3 ML SYRINGE SC SCH (09:00)
[2019-02-22] MEDS ORDERED: Famotidine/PF 20 mg/2ml Vial SLOW IVP SCH (09:00)
[2019-02-22] MEDS ORDERED: Prevnar 13-Val Conj/PF 0.5 ML SYRINGE IM ONE (09:00)
[2019-02-22 09:21] LABS: Anion Gap 14 mmol/L (10-20); BUN (Urea Nitrogen) 11 mg/dL (8.4-25.7); Calc. Creatinine Clearance 0 mL/min (70-130); Calcium 9.1 mg/dL (7.8-10.44); Carbon Dioxide 31 mmol/L (23-31); Chloride 97 mmol/L (98-107); Estimated GFR-MDRD 23; Glucose 114 mg/dL (83-110); Potassium 3.7 mmol/L (3.5-5.1); Sodium 138 mmol/L (136-145)
[2019-02-22] MEDS ORDERED: Dextrose 5% in Water 1,000 ML IV PRN (09:55)
[2019-02-22] MEDS ORDERED: HumaLOG 300 UNITS/3 ML VIAL SC PRN (09:55)
[2019-02-22] MEDS ORDERED: Dextrose 50% Abboject 50 ML SYRINGE SLOW IVP PRN (09:55)
[2019-02-22] MEDS ORDERED: Senokot S 8.6-50 MG TAB PO PRN (09:56)
--- NOTE | 2019-02-22 10:55 | CON ---
DATE OF CONSULTATION: 02/22/2019 SERVICE: Pulmonary Medicine. REASON FOR CONSULTATION: ICU patient. HISTORY OF PRESENT ILLNESS: The patient is a 73-year-old male with past medical history significant for end-stage renal disease. His dialysis schedule was altered because of the holiday. As such, he went without for a period of time. Ultimately, he developed increasing respiratory difficulties. He presented to the emergency department overnight. Because of his hypoxemia and altered mentation , he was intubated. He is brought to the ICU to recover. Overnight, he did not have any events. His blood pressure stabilized, and he did not have any fevers. Secretions coming from his endotracheal tube were minimal and clear. He denies any shortness of breath at this point. He is on a sedation holiday. He is breathing on his own. PAST MEDICAL HISTORY: 1. End-stage renal disease, on dialysis. 2. Type 2 diabetes mellitus. 3. Hypertension. 4. Dyslipidemia. 5. History of stroke with right-sided deficits. PAST SURGICAL HISTORY: 1. Right BKA. 2. Left arm surgery. 3. Back surgery. 4. Herniorrhaphy. 5. Stent placement. SOCIAL HISTORY: Negative for alcohol, tobacco, or illicit drug use currently. FAMILY HISTORY: Noncontributory. ALLERGIES: No known drug allergies. MEDICATIONS: List of his inpatient medications was reviewed. Multiple updates were made at this time. REVIEW OF SYSTEMS: Cannot be obtained as the patient is currently intubated. PHYSICAL EXAMINATION: VITAL SIGNS: Afebrile, pulse 72, blood pressure 108/46, respirations 18, saturation 100% on 21% FiO2 and a PEEP of 5. GENERAL: The patient is awake, but somnolent. HEART: Normal rate, regular. LUNGS: Wonderful air entry without any prolonged expiratory phase or wheezing. ABDOMEN: Soft, nontender, nondistended. Bowel sounds are positive. He has a hard umbilicus hernia. That being said, it feels more like a rock than it does an incarceration. MUSCULOSKELETAL: No cyanosis or clubbing. There is no pitting in the left lower extremity. The right lower extremity is surgically absent. LABORATORY DATA: WBC is 7.2, hemoglobin 10.9, platelets 104,000. PH 7.41, pCO2 of 41. Creatinine 2.7, which is improved after dialysis. BUN 11. Basic metabolic profile is otherwise unremarkable. Urinalysis is negative. Urine drug screen, alcohol, acetaminophen, and salicylates are negative. IMAGING: Abdominal ultrasound demonstrates gallbladder wall thickening with edema and cholelithiasis. CT of the abdomen and pelvis demonstrates small kidneys without hydronephrosis. Nodular liver, consistent with cirrhosis. Confluent density in the bases, likely representing atelectasis. Small bilateral pleural effusions, consistent with volume overload. There is mild edema around the gallbladder. CT of the brain demonstrates no acute intracranial abnormality. Chest x-ray demonstrates bilateral perihilar infiltrates, pulmonary vascular congestion. Endotracheal tube terminates in good position. There is an enteric catheter coursing well below the level of the diaphragm into the stomach region. Right subclavian central venous catheter is in good position. ASSESSMENT: 1. Acute hypoxic respiratory failure, resolved. 2. End-stage renal disease with interruption in dialysis schedule secondary to scheduling issues. 3. Metabolic encephalopathy, improved. 4. Acute on chronic systolic heart failure. 5. Abnormal ultrasound of the gallbladder. 6. Cirrhosis, possible. DISCUSSION AND PLAN: It is not clear to me that the patient actually has any true sepsis profile. Pulmonary/Critical Care will continue to follow very closely while the patient remains inhouse. If he does well on a spontaneous breathing trial, extubation will be considered. If his blood pressures remain firm, he will he will be transitioned to the floor later today and I will sign off. CRITICAL CARE TIME: 30 minutes. Job ID: [id number] MTDD
[2019-02-22] MEDS: Piperacillin/Tazobactam 2.25 GM in Sodium Chloride 0.9% 100 ML IVPB SCH (17:44)
[2019-02-22] MEDS ORDERED: Acetaminophen 650 MG Suppository PR PRN (21:52)
[2019-02-22] MEDS: Acetaminophen 325 MG TAB PO PRN (21:59)
[2019-02-22] MEDS: Atorvastatin Calcium 20 MG TAB PO SCH (22:00)
[2019-02-22] MEDS: Heparin 5,000 UNITS/ML VIAL SC SCH (22:00)
[2019-02-23] MEDS: Levothyroxine Sodium 75 MCG TAB PO SCH (06:15)
[2019-02-23] MEDS: Piperacillin/Tazobactam 2.25 GM in Sodium Chloride 0.9% 100 ML IVPB SCH ×2 (06:15→17:20)
[2019-02-23] MEDS: Polyethylene Glycol 3350 17 GM Packet PO SCH (09:26)
[2019-02-23] MEDS: Heparin 5,000 UNITS/ML VIAL SC SCH ×2 (09:26→21:09)
--- NOTE | 2019-02-23 13:20 | PDOC.HOSPP ---
- Subjective Encounter Date: 02/23/19 Encounter Time: 08:00 Subjective: Pt seen for followup re: acute respiratory failure. Feels better. - Objective Vital Signs & Weight: Vital Signs (12 hours) Temp Pulse Resp BP BP Pulse Ox 02/23/19 11:00 97.9 F 74 20 103/57 L 95 02/23/19 08:00 98.2 F 75 20 107/46 L 99 02/23/19 04:00 97.6 F 75 18 131/75 99 Weight Weight 2.423 oz Most Recent Monitor Data Heart Rate from ECG 75 NIBP 124/48 NIBP BP-Mean 73 Respiration from ECG 10 SpO2 95 I&O: 02/22/19 02/23/19 02/24/19 06:59 06:59 06:59 Intake Total 64.2 1377 Output Total 10 95 Balance 54.2 1282 Result Diagrams: 02/21/19 22:41 02/22/19 08:45 Additional Labs: Accuchecks 02/23/19 02/23/19 02/22/19 11:12 04:36 19:54 POC Glucose 107 125 H 182 H 02/22/19 17:07 POC Glucose 133 H Labs and MARs reviewed by pa Hospitalist ROS - Review of Systems Cardiovascular: denies: chest pain, palpitations, orthopnea, paroxysmal noc. dyspnea, edema, light headedness Gastrointestinal: denies: nausea, vomiting, abdominal pain, diarrhea, constipation, melena, hematochezia - Medication Medications: Active Medications Generic Name Dose Route Start Last Admin Trade Name Freq PRN Reason Stop Dose Admin Acetaminophen 650 mg 02/22/19 21:52 02/22/19 21:59 Tylenol PO 650 mg Q4H PRN Administration Headache/Fever or Pain Atorvastatin Calcium 20 mg 02/22/19 21:00 02/22/19 22:00 Lipitor PO 20 mg HS ANGELIQUE Administration Heparin Sodium (Porcine) 5,000 units 02/22/19 21:00 02/23/19 09:26 Heparin SC 5,000 units BID ANGELIQUE Administration Piperacillin Sod/Tazobactam 100 mls @ 200 mls/hr 02/22/19 18:00 02/23/19 06: 15 Sod 2.25 gm/ Sodium Chloride IVPB 100 mls 0600,1800 ANGELIQUE Administration Levothyroxine Sodium 75 mcg 02/22/19 06:00 02/23/19 06:15 Synthroid PO 75 mcg 0600 ANGELIQUE Administration Polyethylene Glycol 17 gm 02/23/19 09:00 02/23/19 09:26 Miralax PO Not Given DAILY ANGELIQUE - Exam General Appearance: NAD Eye: anicteric sclera ENT: moist mucosa Neck: supple Heart: RRR Respiratory: CTAB Gastrointestinal: soft, non-tender Psychiatric: normal affect, normal behavior Hosp A/P (1) Acute respiratory failure Code(s): J96.00 - ACUTE RESPIRATORY FAILURE, UNSP W HYPOXIA OR HYPERCAPNIA Status: Acute (2) ESRD (end stage renal disease) on dialysis Code(s): N18.6 - END STAGE RENAL DISEASE; Z99.2 - DEPENDENCE ON RENAL DIALYSIS Status: Chronic (3) HTN (hypertension) Code(s): I10 - ESSENTIAL (PRIMARY) HYPERTENSION Status: Chronic Qualifiers: (4) Hypothyroidism Code(s): E03.9 - HYPOTHYROIDISM, UNSPECIFIED Status: Chronic Qualifiers: - Plan Resumke Coreg, hold procardia, monitor vital signs and titrate. Dialysis per nephrology service. Acute respiratory failure improved. Hyperkalemia resolved.
--- NOTE | 2019-02-23 16:42 | PRG ---
DATE OF SERVICE: 02/23/2019 CHIEF COMPLAINT: "I am feeling great." HISTORY OF PRESENT ILLNESS: The patient was seen yesterday prior to extubation for concern for cholecystitis. Since that time, he has been transferred up to the [facility]. He is tolerating a regular diet. Denies any abdominal pain. No nausea or vomiting. He is curious about his discharge. REVIEW OF SYSTEMS: Negative for chest pain and shortness of breath. No fevers or chills. PHYSICAL EXAMINATION: VITAL SIGNS: Blood pressure 145/78, heart rate 77, temperature 98.2. GENERAL: Awake and alert. No distress. NECK: Supple with midline trachea. LUNGS: Grossly clear to auscultation bilaterally. HEART: Regularly regular. ABDOMEN: Soft, nontender, nondistended, normoactive bowel sounds. SKIN: Good turgor. No jaundice. PSYCHIATRIC: Good insight. Good judgment. LABORATORY DATA: There are no labs or additional x-rays to view. ASSESSMENT: Abnormal imaging of the biliary system-Given the patient's comorbidities, the gallbladder wall thickening, and apparent edema on his CT scan of his abdomen, it is probably secondary to heart failure and renal failure. He does not have any symptoms of gallbladder issues at this time. He is tolerating his regular diet without any issues. Given that he does not have any cholelithiasis, I think the odds of acalculous cholecystitis are very limited in this gentleman. PLAN: I will be signing off. If there are any future concerns with his gallbladder, a HIDA scan should be obtained to investigate whether or not there is filling of the gallbladder itself. Job ID: [id number]
[2019-02-23] MEDS: Famotidine 20 MG TAB PO SCH (17:19)
[2019-02-23] MEDS: Calcium Acetate 667 MG CAP PO SCH (17:19)
--- NOTE | 2019-02-23 19:10 | PRG ---
DATE OF SERVICE: 02/23/2019 SERVICE: Pulmonary Medicine. INTERVAL HISTORY: The patient is doing great from respiratory standpoint. He is breathing comfortably on room air. No complaints of chest discomfort, nausea, or vomiting. Otherwise, he is in his usual state of health. PHYSICAL EXAMINATION: VITAL SIGNS: Afebrile, pulse 77, blood pressure 145/78, respirations 20, and saturation 100% on room air. GENERAL: The patient is awake and alert, in no apparent distress. LUNGS: Decent air entry. No prolonged expiratory phase or wheezing is present. No crackles appreciated. HEART: Normal rate, regular. ABDOMEN: Soft, nontender, nondistended. Bowel sounds are positive. MUSCULOSKELETAL: No cyanosis or clubbing. There is no pitting in the left lower extremity. Right lower extremity is surgically absent. : No Mendoza. LABORATORY DATA: Blood cultures x2 are unremarkable. ASSESSMENT: 1. Acute hypoxic respiratory failure, resolved. 2. End-stage renal disease with interruption in dialysis secondary to scheduling issues. 3. Metabolic encephalopathy, resolved. 4. Acute on chronic systolic heart failure. 5. Cirrhosis. 6. Abnormal ultrasound of the gallbladder. DISCUSSION AND PLAN: The patient is doing great from respiratory standpoint. He does not have any inflammatory sequelae. At this point, he has no further requirements for Pulmonary or Critical Care opinion, and I will sign off. Please call with additional questions or concerns through time. Job ID: [id number] MTDD
[2019-02-23] MEDS: Atorvastatin Calcium 20 MG TAB PO SCH (21:08)
[2019-02-23] MEDS: Carvedilol 3.125 MG TAB PO SCH (21:08)
[2019-02-24] MEDS: Acetaminophen 325 MG TAB PO PRN (02:04)
[2019-02-24] MEDS: Levothyroxine Sodium 75 MCG TAB PO SCH (05:06)
[2019-02-24] MEDS: Piperacillin/Tazobactam 2.25 GM in Sodium Chloride 0.9% 100 ML IVPB SCH ×2 (05:06→17:17)
[2019-02-24] MEDS ORDERED: NIFEdipine XL 60 MG TAB PO SCH (09:00)
--- NOTE | 2019-02-24 10:12 | CON ---
DATE OF CONSULTATION: 02/22/2019 REASON FOR CONSULTATION: Abnormal gallbladder imaging. CHIEF COMPLAINT: Unobtainable as the patient is intubated. HISTORY OF PRESENT ILLNESS: The patient is a 73-year-old gentleman, he was brought into the emergency room last night with change in mental status. He has a history of end-stage renal disease, for which he is on dialysis. He has history of diabetes and hypercholesterolemia. He has been in and out of the hospital recently for weakness, changes in his mental status as well as bradycardia. He was found to be hyperkalemic during these admissions. At home, he was confused. His checked his blood pressure and found that he was somewhat hypotensive. He was brought in and was lethargic; therefore, the patient was intubated for respiratory protection. PAST MEDICAL HISTORY: End-stage renal disease, diabetes, hyperlipidemia, hypercholesterolemia, hypertension. The patient has a history of stroke. PAST SURGICAL HISTORY: Right [id number] amputation, left arm surgery, back surgery, hernia repair, as well as stent placement. SOCIAL HISTORY: Lives with his family. No drug or alcohol use. REVIEW OF SYSTEMS: Unobtainable. ALLERGIES: NONE. MEDICATIONS: 1. Atorvastatin 20 mg everyday. 2. Levothyroxine everyday. 3. Folic acid everyday. 4. Aspirin 81 mg everyday. PHYSICAL EXAMINATION: GENERAL: The patient is intubated, no acute distress. He does move to stimulation. HEART: Regularly regular with no murmurs or gallops. LUNGS: Have some rhonchi bilaterally. Diminished breath sounds in the right chest. ABDOMEN: Soft and apparently nontender. Normoactive bowel sounds. The patient does have a calcified granuloma at his umbilical region. This is not a hernia. EXTREMITIES: Without deformity - history of right [id number] amputation. SKIN: Good turgor. No jaundice. LABORATORY DATA: White blood cell count was normal on admission. LFTs were also normal on admission. The patient's beta natriuretic peptide was over 7000. Lactic acid was elevated at 5.6, it is down to 3.5. Creatinine was 5.4, it is down to 2.7. RADIOLOGY: I independently viewed the imaging as well as read the radiology reports. Abdomen CT pelvis - this demonstrates a fairly large right pleural effusion. The gallbladder wall does appear thickened. There is a nodular liver. There is a calcified granuloma at the umbilicus - again, this is not a hernia. The patient has tacks commensurate with a former laparoscopic incisional hernia repair. Radiology does remark on the gallbladder wall - therefore, the patient underwent an ultrasound of the right upper quadrant, which demonstrates the gallbladder wall thickening without evidence of cholelithiasis. There is no free fluid noted in Morison pouch. Common bile duct is normal. No pericholecystic fluid is seen. ASSESSMENT: Mental status change secondary to metabolic encephalopathy - the patient has renal failure and also was having some mental status changes secondary to metabolic issues - I think the imaging in concern for his gallbladder is not the reason for his admission. Often times, the patients with fluid overload and cirrhosis can have the appearance of a gallbladder with a thickened gallbladder wall. He has no cholelithiasis. On exam, I did not elicit any tenderness on the right upper quadrant. His white blood cell count is normal. His LFTs are normal. I do not have concern for acute cholecystitis. PLAN: Once the patient is extubated, additional history maybe obtained. If there is still concern for a gallbladder issue, a HIDA scan could be obtained to rule out acalculous cholecystitis. Even in that circumstance, the patient would need to make significant gains on his medical status prior to going to the operating room. A cholecystostomy tube could be considered at that time depending on the patient's clinical situation. Job ID: [id number]
--- NOTE | 2019-02-24 10:20 | PDOC.HOSPP ---
- Subjective Encounter Date: 02/24/19 Encounter Time: 10:00 Subjective: is getting HD no abd pain or nausea says he couldn't sleep last night - Objective Vital Signs & Weight: Vital Signs (12 hours) Temp Pulse Resp BP 02/24/19 07:42 98.0 F 84 18 157/74 H Weight Weight 151 lb 7.321 oz Most Recent Monitor Data Heart Rate from ECG 75 NIBP 124/48 NIBP BP-Mean 73 Respiration from ECG 10 SpO2 95 I&O: 02/23/19 02/24/19 02/25/19 06:59 06:59 06:59 Intake Total 1377 470 Output Total 95 350 Balance 1282 120 Result Diagrams: 02/21/19 22:41 02/22/19 08:45 Additional Labs: Accuchecks 02/24/19 02/23/19 02/23/19 04:31 20:10 16:01 POC Glucose 156 H 158 H 146 H 02/23/19 02/22/19 11:12 13:51 POC Glucose 107 150 H Hospitalist ROS - Medication Medications: Active Medications Generic Name Dose Route Start Last Admin Trade Name Freq PRN Reason Stop Dose Admin Acetaminophen 650 mg 02/22/19 21:52 02/24/19 02:04 Tylenol PO 650 mg Q4H PRN Administration Headache/Fever or Pain Atorvastatin Calcium 20 mg 02/22/19 21:00 02/23/19 21:08 Lipitor PO 20 mg HS ANGELIQUE Administration Calcium Acetate 1,334 mg 02/23/19 17:00 02/23/19 17:19 Phoslo PO 1,334 mg TID-WM ANGELIQUE Administration Carvedilol 3.125 mg 02/23/19 21:00 02/23/19 21:08 Coreg PO 3.125 mg BID ANGELIQUE Administration Famotidine 20 mg 02/23/19 09:00 02/23/19 17:19 Pepcid PO 20 mg DAILY ANGELIQUE Administration Heparin Sodium (Porcine) 5,000 units 02/22/19 21:00 02/23/19 21:09 Heparin SC 5,000 units BID ANGELIQUE Administration Piperacillin Sod/Tazobactam 100 mls @ 200 mls/hr 02/22/19 18:00 02/24/19 05: 06 Sod 2.25 gm/ Sodium Chloride IVPB 100 mls 0600,1800 ANGELIQUE Administration Levothyroxine Sodium 75 mcg 02/22/19 06:00 02/24/19 05:06 Synthroid PO 75 mcg 0600 ANGELIQUE Administration Polyethylene Glycol 17 gm 02/23/19 09:00 02/23/19 09:26 Miralax PO Not Given DAILY ANGELIQUE - Exam General Appearance: awake alert Eye: PERRL, anicteric sclera ENT: no oropharyngeal lesions, moist mucosa Neck: supple, no JVD Heart: RRR, no murmur Respiratory: no wheezes, no rales Gastrointestinal: soft, non-tender, non-distended, normal bowel sounds Extremities: no cyanosis, no edema Extremities - other findings: right bka Neurological: cranial nerve grossly intact, no focal deficits Psychiatric: normal affect, A&O x 3 Hosp A/P (1) Acute respiratory failure with hypoxemia Code(s): J96.01 - ACUTE RESPIRATORY FAILURE WITH HYPOXIA Status: Resolved (2) Anemia of renal disease Code(s): D63.1 - ANEMIA IN CHRONIC KIDNEY DISEASE Status: Chronic (3) Diabetes mellitus type 2 in nonobese Code(s): E11.9 - TYPE 2 DIABETES MELLITUS WITHOUT COMPLICATIONS Status: Chronic (4) Dyslipidemia Code(s): E78.5 - HYPERLIPIDEMIA, UNSPECIFIED Status: Chronic (5) ESRD (end stage renal disease) on dialysis Code(s): N18.6 - END STAGE RENAL DISEASE; Z99.2 - DEPENDENCE ON RENAL DIALYSIS Status: Chronic (6) HTN (hypertension) Code(s): I10 - ESSENTIAL (PRIMARY) HYPERTENSION Status: Chronic Qualifiers: (7) Hypothyroidism Code(s): E03.9 - HYPOTHYROIDISM, UNSPECIFIED Status: Chronic Qualifiers: (8) Acute metabolic encephalopathy Code(s): G93.41 - METABOLIC ENCEPHALOPATHY Status: Resolved (9) Volume overload Code(s): E87.70 - FLUID OVERLOAD, UNSPECIFIED Status: Resolved (10) Cardiomyopathy Code(s): I42.9 - CARDIOMYOPATHY, UNSPECIFIED Status: Chronic - Plan had back to back HD with resolution of sob and vol overload hemostable continue plavix, lipitor, coreg, gabapentin, synthroid no evidence of cholecytitis, changes sec to vol overload dc plan in am
[2019-02-24] MEDS: Calcium Acetate 667 MG CAP PO SCH ×3 (10:40→17:17)
[2019-02-24] MEDS: Heparin 5,000 UNITS/ML VIAL SC SCH ×2 (10:42→20:48)
[2019-02-24] MEDS: Polyethylene Glycol 3350 17 GM Packet PO SCH (10:42)
[2019-02-24] MEDS: Allopurinol 100 MG TAB PO SCH (13:07)
[2019-02-24] MEDS: Gabapentin 100 MG CAP PO SCH (13:07)
[2019-02-24] MEDS: Folic Acid 1 MG TAB PO SCH (13:07)
[2019-02-24] MEDS: Clopidogrel Bisulfate 75 MG TAB PO SCH (13:08)
[2019-02-24] MEDS: Carvedilol 3.125 MG TAB PO SCH ×2 (13:08→20:48)
[2019-02-24] MEDS: Famotidine 20 MG TAB PO SCH (13:08)
[2019-02-24] MEDS ORDERED: ALPRAZolam 0.5 MG TAB PO SCH (19:00)
[2019-02-24] MEDS: Atorvastatin Calcium 20 MG TAB PO SCH (20:48)
[2019-02-25] MEDS: Levothyroxine Sodium 75 MCG TAB PO SCH (05:00)
[2019-02-25] MEDS: Piperacillin/Tazobactam 2.25 GM in Sodium Chloride 0.9% 100 ML IVPB SCH ×2 (05:01→17:14)
[2019-02-25] MEDS: Allopurinol 100 MG TAB PO SCH (08:52)
[2019-02-25] MEDS: Clopidogrel Bisulfate 75 MG TAB PO SCH (08:52)
[2019-02-25] MEDS: Folic Acid 1 MG TAB PO SCH (08:52)
[2019-02-25] MEDS: Calcium Acetate 667 MG CAP PO SCH ×3 (08:52→17:13)
[2019-02-25] MEDS: Gabapentin 100 MG CAP PO SCH (08:52)
[2019-02-25] MEDS: Heparin 5,000 UNITS/ML VIAL SC SCH ×2 (08:53→21:08)
[2019-02-25] MEDS: Polyethylene Glycol 3350 17 GM Packet PO SCH (08:53)
[2019-02-25] MEDS: Famotidine 20 MG TAB PO SCH (08:53)
[2019-02-25] MEDS: Carvedilol 3.125 MG TAB PO SCH ×2 (08:53→20:54)
--- NOTE | 2019-02-25 11:26 | PDOC.HOSPP ---
- Subjective Encounter Date: 02/25/19 Encounter Time: 07:00 Subjective: feels better, no nausea or vomiting wants to eat his breakfast no abd pain or chest pain wants to go home - Objective Vital Signs & Weight: Vital Signs (12 hours) Temp Pulse Resp BP Pulse Ox 02/25/19 08:39 98.6 F 82 18 135/73 97 02/25/19 08:00 97 Weight Weight 148 lb 9.465 oz Most Recent Monitor Data Heart Rate from ECG 75 NIBP 124/48 NIBP BP-Mean 73 Respiration from ECG 10 SpO2 95 I&O: 02/24/19 02/25/19 02/26/19 06:59 06:59 06:59 Intake Total 470 420 Output Total 350 250 Balance 120 170 Result Diagrams: 02/21/19 22:41 02/22/19 08:45 Additional Labs: Accuchecks 02/25/19 02/24/19 02/24/19 04:40 20:03 17:10 POC Glucose 106 114 H 155 H 02/24/19 12:46 POC Glucose 95 Hospitalist ROS - Medication Medications: Active Medications Generic Name Dose Route Start Last Admin Trade Name Freq PRN Reason Stop Dose Admin Acetaminophen 650 mg 02/22/19 21:52 02/24/19 02:04 Tylenol PO 650 mg Q4H PRN Administration Headache/Fever or Pain Allopurinol 50 mg 02/24/19 09:00 02/25/19 08:52 Zyloprim PO 50 mg DAILY ANGELIQUE Administration Atorvastatin Calcium 20 mg 02/22/19 21:00 02/24/19 20:48 Lipitor PO 20 mg HS ANGELIQUE Administration Calcium Acetate 1,334 mg 02/23/19 17:00 02/25/19 08:52 Phoslo PO 1,334 mg TID-WM ANGELIQUE Administration Carvedilol 3.125 mg 02/23/19 21:00 02/25/19 08:53 Coreg PO 3.125 mg BID ANGELIQUE Administration Cholecalciferol 2,000 units 02/24/19 09:00 02/25/19 08:52 Vitamin D3 PO 2,000 units DAILY ANGELIQUE Administration Clopidogrel Bisulfate 75 mg 02/24/19 09:00 02/25/19 08:52 Plavix PO 75 mg DAILY ANGELIQUE Administration Famotidine 20 mg 02/23/19 09:00 02/25/19 08:53 Pepcid PO 20 mg DAILY ANGELIQUE Administration Folic Acid 1 mg 02/24/19 09:00 02/25/19 08:52 Folvite PO 1 mg DAILY ANGELIQUE Administration Gabapentin 100 mg 02/24/19 09:00 02/25/19 08:52 Neurontin PO 100 mg DAILY ANGELIQUE Administration Heparin Sodium (Porcine) 5,000 units 02/22/19 21:00 02/25/19 08:53 Heparin SC 5,000 units BID ANGELIQUE Administration Piperacillin Sod/Tazobactam 100 mls @ 200 mls/hr 02/22/19 18:00 02/25/19 05: 01 Sod 2.25 gm/ Sodium Chloride IVPB 100 mls 0600,1800 ANGELIQUE Administration Levothyroxine Sodium 75 mcg 02/22/19 06:00 02/25/19 05:00 Synthroid PO 75 mcg 0600 ANGELIQUE Administration Polyethylene Glycol 17 gm 02/23/19 09:00 02/25/19 08:53 Miralax PO Not Given DAILY ANGELIQUE - Exam General Appearance: awake alert Eye: PERRL, anicteric sclera ENT: no oropharyngeal lesions, moist mucosa Neck: supple, no JVD Heart: RRR, no murmur Respiratory: no wheezes, no rales Gastrointestinal: soft, non-tender, non-distended, normal bowel sounds Extremities: no cyanosis, no edema Extremities - other findings: right bka Neurological: cranial nerve grossly intact, no focal deficits Psychiatric: normal affect, A&O x 3 Hosp A/P (1) Acute respiratory failure with hypoxemia Code(s): J96.01 - ACUTE RESPIRATORY FAILURE WITH HYPOXIA Status: Resolved (2) Anemia of renal disease Code(s): D63.1 - ANEMIA IN CHRONIC KIDNEY DISEASE Status: Chronic (3) Diabetes mellitus type 2 in nonobese Code(s): E11.9 - TYPE 2 DIABETES MELLITUS WITHOUT COMPLICATIONS Status: Chronic (4) Dyslipidemia Code(s): E78.5 - HYPERLIPIDEMIA, UNSPECIFIED Status: Chronic (5) ESRD (end stage renal disease) on dialysis Code(s): N18.6 - END STAGE RENAL DISEASE; Z99.2 - DEPENDENCE ON RENAL DIALYSIS Status: Chronic (6) HTN (hypertension) Code(s): I10 - ESSENTIAL (PRIMARY) HYPERTENSION Status: Chronic Qualifiers: (7) Hypothyroidism Code(s): E03.9 - HYPOTHYROIDISM, UNSPECIFIED Status: Chronic Qualifiers: (8) Acute metabolic encephalopathy Code(s): G93.41 - METABOLIC ENCEPHALOPATHY Status: Resolved (9) Volume overload Code(s): E87.70 - FLUID OVERLOAD, UNSPECIFIED Status: Resolved (10) Cardiomyopathy Code(s): I42.9 - CARDIOMYOPATHY, UNSPECIFIED Status: Chronic - Plan had back to back HD with resolution of sob and vol overload hemostable continue plavix, lipitor, coreg, gabapentin, synthroid no evidence of cholecytitis, changes sec to vol overload dc plan home today, may amb with PT and with his prosthesis prior to going home.
[2019-02-25] MEDS: Atorvastatin Calcium 20 MG TAB PO SCH (20:54)
[2019-02-25 21:35] LABS: #Eosinphils 0.1 thou/uL (0.0-0.7); #Lymphocytes 0.7 thou/uL (1.20-3.40); #Monocytes 0.9 thou/uL (0.11-0.59); #Neutrophils 5.4 thou/uL (1.40-6.50); %Basophils 0.2 % (0.0-1.0); %Eosinophils 0.7 % (0.0-10.0); %Lymphocytes 9.3 % (21.0-51.0); %Monocytes 12.3 % (0.0-10.0); %Neutrophils 77.5 % (42.0-75.0); Hemoglobin 10.4 g/dL (14.0-18.0); Mean Corpuscular HGB CONC 32.6 g/dL (32.0-36.0); Mean Corpuscular Hemoglobin 31.8 pg (27.0-31.0); Mean Corpuscular Volume 97.4 fL (78.0-98.0); Mean Platelet Volume 8.8 fL (7.4-10.4); Platelet Count 120 thou/uL (130-400); RBC Distribution Width 15.1 % (11.5-14.5); Red Blood Cell (RBC) Count 3.28 mill/uL (4.70-6.10)
[2019-02-26] MEDS: Levothyroxine Sodium 75 MCG TAB PO SCH (05:07)
[2019-02-26] MEDS: Piperacillin/Tazobactam 2.25 GM in Sodium Chloride 0.9% 100 ML IVPB SCH (05:07)
[2019-02-26 07:31] VITALS: BP 143/78; TEMP 98
--- NOTE | 2019-02-26 11:06 | PDOC.HOSPP ---
- Subjective Encounter Date: 02/26/19 Encounter Time: 07:45 Subjective: no sob or abd pain - Objective Vital Signs & Weight: Vital Signs (12 hours) Temp Pulse Resp BP Pulse Ox 02/26/19 07:10 98.0 F 70 18 143/78 H 96 Weight Weight 148 lb 5.938 oz Most Recent Monitor Data Heart Rate from ECG 75 NIBP 124/48 NIBP BP-Mean 73 Respiration from ECG 10 SpO2 95 I&O: 02/25/19 02/26/19 02/27/19 06:59 06:59 06:59 Intake Total 420 470 Output Total 250 Balance 170 470 Result Diagrams: 02/25/19 21:22 02/22/19 08:45 Additional Labs: Accuchecks 02/26/19 02/25/19 02/25/19 05:27 20:23 17:11 POC Glucose 147 H 126 H 141 H 02/25/19 11:40 POC Glucose 125 H Hospitalist ROS - Medication Medications: Active Medications Generic Name Dose Route Start Last Admin Trade Name Freq PRN Reason Stop Dose Admin Acetaminophen 650 mg 02/22/19 21:52 02/24/19 02:04 Tylenol PO 650 mg Q4H PRN Administration Headache/Fever or Pain Allopurinol 50 mg 02/24/19 09:00 02/25/19 08:52 Zyloprim PO 50 mg DAILY ANGELIQUE Administration Atorvastatin Calcium 20 mg 02/22/19 21:00 02/25/19 20:54 Lipitor PO 20 mg HS ANGELIQUE Administration Calcium Acetate 1,334 mg 02/23/19 17:00 02/25/19 17:13 Phoslo PO 1,334 mg TID-WM ANGELIQUE Administration Carvedilol 3.125 mg 02/23/19 21:00 02/25/19 20:54 Coreg PO 3.125 mg BID ANGELIQUE Administration Cholecalciferol 2,000 units 02/24/19 09:00 02/25/19 08:52 Vitamin D3 PO 2,000 units DAILY ANGELIQUE Administration Clopidogrel Bisulfate 75 mg 02/24/19 09:00 02/25/19 08:52 Plavix PO 75 mg DAILY ANGELIQUE Administration Famotidine 20 mg 02/23/19 09:00 02/25/19 08:53 Pepcid PO 20 mg DAILY ANGELIQUE Administration Folic Acid 1 mg 02/24/19 09:00 02/25/19 08:52 Folvite PO 1 mg DAILY ANGELIQUE Administration Gabapentin 100 mg 02/24/19 09:00 02/25/19 08:52 Neurontin PO 100 mg DAILY ANGELIQUE Administration Heparin Sodium (Porcine) 5,000 units 02/22/19 21:00 02/25/19 21:08 Heparin SC Not Given BID ANGELIQUE Levothyroxine Sodium 75 mcg 02/22/19 06:00 02/26/19 05:07 Synthroid PO 75 mcg 0600 ANGELIQUE Administration Polyethylene Glycol 17 gm 02/23/19 09:00 02/25/19 08:53 Miralax PO Not Given DAILY ANGELIQUE - Exam General Appearance: awake alert Eye: PERRL, anicteric sclera ENT: no oropharyngeal lesions, moist mucosa Neck: supple, no JVD Heart: RRR, no murmur Respiratory: no wheezes, no rales Gastrointestinal: soft, non-tender, non-distended, normal bowel sounds Extremities: no cyanosis, no edema Extremities - other findings: bka Neurological: cranial nerve grossly intact, no focal deficits Hosp A/P (1) Acute respiratory failure with hypoxemia Code(s): J96.01 - ACUTE RESPIRATORY FAILURE WITH HYPOXIA Status: Resolved (2) Anemia of renal disease Code(s): D63.1 - ANEMIA IN CHRONIC KIDNEY DISEASE Status: Chronic (3) Diabetes mellitus type 2 in nonobese Code(s): E11.9 - TYPE 2 DIABETES MELLITUS WITHOUT COMPLICATIONS Status: Chronic (4) Dyslipidemia Code(s): E78.5 - HYPERLIPIDEMIA, UNSPECIFIED Status: Chronic (5) ESRD (end stage renal disease) on dialysis Code(s): N18.6 - END STAGE RENAL DISEASE; Z99.2 - DEPENDENCE ON RENAL DIALYSIS Status: Chronic (6) HTN (hypertension) Code(s): I10 - ESSENTIAL (PRIMARY) HYPERTENSION Status: Chronic Qualifiers: (7) Hypothyroidism Code(s): E03.9 - HYPOTHYROIDISM, UNSPECIFIED Status: Chronic Qualifiers: (8) Acute metabolic encephalopathy Code(s): G93.41 - METABOLIC ENCEPHALOPATHY Status: Resolved (9) Volume overload Code(s): E87.70 - FLUID OVERLOAD, UNSPECIFIED Status: Resolved (10) Cardiomyopathy Code(s): I42.9 - CARDIOMYOPATHY, UNSPECIFIED Status: Chronic - Plan had back to back HD with resolution of sob and vol overload hemostable continue plavix, lipitor, coreg, gabapentin, synthroid no evidence of cholecytitis, changes sec to vol overload dc plan home after HD and he amb with his prosthesis
[2019-02-26] MEDS: Polyethylene Glycol 3350 17 GM Packet PO SCH (13:03)
[2019-02-26] MEDS: Calcium Acetate 667 MG CAP PO SCH ×2 (13:03→13:05)
[2019-02-26] MEDS: Heparin 5,000 UNITS/ML VIAL SC SCH (13:03)
[2019-02-26] MEDS: Allopurinol 100 MG TAB PO SCH (13:04)
[2019-02-26] MEDS: Carvedilol 3.125 MG TAB PO SCH (13:05)
[2019-02-26] MEDS: Folic Acid 1 MG TAB PO SCH (13:05)
[2019-02-26] MEDS: Famotidine 20 MG TAB PO SCH (13:05)
[2019-02-26] MEDS: Gabapentin 100 MG CAP PO SCH (13:05)
[2019-02-26] MEDS: Clopidogrel Bisulfate 75 MG TAB PO SCH (13:05)
--- NOTE | 2019-02-27 14:17 | DIS ---
DATE OF ADMISSION: 02/22/2019 DATE OF DISCHARGE: 02/26/2019 DISCHARGE DISPOSITION: To home. PRIMARY DISCHARGE DIAGNOSES: 1. Acute respiratory failure with hypoxia on admission, resolved, secondary to volume overload. 2. End-stage renal disease, on hemodialysis. 3. Chronic anemia. 4. Dyslipidemia. 5. Diabetes mellitus, type 2. 6. Hypertension. 7. Hypothyroidism. 8. Initial acute metabolic encephalopathy due to volume overload, resolved. 9. History of chronic cardiomyopathy. PROCEDURES DONE DURING HOSPITALIZATION: CT of abdomen and pelvis with contrast done, showed small kidneys, no hydronephrosis, nodular liver, mild edema around the gallbladder, most likely benign. CT brain with IV contrast showed mild age-appropriate brain atrophy with mild periventricular white matter disease, no acute intracranial abnormality. Right upper quadrant ultrasound of the abdomen done showed gallbladder wall thickening with edema without cholelithiasis. Common duct was 3 mm in diameter. No pericholecystic fluid was seen. Blood cultures x2, no growth. H and H 10 and 31, platelet count 120, MCV is 97, white count of 7. BNP was 7127. Initial potassium was 6.3, serum bicarb of 25. Urine tox screen negative. DISCHARGE MEDICATIONS: 1. Allopurinol 50 mg p.o. daily. 2. PhosLo 1334 mg p.o. 3 times daily. 3. Coreg 3.125 mg twice daily. 4. Vitamin D3 of 2000 units p.o. daily. 5. Plavix 75 mg p.o. daily. 6. Folic acid 1 mg p.o. daily. 7. Gabapentin 100 mg p.o. daily. 8. Synthroid 75 mcg p.o. daily. 9. Procardia XL 60 mg p.o. daily. 10. Atorvastatin 20 mg p.o. at bedtime. ALLERGIES: NO KNOWN DRUG ALLERGIES. DISCHARGE PLAN: The patient to follow up with his primary care physician at [facility] in [place] in a week. BRIEF COURSE DURING HOSPITALIZATION: The patient initially was brought to ER with change in mental status. He was volume overloaded. The patient also had hyperkalemia. He has had [id number] hemodialysis done. Initially, the patient was suspected to have sepsis due to hypotension and was admitted to ICU. He was also intubated on arrival. He was successfully extubated. He has had consultation with Dr. Goss for Pulmonology and Dr. Humberto Gauthier for General Surgery. There was initial suspicion for possible cholecystitis, which was ruled out. His BNP was elevated more than 7000 as mentioned above. He likely had acute on chronic CHF exacerbation with systolic dysfunction and ejection fraction of around 35% to 40%. The patient's mental status completely came back to his baseline. He has been ambulating with physical therapy with a prosthesis on the BKA side. All antibiotics have been discontinued. He is hemodynamically stable and will be shortly discharged home. Please see a [id number] documentation for the day of discharge on [email or web address]. Job ID: [id number]
== END 2019-02-26 15:22 | disposition home or self-care (01) | DRG 208 ==
LOC: ERS 22:24 → CCU 02-22 00:54 → T4-A 02-22 14:01
PROVIDERS: ADMIT Internal Medicine; ATTEND Internal Medicine
PROC: 05H533Z Insertion of Infusion Device into Right Subclavian Vein, Percutaneous Approach (ICD-10-PCS; principal; 2019-02-22)
PROC: 5A1935Z Respiratory Ventilation, Less than 24 Consecutive Hours (ICD-10-PCS; 2019-02-22)
PROC: 0BH17EZ Insertion of Endotracheal Airway into Trachea, Via Natural or Artificial Opening (ICD-10-PCS; 2019-02-22)
DX: J96.01 Acute respiratory failure with hypoxia (principal); N18.6 End stage renal disease; G93.41 Metabolic encephalopathy; I50.23 Acute on chronic systolic (congestive) heart failure; I13.2 Hypertensive heart and chronic kidney disease with heart failure and with stage 5 chronic kidney disease, or end stage renal disease; I42.9 Cardiomyopathy, unspecified; Z79.899 Other long term (current) drug therapy; Z99.2 Dependence on renal dialysis; E11.22 Type 2 diabetes mellitus with diabetic chronic kidney disease; E78.5 Hyperlipidemia, unspecified; Z86.73 Personal history of transient ischemic attack (TIA), and cerebral infarction without residual deficits; Z89.511 Acquired absence of right leg below knee; Z79.82 Long term (current) use of aspirin; E87.5 Hyperkalemia; K74.60 Unspecified cirrhosis of liver; I95.9 Hypotension, unspecified; E78.00 Pure hypercholesterolemia, unspecified
CPT/HCPCS: 36415; 36416; 70450; 71045; 74177; 76705; 80048; 80053; 80306; 80307; 81003; 81015; 82330; 82803; 83605; 83690; 83735; 83880; 84443; 84484; 85025; 87040; 93005; 94760; J0171; J0461; J0692; J1644; J1650; J1815; J2543; J3490; J7611; Q9967; S0028

== ENCOUNTER 2019-03-10 07:16 | Inpatient (IN) | payer MEDICARE ==
[2019-03-10] MEDS ORDERED: Albuterol Sulfate 2.5 mg/3 ml Neb ONE (07:47)
[2019-03-10 08:12] LABS: Hemoglobin 11.7 g/dL (14.0-18.0); Mean Corpuscular HGB CONC 32.8 g/dL (32.0-36.0); Mean Corpuscular Hemoglobin 32.5 pg (27.0-31.0); Mean Corpuscular Volume 99.1 fL (78.0-98.0); Mean Platelet Volume 8.5 fL (7.4-10.4); Platelet Count 196 thou/uL (130-400); RBC Distribution Width 14.6 % (11.5-14.5)
[2019-03-10] MEDS ORDERED: Benzonatate 100 MG CAP ONE ×2 (08:19→08:23)
[2019-03-10 08:28] LABS: ALT (SGPT) 16 U/L (8-55); AST (SGOT) 15 U/L (5-34); Albumin 3.9 g/dL (3.4-4.8); Alkaline Phosphatase 100 U/L (40-110); Anion Gap 25 mmol/L (10-20); BUN (Urea Nitrogen) 59 mg/dL (8.4-25.7); Bilirubin, Total 0.9 mg/dL (0.2-1.2); Calc. Creatinine Clearance 0 mL/min (70-130); Calcium 9.1 mg/dL (7.8-10.44); Carbon Dioxide 22 mmol/L (23-31); Chloride 97 mmol/L (98-107); Estimated GFR-MDRD 7; Globulin 4.3 g/dL (2.4-3.5); Glucose 173 mg/dL (83-110); Potassium 4.7 mmol/L (3.5-5.1); Protein, Total 8.2 g/dL (5.8-8.1); Sodium 139 mmol/L (136-145)
--- NOTE | 2019-03-10 08:30 | RAD ---
CHEST 1 VIEW: Date: 03/10/2019 HISTORY: Cough. COMPARISON: 02/21/2019. FINDINGS: Cardiac silhouette is magnified by projection. Pulmonary vasculature is engorged with mild bilateral perihilar infiltrates. Mediastinum is midline with aortic calcification. More focal parenchymal opacity projects over the lateral aspect of the left chest, favored to be with in the superior segment left lower lobe. No evidence of pneumothorax. IMPRESSION: 1. Left lung infiltrate. Consider pneumonia. 2. Pulmonary vascular congestion. 3. Atherosclerosis. POS: [facility]
[2019-03-10 08:31] LABS: Band 10 % (5-11); Lymphocytes 2 % (21-51); MDiff Complete? YES; Monocytes 2 % (0-10); Neutrophil 85 % (42-75); RBC Morphology Normal
[2019-03-10] MEDS ORDERED: cefTRIAXone\\ROCEPHIN 2 GM VIAL ONE (08:49)
[2019-03-10] MEDS ORDERED: Azithromycin 500 MG VIAL ONE (10:27)
[2019-03-10 11:26] VITALS: BMI 27.5
[2019-03-10] MEDS ORDERED: guaiFENesin 100 MG/5 ML UDCUP PO PRN (12:12)
[2019-03-10 12:47] LABS: Lactic Acid 3.3 mmol/L (0.5-2.2)
[2019-03-10] MEDS: Diabetic Tussin 200 MG/10 ML UDCUP PO PRN ×2 (12:55→19:44)
[2019-03-10] MEDS ORDERED: Bisacodyl 10 MG SUPP PR PRN (13:53)
[2019-03-10] MEDS ORDERED: Acetaminophen 325 MG TAB PO PRN (13:53)
[2019-03-10] MEDS ORDERED: Dextrose 50% Abboject 50 ML SYRINGE SLOW IVP PRN (13:53)
[2019-03-10] MEDS ORDERED: Ondansetron PF 4 MG/2 ML Vial IVP PRN (13:53)
[2019-03-10] MEDS ORDERED: HumaLOG 300 UNITS/3 ML VIAL SC PRN (13:53)
[2019-03-10] MEDS ORDERED: Senokot S 8.6-50 MG TAB PO PRN (13:53)
[2019-03-10] MEDS ORDERED: Dextrose 5% in Water 1,000 ML IV PRN (13:53)
[2019-03-10] MEDS: Albuterol Sulfate 1.25 MG/3 ML NEB NEB SCH ×2 (15:44→22:10)
--- NOTE | 2019-03-10 17:05 | HP ---
REASON FOR ADMISSION: Possible pneumonia. HISTORY OF PRESENTING ILLNESS: The patient gives history of having coughing spells when he is trying to go to dialysis this morning. His last hemodialysis was Sunday. EMS was summoned, and the patient was brought here. On further workup here, the patient has a questionable left lung pneumonia. His white count was 15 with 85% neutrophils and 10% bands. Currently, has no complaints of chest pain or palpitation. No complaints of PND or orthopnea. The patient was recently discharged a week back from the hospital. He has had recurrent hospitalizations here. His flu was negative. No fever at home. PAST MEDICAL AND SURGICAL HISTORY: History of end-stage renal disease, on hemodialysis on Sunday, Sunday, and Sunday; hypertension; diabetes mellitus, type 2; dyslipidemia; history of CVA with right-sided weakness; right BKA and wears prosthesis; left arm surgery; back surgery; hernia surgery; and stent placement in the past. CURRENT MEDICATIONS: The patient takes; 1. Allopurinol 50 mg daily. 2. PhosLo 1334 mg p.o. three times daily. 3. Coreg 3.125 mg twice daily. 4. Vitamin D3, 2000 units daily. 5. Plavix 75 mg p.o. daily. 6. Folic acid 1 mg daily. 7. Gabapentin 100 mg p.o. daily. 8. Levothyroxine 75 mcg p.o. daily. 9. Procardia XL 60 mg p.o. daily. 10. Lipitor 20 mg p.o. at bedtime. ALLERGIES: NO KNOWN DRUG ALLERGIES. PERSONAL HISTORY: Denies using alcohol or drugs. No history of smoking. Lives with his . FAMILY HISTORY: Mother at the age of 88. Father at the age of 74 from natural causes per patient. Please note the patient is a very poor historian. CODE STATUS: Full. [id number] is his . REVIEW OF SYSTEMS: CONSTITUTIONAL: Negative for weight loss or gain, ability to conduct usual activities. SKIN: Negative for rash, itching. EYES: Negative for double vision, pain. ENT/MOUTH: Negative for nose bleeding, neck stiffness, pain, tenderness. CARDIOVASCULAR: Negative for palpitations, dyspnea on exertion, orthopnea. RESPIRATORY: Negative for shortness of breath, wheezing, cough, hemoptysis, fever or night sweats. GASTROINTESTINAL: Negative for poor appetite, abdominal pain, heartburn, nausea, vomiting, constipation, or diarrhea. GENITOURINARY: Negative for urgency, frequency, dysuria, nocturia. MUSCULOSKELETAL: Negative for pain, swelling. NEUROLOGIC/PSYCHIATRIC: Negative for anxiety, depression. ALLERGY/IMMUNOLOGIC: Negative for skin rash, bleeding tendency. PHYSICAL EXAMINATION: GENERAL: The patient is a 73-year-old male who is currently not in any acute distress. VITAL SIGNS: Blood pressure 122/60, pulse 100 per minute, respiratory rate 26 per minute, temperature 98.3 degrees Fahrenheit, and saturating 94% on room air. NECK: Supple. No elevated JVD. HEENT: Eyes; extraocular muscles intact. Pupils reacting to light. Oral cavity, mucous membranes are moist. No exudates or congestion. CARDIOVASCULAR SYSTEM: S1 and S2 heard. Regular rhythm. RESPIRATORY SYSTEM: Air entry 1+ bilateral. Scattered rhonchi plus bilateral. ABDOMEN: Soft. Bowel sounds heard. No tenderness, rigidity, or guarding. EXTREMITIES: The patient has right BKA. No edema in the lower extremities. Peripheral pulses are 1+ in the left lower extremity and bilateral upper extremity. No gangrene seen. CENTRAL NERVOUS SYSTEM: No gross focal motor deficits noted now. The patient moves all extremities. PSYCHIATRIC SYSTEM: No obvious hallucinations or delusions. DIAGNOSTIC DATA: Chest x-ray done shows left lung infiltrate with pulmonary vascular congestion. Chest x-ray done, shows sinus rhythm at 99 beats per minute. There is poor R-wave progression noted. There is also ST depression seen in lead I, III, V5, V6. LABORATORY DATA: White count of 15, H and H 11 and 35, and platelet count 196 with 85% neutrophils, 10% bands. BUN 59, creatinine 7.9, serum bicarb 22, lactic acid 2.7, serum glucose 173. Liver enzymes within normal limits. Albumin is 3.9. Influenza A and B antigens are negative. CLINICAL IMPRESSION AND PLAN: The patient is being admitted to telemetry for suspected left lung pneumonia, and he also has pulmonary vascular congestion. The patient is going for hemodialysis now. He has slight volume overload. He will be on DuoNebs q.6 hourly and Levaquin 500 mg every 2 days. We will continue his allopurinol, Lipitor, Coreg, vitamin D3, Plavix, folic acid, Synthroid, Procardia XL as before. If the patient recovers well after hemodialysis, decision for discharge planning can be ascertained. He will be on Mucinex and Tessalon Perles as well. He is currently hemodynamically stable with no complaints of chest pain as such. Job ID: [id number]
[2019-03-10] MEDS: Calcium Acetate 667 MG CAP PO SCH (17:37)
[2019-03-10] MEDS: Benzonatate 100 MG CAP PO SCH ×2 (17:37→19:43)
[2019-03-10] MEDS: Carvedilol 3.125 MG TAB PO SCH (19:43)
[2019-03-10] MEDS: HYDROcodone/Acetaminophen 5/325 mg Tablet PO PRN (19:43)
[2019-03-10] MEDS: guaiFENesin/DM ER PO SCH (19:44)
[2019-03-10] MEDS ORDERED: Atorvastatin Calcium 20 MG TAB PO SCH (21:00)
[2019-03-11] MEDS: HYDROcodone/Acetaminophen 5/325 mg Tablet PO PRN (01:27)
[2019-03-11 04:25] LABS: #Lymphocytes 0.8 thou/uL (1.20-3.40); #Monocytes 0.6 thou/uL (0.11-0.59); #Neutrophils 7.7 thou/uL (1.40-6.50); %Eosinophils 0.4 % (0.0-10.0); %Lymphocytes 8.5 % (21.0-51.0); %Monocytes 6.8 % (0.0-10.0); %Neutrophils 84.3 % (42.0-75.0); Hemoglobin 10.2 g/dL (14.0-18.0); Mean Corpuscular HGB CONC 33.7 g/dL (32.0-36.0); Mean Corpuscular Hemoglobin 33.2 pg (27.0-31.0); Mean Corpuscular Volume 98.4 fL (78.0-98.0); Platelet Count 141 thou/uL (130-400); RBC Distribution Width 14.7 % (11.5-14.5); Red Blood Cell (RBC) Count 3.09 mill/uL (4.70-6.10); White Blood Cell (WBC) Count 9.1 thou/uL (4.8-10.8)
[2019-03-11 04:42] LABS: Albumin 3.4 g/dL (3.4-4.8); Anion Gap 19 mmol/L (10-20); BUN (Urea Nitrogen) 36 mg/dL (8.4-25.7); BUN/Creatinine Ratio 6.62; Calc. Creatinine Clearance 12 mL/min (70-130); Carbon Dioxide 28 mmol/L (23-31); Chloride 94 mmol/L (98-107); Estimated GFR-MDRD 10; Glucose 116 mg/dL (83-110); Phosphorus 3.7 mg/dL (2.3-4.7); Potassium 5.6 mmol/L (3.5-5.1); Sodium 135 mmol/L (136-145)
[2019-03-11] MEDS ORDERED: Levothyroxine Sodium 75 MCG TAB PO SCH (06:00)
[2019-03-11] MEDS: Albuterol Sulfate 1.25 MG/3 ML NEB NEB SCH ×2 (06:47→14:40)
[2019-03-11] MEDS: Benzonatate 100 MG CAP PO SCH ×2 (08:02→15:35)
[2019-03-11] MEDS: Calcium Acetate 667 MG CAP PO SCH ×2 (08:02→12:43)
[2019-03-11] MEDS: Carvedilol 3.125 MG TAB PO SCH (08:02)
[2019-03-11] MEDS: guaiFENesin/DM ER PO SCH (08:03)
[2019-03-11] MEDS ORDERED: Clopidogrel Bisulfate 75 MG TAB PO SCH (09:00)
[2019-03-11] MEDS ORDERED: Enoxaparin Sodium 30 MG/0.3 ML SYRINGE SC SCH (09:00)
[2019-03-11] MEDS ORDERED: Gabapentin 100 MG CAP PO SCH (09:00)
[2019-03-11] MEDS ORDERED: NIFEdipine XL 60 MG TAB PO SCH (09:00)
[2019-03-11] MEDS ORDERED: Famotidine 20 MG TAB PO SCH (09:00)
[2019-03-11] MEDS ORDERED: Folic Acid 1 MG TAB PO SCH (09:00)
[2019-03-11] MEDS ORDERED: Allopurinol 100 MG TAB PO SCH (09:00)
[2019-03-11 15:35] VITALS: BP 115/57; TEMP 98.4
--- NOTE | 2019-03-12 14:23 | DIS ---
DATE OF ADMISSION: 03/10/2019 DATE OF DISCHARGE: 03/11/2019 HOSPITAL COURSE: Mr. Gonzalez is a 73-year-old male with a medical history of end-stage renal disease, on hemodialysis; type 2 diabetes; CVA; and right [id number] amputation, who presented for acute coughing. He went to dialysis that morning and during dialysis, he started coughing. His chest x-ray showed questionable left lung pneumonia. However, on presentation, the patient complained of no symptoms consistent with pneumonia and his laboratory was inconsistent with the diagnosis as well. However, he was hypovolemic, so he underwent dialysis and symptoms promptly improved. He also received respiratory treatments. He improved and returned back to baseline breathing without significant coughing after the dialysis session and was discharged home hemodynamically stable. PHYSICAL EXAMINATION: VITAL SIGNS: Unremarkable. GENERAL: He was in no apparent distress. Alert and oriented x3. CARDIAC: Regular rate and rhythm. No gallops or murmurs. LUNGS: Clear to auscultation bilaterally. No rhonchi, rales, or wheezing. No tachypnea. ABDOMEN: Soft, nontender, nondistended with normal bowel sounds. EXTREMITIES: Left lower extremity has mild edema up to knee level. Right extremity [id number] amputation stump was clean without signs of infections. ASSESSMENT AND PLAN: Mr. Gonzalez is a 73-year-old male, who presented with acute cough due to pulmonary congestion. He underwent dialysis and promptly improved. He returned back to baseline breathing and his coughing was significantly improved. He was discharged home hemodynamically stable with followup appointments with his program rep within three days. Job ID: [id number]
== END 2019-03-11 17:45 | disposition hospice, home (50) | DRG 314 ==
LOC: ERS 07:16 → 2NO 10:52
PROVIDERS: ADMIT Internal Medicine; ATTEND Internal Medicine
PROC: 5A1D70Z Performance of Urinary Filtration, Intermittent, Less than 6 Hours Per Day (ICD-10-PCS; principal; 2019-03-10)
DX: R09.89 Other specified symptoms and signs involving the circulatory and respiratory systems (principal); N18.6 End stage renal disease; I12.0 Hypertensive chronic kidney disease with stage 5 chronic kidney disease or end stage renal disease; E11.22 Type 2 diabetes mellitus with diabetic chronic kidney disease; Z99.2 Dependence on renal dialysis; Z89.511 Acquired absence of right leg below knee; E86.1 Hypovolemia; Z86.73 Personal history of transient ischemic attack (TIA), and cerebral infarction without residual deficits; E78.5 Hyperlipidemia, unspecified; I25.2 Old myocardial infarction; Z98.890 Other specified postprocedural states
CPT/HCPCS: 36415; 36416; 71045; 80053; 80069; 83605; 84484; 85025; 87040; 87149; 87186; 87804; 90935; 93005; 94640; 96365; 96375; G0257; J0456; J0696; J1650; J1956; J7611; J7620

== ENCOUNTER 2019-04-07 06:10 | Inpatient (IN) | payer MEDICARE ==
[2019-04-07] MEDS ORDERED: Insulin Regular 300 UNITS/3 ML VIAL ONE (06:15)
[2019-04-07] MEDS ORDERED: Calcium Gluc 4.6 MEQ/10 ML (100 MG/ML) ONE (06:15)
[2019-04-07] MEDS ORDERED: Sodium Bicarb 50 MEQ/50 ML VIAL ONE (06:16)
[2019-04-07] MEDS ORDERED: Albuterol Sulfate 2.5 mg/0.5 ml Neb ONE ×3 (06:22→06:23)
[2019-04-07] MEDS ORDERED: Albuterol Sulfate 2.5 mg/3 ml Neb ONE (06:23)
[2019-04-07] MEDS ORDERED: Dextrose 50% Abboject 50 ML SYRINGE ONE (06:27)
[2019-04-07 06:31] LABS: Base Excess-Venous -8.6 mmol/L (-2.0 to 3.0); Bicarbonate (HCO3v) 19.5 mmol/L (22.0-28.0); CO2 Tension (PvCO2) 51.7 mmHg (40.0-50.0); Calcium, Ionized 0.84 mmol/L (See Comments:); Chloride 101 mmol/L (98-107); Hemoglobin - Calc 10.6 g/dL (14.0-18.0); Potassium 8.2 mmol/L (3.5-5.1); Sodium 129 mmol/L (138-145); T. Carbon Dioxide 21.1 mmol/L (22.0-28.0)
[2019-04-07 06:41] LABS: #Basophils 0.1 thou/uL (0.0-0.2); #Eosinphils 0.1 thou/uL (0.0-0.7); #Lymphocytes 2.8 thou/uL (1.20-3.40); #Monocytes 1.2 thou/uL (0.11-0.59); #Neutrophils 7.5 thou/uL (1.40-6.50); %Basophils 0.5 % (0.0-1.0); %Eosinophils 0.6 % (0.0-10.0); %Neutrophils 64.9 % (42.0-75.0); Hemoglobin 10.5 g/dL (14.0-18.0); Mean Corpuscular HGB CONC 33.7 g/dL (32.0-36.0); Mean Corpuscular Hemoglobin 33.6 pg (27.0-31.0); Mean Corpuscular Volume 99.7 fL (78.0-98.0); Mean Platelet Volume 9.8 fL (7.4-10.4); Platelet Count 129 thou/uL (130-400); RBC Distribution Width 15.2 % (11.5-14.5); Red Blood Cell (RBC) Count 3.14 mill/uL (4.70-6.10); White Blood Cell (WBC) Count 11.5 thou/uL (4.8-10.8)
[2019-04-07 06:45] LABS: Actual Bicarbonate (HCO3a) 17.9 mEq/L (22-28); Analyzer IN Cardio ER; Base Excess (BEa) -7.9 mEq/L (-2.0 to +3.0); CO2 Tension 37.6 mmHg (35.0-45.0); Calcium, Ionized 0.93 mmol/L (1.12-1.30); Carboxyhemoglobin (COHb) 0.3 gm% (0.0-3.0); Hemoglobin (Hb) 10.2 g/dL (14.0-18.0); O2 Tension (PaO2) 94.4 mmHg (> 70.0); Potassium - ABG Lab 6.36 mmol/L (3.70-5.30)
[2019-04-07 06:49] LABS: Puncture Site LBA
[2019-04-07] MEDS ORDERED: Sodium Bicarb 50 MEQ/50 ML Abboject 8.4% SYRINGE ONE (06:54)
[2019-04-07 07:01] LABS: ALT (SGPT) 7 U/L (8-55); AST (SGOT) 13 U/L (5-34); Alkaline Phosphatase 70 U/L (40-110); Anion Gap 31 mmol/L (10-20); BUN (Urea Nitrogen) 112 mg/dL (8.4-25.7); Calc. Creatinine Clearance 0 mL/min (70-130); Calcium 7.5 mg/dL (7.8-10.44); Carbon Dioxide 16 mmol/L (23-31); Chloride 97 mmol/L (98-107); Estimated GFR-MDRD 4; Globulin 3.9 g/dL (2.4-3.5); Glucose 178 mg/dL (83-110); Magnesium 2.3 mg/dL (1.6-2.6); Protein, Total 6.9 g/dL (5.8-8.1); Sodium 135 mmol/L (136-145)
[2019-04-07 07:05] LABS: Potassium 8.7 mmol/L (3.5-5.1)
--- NOTE | 2019-04-07 08:15 | RAD ---
SINGLE VIEW OF THE CHEST: COMPARISON: 03/10/2019. HISTORY: Bradycardia and shortness of breath. FINDINGS: A single view of the chest shows a normal size cardiomediastinal silhouette with atherosclerotic calc ifications in the aorta. There is no evidence of consolidation, mass, or pleural effusion. IMPRESSION: No evidence of acute cardiopulmonary disease. POS: [facility]
[2019-04-07 09:47] LABS: Lactic Acid 1.5 mmol/L (0.5-2.2)
[2019-04-07] MEDS ORDERED: Senokot S 8.6-50 MG TAB PO PRN (11:25)
[2019-04-07] MEDS ORDERED: Acetaminophen 325 MG TAB PO PRN (11:25)
[2019-04-07] MEDS ORDERED: Ondansetron PF 4 MG/2 ML Vial IVP PRN (11:25)
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
[2019-04-07] MEDS ORDERED: Folic Acid 1 MG TAB PO SCH (11:45)
[2019-04-07] MEDS ORDERED: Clopidogrel Bisulfate 75 MG TAB PO SCH (11:45)
[2019-04-07] MEDS ORDERED: Allopurinol 100 MG TAB PO SCH (11:45)
[2019-04-07] MEDS ORDERED: Gabapentin 100 MG CAP PO SCH (11:45)
[2019-04-07] MEDS: Calcium Acetate 667 MG CAP PO SCH ×2 (13:24→17:30)
[2019-04-07 15:34] LABS: Anion Gap 18 mmol/L (10-20); BUN (Urea Nitrogen) 34 mg/dL (8.4-25.7); Calc. Creatinine Clearance 10 mL/min (70-130); Calcium 8.4 mg/dL (7.8-10.44); Carbon Dioxide 27 mmol/L (23-31); Chloride 98 mmol/L (98-107); Estimated GFR-MDRD 9; Glucose 106 mg/dL (83-110); Potassium 4.1 mmol/L (3.5-5.1); Sodium 139 mmol/L (136-145)
[2019-04-07] MEDS: Carvedilol 3.125 MG TAB PO SCH (21:35)
[2019-04-07] MEDS: Atorvastatin Calcium 20 MG TAB PO SCH (21:35)
[2019-04-07] MEDS ORDERED: diphenhydrAMINE 25 MG CAP PO PRN (22:04)
[2019-04-08] MEDS: Levothyroxine Sodium 75 MCG TAB PO SCH (05:17)
[2019-04-08 05:52] LABS: Anion Gap 22 mmol/L (10-20); BUN (Urea Nitrogen) 45 mg/dL (8.4-25.7); Calc. Creatinine Clearance 8 mL/min (70-130); Calcium 8.6 mg/dL (7.8-10.44); Carbon Dioxide 22 mmol/L (23-31); Chloride 99 mmol/L (98-107); Estimated GFR-MDRD 7; Glucose 102 mg/dL (83-110); Potassium 4.5 mmol/L (3.5-5.1); Sodium 138 mmol/L (136-145)
[2019-04-08 06:19] LABS: Hemoglobin 11.2 g/dL (14.0-18.0); Mean Corpuscular HGB CONC 32.2 g/dL (32.0-36.0); Mean Corpuscular Hemoglobin 31.8 pg (27.0-31.0); Mean Corpuscular Volume 98.7 fL (78.0-98.0); RBC Distribution Width 15.1 % (11.5-14.5); Red Blood Cell (RBC) Count 3.51 mill/uL (4.70-6.10)
[2019-04-08 06:51] LABS: Mean Platelet Volume 9.7 fL (7.4-10.4); Platelet Count 115 thou/uL (130-400)
[2019-04-08 07:29] LABS: Band 5 % (5-11); Eosinophils 2 % (0-10); Lymphocytes 14 % (21-51); MDiff Complete? YES; Monocytes 7 % (0-10); Neutrophil 69 % (42-75); Platelet Morphology Comment Appears Decreased; Polychromasia SLIGHT = 2-3 cells (100X) (0-2/hpf); Reactive Lymphocytes 2 % (0-10); White Blood Cell (WBC) Count 8.9 thou/uL (4.8-10.8)
[2019-04-08] MEDS: Calcium Acetate 667 MG CAP PO SCH ×3 (08:11→17:08)
[2019-04-08] MEDS: Allopurinol 100 MG TAB PO SCH (08:11)
[2019-04-08] MEDS: Clopidogrel Bisulfate 75 MG TAB PO SCH (08:12)
[2019-04-08] MEDS: Folic Acid 1 MG TAB PO SCH (08:13)
[2019-04-08] MEDS: Gabapentin 100 MG CAP PO SCH (08:13)
[2019-04-08] MEDS: Carvedilol 3.125 MG TAB PO SCH ×2 (10:06→20:03)
--- NOTE | 2019-04-08 14:36 | PDOC.HOSPP ---
- Subjective Encounter Date: 04/08/19 Encounter Time: 13:00 Subjective: The patient is doing well with no complaints. Mental status back to normal per . Patient is pending [facility] placement - Objective Vital Signs & Weight: Vital Signs (12 hours) Temp Pulse Pulse Resp BP BP Pulse Ox 04/08/19 10:59 98.3 F 93 18 126/54 L 95 04/08/19 10:18 97 04/08/19 08:00 93 L 04/08/19 04:31 97.6 F 88 18 128/63 92 L Pulse Ox 04/08/19 10:59 04/08/19 10:18 94 L 04/08/19 08:00 04/08/19 04:31 Weight Weight 150 lb 12.739 oz Most Recent Monitor Data Heart Rate from ECG 83 NIBP 150/61 NIBP BP-Mean 90 Respiration from ECG 23 SpO2 91 I&O: 04/07/19 04/08/19 04/09/19 06:59 06:59 06:59 Intake Total 30 Output Total 0 Balance 30 Result Diagrams: 04/08/19 05:25 04/08/19 05:25 Hospitalist ROS - Review of Systems Respiratory: denies: cough, dry - Medication Medications: Active Medications Generic Name Dose Route Start Last Admin Trade Name Freq PRN Reason Stop Dose Admin Allopurinol 50 mg 04/08/19 09:00 04/08/19 08:11 Zyloprim PO 50 mg DAILY ANGELIQUE Administration Atorvastatin Calcium 20 mg 04/07/19 21:00 04/07/19 21:35 Lipitor PO 20 mg HS ANGELIQUE Administration Calcium Acetate 1,334 mg 04/07/19 12:00 04/08/19 12:00 Phoslo PO 1,334 mg TID-WM ANGELIQUE Administration Carvedilol 3.125 mg 04/07/19 21:00 04/08/19 10:06 Coreg PO Not Given BID ANGELIQUE Cholecalciferol 2,000 units 04/08/19 09:00 04/08/19 08:12 Vitamin D3 PO 2,000 units DAILY ANGELIQUE Administration Clopidogrel Bisulfate 75 mg 04/08/19 09:00 04/08/19 08:12 Plavix PO 75 mg DAILY ANGELIQUE Administration Diphenhydramine HCl 25 mg 04/07/19 22:04 04/07/19 22:17 Benadryl PO 25 mg Q6H PRN Administration Itching & Insomnia Folic Acid 1 mg 04/08/19 09:00 04/08/19 08:13 Folvite PO 1 mg DAILY ANGELIQUE Administration Gabapentin 100 mg 04/08/19 09:00 04/08/19 08:13 Neurontin PO 100 mg DAILY ANGELIQUE Administration Levothyroxine Sodium 75 mcg 04/08/19 06:00 04/08/19 05:17 Synthroid PO 75 mcg 0600 ANGELIQUE Administration - Exam General Appearance: NAD, awake alert Eye: PERRL, anicteric sclera ENT: normocephalic atraumatic, no oropharyngeal lesions Neck: no JVD Heart: RRR, no murmur, no gallops, no rubs Respiratory: CTAB, no wheezes, no rales, no ronchi Gastrointestinal: soft, non-tender, non-distended, normal bowel sounds Extremities: no cyanosis, no clubbing, no edema Skin: normal turgor, no lesions, no rashes Neurological: cranial nerve grossly intact, normal sensation to touch Hosp A/P - Plan This is a 73 year old male with past medical history of ESRD, gout, hypertension , hypothyroidism who presented to the ER with shortness of breath and acute encephalopathy after missing dialysis #Acute metabolic encephalopathy secondary to missed dialysis - resolved #Hyperkalemia - resolved - received dialysis today with 800 mL fluid removed. Mental status significantly improved after dialysis but disoriented still - currently pending placement S/p Fall - PT is seeing the patient Hyponatremia - sodium 129, improved to 139 after dialysis Leukocytosis - WBC of 11, currently no signs of infection - repeat CBC tomorrow Anemia - likely from CKD - Hb 10.5 - check B12/folate in the morning Type II diabetes - not on any medications at home - fingersticks achs Gout - continue allopurinol CAD- continue aspirin, plavix Hypothyroidism - levothyroxine Dispo: stable, pending placement
--- NOTE | 2019-04-08 15:13 | CON ---
DATE OF CONSULTATION: HISTORY OF PRESENT ILLNESS: A 73-year-old gentleman, who was admitted to the hospital with shortness of breath. Apparently, he missed dialysis 2 days ago, scheduled for 3 times a week. Pulmonary was consulted regarding his shortness of breath. Upon arrival to his room, he said he was much improved, less cough, less shortness of breath. No fever. No chills. PAST MEDICAL HISTORY: End-stage renal disease, diabetes, hyperlipidemia, hypertension, previous CVA, previous peripheral vascular disease. PAST SURGICAL HISTORY: Hernias, cardiac stent, right BKA. SOCIAL HISTORY: No alcohol. No drugs. No smoking. HOME MEDICATIONS: 1. Procardia 60. 2. Synthroid 75. 3. Gabapentin 100. 4. Plavix 75. 5. Coreg . 6. Calcium. 7. Lipitor 20. 8. Elavil 50. REVIEW OF SYSTEMS: Otherwise, negative. PHYSICAL EXAMINATION: GENERAL: He is in no distress without any oxygen. VITAL SIGNS: His saturations are 95%, pulse 80, respiratory rate 18, and blood pressure 130/80. CHEST: Decreased breath sounds. No wheezing. CARDIAC: Normal S1, S2. No gallops. ABDOMEN: No masses. LABORATORY DATA: Lab shields, I see nothing unusual. Creatinine is 7. BUN is 45, is baseline. White count 8000, platelet count is low, H and H 11 and 34, stable. IMPRESSION: 1. Respiratory failure, though baseline appears to be relatively stable. 2. End-stage renal disease. He missed dialysis. 3. Pulmonary shields, I agree with present treatment. Continue dialysis. PLAN: Disposition as per Nephrology. Pulmonary will follow at a distance. Call if needed. Job ID: [id number]
[2019-04-08 15:33] VITALS: BMI 25.2
[2019-04-08] MEDS: Atorvastatin Calcium 20 MG TAB PO SCH (20:03)
[2019-04-09] MEDS: Levothyroxine Sodium 75 MCG TAB PO SCH (05:27)
[2019-04-09 06:27] LABS: Hemoglobin 10.6 g/dL (14.0-18.0); Mean Corpuscular Hemoglobin 33.8 pg (27.0-31.0); Mean Corpuscular Volume 99.4 fL (78.0-98.0); Mean Platelet Volume 9.5 fL (7.4-10.4); Platelet Count 131 thou/uL (130-400); RBC Distribution Width 15.1 % (11.5-14.5); Red Blood Cell (RBC) Count 3.14 mill/uL (4.70-6.10)
[2019-04-09 06:46] LABS: Anion Gap 23 mmol/L (10-20); BUN (Urea Nitrogen) 63 mg/dL (8.4-25.7); Calc. Creatinine Clearance 7 mL/min (70-130); Calcium 8.6 mg/dL (7.8-10.44); Carbon Dioxide 20 mmol/L (23-31); Chloride 97 mmol/L (98-107); Estimated GFR-MDRD 6; Glucose 113 mg/dL (83-110); Potassium 4.9 mmol/L (3.5-5.1); Sodium 135 mmol/L (136-145)
[2019-04-09] MEDS: Calcium Acetate 667 MG CAP PO SCH ×3 (07:46→16:12)
[2019-04-09] MEDS: Carvedilol 3.125 MG TAB PO SCH ×3 (07:46→20:27)
[2019-04-09] MEDS: Folic Acid 1 MG TAB PO SCH (10:37)
[2019-04-09] MEDS: Clopidogrel Bisulfate 75 MG TAB PO SCH (12:08)
[2019-04-09] MEDS: Allopurinol 100 MG TAB PO SCH (12:09)
[2019-04-09] MEDS: Gabapentin 100 MG CAP PO SCH (12:09)
--- NOTE | 2019-04-09 17:50 | PDOC.HOSPP ---
- Subjective Encounter Date: 04/09/19 Encounter Time: 14:00 Subjective: The patient reports he is not good. When asked why, he states he is tired, had a lot of therapy done today and is fatigued. He has no other complaints - Objective Vital Signs & Weight: Vital Signs (12 hours) Pulse Pulse BP BP BP Pulse Ox Pulse Ox 04/09/19 16:03 161/67 H 04/09/19 14:01 145/71 H 04/09/19 13:30 82 82 57/31 L 60/34 L 94 L 95 Weight Admit Weight 150 lb 12.739 oz Weight 146 lb 11.2 oz Most Recent Monitor Data Heart Rate from ECG 83 NIBP 150/61 NIBP BP-Mean 90 Respiration from ECG 23 SpO2 91 I&O: 04/08/19 04/09/19 04/10/19 06:59 06:59 06:59 Intake Total 30 600 Output Total 0 Balance 30 600 Result Diagrams: 04/09/19 05:52 04/09/19 05:52 Additional Labs: Accuchecks 04/08/19 00:10 POC Glucose 109 Hospitalist ROS - Review of Systems Constitutional: denies: fever, chills - Medication Medications: Active Medications Generic Name Dose Route Start Last Admin Trade Name Freq PRN Reason Stop Dose Admin Allopurinol 50 mg 04/08/19 09:00 04/09/19 12:09 Zyloprim PO 50 mg DAILY ANGELIQUE Administration Atorvastatin Calcium 20 mg 04/07/19 21:00 04/08/19 20:03 Lipitor PO 20 mg HS ANGELIQUE Administration Calcium Acetate 1,334 mg 04/07/19 12:00 04/09/19 16:12 Phoslo PO 1,334 mg TID-WM ANGELIQUE Administration Carvedilol 3.125 mg 04/07/19 21:00 04/09/19 12:08 Coreg PO 3.125 mg BID ANGELIQUE Administration Cholecalciferol 2,000 units 04/08/19 09:00 04/09/19 07:46 Vitamin D3 PO Not Given DAILY ANGELIQUE Clopidogrel Bisulfate 75 mg 04/08/19 09:00 04/09/19 12:08 Plavix PO 75 mg DAILY ANGELIQUE Administration Diphenhydramine HCl 25 mg 04/07/19 22:04 04/07/19 22:17 Benadryl PO 25 mg Q6H PRN Administration Itching & Insomnia Folic Acid 1 mg 04/08/19 09:00 04/09/19 10:37 Folvite PO Not Given DAILY ANGELIQUE Gabapentin 100 mg 04/08/19 09:00 04/09/19 12:09 Neurontin PO 100 mg DAILY ANGELIQUE Administration Levothyroxine Sodium 75 mcg 04/08/19 06:00 04/09/19 05:27 Synthroid PO 75 mcg 0600 ANGELIQUE Administration - Exam General - other findings: drowsy ENT: normocephalic atraumatic, no oropharyngeal lesions Neck: supple, no JVD Heart: RRR, no murmur, no gallops, no rubs Respiratory: CTAB, no wheezes, no rales, no ronchi, no tachypnea Gastrointestinal: soft, non-tender, non-distended Extremities: no cyanosis, no clubbing, no edema Skin: normal turgor, no lesions, no rashes Hosp A/P - Plan This is a 73 year old male with past medical history of ESRD, gout, hypertension , hypothyroidism who presented to the ER with shortness of breath and acute encephalopathy after missing dialysis #Acute metabolic encephalopathy secondary to missed dialysis - resolved #Hyperkalemia - resolved - received dialysis 04/08 with 800 mL fluid removed. Mental status significantly improved after dialysis but disoriented still - currently pending placement S/p Fall - PT recommended SNF Hyponatremia - sodium 135 Leukocytosis - WBC normal Anemia - likely from CKD - Hb 10.5 - B12 normal - folate elevated. D/c folate supplements Type II diabetes - not on any medications at home - blood sugars 90 - 100 in the hospital Gout - continue allopurinol CAD- continue aspirin, plavix Hypothyroidism - levothyroxine Dispo: needs placement. F/u TSH and mental status
[2019-04-09] MEDS: Atorvastatin Calcium 20 MG TAB PO SCH (20:27)
[2019-04-10] MEDS: Levothyroxine Sodium 75 MCG TAB PO SCH (05:14)
[2019-04-10 06:12] LABS: Hemoglobin 10.5 g/dL (14.0-18.0); Mean Corpuscular HGB CONC 33.1 g/dL (32.0-36.0); Mean Corpuscular Hemoglobin 32.6 pg (27.0-31.0); Mean Corpuscular Volume 98.6 fL (78.0-98.0); Mean Platelet Volume 9.4 fL (7.4-10.4); Platelet Count 136 thou/uL (130-400); RBC Distribution Width 14.9 % (11.5-14.5); Red Blood Cell (RBC) Count 3.23 mill/uL (4.70-6.10)
[2019-04-10 06:36] LABS: Anion Gap 17 mmol/L (10-20); BUN (Urea Nitrogen) 33 mg/dL (8.4-25.7); Calc. Creatinine Clearance 10 mL/min (70-130); Calcium 8.9 mg/dL (7.8-10.44); Carbon Dioxide 25 mmol/L (23-31); Chloride 97 mmol/L (98-107); Estimated GFR-MDRD 9; Glucose 106 mg/dL (83-110); Potassium 4.2 mmol/L (3.5-5.1); Sodium 135 mmol/L (136-145)
[2019-04-10 08:01] VITALS: BP 150/54; TEMP 98.8
[2019-04-10] MEDS: Carvedilol 3.125 MG TAB PO SCH (08:27)
[2019-04-10] MEDS: Allopurinol 100 MG TAB PO SCH (08:27)
[2019-04-10] MEDS: Gabapentin 100 MG CAP PO SCH (08:27)
[2019-04-10] MEDS: Calcium Acetate 667 MG CAP PO SCH ×3 (08:27→17:04)
[2019-04-10] MEDS: Clopidogrel Bisulfate 75 MG TAB PO SCH (08:27)
--- NOTE | 2019-04-11 10:25 | PQF ---
SHON BENTLEYVERÓNICA PALM [id number] CLINICAL DOCUMENTATION CLARIFICATION FORM: POST DISCHARGE Addendum to original discharge summary date: ____ Late entry note date: __ DATE:04/11/2019 ATTN:VERÓNICA KRISHNAN Please exercise your independent, professional judgment in responding to the clarification form. Clinical indicators are provided on the bottom of this form for your review Please check appropriate box(s): [x ] Acute Respiratory Failure: [ x ] with Hypoxia[ ] with Hypercapnia [ ] Acute On Chronic Respiratory Failure: [ ] with Hypoxia [ ] with Hypercapnia [ ] Chronic Respiratory Failure only [ ] with Hypoxia [ ] with Hypercapnia [ ] Other diagnosis [ ] Unable to determine In addition, please specify: Present on Admission (POA): [x ] Yes [ ] No [ ] Unable to determine For continuity of documentation, please document condition throughout progress notes and discharge summary. Thank You. CLINICAL INDICATORS - SIGNS / SYMPTOMS / LABS Respiratory failure through baseline appears to be relatively stable-Documented in consultation report on 04/08 Nahun Adams MD Pulmonary was consulted regarding his shortness of breath upon arrival to his room. he said he was much improved less cough less shortness of breath - Documented in consultation report on 04/08 Nahun Adams MD When EMS arrived patient was hypoxic to 72 % on room air -Documented in H&P on 04/07 by Verónica Krishnan MD ABG pH-7.30-Documented in H&P on 04/07 by Verónica Krishnan MD ABG pO2-94.4-Documented in H&P on 04/07 by Verónica Krishnan MD RISK FACTORS He missed dialysis -Documented in consultation report on 04/08 Nahun Adams MD TREATMENTS: Pulmonary shields i agree with present treatment continue dialysis-Documented in consultation report on 04/08 Nahun Adams MD Oxygen delivery Nasal Cannula -Documented in Clinical panels [employer] Operations Consultant [employer] Reports Winform Viewer (This form is maintained as a part of the permanent medical record) 2014 [employer]. All Rights Reserved [email or web address]
--- NOTE | 2019-04-11 12:37 | DIS ---
DATE OF ADMISSION: 04/07/2019 DATE OF DISCHARGE: 04/10/2019 DISCHARGE DIAGNOSES: Acute encephalopathy secondary to missed dialysis, acute hypoxic respiratory failure secondary to missed dialysis, hyperkalemia, status post fall, hyponatremia, leukocytosis, anemia, type 2 diabetes, gout, coronary artery disease, hypothyroidism. CONSULTATIONS: Nephrology, Dr. Nahun Adams with Pulmonary/Critical Care. BRIEF HISTORY OF PRESENT ILLNESS: This is a 73-year-old male with a past medical history of ESRD, on dialysis, who presented to the emergency room due to chest congestion, confusion, and a recent fall a few days prior to admission. The patient had fell on the prior to admission. His was unable to pick him up and bring him to dialysis. was informed that the patient could go few days without dialysis. However, the patient became progressively more lethargic and short of breath, so she brought him to the ER. The patient was noted to be hypotensive on arrival to the ER with a pulse of 55 and a blood pressure of 78/48. His sodium was 129, potassium was 8.2. The patient was given atropine and placed on oxygen. He was emergently dialyzed, initially admitted to the ICU. HOSPITAL COURSE: Acute encephalopathy secondary to missed dialysis, hyperkalemia, hyponatremia, leukocytosis, status post fall: The patient was emergently dialyzed. He was initially admitted to the ICU for monitoring. After dialysis, the patient's mental status significantly improved. He was transferred to the floor and was monitored for 1 to 2 days, and his mental status on the day of discharge completely went back to baseline. The patient did have a chest x-ray on admission, which showed no evidence of acute cardiopulmonary disease. The patient's potassium was 8, which resolved to 4.2 on the day of discharge. His sodium was 135, and his creatinine came down to 6.30. Status post fall: The patient had a fall in the bathroom. He was seen by Physical and Occupational Therapy. Case Management was consulted for snf placement as requested by the . However, the patient lacked insurance and was unable to be placed in a snf. The changed her mind and decided to take him home with Home Health. Anemia: The patient had a hemoglobin of 10.5. His vitamin B12 was 842, folate 32, TSH was normal at 3. DISCHARGE PHYSICAL EXAMINATION: VITAL SIGNS: Temperature 98.8, heart rate 76, respiratory rate 12, O2 saturation 96% on room air, blood pressure 150/54. GENERAL: The patient is alert, awake, oriented x3. CVS: Regular rate and rhythm with no murmurs, rubs, or gallops. LUNGS: Clear to auscultation bilaterally. ABDOMEN: Positive bowel sounds, soft, nontender, nondistended. EXTREMITIES: No edema. PERTINENT LABORATORY DATA: CBC on 04/10: Shows hemoglobin of 10.5, hematocrit 31.8. BMP on 04/10: Shows sodium 135, chloride 97, bicarb 25, BUN 33, creatinine 6.30. LFTs: AST 13, ALT 7, alkaline phosphatase 70. Vitamin B12: 842. Folate: 32. TSH: 3.0. PERTINENT IMAGING DATA: Chest x-ray :shows no acute disease. DISCHARGE CONDITION: Stable. DISPOSITION: Home with home health. ACTIVITY: As tolerated. DIET: Renal/dialysis diet. DISCHARGE INSTRUCTIONS: The patient should follow up with his PCP in a week. He should have been resumed on all his home medications. Job ID: [id number] [facility]
== END 2019-04-10 17:03 | disposition home health service (06) | DRG 189 ==
LOC: ERS 06:10 → ERHOLD 07:56 → CCU 12:56 → T4-A 04-08 00:28
PROVIDERS: ADMIT Internal Medicine; ATTEND Internal Medicine
PROC: 5A1D70Z Performance of Urinary Filtration, Intermittent, Less than 6 Hours Per Day (ICD-10-PCS; principal; 2019-04-08)
DX: J96.01 Acute respiratory failure with hypoxia (principal); N18.6 End stage renal disease; G93.41 Metabolic encephalopathy; I12.0 Hypertensive chronic kidney disease with stage 5 chronic kidney disease or end stage renal disease; E87.1 Hypo-osmolality and hyponatremia; E87.2 Acidosis; E87.5 Hyperkalemia; M10.9 Gout, unspecified; E03.9 Hypothyroidism, unspecified; D63.1 Anemia in chronic kidney disease; E11.22 Type 2 diabetes mellitus with diabetic chronic kidney disease; I25.10 Atherosclerotic heart disease of native coronary artery without angina pectoris; E78.5 Hyperlipidemia, unspecified; E11.51 Type 2 diabetes mellitus with diabetic peripheral angiopathy without gangrene; R40.2132 Coma scale, eyes open, to sound, at arrival to emergency department; R40.2362 Coma scale, best motor response, obeys commands, at arrival to emergency department; R40.2242 Coma scale, best verbal response, confused conversation, at arrival to emergency department; Z91.15 Patient's noncompliance with renal dialysis; Z86.73 Personal history of transient ischemic attack (TIA), and cerebral infarction without residual deficits; Z91.81 History of falling
CPT/HCPCS: 36415; 36416; 71045; 80048; 80053; 82330; 82607; 82746; 82803; 82805; 83605; 83735; 84443; 84484; 85025; 85027; 90935; 93005; 93010; 94644; 96361; 96374; 96375; 96376; G0257; J1815; J7611; Q0163

== ENCOUNTER 2019-05-01 11:11 | Inpatient (IN) | payer MEDICARE ==
[2019-05-01 11:38] LABS: #Eosinphils 0.1 thou/uL (0.0-0.7); #Lymphocytes 1.5 thou/uL (1.20-3.40); #Monocytes 0.5 thou/uL (0.11-0.59); #Neutrophils 6.4 thou/uL (1.40-6.50); %Basophils 0.2 % (0.0-1.0); %Eosinophils 0.8 % (0.0-10.0); %Lymphocytes 17.3 % (21.0-51.0); %Monocytes 6.5 % (0.0-10.0); %Neutrophils 75.3 % (42.0-75.0); Hemoglobin 10.9 g/dL (14.0-18.0); Mean Corpuscular HGB CONC 33.4 g/dL (32.0-36.0); Mean Corpuscular Volume 98.6 fL (78.0-98.0); Mean Platelet Volume 8.6 fL (7.4-10.4); Platelet Count 167 thou/uL (130-400); RBC Distribution Width 15.5 % (11.5-14.5); White Blood Cell (WBC) Count 8.4 thou/uL (4.8-10.8)
[2019-05-01 11:43] LABS: INR-International Normal Ratio 1.1; Prothrombin Time 13.9 SEC (12.0-14.7)
--- NOTE | 2019-05-01 11:45 | RAD ---
XR Chest 1 View Portable HISTORY: Myocardial infarction COMPARISON: 04/07/2019 FINDINGS: The heart size is normal. The aorta is tortuous. The lungs are well expanded without focal areas of consolidation, pneumothorax or pleural effusions. There is mild prominence of the pulmonary vascularity..
[2019-05-01 11:56] LABS: ALT (SGPT) 10 U/L (8-55); AST (SGOT) 14 U/L (5-34); Albumin 3.9 g/dL (3.4-4.8); Alkaline Phosphatase 102 U/L (40-110); Anion Gap 18 mmol/L (10-20); BUN (Urea Nitrogen) 14 mg/dL (8.4-25.7); Bilirubin, Total 0.9 mg/dL (0.2-1.2); Calc. Creatinine Clearance 0 mL/min (70-130); Calcium 9.4 mg/dL (7.8-10.44); Carbon Dioxide 30 mmol/L (23-31); Chloride 98 mmol/L (98-107); Estimated GFR-MDRD 19; Globulin 4.3 g/dL (2.4-3.5); Glucose 115 mg/dL (83-110); Lipase 70 U/L (8-78); Potassium 3.2 mmol/L (3.5-5.1); Protein, Total 8.2 g/dL (5.8-8.1); Sodium 143 mmol/L (136-145)
--- NOTE | 2019-05-01 12:13 | CON ---
DATE OF CONSULTATION: 05/01/2019 REASON FOR CONSULTATION: Chest pain. PRIMARY YACHT HAND: Remington Gonsales MD. HISTORY OF PRESENT ILLNESS: Mr. Gonzalez is a 73-year-old gentleman. He was undergoing dialysis when he started having chest pain. An EKG showed ST depression in the lateral leads. He was brought here by ambulance with a thought that he may be having an acute myocardial infarction. The patient received nitrates and is now pain-free, feels better. On reviewing the records, the patient did undergo cardiac catheterization in [address] Gonsales. He has 3-vessel coronary artery disease. Surgical therapy was considered and Dr. Delgado was consulted, but the patient has heavily calcified ascending aorta, he is not a candidate for bypass surgery. Apparently, there was some question about going for replacement of the ascending aorta, but this was not the route they chosen. The patient started having chest pain today, severe just after dialysis. He was brought here by ambulance to the emergency room. As mentioned, he is pain-free now. MEDICATIONS: Being sorted out, but it appears he is on: 1. Clopidogrel. 2. Nifedipine. 3. Levothyroxine. 4. Carvedilol. 5. Calcium. 6. Atorvastatin. ALLERGIES: NONE KNOWN. SOCIAL HISTORY: Not currently available. Greek-speaking only. No history of smoking or alcohol abuse. REVIEW OF SYSTEMS: GENERAL: Positive for weakness and he is having some anxiety now as he is very worried about what is happening. VISION: No changes. HEARING: No changes. PULMONARY: He says he is not short of breath now. CARDIAC: As outlined above. Not currently having chest pain. GASTROINTESTINAL: No nausea, vomiting, or diarrhea. PAST HISTORY: 1. Inoperable coronary artery disease. 2. He has had a history of amputation of the right lower extremity. PHYSICAL EXAMINATION: GENERAL: This is an apprehensive 73-year-old man. VITAL SIGNS: His blood pressure after receiving nitrates is in the 90s systolic. EYES: Sclerae nonicteric. MOUTH: Mucous membranes moist. NECK: Supple. No lymphadenopathy. LUNGS: Clear. No wheezing. CARDIAC: Normal S1 and normal S2. There is no murmur, rub, or gallop. ABDOMEN: Soft and nontender. EXTREMITIES: He has a previous amputation in the right lower extremity. Peripheral pulses are diminished. DIAGNOSTIC STUDIES: EKG as outlined above. All lab pending. ASSESSMENT: 1. Inoperable 3-vessel coronary disease. 2. Calcification of the ascending aorta. 3. End-stage renal disease, on dialysis. 4. Hypercholesterolemia. 5. Echocardiogram revealed ejection fraction of 35% to 40% in 2019. PLAN: 1. Nitrates. 2. Aspirin. 3. Plavix. 4. Intravenous heparin for now, would not use Lovenox in view of the dialysis. 5. Dr. Gonsales will resume care from a cardiac standpoint tomorrow. Job ID: [id number]
[2019-05-01 12:33] LABS: CKMB 0.8 ng/mL (0-6.6)
[2019-05-01 15:06] LABS: Troponin I 0.034 ng/mL (< 0.028)
[2019-05-01] MEDS ORDERED: Heparin 25,000 units/D5W 500 ML IV SCH (17:30)
[2019-05-01 18:02] LABS: Troponin I 0.085 ng/mL (< 0.028)
[2019-05-01] MEDS ORDERED: Nitroglycerin 0.4 MG TAB (25 Tab Bottle) PO PRN (18:10)
[2019-05-01] MEDS ORDERED: Senokot S 8.6-50 MG TAB PO PRN (18:15)
[2019-05-01] MEDS ORDERED: Ondansetron ODT 4 MG TAB PO PRN (18:15)
[2019-05-01] MEDS ORDERED: Heparin 25,000 units/D5W 500 ML IVPB SCH (18:15)
[2019-05-01] MEDS ORDERED: Heparin 10,000 UNITS/ 10 ML VIAL SLOW IVP SCH (18:15)
[2019-05-01] MEDS ORDERED: Calcium Carbonate 500 MG ChewTAB PO PRN (18:15)
[2019-05-01] MEDS ORDERED: Ondansetron PF 4 MG/2 ML Vial IVP PRN (18:15)
[2019-05-01] MEDS ORDERED: cloNIDine 0.1 MG TAB PO PRN (18:19)
[2019-05-01] MEDS ORDERED: Labetalol HCl 100 MG/20 ML VIAL SLOW IVP PRN (18:20)
[2019-05-01] MEDS: Famotidine 20 MG TAB PO SCH (21:17)
[2019-05-01] MEDS: Atorvastatin Calcium 10 MG TAB PO SCH (21:17)
[2019-05-01] MEDS: Carvedilol 3.125 MG TAB PO SCH (21:17)
[2019-05-01] MEDS: Nitroglycerin 2% Ointment 1 INCH/1 GM Packet TOP SCH (21:18)
[2019-05-02 04:51] LABS: Hemoglobin 9.6 g/dL (14.0-18.0); Platelet Count 120 thou/uL (130-400)
[2019-05-02 05:10] LABS: ALT (SGPT) 7 U/L (8-55); AST (SGOT) 11 U/L (5-34); Albumin 3.3 g/dL (3.4-4.8); Alkaline Phosphatase 86 U/L (40-110); Anion Gap 16 mmol/L (10-20); BUN (Urea Nitrogen) 29 mg/dL (8.4-25.7); Bilirubin, Total 0.6 mg/dL (0.2-1.2); Calc. Creatinine Clearance 11 mL/min (70-130); Carbon Dioxide 26 mmol/L (23-31); Chloride 97 mmol/L (98-107); Estimated GFR-MDRD 11; Globulin 3.6 g/dL (2.4-3.5); Glucose 127 mg/dL (83-110); Potassium 3.4 mmol/L (3.5-5.1); Protein, Total 6.9 g/dL (5.8-8.1); Sodium 136 mmol/L (136-145)
[2019-05-02] MEDS: Nitroglycerin 2% Ointment 1 INCH/1 GM Packet TOP SCH ×2 (05:54→13:55)
[2019-05-02] MEDS ORDERED: Levothyroxine Sodium 75 MCG TAB PO SCH ×2 (06:00→09:00)
[2019-05-02 07:03] LABS: CKMB 1.6 ng/mL (0-6.6)
[2019-05-02] MEDS ORDERED: Potassium Chloride 10 MEQ TAB PO SCH (08:00)
--- NOTE | 2019-05-02 08:06 | HP ---
The patient was seen and examined on May 01, 2019. CHIEF COMPLAINT: Chest discomfort. HISTORY OF PRESENT ILLNESS: The patient is a 73-year-old male with end-stage renal disease, on hemodialysis and coronary artery disease, presented to the emergency room from the dialysis center with ongoing chest pain. The chest discomfort started during the dialysis. He had 2.6 L fluid taken off during the dialysis. The pain was 5/10, precordial, radiating to his neck. He had mild diaphoresis; however, denies any nausea, vomiting, or syncope. No palpitations reported. He denies recent immobilization or travel. He received 5 mg of metoprolol and 4000 units of heparin in the emergency room and STEMI alert was activated. He was evaluated by Dr. Deluca in the emergency room and felt that this is probably non-ST elevation AZ. He is chest pain free at this time. He is currently on heparin drip. He had mild generalized headache, which has resolved. PAST MEDICAL HISTORY: 1. Coronary artery disease, status post AZ. 2. End-stage renal disease, on hemodialysis, followed by Dr. Vito Barrera. 3. Chronic systolic heart failure, ejection fraction 35% to 40%. 4. Hypertension. 5. Hyperlipidemia. 6. Diabetes mellitus, type 2. 7. History of TIA and CVAs. 8. Hypothyroidism. 9. History of ischemic colitis. PAST SURGICAL HISTORY: 1. Right below-knee amputation. 2. Back surgery. 3. Hernia repair. 4. Left arm surgery. 5. Umbilical hernia repair. ALLERGIES: NO KNOWN DRUG ALLERGIES. CURRENT HOME MEDICATIONS: 1. Aspirin 81 mg daily. 2. Plavix 75 mg daily. 3. Carvedilol 1.56 mg b.i.d. 4. Calcium acetate 1.334 mg 3 times a day. 5. Allopurinol 50 mg daily. 6. Folic acid 1 mg daily. 7. Gabapentin 100 mg daily. 8. Levothyroxine 75 mcg daily. 9. Procardia-XL 60 mg daily. 10. Lipitor 20 mg at bedtime. SOCIAL HISTORY: The patient currently lives at home with his , who is at the bedside. He is full code. She is the primary decision maker. No smoking, alcohol, or drug use. FAMILY HISTORY: Negative for inheritable disease. REVIEW OF SYSTEMS: All other review of systems was reviewed and were found negative. PHYSICAL EXAMINATION: VITAL SIGNS: In the emergency room showed temperature 98, respirations 20, pulse of 97, blood pressure of 131/66, and O2 saturation 100% on room air. GENERAL: A 73-year-old male, in no apparent distress. Denies any chest discomfort at this time. HEENT: Head, atraumatic and normocephalic. Sclerae are anicteric. Moist mucous membranes. No oral lesion. NECK: Supple. No JVD appreciated. No carotid bruit. LUNGS: Clear to auscultation bilaterally. No wheezing, rales, or rhonchi. HEART: S1 and S2 present. Regular rate and rhythm. 2/6 systolic murmur over the mitral area. ABDOMEN: Soft, nontender. Bowel sounds present. No rebound or guarding. No costovertebral angle tenderness. EXTREMITIES: No edema or calf tenderness. Status post right below-knee amputation. NEUROLOGY: Grossly nonfocal. Moves all 4 extremities. PSYCHIATRIC: Alert, awake, and oriented x3. SKIN: Warm and dry. LYMPH NODES: No palpable lymph nodes in the neck. PERIPHERAL VASCULAR: Radial pulses palpable bilaterally. LABORATORY FINDINGS: 1. Troponin 0.034. Repeat troponin 0.085. 2. CBC showed WBC 8.4 with hemoglobin 10.9, platelet of 167. 3. Chemistry showed sodium 143, potassium 3.2, chloride 98, bicarb 30, BUN 14, and creatinine 3.2. LFTs in normal range. IMAGING STUDIES: 1. Chest x-ray by my review was negative for infiltrate or edema. 2. EKG by my review showed sinus rhythm with first-degree AV block with ST depressions in lateral lead with left ventricular hypertrophy. IMPRESSION: 1. Non-ST elevation myocardial infarction. 2. Coronary artery disease, status post myocardial infarction in the past. 3. End-stage renal disease, on hemodialysis. 4. Hypokalemia. 5. Chronic systolic heart failure, ejection fraction 35% to 40%, not on KEON inhibitor, ARB, or Aldactone due to renal disease. 6. Hypertension. 7. Hyperlipidemia. 8. Diabetes mellitus, type 2. 9. History of transient ischemic attack and cerebrovascular accident. 10. Chronic anemia due to renal insufficiency. PLAN: The patient will be monitored on the telemetry unit. ST-elevation [place] has been ruled out. We will continue heparin drip along with aspirin and Plavix. Continue low-dose beta-blockers. No KEON inhibitor due to renal insufficiency. We will replace potassium. Cardiology has already evaluated the patient. His last echocardiogram was in 2019. We will continue statins. We will continue nitrates. The patient will require 2 days for stabilization. Job ID: [id number]
[2019-05-02] MEDS: Folic Acid 1 MG TAB PO SCH (08:10)
[2019-05-02] MEDS: Aspirin 81 mg Enteric Coated Tablet PO SCH (08:10)
[2019-05-02] MEDS: Calcium Acetate 667 MG CAP PO SCH ×3 (08:10→18:09)
[2019-05-02] MEDS: Allopurinol 100 MG TAB PO SCH (08:11)
[2019-05-02] MEDS: NIFEdipine XL 30 MG TAB PO SCH ×2 (08:11→21:30)
[2019-05-02] MEDS: Gabapentin 100 MG CAP PO SCH (08:11)
[2019-05-02] MEDS: Clopidogrel Bisulfate 75 MG TAB PO SCH (08:11)
[2019-05-02] MEDS: Carvedilol 3.125 MG TAB PO SCH ×2 (08:12→21:30)
[2019-05-02 12:37] VITALS: BMI 24.7
[2019-05-02 15:16] LABS: Hemoglobin 8.8 g/dL (14.0-18.0); Platelet Count 115 thou/uL (130-400)
--- NOTE | 2019-05-02 20:44 | PDOC.HOSPP ---
- Subjective Encounter Date: 05/02/19 Encounter Time: 10:30 Subjective: Patient seen and examined for NSTEMI. Sitting on chair. No CP/palpitations. No new complaints. No overnight events - Objective Vital Signs & Weight: Vital Signs (12 hours) Temp Pulse Pulse Pulse Resp BP BP 05/02/19 18:07 98.2 F 86 18 05/02/19 11:50 86 88 103/47 L 118/53 L 05/02/19 11:10 97.9 F 89 18 BP BP Pulse Ox Pulse Ox Pulse Ox 05/02/19 18:07 145/58 H 99 05/02/19 11:50 93 L 96 05/02/19 11:10 124/59 L 98 Weight Admit Weight 142 lb Weight 144 lb 8 oz I&O: 05/01/19 05/02/19 05/03/19 06:59 06:59 06:59 Intake Total 542 1200 Output Total 2000 Balance 542 -800 Result Diagrams: 05/02/19 14:20 05/02/19 04:36 Additional Labs: Accuchecks 05/02/19 05/02/19 05/02/19 16:12 10:47 06:00 POC Glucose 104 184 H 119 H Laboratory Tests 05/02/19 05/02/19 04:36 04:36 Potassium 3.4 L Troponin I 0.111 H Radiology Reviewed by me: Yes (CXR - no infiltrate) EKG Reviewed by me: Yes (Tele SR) Hospitalist ROS - Review of Systems Cardiovascular: denies: chest pain, palpitations, orthopnea, paroxysmal noc. dyspnea, edema, light headedness, other Gastrointestinal: denies: nausea, vomiting, abdominal pain, diarrhea, constipation, melena, hematochezia, other - Medication Medications: Active Medications Generic Name Dose Route Start Last Admin Trade Name Freq PRN Reason Stop Dose Admin Allopurinol 50 mg 05/02/19 09:00 05/02/19 08:11 Zyloprim PO 50 mg DAILY ANGELIQUE Administration Aspirin 81 mg 05/02/19 09:00 05/02/19 08:10 Ecotrin PO 81 mg DAILY ANGELIQUE Administration Atorvastatin Calcium 10 mg 05/01/19 21:00 05/01/19 21:17 Lipitor PO 10 mg HS ANGELIQUE Administration Calcium Acetate 1,334 mg 05/02/19 08:00 05/02/19 18:09 Phoslo PO 1,334 mg TID-WM ANGELIQUE Administration Carvedilol 1.5625 mg 05/01/19 21:00 05/02/19 08:12 Coreg PO 1.5625 mg BID ANGELIQUE Administration Clopidogrel Bisulfate 75 mg 05/02/19 09:00 05/02/19 08:11 Plavix PO 75 mg DAILY ANGELIQUE Administration Famotidine 20 mg 05/01/19 21:00 05/01/19 21:17 Pepcid PO 20 mg QPM ANGELIQUE Administration Folic Acid 1 mg 05/02/19 09:00 05/02/19 08:10 Folvite PO 1 mg DAILY ANGELIQUE Administration Gabapentin 100 mg 05/02/19 09:00 05/02/19 08:11 Neurontin PO 100 mg DAILY ANGELIQUE Administration Heparin Sodium (Porcine) 0 units 05/01/19 18:15 05/02/19 01:55 Heparin 1,000 Units/Ml (10 Ml) SLOW IVP 1,935 unit ASDIR ANGELIQUE Administration Protocol Nifedipine 30 mg 05/02/19 09:00 05/02/19 08:11 Procardia Xl PO 30 mg BID ANGELIQUE Administration Nitroglycerin 0.5 inch 05/01/19 22:00 05/02/19 13:55 Nitro-Bid 2% Ointment TOP 0.5 inch Q8HR ANGELIQUE Administration Sodium Chloride 10 ml 05/01/19 18:10 05/02/19 08:13 Flush - Normal Saline IVF 10 ml PRN PRN Administration Saline Flush - Exam General Appearance: NAD Heart: RRR, no gallops Respiratory: no wheezes, no ronchi Gastrointestinal: non-tender, non-distended, normal bowel sounds Extremities: no cyanosis Neurological: no new deficit Hosp A/P - Plan DVT proph w/SCDs 1. Non-ST elevation myocardial infarction. 2. Coronary artery disease, status post myocardial infarction in the past. 3. End-stage renal disease, on hemodialysis. 4. Hypokalemia. 5. Chronic systolic heart failure, ejection fraction 35% to 40%, not on KEON inhibitor, ARB, or Aldactone due to renal disease. 6. Hypertension. 7. Hyperlipidemia. 8. Diabetes mellitus, type 2. 9. History of transient ischemic attack and cerebrovascular accident. 10. Chronic anemia due to renal insufficiency. 11. Thrombocytopenia PLAN: Cont ASA/Plavix Cont Coreg Cont Heparin drip Await Cardio input Cardiac Rehab Dialysis per Nephrology Cont sliding scale
[2019-05-02] MEDS: Atorvastatin Calcium 10 MG TAB PO SCH (21:29)
[2019-05-02] MEDS: Famotidine 20 MG TAB PO SCH (21:30)
[2019-05-03] MEDS: Nitroglycerin 2% Ointment 1 INCH/1 GM Packet TOP SCH ×2 (00:12→05:44)
[2019-05-03 04:55] LABS: #Basophils 0.1 thou/uL (0.0-0.2); #Lymphocytes 0.9 thou/uL (1.20-3.40); #Monocytes 0.8 thou/uL (0.11-0.59); %Basophils 0.8 % (0.0-1.0); %Eosinophils 0.6 % (0.0-10.0); %Lymphocytes 12.8 % (21.0-51.0); %Monocytes 11.9 % (0.0-10.0); %Neutrophils 73.9 % (42.0-75.0); Hemoglobin 10.2 g/dL (14.0-18.0); Mean Corpuscular Hemoglobin 33.4 pg (27.0-31.0); Mean Platelet Volume 9.1 fL (7.4-10.4); Platelet Count 117 thou/uL (130-400); RBC Distribution Width 15.3 % (11.5-14.5); Red Blood Cell (RBC) Count 3.06 mill/uL (4.70-6.10); White Blood Cell (WBC) Count 6.8 thou/uL (4.8-10.8)
[2019-05-03 05:26] LABS: ALT (SGPT) 7 U/L (8-55); AST (SGOT) 11 U/L (5-34); Albumin 3.5 g/dL (3.4-4.8); Alkaline Phosphatase 86 U/L (40-110); Anion Gap 15 mmol/L (10-20); BUN (Urea Nitrogen) 21 mg/dL (8.4-25.7); Bilirubin, Total 0.6 mg/dL (0.2-1.2); Calc. Creatinine Clearance 15 mL/min (70-130); Calcium 8.6 mg/dL (7.8-10.44); Carbon Dioxide 24 mmol/L (23-31); Chloride 96 mmol/L (98-107); Estimated GFR-MDRD 15; Globulin 3.9 g/dL (2.4-3.5); Glucose 123 mg/dL (83-110); Potassium 3.9 mmol/L (3.5-5.1); Protein, Total 7.4 g/dL (5.8-8.1); Sodium 131 mmol/L (136-145)
[2019-05-03] MEDS: Levothyroxine Sodium 75 MCG TAB PO SCH (05:44)
[2019-05-03] MEDS ORDERED: Isosorbide Dinitrate 5 MG TAB PO SCH (09:00)
[2019-05-03] MEDS: NIFEdipine XL 30 MG TAB PO SCH (09:29)
[2019-05-03] MEDS: Clopidogrel Bisulfate 75 MG TAB PO SCH (09:29)
[2019-05-03] MEDS: Allopurinol 100 MG TAB PO SCH (09:29)
[2019-05-03] MEDS: Gabapentin 100 MG CAP PO SCH (09:30)
[2019-05-03] MEDS: Aspirin 81 mg Enteric Coated Tablet PO SCH (09:30)
[2019-05-03] MEDS: Folic Acid 1 MG TAB PO SCH (09:30)
[2019-05-03] MEDS: Carvedilol 3.125 MG TAB PO SCH ×2 (09:30→20:57)
[2019-05-03] MEDS: Calcium Acetate 667 MG CAP PO SCH ×3 (09:30→17:59)
--- NOTE | 2019-05-03 13:43 | PDOC.CPN ---
- Subjective Date: 05/03/19 Time: 13:41 Interval history: No overnight events. Reviewed chart. Patient admitted for CP/UA. - Review of Systems General: denies: fever/chills, weight/appetite/sleep changes, night sweats, fatigue Respiratory: reports: cough, congestion, shortness of breath, exercise intolerance Cardiovascular: reports: chest pain Gastrointestinal: denies: nausea, vomiting, diarrhea, constipation, abd pain, GI bleeding Musculoskeletal: denies: pain, tenderness, stiffness, swelling, arthritis/ arthralgias - Objective Allergies/Adverse Reactions: Allergies Allergy/AdvReac Type Severity Reaction Status Date / Time No Known Drug Allergies Allergy Verified 05/01/19 18:16 Visit Medications: Current Medications Acetaminophen (Tylenol) 650 mg PO Q4H PRN PRN Reason: Headache/Fever/Mild Pain (1-3) Allopurinol (Zyloprim) 50 mg PO DAILY [facility] Last Admin: 05/03/19 09:29 Dose: 50 mg Aspirin (Ecotrin) 81 mg PO DAILY [facility] Last Admin: 05/03/19 09:30 Dose: 81 mg Atorvastatin Calcium (Lipitor) 10 mg PO HS [facility] Last Admin: 05/02/19 21:29 Dose: 10 mg Calcium Acetate (Phoslo) 1,334 mg PO TID-WM [facility] Last Admin: 05/03/19 12:47 Dose: 1,334 mg Calcium Carbonate (Tums) 1,000 mg PO Q4H PRN PRN Reason: Heartburn or Indigestion Carvedilol (Coreg) 3.125 mg PO BID [facility] Clonidine (Catapres) 0.1 mg PO Q4H PRN PRN Reason: SBP Greater Than 180 Clopidogrel Bisulfate (Plavix) 75 mg PO DAILY [facility] Last Admin: 05/03/19 09:29 Dose: 75 mg Famotidine (Pepcid) 20 mg PO QPM [facility] Last Admin: 05/02/19 21:30 Dose: 20 mg Folic Acid (Folvite) 1 mg PO DAILY [facility] Last Admin: 05/03/19 09:30 Dose: 1 mg Gabapentin (Neurontin) 100 mg PO DAILY [facility] Last Admin: 05/03/19 09:30 Dose: 100 mg Heparin Sodium (Porcine) (Heparin 1,000 Units/Ml (10 Ml)) 0 units SLOW IVP ASDIR [facility]; Protocol Last Admin: 05/02/19 01:55 Dose: 1,935 unit Isosorbide Mononitrate (Imdur Er) 30 mg PO DAILY [facility] Labetalol HCl (Normodyne) 10 mg SLOW IVP Q4H PRN PRN Reason: Systolic BP > 180 Levothyroxine Sodium (Synthroid) 75 mcg PO 0600 [facility] Last Admin: 05/03/19 05:44 Dose: 75 mcg Nitroglycerin (Nitrostat) 0.4 mg PO Q5MIN PRN PRN Reason: Chest Pain Ondansetron HCl (Zofran Odt) 4 mg PO Q6H PRN PRN Reason: Nausea/Vomiting Ondansetron HCl (Zofran) 4 mg IVP Q6H PRN PRN Reason: Nausea/Vomiting Senna/Docusate Sodium (Senokot S) 2 tab PO BID PRN PRN Reason: Constipation Sodium Chloride (Flush - Normal Saline) 10 ml IVF PRN PRN PRN Reason: Saline Flush Last Admin: 05/02/19 08:13 Dose: 10 ml Vital Signs & Weight: Vital Signs Temp Pulse Pulse Pulse Resp BP BP 05/03/19 12:16 99 94 124/59 L 05/03/19 09:29 95 124/59 L 05/03/19 08:00 97.9 F 89 18 05/03/19 05:05 97.9 F 78 16 05/03/19 04:25 BP BP Pulse Ox 05/03/19 12:16 138/54 L 05/03/19 09:29 05/03/19 08:00 157/115 H 99 05/03/19 05:05 144/78 H 99 05/03/19 04:25 96 Admit Weight 142 lb Weight 144 lb 8 oz - Physical Exam General: alert & oriented x3, appears well HEENT: mucus membranes moist Neck: supple neck Cardiac: regular rate and rhythm Lungs: clear to auscultation Neuro: grossly intact Abdomen: soft, non-tender Skin: clear - Labs Result Diagrams: 05/04/19 05:22 05/03/19 14:30 Troponin/CKMB CK-MB (CK-2) 1.6 ng/mL (0-6.6) 05/02/19 04:36 Troponin I 0.111 ng/mL (< 0.028) H 05/02/19 04:36 - Assessment/Plan Assessment/Plan: 1. Severe ES CAD unameable to CABG or PCI 2. Angina 3. DNR In reviewing previous notes, patient was previously seen and taking nitrates. Angina was stable at that time last Fall. Between now and then these were stopped for unknown reasons. Will restart. Hold procardia in short-term to monitor BP. If angina breaks through could also consider nitro-patch. otherwise increase bblockers. Could not find history of bradycardia, although patient on very low dose so this may be why. Monitor tele. Maybe discharge in 1-2 days. Pt seen and examined. Agree with above Pt with severe 3 vessel disease not approachable percutaneously and turned down for CABG Treat medically No other recommendations
[2019-05-03] MEDS: Acetaminophen 325 MG TAB PO PRN (14:00)
--- NOTE | 2019-05-03 14:46 | CT ---
CT HEAD NONCONTRAST: HISTORY: Syncope. COMPARISON: 02/22/2019. FINDINGS: There is no evidence of acute intracranial hemorrhage or infarct. Ventricles appear normal in size, s hape and position. Diffuse cortical atrophy, chronic ischemic small vessel disease, and old lacunar infarcts are stable. There is no mass effect or shift of midline structures. Mucus retention cyst in the left maxillary sinus is stable. IMPRESSION: Chronic-type findings are stable. No acute intracranial abnormalities are demonstrated. Findings were called to Dr. Cox in the emergency department at 1439 hours. Code CR. Transcribed Date/Time: 05/03/2019 3:06 PM
[2019-05-03 15:01] LABS: #Eosinphils 0.1 thou/uL (0.0-0.7); #Monocytes 0.7 thou/uL (0.11-0.59); #Neutrophils 5.6 thou/uL (1.40-6.50); %Basophils 0.2 % (0.0-1.0); %Eosinophils 0.7 % (0.0-10.0); %Monocytes 9.4 % (0.0-10.0); %Neutrophils 76.6 % (42.0-75.0); Hemoglobin 9.4 g/dL (14.0-18.0); Mean Corpuscular HGB CONC 33.3 g/dL (32.0-36.0); Mean Corpuscular Hemoglobin 33.3 pg (27.0-31.0); Mean Corpuscular Volume 99.8 fL (78.0-98.0); Mean Platelet Volume 9.7 fL (7.4-10.4); Platelet Count 121 thou/uL (130-400); RBC Distribution Width 15.5 % (11.5-14.5); Red Blood Cell (RBC) Count 2.84 mill/uL (4.70-6.10); White Blood Cell (WBC) Count 7.3 thou/uL (4.8-10.8)
[2019-05-03 15:07] LABS: PTT 31.2 SEC (22.9-36.1); Prothrombin Time 13.6 SEC (12.0-14.7)
[2019-05-03 15:24] LABS: ALT (SGPT) 9 U/L (8-55); AST (SGOT) 14 U/L (5-34); Albumin 3.4 g/dL (3.4-4.8); Alkaline Phosphatase 82 U/L (40-110); Anion Gap 19 mmol/L (10-20); BUN (Urea Nitrogen) 28 mg/dL (8.4-25.7); Bilirubin, Total 0.5 mg/dL (0.2-1.2); CK (CPK) 28 U/L (30-200); Calc. Creatinine Clearance 12 mL/min (70-130); Calcium 8.3 mg/dL (7.8-10.44); Carbon Dioxide 24 mmol/L (23-31); Chloride 95 mmol/L (98-107); Estimated GFR-MDRD 12; Globulin 3.6 g/dL (2.4-3.5); Glucose 120 mg/dL (83-110); Potassium 4.2 mmol/L (3.5-5.1); Sodium 134 mmol/L (136-145)
[2019-05-03 15:45] LABS: CKMB 1.2 ng/mL (0-6.6)
[2019-05-03] MEDS ORDERED: Sodium Chloride 0.9% 500 ML IV PRN (16:04)
[2019-05-03] MEDS ORDERED: Sodium Chloride 0.9% 500 ML IV SCH (16:15)
--- NOTE | 2019-05-03 16:24 | EKG ---
Test Reason : Blood Pressure : / mmHG Vent. Rate : 098 BPM Atrial Rate : 098 BPM P-R Int : 218 ms QRS Dur : 100 ms QT Int : 388 ms P-R-T Axes : 004 034 210 degrees QTc Int : 495 ms Sinus rhythm with 1st degree A-V block Left ventricular hypertrophy with repolarization abnormality Marked ST abnormality, possible anterior subendocardial injury Prolonged QT Abnormal ECG ST depression I, II, V6 ST elevation aVR Confirmed by YUSUF PATTERSON M.D. ([id number]), acquisition editor MISHEL PEDRAZA ([id number]) on 05/03/2019 4:23:54 PM Referred By: Confirmed By:YUSUF PATTERSON M.D.
--- NOTE | 2019-05-03 17:58 | PDOC.HOSPP ---
- Subjective Encounter Date: 05/03/19 Encounter Time: 10:30 Subjective: Patient seen and examined for NSTEMI. No CP. No new complaints. No overnight events - Objective Vital Signs & Weight: Vital Signs (12 hours) Temp Pulse Pulse Pulse Resp BP BP 05/03/19 14:21 84 18 05/03/19 12:16 99 94 124/59 L 05/03/19 12:00 98.1 F 83 16 05/03/19 09:29 95 124/59 L 05/03/19 08:00 97.9 F 89 18 BP BP Pulse Ox 05/03/19 14:21 107/51 L 96 05/03/19 12:16 138/54 L 05/03/19 12:00 96 05/03/19 09:29 05/03/19 08:00 157/115 H 99 Weight Admit Weight 142 lb Weight 144 lb 8 oz I&O: 05/02/19 05/03/19 05/04/19 06:59 06:59 06:59 Intake Total 542 1320 Output Total 2300 Balance 542 -980 Result Diagrams: 05/03/19 14:30 05/03/19 14:30 Additional Labs: Accuchecks 05/03/19 05/03/19 05/03/19 16:44 14:24 11:33 POC Glucose 148 H 144 H 137 H 05/03/19 05/02/19 05:42 20:41 POC Glucose 120 H 205 H EKG Reviewed by me: Yes (Tele SR) Hospitalist ROS - Review of Systems Respiratory: denies: cough, dry, shortness of breath, hemoptysis, SOB with excertion, pleuritic pain, sputum, wheezing, other Cardiovascular: denies: chest pain, palpitations, orthopnea, paroxysmal noc. dyspnea, edema, light headedness, other Gastrointestinal: denies: nausea, vomiting, abdominal pain, diarrhea, constipation, melena, hematochezia, other - Medication Medications: Active Medications Generic Name Dose Route Start Last Admin Trade Name Freq PRN Reason Stop Dose Admin Acetaminophen 650 mg 05/01/19 18:15 05/03/19 14:00 Tylenol PO 650 mg Q4H PRN Administration Headache/Fever/Mild Pain (1-3) Allopurinol 50 mg 05/02/19 09:00 05/03/19 09:29 Zyloprim PO 50 mg DAILY ANGELIQUE Administration Aspirin 81 mg 05/02/19 09:00 05/03/19 09:30 Ecotrin PO 81 mg DAILY ANGELIQUE Administration Atorvastatin Calcium 10 mg 05/01/19 21:00 05/02/19 21:29 Lipitor PO 10 mg HS ANGELIQUE Administration Calcium Acetate 1,334 mg 05/02/19 08:00 05/03/19 12:47 Phoslo PO 1,334 mg TID-WM ANGELIQUE Administration Clopidogrel Bisulfate 75 mg 05/02/19 09:00 05/03/19 09:29 Plavix PO 75 mg DAILY ANGELIQUE Administration Famotidine 20 mg 05/01/19 21:00 05/02/19 21:30 Pepcid PO 20 mg QPM ANGELIQUE Administration Folic Acid 1 mg 05/02/19 09:00 05/03/19 09:30 Folvite PO 1 mg DAILY ANGELIQUE Administration Gabapentin 100 mg 05/02/19 09:00 05/03/19 09:30 Neurontin PO 100 mg DAILY ANGELIQUE Administration Levothyroxine Sodium 75 mcg 05/03/19 06:00 05/03/19 05:44 Synthroid PO 75 mcg 0600 ANGELIQUE Administration Sodium Chloride 10 ml 05/01/19 18:10 05/02/19 08:13 Flush - Normal Saline IVF 10 ml PRN PRN Administration Saline Flush - Exam General Appearance: NAD Neck: supple, no JVD Heart: RRR, no gallops Respiratory: no wheezes, no ronchi Gastrointestinal: non-tender, non-distended, normal bowel sounds Extremities: no cyanosis Neurological: no new deficit Hosp A/P - Plan DVT proph w/SCDs 1. Non-ST elevation myocardial infarction. 2. Coronary artery disease, status post myocardial infarction in the past. 3. End-stage renal disease, on hemodialysis. 4. Hypokalemia. 5. Chronic systolic heart failure, ejection fraction 35% to 40%, not on KEON inhibitor, ARB, or Aldactone due to renal disease. 6. Hypertension. 7. Hyperlipidemia. 8. Diabetes mellitus, type 2. 9. History of transient ischemic attack and cerebrovascular accident. 10. Chronic anemia due to renal insufficiency. 11. Thrombocytopenia PLAN: Cont ASA/Plavix Add low dose Isosorbide dinitrate Heparin drip dced Cont Coreg Dialysis per Nephrology Cont sliding scale Cont other meds as above Update@1500 Code green called due to AMS. CT brain negative. Mentation improving. Update @1600 RN called due to low BP - BP improved after bolus
[2019-05-03] MEDS: Famotidine 20 MG TAB PO SCH (20:57)
[2019-05-03] MEDS: Atorvastatin Calcium 10 MG TAB PO SCH (20:57)
[2019-05-04] MEDS: Levothyroxine Sodium 75 MCG TAB PO SCH (05:26)
[2019-05-04 05:35] LABS: Hemoglobin 10.1 g/dL (14.0-18.0); Platelet Count 122 thou/uL (130-400)
[2019-05-04] MEDS: Aspirin 81 mg Enteric Coated Tablet PO SCH (08:44)
[2019-05-04] MEDS: Allopurinol 100 MG TAB PO SCH (08:44)
[2019-05-04] MEDS: Gabapentin 100 MG CAP PO SCH (08:45)
[2019-05-04] MEDS: Folic Acid 1 MG TAB PO SCH (08:45)
[2019-05-04] MEDS: Carvedilol 3.125 MG TAB PO SCH (08:45)
[2019-05-04] MEDS: Isosorbide Mononitrate (ER) 30 MG TAB PO SCH (08:45)
[2019-05-04] MEDS: Clopidogrel Bisulfate 75 MG TAB PO SCH (08:45)
[2019-05-04] MEDS: Calcium Acetate 667 MG CAP PO SCH ×3 (08:45→17:08)
[2019-05-04] MEDS ORDERED: Isosorbide Mononitrate (ER) 30 MG TAB PO SCH (09:00)
--- NOTE | 2019-05-04 13:48 | PDOC.CPN ---
- Subjective Date: 05/04/19 Time: 10:20 Interval history: No overnight events. Pain controlled. BP low yesterday. Code Green called. - Review of Systems General: denies: fever/chills, weight/appetite/sleep changes, night sweats, fatigue Respiratory: denies: cough, congestion, shortness of breath, exercise intolerance Cardiovascular: denies: chest pain, palpitation, edema, paroxysmal nocturnal dyspnea, orthopnea Gastrointestinal: denies: nausea, vomiting, diarrhea, constipation, abd pain, GI bleeding Musculoskeletal: denies: pain, tenderness, stiffness, swelling, arthritis/ arthralgias Neurological: denies: numbness, syncope, seizure, weakness - Objective Allergies/Adverse Reactions: Allergies Allergy/AdvReac Type Severity Reaction Status Date / Time No Known Drug Allergies Allergy Verified 05/01/19 18:16 Visit Medications: Current Medications Acetaminophen (Tylenol) 650 mg PO Q4H PRN PRN Reason: Headache/Fever/Mild Pain (1-3) Last Admin: 05/03/19 14:00 Dose: 650 mg Allopurinol (Zyloprim) 50 mg PO DAILY [facility] Last Admin: 05/04/19 08:44 Dose: 50 mg Aspirin (Ecotrin) 81 mg PO DAILY [facility] Last Admin: 05/04/19 08:44 Dose: 81 mg Atorvastatin Calcium (Lipitor) 10 mg PO HS [facility] Last Admin: 05/03/19 20:57 Dose: 10 mg Calcium Acetate (Phoslo) 1,334 mg PO TID-WM [facility] Last Admin: 05/04/19 13:20 Dose: 1,334 mg Calcium Carbonate (Tums) 1,000 mg PO Q4H PRN PRN Reason: Heartburn or Indigestion Clonidine (Catapres) 0.1 mg PO Q4H PRN PRN Reason: SBP Greater Than 180 Clopidogrel Bisulfate (Plavix) 75 mg PO DAILY [facility] Last Admin: 05/04/19 08:45 Dose: 75 mg Famotidine (Pepcid) 20 mg PO QPM [facility] Last Admin: 05/03/19 20:57 Dose: 20 mg Folic Acid (Folvite) 1 mg PO DAILY [facility] Last Admin: 05/04/19 08:45 Dose: 1 mg Gabapentin (Neurontin) 100 mg PO DAILY [facility] Last Admin: 05/04/19 08:45 Dose: 100 mg Isosorbide Mononitrate (Imdur Er) 30 mg PO DAILY [facility] Last Admin: 05/04/19 08:45 Dose: 30 mg Labetalol HCl (Normodyne) 10 mg SLOW IVP Q4H PRN PRN Reason: Systolic BP > 180 Levothyroxine Sodium (Synthroid) 75 mcg PO 0600 [facility] Last Admin: 05/04/19 05:26 Dose: 75 mcg Metoprolol Succinate (Toprol Xl) 25 mg PO DAILY [facility] Nitroglycerin (Nitrostat) 0.4 mg PO Q5MIN PRN PRN Reason: Chest Pain Ondansetron HCl (Zofran Odt) 4 mg PO Q6H PRN PRN Reason: Nausea/Vomiting Ondansetron HCl (Zofran) 4 mg IVP Q6H PRN PRN Reason: Nausea/Vomiting Senna/Docusate Sodium (Senokot S) 2 tab PO BID PRN PRN Reason: Constipation Sodium Chloride (Flush - Normal Saline) 10 ml IVF PRN PRN PRN Reason: Saline Flush Last Admin: 05/02/19 08:13 Dose: 10 ml Vital Signs & Weight: Vital Signs Temp Pulse Resp BP BP Pulse Ox 05/04/19 12:00 86 139/64 05/04/19 08:00 97.6 F 86 18 121/55 L 99 05/04/19 05:16 97.9 F 83 16 124/54 L 92 L 05/04/19 04:55 93 L Admit Weight 142 lb Weight 144 lb 8 oz - Physical Exam General: appears well, no apparent distress HEENT: normocephaly Cardiac: regular rate and rhythm Lungs: clear to auscultation Neuro: grossly intact Abdomen: soft, non-tender Skin: clear - Labs Result Diagrams: 05/04/19 05:22 05/03/19 14:30 Troponin/CKMB CK-MB (CK-2) 1.2 ng/mL (0-6.6) 05/03/19 14:30 Troponin I 0.106 ng/mL (< 0.028) H 05/03/19 14:30 - Assessment/Plan Assessment/Plan: 1. Severe ES CAD unameable to CABG or PCI 2. Angina 3. DNR 4. Hypotension Yesterday received multiple BP meds. BP more stable today, but low. Will change Coreg to Toprol. Continue nitrates for angina/CAD. Will sign off. Ok for discharge when arranged by primary team.
--- NOTE | 2019-05-04 17:24 | PDOC.HOSPP ---
- Subjective Encounter Date: 05/04/19 Encounter Time: 17:22 Subjective: Patient seen and examined for NSTEMI. No new CP. No new complaints. No overnight events - Objective Vital Signs & Weight: Vital Signs (12 hours) Temp Pulse Resp BP BP Pulse Ox 05/04/19 12:00 86 139/64 05/04/19 08:00 97.6 F 86 18 121/55 L 99 Weight Admit Weight 142 lb Weight 144 lb 8 oz I&O: 05/03/19 05/04/19 05/05/19 06:59 06:59 06:59 Intake Total 1320 1020 Output Total 2300 750 Balance -980 270 Result Diagrams: 05/04/19 05:22 05/03/19 14:30 Additional Labs: Accuchecks 05/04/19 05/04/19 05/04/19 16:44 10:54 05:39 POC Glucose 119 H 157 H 124 H 05/03/19 05/03/19 20:41 14:24 POC Glucose 153 H 144 H EKG Reviewed by me: Yes (Tele SR) Hospitalist ROS - Review of Systems Respiratory: denies: cough, dry, shortness of breath, hemoptysis, SOB with excertion, pleuritic pain, sputum, wheezing, other Cardiovascular: denies: chest pain, palpitations, orthopnea, paroxysmal noc. dyspnea, edema, light headedness, other Gastrointestinal: denies: nausea, vomiting, abdominal pain, diarrhea, constipation, melena, hematochezia, other - Medication Medications: Active Medications Generic Name Dose Route Start Last Admin Trade Name Freq PRN Reason Stop Dose Admin Acetaminophen 650 mg 05/01/19 18:15 05/03/19 14:00 Tylenol PO 650 mg Q4H PRN Administration Headache/Fever/Mild Pain (1-3) Allopurinol 50 mg 05/02/19 09:00 05/04/19 08:44 Zyloprim PO 50 mg DAILY ANGELIQUE Administration Aspirin 81 mg 05/02/19 09:00 05/04/19 08:44 Ecotrin PO 81 mg DAILY ANGELIQUE Administration Atorvastatin Calcium 10 mg 05/01/19 21:00 05/03/19 20:57 Lipitor PO 10 mg HS ANGELIQUE Administration Calcium Acetate 1,334 mg 05/02/19 08:00 05/04/19 17:08 Phoslo PO 1,334 mg TID-WM ANGELIQUE Administration Clopidogrel Bisulfate 75 mg 05/02/19 09:00 05/04/19 08:45 Plavix PO 75 mg DAILY ANGELIQUE Administration Famotidine 20 mg 05/01/19 21:00 05/03/19 20:57 Pepcid PO 20 mg QPM ANGELIQUE Administration Folic Acid 1 mg 05/02/19 09:00 05/04/19 08:45 Folvite PO 1 mg DAILY ANGELIQUE Administration Gabapentin 100 mg 05/02/19 09:00 05/04/19 08:45 Neurontin PO 100 mg DAILY ANGELIQUE Administration Isosorbide Mononitrate 30 mg 05/04/19 09:00 05/04/19 08:45 Imdur Er PO 30 mg DAILY ANGELIQUE Administration Levothyroxine Sodium 75 mcg 05/03/19 06:00 05/04/19 05:26 Synthroid PO 75 mcg 0600 ANGELIQUE Administration Sodium Chloride 10 ml 05/01/19 18:10 05/02/19 08:13 Flush - Normal Saline IVF 10 ml PRN PRN Administration Saline Flush - Exam General Appearance: NAD Neck: supple, no JVD Heart: RRR, no gallops Respiratory: CTAB, no rales Gastrointestinal: soft, non-tender, normal bowel sounds Hosp A/P - Plan DVT proph w/SCDs 1. Non-ST elevation myocardial infarction. 2. Coronary artery disease, status post myocardial infarction in the past. 3. End-stage renal disease, on hemodialysis. 4. Hypokalemia. 5. Chronic systolic heart failure, ejection fraction 35% to 40%, not on KEON inhibitor, ARB, or Aldactone due to renal disease. 6. Hypertension. 7. Hyperlipidemia. 8. Diabetes mellitus, type 2. 9. History of transient ischemic attack and cerebrovascular accident. 10. Chronic anemia due to renal insufficiency. 11. Thrombocytopenia 12. Encephalopathy due to Hypotension - resolved PLAN: Coreg changed to Toprol XL Cont Imdur Cont ASA/Plavix s/p Heparin drip. Dialysis in AM per Nephrology Cont sliding scale Cont other meds as above DC in 24 hr if stable
[2019-05-04] MEDS: Famotidine 20 MG TAB PO SCH (20:41)
[2019-05-04] MEDS: Atorvastatin Calcium 10 MG TAB PO SCH (20:41)
[2019-05-05] MEDS: Levothyroxine Sodium 75 MCG TAB PO SCH (05:40)
[2019-05-05] MEDS: Calcium Acetate 667 MG CAP PO SCH ×3 (11:21→17:24)
--- NOTE | 2019-05-05 11:53 | DIS ---
DATE OF ADMISSION: 05/01/2019 DATE OF DISCHARGE: 05/05/2019 DISCHARGE DISPOSITION: Home. FOLLOWUP: 1. Follow up with [facility] 1 week. 2. Follow up with Dr. Gonsales in 3 to 4 weeks. 3. Outpatient cardiac rehab was arranged. 4. Follow up with Dr. Vito Barrera as scheduled for outpatient hemodialysis. The patient was seen on the day of discharge. Denies any new complaints. No chest pain, shortness of breath, or palpitations. ALLERGIES: NO KNOWN DRUG ALLERGIES. DISCHARGE MEDICATIONS: 1. Sublingual nitroglycerin as needed. 2. Lipitor 20 mg at bedtime. 3. Isosorbide mononitrate ER 30 mg daily. 4. Toprol-XL 25 mg daily. 5. Allopurinol 50 mg daily. 6. Aspirin 81 mg daily. 7. Plavix 75 mg daily. 8. PhosLo 1334 mg three times a day. 9. Vitamin D3, 2000 units daily. 10. Folic acid 1 mg daily. 11. Gabapentin 100 mg daily. 12. Levothyroxine 75 mcg daily. INPATIENT CHUTE OPERATOR: Cardiology, Dr. Gonsales. BRIEF HOSPITAL COURSE: The patient is a 73-year-old male with coronary artery disease, presented to the emergency room with chest discomfort on May 01, 2019. Please refer to the history and physical for further details. The patient was admitted to the hospital with a diagnosis of non-ST elevation [place]. The patient was started on heparin drip, along with aspirin and Plavix. He was evaluated by Cardiology, Dr. Gonsales. Later on heparin drip was discontinued. No KEON inhibitor was started due to renal insufficiency. Carvedilol has been changed to Toprol-XL. Procardia XL was discontinued as well. Isosorbide mononitrate 30 mg daily was started. The patient had an episode of hypotension with altered mentation and [place] was called on May 03, 2019. His stroke workup was negative. CT brain was negative. His blood pressure improved with IV hydration. FINAL DIAGNOSES: 1. Jva-HB-hqvuekaid myocardial infarction. 2. Coronary artery disease, status post myocardial infarction in the past. 3. End-stage renal disease, on hemodialysis. 4. Chronic systolic heart failure, ejection fraction 35% to 40%, not on KEON inhibitor, ARB, or Aldactone due to renal insufficiency. 5. Hypokalemia, replaced. 6. Hypertension. 7. Hyperlipidemia. 8. Diabetes mellitus type 2. 9. History of transient ischemic attack and CVA in the past, on aspirin and Plavix. 10. Chronic anemia due to renal insufficiency. 11. Thrombocytopenia. 12. Encephalopathy due to hypotension, resolved. The patient and the family understand the above plan of care. Job ID: [id number]
[2019-05-05] MEDS: Allopurinol 100 MG TAB PO SCH (12:16)
[2019-05-05] MEDS: Clopidogrel Bisulfate 75 MG TAB PO SCH (12:18)
[2019-05-05] MEDS: Gabapentin 100 MG CAP PO SCH (12:18)
[2019-05-05] MEDS: Folic Acid 1 MG TAB PO SCH (12:18)
[2019-05-05] MEDS: Aspirin 81 mg Enteric Coated Tablet PO SCH (12:18)
[2019-05-05] MEDS: Isosorbide Mononitrate (ER) 30 MG TAB PO SCH (12:18)
[2019-05-05] MEDS: Acetaminophen 325 MG TAB PO PRN (12:19)
[2019-05-05 13:32] VITALS: BP 121/59; TEMP 99.4
== END 2019-05-05 17:30 | disposition home or self-care (01) | DRG 280 ==
LOC: ERS 11:11 → ERHOLD 13:14 → 2NO 17:15
PROVIDERS: ADMIT Internal Medicine; ATTEND Internal Medicine
PROC: 5A1D80Z Performance of Urinary Filtration, Prolonged Intermittent, 6-18 hours Per Day (ICD-10-PCS; principal; 2019-05-01)
DX: I21.4 Non-ST elevation (NSTEMI) myocardial infarction (principal); N18.6 End stage renal disease; I13.2 Hypertensive heart and chronic kidney disease with heart failure and with stage 5 chronic kidney disease, or end stage renal disease; I50.32 Chronic diastolic (congestive) heart failure; G93.49 Other encephalopathy; I95.9 Hypotension, unspecified; Z66 Do not resuscitate; E11.22 Type 2 diabetes mellitus with diabetic chronic kidney disease; Z99.2 Dependence on renal dialysis; Z79.4 Long term (current) use of insulin; E87.6 Hypokalemia; E78.5 Hyperlipidemia, unspecified; D63.1 Anemia in chronic kidney disease; D69.6 Thrombocytopenia, unspecified; I25.110 Atherosclerotic heart disease of native coronary artery with unstable angina pectoris; Z86.73 Personal history of transient ischemic attack (TIA), and cerebral infarction without residual deficits; E03.9 Hypothyroidism, unspecified; Z89.511 Acquired absence of right leg below knee
CPT/HCPCS: 36415; 36416; 70450; 71045; 80053; 82550; 82553; 83690; 84484; 85014; 85018; 85025; 85049; 85610; 85730; 90935; 93005; 93010; 93798; 94760; 96365; 96366; 96375; G0257; J1644

== ENCOUNTER 2019-05-08 08:23 | Inpatient (IN) | payer MEDICARE ==
[2019-05-08 08:52] LABS: #Lymphocytes 1.1 thou/uL (1.20-3.40); #Monocytes 1.4 thou/uL (0.11-0.59); #Neutrophils 10.1 thou/uL (1.40-6.50); %Basophils 0.1 % (0.0-1.0); %Eosinophils 0.2 % (0.0-10.0); %Lymphocytes 8.7 % (21.0-51.0); %Monocytes 11.1 % (0.0-10.0); %Neutrophils 79.9 % (42.0-75.0); Hemoglobin 11.7 g/dL (14.0-18.0); Mean Corpuscular HGB CONC 33.6 g/dL (32.0-36.0); Mean Corpuscular Hemoglobin 33.2 pg (27.0-31.0); Mean Corpuscular Volume 98.9 fL (78.0-98.0); Mean Platelet Volume 9.3 fL (7.4-10.4); Platelet Count 118 thou/uL (130-400); RBC Distribution Width 15.9 % (11.5-14.5); Red Blood Cell (RBC) Count 3.51 mill/uL (4.70-6.10); White Blood Cell (WBC) Count 12.6 thou/uL (4.8-10.8)
--- NOTE | 2019-05-08 08:56 | RAD ---
EXAM: Single view of the chest HISTORY: Right-sided facial drooping COMPARISON: 05/01/2019 FINDINGS: Single view of the chest shows a normal sized cardiomediastinal silhouette. Atheroscleroti c calcifications are seen in the aorta. There is no evidence of consolidation, mass, or pleural effusion. The bones are unremarkable. IMPRESSION: No evidence of acute cardiopulmonary disease
--- NOTE | 2019-05-08 09:08 | CT ---
CT BRAIN WITHOUT CONTRAST: HISTORY: Level II stroke, drooping to the right side of the mouth. COMPARISON: 05/03/2019. FINDINGS: Changes of cortical atrophy., chronic small-vessel ischemic disease and old lacunar infarctions are a gain seen. The ventricular size is stable and the basilar cisterns are patent. No evidence of acute infarct, hemorrhage, midline shift, or abnormal extraaxial fluid collections is noted. The bony calvarium is intact. The visualized paranasal sinuses and mastoid air cells are wel l aerated. IMPRESSION: No CT evidence of acute intracranial process. Discussed over the telephone with ER physician, Dr. Sarbjit Lorenz, at 8:48 a.m. DAVID BERTRAND
[2019-05-08 09:13] LABS: ALT (SGPT) 2379 U/L (8-55); AST (SGOT) 2685 U/L (5-34); Albumin 3.9 g/dL (3.4-4.8); Alkaline Phosphatase 447 U/L (40-110); Anion Gap 25 mmol/L (10-20); BUN (Urea Nitrogen) 72 mg/dL (8.4-25.7); Bilirubin, Total 1.6 mg/dL (0.2-1.2); CK (CPK) 34 U/L (30-200); Calc. Creatinine Clearance 0 mL/min (70-130); Calcium 8.8 mg/dL (7.8-10.44); Carbon Dioxide 20 mmol/L (23-31); Chloride 93 mmol/L (98-107); Estimated GFR-MDRD 5; Globulin 3.9 g/dL (2.4-3.5); Glucose 95 mg/dL (83-110); Magnesium 2.3 mg/dL (1.6-2.6); Potassium 5.7 mmol/L (3.5-5.1); Protein, Total 7.8 g/dL (5.8-8.1); Sodium 132 mmol/L (136-145)
[2019-05-08 09:35] LABS: INR-International Normal Ratio 1.6; Prothrombin Time 18.7 SEC (12.0-14.7)
[2019-05-08 09:36] LABS: PTT 33.8 SEC (22.9-36.1)
[2019-05-08 09:44] LABS: Base Excess-Venous -3.7 mmol/L (-2.0 to 3.0); Bicarbonate (HCO3v) 20.3 mmol/L (22.0-28.0); CO2 Tension (PvCO2) 32.6 mmHg (40.0-50.0); Calcium, Ionized 0.91 mmol/L (See Comments:); Chloride 97 mmol/L (98-107); Hemoglobin - Calc 10.8 g/dL (14.0-18.0); Potassium 6.1 mmol/L (3.5-5.1); Sodium 129 mmol/L (138-145); T. Carbon Dioxide 21.3 mmol/L (22.0-28.0); vO2 Saturation-calc 90.5 % (60.0-85.0)
[2019-05-08 10:08] LABS: Acetaminophen Less than 6.0 mcg/mL (10.0-30.0); Alcohol Less than 10 mg/dL (Less than 10); Salicylate Less than 8.0 mg/dL (15.0-30.0)
[2019-05-08 10:30] LABS: HBCM Index 0.05 S/CO (0-0.79); HBSAg Index 0.15 S/CO (0-0.99); Hep A IgM AB Non-Reactive (NonReactive); Hep A IgM S/CO 0.15 S/CO (0-0.79); Hep B Surf Ag Non-Reactive S/CO (NonReactive); Hep C IgG Ab Non-Reactive (NonReactive); Hepatitis B Core IgM Abs Non-Reactive (NonReactive)
[2019-05-08 10:54] LABS: Bilirubin Negative (Negative); Blood, Urine Moderate (Negative); Glucose, Urine (Dipstick) 100 mg/dL (Negative); Leukocyte Moderate (Negative); Nitrite Negative (Negative); Protein, Urine (Dipstick) > or equal to 300 mg/dL (Neg-Trace); Urobilinogen 0.2 mg/dL (Less than 2)
[2019-05-08 10:59] LABS: Clarity Hazy (Clear)
[2019-05-08 11:04] LABS: WBC/HPF 21-50 HPF (0-3)
[2019-05-08 11:05] LABS: Bacteria/HPF None Seen HPF (None Seen); Transitional Epithelial 0-3 HPF (None Seen)
--- NOTE | 2019-05-08 11:17 | ULT ---
RIGHT UPPER QUADRANT ULTRASOUND: Date: 05/08/2019 HISTORY: Right upper quadrant pain. FINDINGS: Liver demonstrates homogeneous echotexture without focal mass or intrahepatic ductal dilatation. No g allstones are seen. There is thickening of the wall of the gallbladder measuring about 8.0 mm. No per icholecystic fluid is seen. The common duct measures 3.0 mm in diameter. The tail of the pancreas is not well visualized due to overlying bowel gas. The remainder of the pancreas is otherwise unremarkab le. The right kidney is normal. There is a 1.8 cm cyst arising from the right kidney. No right-sided hydronephrosis is seen. No free fluid is seen in Morison's pouch. Incidental note is made of right pl eural effusion. IMPRESSION: 1. Gallbladder wall thickening without cholelithiasis. If there is concern for acute cholecystitis, further evaluation with HIDA scan should be performed. 2. Right renal cyst. 3. Right pleural effusion. POS: [facility]
[2019-05-08] MEDS ORDERED: Labetalol HCl 100 MG/20 ML VIAL SLOW IVP PRN ×2 (12:50→16:28)
[2019-05-08] MEDS ORDERED: hydrALAZINE 20 MG/ML VIAL SLOW IVP PRN ×2 (12:50→16:28)
[2019-05-08] MEDS ORDERED: Senokot S 8.6-50 MG TAB PO PRN (12:56)
[2019-05-08] MEDS ORDERED: Ondansetron PF 4 MG/2 ML Vial IVP PRN (12:56)
[2019-05-08] MEDS ORDERED: Calcium Carbonate 500 MG ChewTAB PO PRN (12:56)
[2019-05-08] MEDS ORDERED: Ondansetron ODT 4 MG TAB PO PRN (12:56)
[2019-05-08] MEDS ORDERED: Sodium Chloride 0.9% 1,000 ML IV SCH (13:00)
[2019-05-08] MEDS ORDERED: Clopidogrel Bisulfate 75 MG TAB PO SCH (13:15)
[2019-05-08] MEDS ORDERED: Aspirin 81 mg Enteric Coated Tablet PO SCH (13:15)
[2019-05-08] MEDS ORDERED: ADMIXTURE FEE IVPB SCH (14:00)
[2019-05-08] MEDS ORDERED: SODIUM CHLORIDE IVPB SCH (14:00)
[2019-05-08] MEDS ORDERED: MEROPENEM IVPB SCH (14:00)
[2019-05-08] MEDS ORDERED: Insulin Regular 300 UNITS/3 ML VIAL SC PRN ×2 (14:30)
--- NOTE | 2019-05-08 14:46 | PDOC.EVN ---
Event Note - Event Note Event Note: Note dictated. EKG by my review showed ST -T wave changes in lat leads.
--- NOTE | 2019-05-08 15:20 | HP ---
CHIEF COMPLAINT: Altered mentation. HISTORY OF PRESENT ILLNESS: The patient is a 73-year-old male with end-stage renal disease on hemodialysis, congestive heart failure, coronary artery disease, diabetes mellitus type 2, and CVA in the past, presented to the emergency room with above complaints. History obtained from the ER record and partially from the patient. No family at the bedside. The patient was seen and examined at the dialysis unit. The patient was admitted at this facility last week with chest discomfort. His workup was consistent with [id number]-pxzafxjzz NV. He was evaluated by Cardiology, Dr. Gonsales. His medications were optimized. He was discharged home 3 days ago in a stable condition. He was chest pain free at that time. The patient was brought into the emergency room for evaluation for confusion along with facial droop. He was not following commands. He was last seen normal around 2:00 a.m. The above symptoms started around 3:00 a.m. Again, not much information is available from the patient. At this time, he denies any pain. No chest pain, palpitations, seizure, or headache reported. In the emergency room, his initial vital signs showed temperature 97.6, pulse rate of 80, blood pressure of 156/65 with O2 saturation of 97% on room air. His CT scan of the brain was negative for acute findings. Chest x-ray was negative. He was found to have significantly elevated LFTs, which were in normal range 4 days ago. PAST MEDICAL HISTORY: 1. Chronic systolic heart failure, ejection fraction 35% to 40% range. 2. End-stage renal disease, on hemodialysis Sunday, , and Sunday by Dr. Vito Barrera. 3. Coronary artery disease, status post NV. 4. Hypertension. 5. Diabetes mellitus, type 2. 6. Hyperlipidemia. 7. Hypothyroidism. 8. History of ischemic colitis. 9. History of TIAs and CVAs. PAST SURGICAL HISTORY: 1. Right below-knee amputation. 2. Back surgery. 3. Hernia repair. 4. Left arm surgery. 5. Umbilical hernia repair. ALLERGIES: NO KNOWN DRUG ALLERGIES. CURRENT HOME MEDICATIONS: Medications cannot be verified with the patient. He was recently discharged on following medication: 1. Allopurinol 50 mg daily. 2. Aspirin 81 mg daily. 3. Plavix 75 mg daily. 4. PhosLo 1334 mg three times a day. 5. Vitamin D3 of 2000 units daily. 6. Folic acid 1 mg daily. 7. Gabapentin 100 mg daily. 8. Levothyroxine 75 mcg daily. 9. Sublingual nitroglycerin as needed. 10. Lipitor 20 mg at bedtime. 11. Isosorbide mononitrate ER 30 mg daily. 12. Toprol-XL 25 mg daily. SOCIAL HISTORY: The patient currently lives at home with his . He is full code. She is the primary decision maker. No tobacco, alcohol, or drug use. FAMILY HISTORY: Negative for inheritable disease. REVIEW OF SYSTEMS: Limited due to the patient's mentation. PHYSICAL EXAMINATION: VITAL SIGNS: As discussed above. GENERAL: A 73-year-old male with confusion. The patient is easily arousable and follows commands to some extent. HEENT: Head, atraumatic and normocephalic. Sclerae anicteric. Moist mucous membranes. No oral lesion. NECK: Supple. No JVD appreciated. No carotid bruit. LUNGS: Lungs showed diminished air entry at bilateral bases. No wheezing or rales. No accessory muscle use. HEART: S1 and S2 present. Regular rate and rhythm. There was 2/6 systolic murmur over the mitral area. ABDOMEN: Soft and nontender. Bowel sounds present. No rebound or guarding. No costovertebral angle tenderness. EXTREMITIES: No edema or calf tenderness. The patient has history of right below-knee amputation. NEUROLOGIC: Exam is limited at this time due to altered mentation. He is moving all of his extremities on verbal commands. Sensation to touch was more or less equal bilaterally. Reflexes were equivocal. PSYCHIATRY: As discussed above. SKIN: Warm and dry. LYMPH NODES: No palpable lymph nodes in the neck. PERIPHERAL VASCULAR: Radial pulses palpable bilaterally. MUSCULOSKELETAL: No joint swelling tenderness. LABORATORY FINDINGS: CBC showed WBC of 12.9 with hemoglobin 11.7, hematocrit 34.8, platelet of 118. His WBC last week was 7.3. INR 1.6 with PT of 18.7, PTT 33.8. Please note, his INR last week was 1.0. VBG showed pH 7.40 with pCO2 of 32.6, pO2 of 58.8, bicarbonate 20.3. Chemistry showed sodium 132, potassium 5.7, chloride 93, bicarb 20, BUN of 72, and creatinine 9.59. Total bilirubin of 1.6 with AST of 2685, ALT of 2379, and alkaline phosphatase 447. Ammonia was 79, lipase was 134. TSH was 4.8. Urinalysis showed 21 to 50 wbc's with squamous epithelial cells without any bacteria. Tylenol level was negative. Acute hepatitis screen was negative. Chest x-ray by my review was negative for infiltrate. CT scan of the brain was negative. Right upper quadrant ultrasound showed gallbladder wall thickening without cholelithiasis. There was no pericholecystic fluid. IMPRESSION: 1. Toxic metabolic encephalopathy, multifactorial. 2. New leukocytosis of unclear etiology. 3. Abnormal LFTs with coagulopathy of unclear etiology. 4. Coronary artery disease, status post recent bll-[id number] myocardial infarction. 5. End-stage renal disease, on hemodialysis Sunday, , and Sunday. 6. Chronic systolic heart failure, ejection fraction 35% to 40% range. Please note that the patient is not on KEON inhibitor, ARB, or Aldactone due to renal failure. 7. Hypertension. 8. Hyperlipidemia. 9. Diabetes mellitus, type 2. 10. History of transient ischemic attack/cerebrovascular accident, on aspirin and Plavix. 11. Chronic thrombocytopenia. 12. Chronic anemia due to renal insufficiency. PLAN: The patient will be monitored in the stroke unit. Stroke will be ruled out. We will start him on empiric antibiotics. Gastroenterology Team will be consulted. We will consult Dr. Barrera for maintenance hemodialysis. Consult Neurology to rule out CVA. We will continue aspirin and Plavix. We will continue isosorbide mononitrate as well as Toprol-XL. Repeat LFTs in a.m. We will check blood sugars every 6 hourly. We will discuss the plan with the family when they arrive. The patient will require 2 to 3 days for stabilization. Job ID: [id number]
[2019-05-08 16:18] VITALS: BMI 22.4
[2019-05-08] MEDS ORDERED: Isosorbide Mononitrate (ER) 30 MG TAB PO SCH (16:30)
[2019-05-08 17:06] LABS: Troponin I 0.206 ng/mL (< 0.028)
[2019-05-08] MEDS: Calcium Acetate 667 MG CAP PO SCH (17:24)
[2019-05-08] MEDS: Meropenem 500 MG in Sodium Chloride 0.9% 100 ML IVPB SCH (17:50)
[2019-05-08] MEDS ORDERED: Meropenem 0.5 GM in Sodium Chloride 0.9% 100 ML IVPB SCH (18:00)
--- NOTE | 2019-05-08 21:06 | CON ---
DATE OF CONSULTATION: 05/08/2019 REASON FOR CONSULTATION: Elevated LFTs. CONSULTING PROVIDER: Zack Owens MD. HISTORY OF PRESENT ILLNESS: The patient is a 73-year-old male, with past medical history of end-stage renal disease on hemodialysis, congestive heart failure with an ejection fraction of 35% to 40%, coronary artery disease with a recent non-ST elevation [place], hypertension, hyperlipidemia, diabetes, cerebrovascular accident x2, anemia of renal disease and thrombocytopenia, presenting with altered mental status and elevated liver function tests. Upon speaking with the patient, his sensorium was altered, being alert and oriented only x2 with further information difficult to obtain. Therefore, all information was obtained via nursing staff and through chart review. On chart review, the patient was recently admitted to [facility] for chest discomfort and during the workup he was found to have a non-ST elevation myocardial infarction. However, shortly before discharge, he did experience an acute episode of hypotension that required a Code Green to be called but responded promptly to administration of medications and IV fluids. He was discharged approximately 24 hours later and is now presenting with altered mental status and elevated LFTs. Per chart review, the patient was also presenting per family with a droop in his face and "unable to move his body." However during the course of my interview with the patient, the patient was able to move his limbs spontaneously and was amenable to questioning with most answers appropriate. Currently, doing well with no complaints of nausea, vomiting, fevers, chills, abdominal pain, hematemesis, melena, hematochezia, dysphagia, or odynophagia. REVIEW OF SYSTEMS: 10-category review of systems was obtained with all responses negative except for the pertinent positives as listed in HPI. PAST MEDICAL HISTORY: As per HPI. PAST SURGICAL HISTORY: Right cdicl-gls-qwrx amputation, hernia repair, left arm surgery, back surgery, umbilical hernia repair, and placement of arteriovenous fistula. FAMILY HISTORY: Denies any GI malignancies. SOCIAL HISTORY: No mention of tobacco, alcohol, or illicit drug use. OUTPATIENT MEDICATIONS: Reviewed. ALLERGIES: NO KNOWN DRUG ALLERGIES. PHYSICAL EXAMINATION: VITAL SIGNS: Temperature 98.1, pulse 84, blood pressure 156/75, respiratory rate 12, saturating 99% on room air. GENERAL: The patient was lying in bed, in no acute distress. Alert and oriented x2. HEENT: Normocephalic, atraumatic. NECK: Supple. No JVD or scleral icterus noted. CARDIOVASCULAR: 4/6 systolic murmur best heard at the right upper sternal border. No discernible gallops or rubs. RESPIRATORY: Clear to auscultation bilaterally with no discernible wheezes or rales. ABDOMEN: Normoactive bowel sounds. Soft, nontender, and nondistended. EXTREMITIES: No cyanosis, clubbing, or edema with a right ezgxu-xhk-pium amputation noted. LABORATORY DATA: CBC with a white blood cell count of 12.6, hemoglobin 11.7, hematocrit 34.8, platelets 118. INR 1.6. Chemistry with a sodium of 132, potassium 5.7, chloride 93, CO2 of 20, BUN 72, creatinine 9.59, glucose 95, AST 2685, ALT 2379, alkaline phosphatase 447, total bilirubin 1.6, albumin 3.9, lipase 134, TSH 4.86, ammonia 79. Acute hepatitis panel negative. IMAGING DATA: Right upper quadrant ultrasound was obtained on May 08, 2019, which showed homogeneous echotexture of the liver without mass or intrahepatic dilatation. Thickening of the gallbladder was noted measuring approximately 8 mm. The common bile duct was measured at approximately 3 mm in size and the incidental finding of a right pleural effusion also seen. CT of the brain was obtained on May 08, 2019, which showed no CT evidence of acute intracranial process, but stable small vessel ischemic disease and old lacunar infarcts. The ventricular size was stable and the basilar cisterns were also patent. There was no evidence of acute infarct, hemorrhage, midline shift, or abnormal extra-axial fluid collection. Chest x-ray obtained on May 08, 2019, showed no evidence of acute cardiopulmonary process. ASSESSMENT AND PLAN: The patient is a 73-year-old male, with past medical history of end-stage renal disease on hemodialysis, congestive heart failure with an ejection fraction of 35% to 40%, coronary artery disease with recent non-ST elevation myocardial infarction, hypertension, hyperlipidemia, diabetes, cerebrovascular accident x2, anemia of renal disease and thrombocytopenia, presenting with altered mental status and significantly elevated liver function tests. Elevated LFTs/shock liver. The patient was recently admitted to the hospital only 3-4 days ago where during that admission, he was diagnosed with a non-ST elevation myocardial infarction. Shortly before discharge, the patient experienced a significant episode of hypotension that required calling a code green in order to facilitate resuscitation of the patient. He was ultimately discharged within 24 hours of a Code Green given resolution of his blood pressure issues. However, at home, it is unknown if the patient continued to experience episodes of hypotension or cardiac arrhythmia related to his congestive heart failure, nor is there any recent echocardiogram denoting his current cardiac function/valvular function since having a non-ST elevation myocardial infarction. Given the degree of rise in both AST and ALT, it is in a primarily hepatocellular pattern with a shock liver type elevation which drastically reduces the differential to medication/toxin, ischemia, infection, trauma, or an autoimmune process. Given his recent episode of hypotension shortly before discharge, the likelihood of ischemia is high especially with the lack of evidence of clot or Budd-Chiari type picture on right upper quadrant ultrasound. RECOMMENDATIONS: 1. We would continue to trend his LFTs and INR daily to assess for ongoing inflammation and/or liver function. 2. We would attempt to avoid any episodes of hypotension or cardiac arrhythmias that could result in hypotension by optimization of cardiac status. 3. We could consider temporary use of lactulose 30 g daily in light of worsening liver function and elevated ammonia for possible hepatic encephalopathy (it is unclear at this time). 4. If the patient continues to have rising LFTs, then I would consider full liver workup for a possible underlying liver disease. 5. We will continue to monitor the patient for worsening altered mental status/encephalopathy which could be a harbinger of acute liver failure. We will continue to follow. Please call with any questions. Job ID: [id number]
[2019-05-09 04:03] LABS: #Lymphocytes 0.7 thou/uL (1.20-3.40); #Monocytes 0.6 thou/uL (0.11-0.59); #Neutrophils 5.4 thou/uL (1.40-6.50); %Basophils 0.1 % (0.0-1.0); %Eosinophils 0.5 % (0.0-10.0); %Lymphocytes 10.9 % (21.0-51.0); %Monocytes 8.3 % (0.0-10.0); %Neutrophils 80.1 % (42.0-75.0); Hemoglobin 10.4 g/dL (14.0-18.0); Mean Corpuscular HGB CONC 32.5 g/dL (32.0-36.0); Mean Corpuscular Hemoglobin 32.3 pg (27.0-31.0); Mean Corpuscular Volume 99.4 fL (78.0-98.0); Mean Platelet Volume 9.4 fL (7.4-10.4); Platelet Count 92 thou/uL (130-400); RBC Distribution Width 15.8 % (11.5-14.5); Red Blood Cell (RBC) Count 3.23 mill/uL (4.70-6.10); White Blood Cell (WBC) Count 6.7 thou/uL (4.8-10.8)
[2019-05-09 04:06] LABS: INR-International Normal Ratio 1.6; Prothrombin Time 18.5 SEC (12.0-14.7)
[2019-05-09 04:22] LABS: ALT (SGPT) 2490 U/L (8-55); AST (SGOT) 2139 U/L (5-34); Albumin 3.3 g/dL (3.4-4.8); Alkaline Phosphatase 339 U/L (40-110); Anion Gap 18 mmol/L (10-20); BUN (Urea Nitrogen) 37 mg/dL (8.4-25.7); Bilirubin, Direct 0.6 mg/dL (0.1-0.3); Bilirubin, Total 1.2 mg/dL (0.2-1.2); Calc. Creatinine Clearance 8 mL/min (70-130); Calcium 8.9 mg/dL (7.8-10.44); Carbon Dioxide 25 mmol/L (23-31); Cardiac Risk 3.1 (Less than 4.5); Chloride 96 mmol/L (98-107); Cholesterol 108 mg/dl (< 200 Desired); Estimated GFR-MDRD 9; Glucose 79 mg/dL (83-110); HDL Cholesterol 35 mg/dL (>60 Neg Risk); LDL Cholesterol, Calculated 51 mg/dL; Lipase 66 U/L (8-78); Potassium 4.5 mmol/L (3.5-5.1); Protein, Total 6.8 g/dL (5.8-8.1); Sodium 134 mmol/L (136-145); Triglycerides 111 mg/dL (Less than 150)
[2019-05-09] MEDS: Levothyroxine Sodium 75 MCG TAB PO SCH (06:05)
[2019-05-09] MEDS ORDERED: Clopidogrel Bisulfate 75 MG TAB PO SCH (09:00)
[2019-05-09] MEDS ORDERED: Aspirin 81 mg Enteric Coated Tablet PO SCH (09:00)
[2019-05-09] MEDS ORDERED: Prevnar 13-Val Conj/PF 0.5 ML SYRINGE IM ONE (09:00)
[2019-05-09] MEDS: Calcium Acetate 667 MG CAP PO SCH ×3 (09:04→16:47)
[2019-05-09] MEDS: Clopidogrel Bisulfate 75 MG TAB PO SCH (09:05)
[2019-05-09] MEDS: Isosorbide Mononitrate (ER) 30 MG TAB PO SCH (09:05)
[2019-05-09] MEDS: Folic Acid 1 MG TAB PO SCH (09:05)
[2019-05-09] MEDS: Aspirin 81 mg Enteric Coated Tablet PO SCH (09:06)
--- NOTE | 2019-05-09 10:49 | PRG ---
DATE OF SERVICE: 05/09/2019 REASON FOR CONSULTATION: Elevated LFTs. SUBJECTIVE: The patient states that he is feeling much better today with decreased confusion when compared to yesterday. Upon evaluation of his sensorium, it has indeed improved. At the time of the interview, the patient was able to tolerate breakfast well with no difficulties at this time. Otherwise, he denies any nausea, vomiting, fevers, chills, abdominal pain, GI bleeding, dysphagia, or odynophagia. OBJECTIVE: VITAL SIGNS: Temperature 98.5, pulse 70, blood pressure 146/76, respiratory rate 17, saturating 100% on room air. GENERAL: The patient was lying in bed, in no acute distress. Eating breakfast. Alert and oriented x4. CARDIOVASCULAR: A 4/6 systolic murmur best heard at the right upper sternal border. No discernible gallops or rubs. RESPIRATORY: Clear to auscultation bilaterally. ABDOMEN: Normoactive bowel sounds. Soft, nontender, nondistended. EXTREMITIES: No cyanosis, clubbing, or edema with a right [id number] amputation. LABORATORY DATA: CBC with a white blood cell count of 6.7, hemoglobin 10.4, hematocrit 32.1, platelets 92. INR 1.6. Chemistry with a sodium of 134, potassium 4.5, chloride 96, CO2 of 25, BUN 37, creatinine 6.33, glucose 79, AST 2139, ALT 2490, alkaline phosphatase 339, total bilirubin 1.2. IMAGING DATA: Upon review of the patient's chart, the patient did undergo a CT scan of the abdomen and pelvis on March 20, 2019, which did show a nodular morphology to the liver concerning for underlying liver disease (overt cirrhosis was not commented on at that time). ASSESSMENT AND PLAN: The patient is a 73-year-old male with past medical history of end-stage renal disease, on hemodialysis, congestive heart failure with an ejection fraction of 35% to 40%, coronary artery disease with recent non-ST elevation myocardial infarction, hypertension, hyperlipidemia, diabetes, cerebrovascular accident x2, anemia of renal disease and thrombocytopenia, presenting with altered mental status and significantly elevated liver function tests consistent with shock liver. Elevated LFTs/shock liver. The patient initially presented to the hospital with altered mental status and significantly elevated LFTs concerning for the presence of acute liver failure. Over the course of the last 24 hours, the patient has had a mild decrease in his LFTs, but has not decreased to the point that I would like if the etiology was hypotension. However, upon conferring with prior imaging in February of this year, he does have nodular morphology, which is concerning for the presence of cirrhosis, which would also go in line with his chronic thrombocytopenia as well. At this time, he may have an element of underlying cirrhosis in addition to an acute insult to the liver resulting in the elevated LFTs and derangement of his INR at this time. At this time, the most likely reason would be the episode of hypotension shortly prior to his recent discharge, but the differential could include medications (labetalol), ischemia, infection (less likely) or an autoimmune process. Given the fact that his LFTs are not downtrending as quick as I would like, full liver workup is indicated at this time. RECOMMENDATIONS: 1. Would continue to trend his LFTs and INR daily to assess for ongoing inflammation and/or liver function. 2. Would continue to monitor the patient daily for signs of worsening encephalopathy which could be a harbinger of an acute liver failure. 3. Would start the patient on lactulose 10 g daily in light of worsening liver function, elevated ammonia, and possible cirrhosis of the liver. 4. We will proceed with full liver workup at this time for a possible underlying liver pathology. We will continue to follow. Please call with any questions. Job ID: [id number]
--- NOTE | 2019-05-09 16:10 | CON ---
DATE OF CONSULTATION: REASON FOR CONSULTATION: 1. Congestive heart failure. 2. . Please see previous consultation. The patient was just discharged. HISTORY OF PRESENT ILLNESS: Mr. Gonzalez is a 73-year-old gentleman who I have seen and evaluated in the past. He has a history of severe CAD, not amenable to percutaneous intervention or bypass surgery. He also has end-stage renal disease, previous history of stroke. He recently presented with mental status changes. He was found to have elevated LFTs, likely related to passive congestion. During my visit, he appears to be stable. No current complaints. No chest pain, pressure, shortness of breath, or associated symptoms. PAST MEDICAL HISTORY: As above. HOME MEDICATIONS: Include 1. Nifedipine. 2. Clopidogrel. 3. Carvedilol. 4. Calcium. 5. Atorvastatin. ALLERGIES: NONE. REVIEW OF SYSTEMS: A 10-point review of systems is reviewed and is as above, otherwise negative. PHYSICAL EXAMINATION: VITAL SIGNS: Blood pressure 150/67, pulse 77, temp is 97.9. GENERAL: Patient is a pleasant male who is in no acute distress. The patient appears their stated age. NEUROLOGIC: The patient is alert and oriented x3 with no focal neurologic deficits. HEENT: Sclerae without icterus. Mouth has moist mucous membranes with normal pallor. NECK: No JVD. Carotid upstroke brisk. No bruits bilaterally. LUNGS: Clear to auscultation with unlabored respirations. BACK: No scoliosis or kyphosis. CARDIAC: Regular rate and rhythm with normal S1 and S2. No S3 or S4 noted. No significant rubs, murmurs, thrills, or gallops noted throughout the precordium. PMI is not displaced. There is no parasternal heave. ABDOMEN: Soft, nontender, nondistended. No peritoneal signs present. No hepatosplenomegaly. No abnormal striae. EXTREMITIES: Right BKA. PERTINENT LABORATORY DATA: Hemoglobin 10.4, creatinine 6.33. IMPRESSION: 1. Acute on chronic systolic heart failure. 2. End-stage renal disease. 3. Severe coronary artery disease. 4. ? stroke. 5. Elevated LFTs. RECOMMENDATIONS: Mr. Gonzalez's last LVEF has been 35% to 40%. His increased LFTs are likely related to passive congestion. At this point, we will continue with conservative therapy. No further cardiac options are recommended based on his anatomy. We therefore continue with Plavix 75 q.a.m., aspirin 81 q.a.m., isosorbide 30 q.a.m., metoprolol 25 q.a.m. We will continue to monitor fluids closely. He would not be able to diurese outside of dialysis. Otherwise, options appear limited. Dr. Bill Delgadillo will be on-call this weekend if any further questions arise. Job ID: [id number]
[2019-05-09] MEDS: Meropenem 500 MG in Sodium Chloride 0.9% 100 ML IVPB SCH (16:47)
--- NOTE | 2019-05-09 18:49 | PDOC.HOSPP ---
- Subjective Encounter Date: 05/09/19 Encounter Time: 08:30 Subjective: Patient seen and examined for Encephalopathy. Mentation improving. No CP. No new complaints. No overnight events - Objective Vital Signs & Weight: Vital Signs (12 hours) Temp Pulse Pulse Pulse Resp BP BP 05/09/19 15:52 97.6 F 70 16 05/09/19 12:10 73 75 148/67 H 154/67 H 05/09/19 11:25 97.9 F 77 18 05/09/19 08:00 70 76 146/67 H 167/72 H 05/09/19 07:33 98.5 F 71 17 BP Pulse Ox 05/09/19 15:52 146/66 H 98 05/09/19 12:10 05/09/19 11:25 168/73 H 97 05/09/19 08:00 05/09/19 07:33 146/67 H 100 Weight Admit Weight 130 lb 6.4 oz Weight 130 lb 6.4 oz I&O: 05/08/19 05/09/19 05/10/19 06:59 06:59 06:59 Intake Total 240 Balance 240 Result Diagrams: 05/09/19 03:53 05/09/19 03:53 Additional Labs: Accuchecks 05/09/19 05/09/19 05/09/19 12:20 06:12 00:57 POC Glucose 137 H 88 98 05/08/19 21:28 POC Glucose 101 Microbiology 05/08/19 17:19 Venous blood - Right Hand Blood Culture - Preliminary Gram Variable Tom 05/08/19 16:30 Venous blood - Right Hand Blood Culture - Preliminary Specimen has been received and culture in progress. No Growth to date. Laboratory Tests 05/09/19 05/09/19 05/09/19 03:53 09:44 09:45 Iron 183 H TIBC 179 L Ferritin Greater than 40674.00 H Direct Bilirubin 0.6 H AST 2139 H ALT 2490 H Alkaline Phosphatase 339 H EKG Reviewed by me: Yes (Tele SR) Hospitalist ROS - Review of Systems Cardiovascular: denies: chest pain, palpitations, orthopnea, paroxysmal noc. dyspnea, edema, light headedness, other Gastrointestinal: denies: nausea, vomiting, abdominal pain, diarrhea, constipation, melena, hematochezia, other - Medication Medications: Active Medications Generic Name Dose Route Start Last Admin Trade Name Freq PRN Reason Stop Dose Admin Aspirin 81 mg 05/09/19 09:00 05/09/19 09:06 Ecotrin PO 81 mg DAILY [facility] Administration Calcium Acetate 1,334 mg 05/08/19 17:00 05/09/19 16:47 Phoslo PO 1,334 mg TID-WM ANGELIQUE Administration Cholecalciferol 2,000 units 05/09/19 09:00 05/09/19 09:05 Vitamin D3 PO 2,000 units DAILY ANGELIQUE Administration Clopidogrel Bisulfate 75 mg 05/09/19 09:00 05/09/19 09:05 Plavix PO 75 mg DAILY ANGELIQUE Administration Folic Acid 1 mg 05/09/19 09:00 05/09/19 09:05 Folvite PO 1 mg DAILY ANGELIQUE Administration Meropenem 500 mg/ Sodium 100 mls @ 200 mls/hr 05/08/19 18:00 05/09/19 16:47 Chloride IVPB 100 mls 1800 ANGELIQUE Administration Isosorbide Mononitrate 30 mg 05/09/19 09:00 05/09/19 09:05 Imdur Er PO 30 mg DAILY ANGELIQUE Administration Levothyroxine Sodium 75 mcg 05/09/19 06:00 05/09/19 06:05 Synthroid PO 75 mcg 0600 [facility] Administration Metoprolol Succinate 25 mg 05/09/19 09:00 05/09/19 09:05 Toprol Xl PO 25 mg DAILY ANGELIQUE Administration - Exam General Appearance: NAD Neck: supple, no JVD Heart: RRR, no gallops, no rubs, normal peripheral pulses Respiratory: CTAB, no wheezes, no rales, no ronchi, normal chest expansion Gastrointestinal: soft, non-tender, non-distended, normal bowel sounds, no guarding, no rigidity Extremities: no cyanosis, no clubbing Neurological: no new deficit Psychiatric: normal affect, A&O x 3 Hosp A/P - Plan DVT proph w/SCDs 1. Toxic metabolic encephalopathy, multifactorial. 2. New leukocytosis of unclear etiology. 3. Abnormal LFTs - prob due to shock liver vs CHF 4. Coronary artery disease, status post recent NSTEMI. 5. End-stage renal disease, on hemodialysis Sunday, , and Sunday. 6. Chronic systolic heart failure, ejection fraction 35% to 40% range. Please note that the patient is not on KEON inhibitor, ARB, or Aldactone due to renal failure. 7. Hypertension. 8. Hyperlipidemia. 9. Diabetes mellitus, type 2. 10. History of transient ischemic attack/cerebrovascular accident, on aspirin and Plavix. 11. Chronic thrombocytopenia. 12. Chronic anemia due to renal insufficiency. 13. Coagulopathy PLAN: Continue aspirin and Plavix GI input appreciated Cont Imdur/Toprol Dialysis per Nephrology Cardiology input appreciated AM labs Cont other meds as above
[2019-05-09] MEDS ORDERED: Heparin 5,000 UNITS/ML VIAL SC SCH (21:00)
[2019-05-10 05:41] LABS: #Lymphocytes 0.7 thou/uL (1.20-3.40); #Monocytes 0.8 thou/uL (0.11-0.59); #Neutrophils 6.2 thou/uL (1.40-6.50); %Eosinophils 0.3 % (0.0-10.0); %Lymphocytes 8.7 % (21.0-51.0); %Monocytes 10.7 % (0.0-10.0); %Neutrophils 80.3 % (42.0-75.0); Hemoglobin 10.6 g/dL (14.0-18.0); Mean Corpuscular HGB CONC 32.7 g/dL (32.0-36.0); Mean Platelet Volume 9.4 fL (7.4-10.4); Platelet Count 89 thou/uL (130-400); RBC Distribution Width 15.9 % (11.5-14.5); Red Blood Cell (RBC) Count 3.21 mill/uL (4.70-6.10); White Blood Cell (WBC) Count 7.8 thou/uL (4.8-10.8)
[2019-05-10] MEDS: Levothyroxine Sodium 75 MCG TAB PO SCH (05:42)
[2019-05-10 05:59] LABS: ALT (SGPT) 1632 U/L (8-55); AST (SGOT) 655 U/L (5-34); Albumin 3.3 g/dL (3.4-4.8); Alkaline Phosphatase 310 U/L (40-110); Bilirubin, Direct 0.5 mg/dL (0.1-0.3); Bilirubin, Total 1.1 mg/dL (0.2-1.2); Protein, Total 7.1 g/dL (5.8-8.1)
[2019-05-10 06:00] LABS: Anion Gap 22 mmol/L (10-20); BUN (Urea Nitrogen) 64 mg/dL (8.4-25.7); Calc. Creatinine Clearance 7 mL/min (70-130); Calcium 8.6 mg/dL (7.8-10.44); Carbon Dioxide 23 mmol/L (23-31); Chloride 94 mmol/L (98-107); Estimated GFR-MDRD 6; Glucose 150 mg/dL (83-110); Potassium 4.7 mmol/L (3.5-5.1); Sodium 134 mmol/L (136-145)
[2019-05-10] MEDS: Calcium Acetate 667 MG CAP PO SCH ×3 (11:35→16:15)
--- NOTE | 2019-05-10 11:35 | PDOC.HOSPP ---
- Subjective Encounter Date: 05/10/19 Encounter Time: 08:00 Subjective: Patient seen and examined for encephalopathy. No fever/N/V. No new complaints. No overnight events - Objective Vital Signs & Weight: Vital Signs (12 hours) Temp Pulse Pulse Pulse Resp BP BP 05/10/19 08:37 77 75 177/74 H 152/68 H 05/10/19 08:15 05/10/19 07:00 98.1 F 73 18 05/10/19 03:10 98.3 F 70 18 BP BP Pulse Ox 05/10/19 08:37 05/10/19 08:15 98 05/10/19 07:00 146/66 H 98 05/10/19 03:10 126/60 100 Weight Admit Weight 130 lb 6.4 oz Weight 130 lb 6.4 oz I&O: 05/09/19 05/10/19 05/11/19 06:59 06:59 06:59 Intake Total 240 Balance 240 Result Diagrams: 05/10/19 05:15 05/10/19 05:15 Additional Labs: Accuchecks 05/10/19 05/09/19 05/09/19 05:40 23:39 18:24 POC Glucose 154 H 148 H 115 H 05/09/19 12:20 POC Glucose 137 H EKG Reviewed by me: Yes (Tele SR) Hospitalist ROS - Review of Systems Respiratory: denies: cough, dry, shortness of breath, hemoptysis, SOB with excertion, pleuritic pain, sputum, wheezing, other Cardiovascular: denies: chest pain, palpitations, orthopnea, paroxysmal noc. dyspnea, edema, light headedness, other Gastrointestinal: denies: nausea, vomiting, abdominal pain, diarrhea, constipation, melena, hematochezia, other - Medication Medications: Active Medications Generic Name Dose Route Start Last Admin Trade Name Freq PRN Reason Stop Dose Admin Aspirin 81 mg 05/09/19 09:00 05/09/19 09:06 Ecotrin PO 81 mg DAILY ANGELIQUE Administration Calcium Acetate 1,334 mg 05/08/19 17:00 05/09/19 16:47 Phoslo PO 1,334 mg TID- ANGELIQUE Administration Cholecalciferol 2,000 units 05/09/19 09:00 05/09/19 09:05 Vitamin D3 PO 2,000 units DAILY ANGELIQUE Administration Clopidogrel Bisulfate 75 mg 05/09/19 09:00 05/09/19 09:05 Plavix PO 75 mg DAILY ANGELIQUE Administration Folic Acid 1 mg 05/09/19 09:00 05/09/19 09:05 Folvite PO 1 mg DAILY ANGELIQUE Administration Meropenem 500 mg/ Sodium 100 mls @ 200 mls/hr 05/08/19 18:00 05/09/19 16:47 Chloride IVPB 100 mls 1800 ANGELIQUE Administration Insulin Human Regular 0 units 05/08/19 14:30 05/10/19 06:02 Humulin R SC 2 unit .MILD SLIDING SCALE PRN Administration Mild Correctional Scale Isosorbide Mononitrate 30 mg 05/09/19 09:00 05/09/19 09:05 Imdur Er PO 30 mg DAILY ANGELIQUE Administration Levothyroxine Sodium 75 mcg 05/09/19 06:00 05/10/19 05:42 Synthroid PO 75 mcg 0600 ANGELIQUE Administration Metoprolol Succinate 25 mg 05/09/19 09:00 05/09/19 09:05 Toprol Xl PO 25 mg DAILY ANGELIQUE Administration - Exam General Appearance: NAD Heart: RRR, no gallops Respiratory: CTAB, no ronchi Gastrointestinal: non-tender, normal bowel sounds Extremities: no cyanosis Neurological: no new deficit Hosp A/P - Plan DVT proph w/SCDs 1. Toxic metabolic encephalopathy/Hepatic Encephalopathy (POA) 2. Leukocytosis - resolved 3. Abnormal LFTs - prob due to shock liver vs CHF 4. Coronary artery disease, status post recent NSTEMI. 5. End-stage renal disease, on hemodialysis Sunday, , and Sunday. 6. Chronic systolic heart failure, ejection fraction 35% to 40% range. Please note that the patient is not on KEON inhibitor, ARB, or Aldactone due to renal failure. 7. Hypertension. 8. Hyperlipidemia. 9. Diabetes mellitus, type 2. 10. History of transient ischemic attack/cerebrovascular accident, on aspirin and Plavix. 11. Chronic thrombocytopenia. 12. Chronic anemia due to renal insufficiency. 13. Coagulopathy prob due to abn LFTs PLAN: Continue aspirin and Plavix Cont Lactulose DC Meropenem Cont Imdur/Toprol Dialysis per Nephrology AM labs Cont other meds as above
[2019-05-10] MEDS: Aspirin 81 mg Enteric Coated Tablet PO SCH (13:32)
[2019-05-10] MEDS: Clopidogrel Bisulfate 75 MG TAB PO SCH (13:32)
[2019-05-10] MEDS: Isosorbide Mononitrate (ER) 30 MG TAB PO SCH (13:33)
[2019-05-10] MEDS: Folic Acid 1 MG TAB PO SCH (13:36)
--- NOTE | 2019-05-10 18:56 | PRG ---
DATE OF SERVICE: 05/10/2019 REASON FOR CONSULTATION: Elevated LFTs. SUBJECTIVE: The patient did not experience any acute events or problems overnight. Today, he states that he is feeling much better and was able to tolerate a diet without any difficulty. Otherwise, he denies any nausea, vomiting, fevers, chills, abdominal pain, GI bleeding, dysphagia, or odynophagia. OBJECTIVE: VITAL SIGNS: Temperature 97.6, pulse 73, blood pressure 155/70, respiratory rate 16, saturating 98% on room air. GENERAL: The patient was lying in bed, in no acute distress. Alert and oriented x4. CARDIOVASCULAR: 4/6 systolic murmur best heard at the right upper sternal border. RESPIRATORY: Clear to auscultation bilaterally. ABDOMEN: Normoactive bowel sounds. Soft, nontender, nondistended. EXTREMITIES: No cyanosis, clubbing, or edema with a right [id number] amputation. LABORATORY DATA: CBC with a white blood cell count of 7.8, hemoglobin 10.6, hematocrit 32.4, platelets 89. Chemistry with a sodium of 134, potassium 4.7, chloride 94, CO2 of 23, BUN 64, creatinine 8.12, glucose 150, AST 655, ALT 1632, alkaline phosphatase 310, total bilirubin 1.1. Immunoglobulin profile normal. IMAGING DATA: No current GI imaging is available for review. ASSESSMENT AND PLAN: 1. The patient is a 73-year-old male with past medical history of end-stage renal disease, on hemodialysis; congestive heart failure with an ejection fraction of 35% to 40%; coronary artery disease with a recent [id number] myocardial infarction; hypertension; hyperlipidemia; diabetes; cerebrovascular accident x2; anemia of renal disease; and chronic thrombocytopenia; presenting with altered mental status and elevated liver function tests consistent with shock liver and possible acute liver failure. 2. Elevated LFTs/shock liver. 3. The patient initially presented to the hospital with altered mental status and significantly elevated LFTs concerning for the presence of acute liver failure. However, during the course of this hospitalization with more conservative management, he has had a significant reduction in his LFTs as well as return of his sensorium indicating response to treatment. On chart review, the patient does have nodular morphology of his liver, concerning for the presence of cirrhosis, which could also explain why his liver enzymes were as high as they were with [id number] hypotension experienced shortly before discharge. At this time, the most likely reason for his elevated LFTs would be the episode of hypotension shortly prior to his recent discharge, creating an ischemic type process, although congestive hepatopathy is also within the differential. Liver workup thus far has been negative for obvious pathology. RECOMMENDATIONS: 1. Would continue to trend his LFTs and INR daily to assess for ongoing inflammation and/or liver function. 2. Would continue to monitor daily for signs of worsening encephalopathy, which could be a harbinger of acute liver failure. 3. Would discontinue the lactulose given improvement in his status and to test whether or not he will need it with possible cirrhosis of the liver. 4. We will follow up on the liver labs obtained thus far for possible underlying liver pathology. We will continue to follow. If the patient continues to have significant decrease in his LFTs tomorrow, he could be considered for discharge and follow up in the outpatient GI Clinic. Please call with any questions. Job ID: [id number]
[2019-05-11 04:50] LABS: #Basophils 0.1 thou/uL (0.0-0.2); #Eosinphils 0.1 thou/uL (0.0-0.7); #Lymphocytes 0.9 thou/uL (1.20-3.40); #Monocytes 0.9 thou/uL (0.11-0.59); #Neutrophils 5.6 thou/uL (1.40-6.50); %Basophils 0.8 % (0.0-1.0); %Eosinophils 0.9 % (0.0-10.0); %Lymphocytes 11.5 % (21.0-51.0); %Monocytes 11.5 % (0.0-10.0); %Neutrophils 75.4 % (42.0-75.0); Hemoglobin 10.6 g/dL (14.0-18.0); Mean Corpuscular HGB CONC 32.4 g/dL (32.0-36.0); Mean Corpuscular Hemoglobin 32.5 pg (27.0-31.0); Platelet Count 89 thou/uL (130-400); RBC Distribution Width 15.8 % (11.5-14.5); Red Blood Cell (RBC) Count 3.27 mill/uL (4.70-6.10); White Blood Cell (WBC) Count 7.5 thou/uL (4.8-10.8)
[2019-05-11 04:55] LABS: INR-International Normal Ratio 1.2; Prothrombin Time 15.3 SEC (12.0-14.7)
[2019-05-11 05:15] LABS: ALT (SGPT) 1132 U/L (8-55); AST (SGOT) 333 U/L (5-34); Albumin 3.5 g/dL (3.4-4.8); Alkaline Phosphatase 276 U/L (40-110); Anion Gap 17 mmol/L (10-20); BUN (Urea Nitrogen) 28 mg/dL (8.4-25.7); Bilirubin, Total 1.2 mg/dL (0.2-1.2); Calc. Creatinine Clearance 10 mL/min (70-130); Calcium 8.7 mg/dL (7.8-10.44); Carbon Dioxide 25 mmol/L (23-31); Chloride 96 mmol/L (98-107); Estimated GFR-MDRD 10; Globulin 3.7 g/dL (2.4-3.5); Glucose 114 mg/dL (83-110); Potassium 3.5 mmol/L (3.5-5.1); Protein, Total 7.2 g/dL (5.8-8.1); Sodium 134 mmol/L (136-145)
[2019-05-11] MEDS: Levothyroxine Sodium 75 MCG TAB PO SCH (06:38)
[2019-05-11] MEDS ORDERED: Prevnar 13-Val Conj/PF 0.5 ML SYRINGE IM ONE (09:00)
[2019-05-11] MEDS ORDERED: FLU VACC TS2019-20(65YR UP)/PF 180 MCG/0.5 ML SYRINGE IM ONE (09:00)
[2019-05-11] MEDS: Isosorbide Mononitrate (ER) 30 MG TAB PO SCH (09:52)
[2019-05-11] MEDS: Calcium Acetate 667 MG CAP PO SCH ×2 (09:52→11:50)
[2019-05-11] MEDS: Clopidogrel Bisulfate 75 MG TAB PO SCH (09:52)
[2019-05-11] MEDS: Folic Acid 1 MG TAB PO SCH (09:52)
[2019-05-11] MEDS: Aspirin 81 mg Enteric Coated Tablet PO SCH (09:52)
[2019-05-11 11:51] VITALS: TEMP 98.3
[2019-05-11 11:56] VITALS: BP 153/69
[2019-05-11 13:37] LABS: CMV IgG AB Greater than 10.00 U/mL (0.00-0.59)
[2019-05-11 15:36] LABS: ANA Symphony (Qualitative) Negative (Negative); ANA Symphony (Quantitative) 0.2 Ratio (< 0.7 Negative); EliA Vaculitis New Method **** NEW METHOD ****; Mitochondrial Ab 5.4 U/mL (<4 Negative); dsDNA IgG Antibody 1.3 IU/mL (<10 Negative)
[2019-05-11 16:13] LABS: Smooth Muscle Total ABS 10 Units (0-19)
== END 2019-05-11 13:21 | disposition home or self-care (01) | DRG 441 ==
LOC: ERS 08:23 → 2SE 11:46
PROVIDERS: ADMIT Internal Medicine; ATTEND Internal Medicine
PROC: 5A1D70Z Performance of Urinary Filtration, Intermittent, Less than 6 Hours Per Day (ICD-10-PCS; principal; 2019-05-10)
DX: K72.00 Acute and subacute hepatic failure without coma (principal); G92 Toxic encephalopathy; N18.6 End stage renal disease; I50.23 Acute on chronic systolic (congestive) heart failure; D68.9 Coagulation defect, unspecified; I13.0 Hypertensive heart and chronic kidney disease with heart failure and stage 1 through stage 4 chronic kidney disease, or unspecified chronic kidney disease; E78.5 Hyperlipidemia, unspecified; E11.22 Type 2 diabetes mellitus with diabetic chronic kidney disease; D69.6 Thrombocytopenia, unspecified; D63.1 Anemia in chronic kidney disease; E03.9 Hypothyroidism, unspecified; I25.10 Atherosclerotic heart disease of native coronary artery without angina pectoris; I25.2 Old myocardial infarction; Z79.890 Hormone replacement therapy; Z99.2 Dependence on renal dialysis; Z86.73 Personal history of transient ischemic attack (TIA), and cerebral infarction without residual deficits; Z79.899 Other long term (current) drug therapy; Z79.02 Long term (current) use of antithrombotics/antiplatelets; Z89.511 Acquired absence of right leg below knee
CPT/HCPCS: 36415; 36416; 51701; 70450; 71045; 76705; 80048; 80053; 80061; 80074; 80076; 80307; 81003; 81015; 82140; 82330; 82390; 82550; 82553; 82728; 82803; 83516; 83540; 83550; 83690; 83735; 84443; 84484; 85025; 85610; 85730; 86038; 86225; 86644; 86645; 87040; 87798; 90935; 93005; G0257; J1644; J1815; J2185; J3490

== ENCOUNTER 2020-05-09 02:32 | Inpatient (IN) | payer MEDICARE ==
[2020-05-09 03:10] LABS: #Eosinphils 0.1 thou/uL (0.0-0.7); #Lymphocytes 2.2 thou/uL (1.20-3.40); #Monocytes 0.9 thou/uL (0.11-0.59); #Neutrophils 6.3 thou/uL (1.40-6.50); %Basophils 0.5 % (0.0-1.0); %Eosinophils 0.9 % (0.0-10.0); %Lymphocytes 22.9 % (21.0-51.0); %Monocytes 9.3 % (0.0-10.0); %Neutrophils 66.4 % (42.0-75.0); Hemoglobin 12.8 g/dL (14.0-18.0); Mean Corpuscular HGB CONC 32.3 g/dL (32.0-36.0); Mean Corpuscular Hemoglobin 35.4 pg (27.0-31.0); Mean Platelet Volume 10.6 fL (7.4-10.4); Platelet Count 65 thou/uL (130-400); RBC Distribution Width 15.6 % (11.5-14.5); Red Blood Cell (RBC) Count 3.62 mill/uL (4.70-6.10); White Blood Cell (WBC) Count 9.5 thou/uL (4.8-10.8)
[2020-05-09 03:26] LABS: ALT (SGPT) 15 U/L (8-55); AST (SGOT) 25 U/L (5-34); Albumin 3.2 g/dL (3.4-4.8); Alkaline Phosphatase 144 U/L (40-110); Anion Gap 30 mmol/L (10-20); BUN (Urea Nitrogen) 52 mg/dL (8.4-25.7); Bilirubin, Total 1.8 mg/dL (0.2-1.2); Calc. Creatinine Clearance 0 mL/min (70-130); Calcium 7.6 mg/dL (7.8-10.44); Carbon Dioxide 15 mmol/L (23-31); Chloride 96 mmol/L (98-107); Globulin 4.4 g/dL (2.4-3.5); Glucose 272 mg/dL (83-110); Lipase 119 U/L (8-78); Potassium 5.5 mmol/L (3.5-5.1); Protein, Total 7.6 g/dL (5.8-8.1); Sodium 135 mmol/L (136-145)
[2020-05-09 03:48] LABS: CKMB 1.4 ng/mL (0-6.6)
[2020-05-09] MEDS ORDERED: INSULIN REGULAR IN 0.9 % NACL 100 UNIT/100 ML BAG ONE (03:50)
[2020-05-09] MEDS ORDERED: Acetaminophen 500 MG TAB ONE (04:30)
[2020-05-09] MEDS ORDERED: Acetaminophen 325 MG TAB PO PRN (04:52)
[2020-05-09 05:13] LABS: Analyzer IN Cardio ER; Base Excess -9.1 mEq/L (-2.0 to +3.0); Calcium, Ionized (venous) 0.74 mmol/L (1.16-1.32); Chloride (VBG) 106 mmol/L (98-106); Potassium (VBG) 3.94 mmol/L (3.70-5.30); Sodium 135.9 mmol/L (133-146)
[2020-05-09 05:15] LABS: Actual Bicarbonate (HCO3v) 14 mEq/L (22-28)
[2020-05-09 05:17] LABS: SARS-CoV-2 NAA Rapid Test Not Detected (NotDetected)
[2020-05-09] MEDS ORDERED: Dextrose 5% in Water 1,000 ML IV PRN (05:26)
[2020-05-09] MEDS ORDERED: HumaLOG 300 UNITS/3 ML VIAL SC PRN ×2 (05:26→06:47)
[2020-05-09 06:43] LABS: Anion Gap 27 mmol/L (10-20); BUN (Urea Nitrogen) 53 mg/dL (8.4-25.7); Calc. Creatinine Clearance 0 mL/min (70-130); Carbon Dioxide 17 mmol/L (23-31); Chloride 97 mmol/L (98-107); Sodium 136 mmol/L (136-145)
[2020-05-09 06:44] LABS: Calcium 7.4 mg/dL (7.8-10.44); Glucose 158 mg/dL (83-110)
[2020-05-09 06:50] LABS: Troponin I 0.048 ng/mL (< 0.028)
[2020-05-09] MEDS ORDERED: Heparin 10,000 UNITS/ 10 ML VIAL ONE (08:43)
[2020-05-09 10:01] LABS: Troponin I 0.052 ng/mL (< 0.028)
[2020-05-09] MEDS: Ondansetron PF 4 MG/2 ML Vial IVP PRN ×2 (11:52→21:00)
[2020-05-09] MEDS ORDERED: Levothyroxine Sodium 50 MCG TAB PO SCH ×2 (12:12→12:14)
[2020-05-09] MEDS ORDERED: Dextrose 50% Abboject 50 ML SYRINGE ONE ×2 (13:50→13:51)
[2020-05-09] MEDS ORDERED: Vancomycin 1 GM in Premix Bag 1 BAG IVPB SCH ×2 (14:00→14:15)
[2020-05-09] MEDS ORDERED: Sodium Chloride 0.9% 250 ML IV SCH (14:00)
[2020-05-09 14:09] LABS: Actual Bicarbonate (HCO3a) 13.2 mEq/L (22-28); Base Excess (BEa) -12.4 mEq/L (-2.0 to +3.0); CO2 Tension 29.9 mmHg (35.0-45.0); Calcium, Ionized (arterial) 0.89 mmol/L (1.12-1.30); Carboxyhemoglobin (COHb) 0.7 gm% (0.0-3.0); O2 Tension (PaO2), arterial 67.6 mmHg (> 70.0); Potassium - ABG Lab 6.55 mmol/L (3.70-5.30); pH, Arterial 7.26 (7.35-7.45)
[2020-05-09 14:10] LABS: #Lymphocytes 2.1 thou/uL (1.20-3.40); #Monocytes 1.9 thou/uL (0.11-0.59); #Neutrophils 14.8 thou/uL (1.40-6.50); %Basophils 0.1 % (0.0-1.0); %Eosinophils 0.2 % (0.0-10.0); %Lymphocytes 11.4 % (21.0-51.0); %Monocytes 9.9 % (0.0-10.0); %Neutrophils 78.5 % (42.0-75.0); Hemoglobin 12.1 g/dL (14.0-18.0); Mean Corpuscular HGB CONC 31.5 g/dL (32.0-36.0); Mean Platelet Volume 12.4 fL (7.4-10.4); Platelet Count 44 thou/uL (130-400); RBC Distribution Width 15.6 % (11.5-14.5); Red Blood Cell (RBC) Count 3.46 mill/uL (4.70-6.10); White Blood Cell (WBC) Count 18.8 thou/uL (4.8-10.8)
[2020-05-09 14:11] LABS: ALV-art Gradient 93.265 mmHg (0-20); Puncture Site RRA
[2020-05-09] MEDS ORDERED: Calcium Gluconate 4.6 MEQ in Sodium Chloride 0.9% 100 ML IVPB SCH (14:11)
[2020-05-09] MEDS ORDERED: Vancomycin HCl 500 MG in Sodium Chloride 0.9% 100 ML IVPB SCH (14:15)
[2020-05-09] MEDS ORDERED: Vancomycin HCl 750 MG in Sodium Chloride 0.9% 250 ML 250 ML IVPB SCH (14:15)
[2020-05-09] MEDS ORDERED: HOLD VANCOMYCIN FOR LEVEL >20 FS SCH (14:15)
[2020-05-09] MEDS ORDERED: Vancomycin 1.5 GRAM/300 ML BAG 1.5 GM in Premix Bag 1 BAG IVPB SCH (14:15)
[2020-05-09] MEDS ORDERED: Vancomycin HCl 1.25 GM in Sodium Chloride 0.9% 250 ML 250 ML IVPB SCH (14:15)
[2020-05-09] MEDS ORDERED: Vancomycin Sliding Scale 1 EACH FS ONE (14:15)
[2020-05-09] MEDS ORDERED: Cefepime 1 GM in Sodium Chloride 0.9% 100 ML IVPB SCH (14:30)
[2020-05-09 14:42] LABS: Anion Gap 34 mmol/L (10-20); BUN (Urea Nitrogen) 62 mg/dL (8.4-25.7); Calc. Creatinine Clearance 11 mL/min (70-130); Calcium 7.4 mg/dL (7.8-10.44); Carbon Dioxide 13 mmol/L (23-31); Chloride 95 mmol/L (98-107); Glucose 249 mg/dL (83-110); Magnesium 2.1 mg/dL (1.6-2.6); Phosphorus 7.4 mg/dL (2.3-4.7); Sodium 135 mmol/L (136-145)
[2020-05-09 14:55] LABS: Potassium 6.8 mmol/L (3.5-5.1)
[2020-05-09 16:15] LABS: CKMB 1.5 ng/mL (0-6.6)
[2020-05-09] MEDS ORDERED: Albuterol Sulfate 2.5 mg/3 ml Neb NEB SCH (16:15)
[2020-05-09 18:11] LABS: Hep B Surf Ag Non-Reactive S/CO (NonReactive)
[2020-05-09 18:15] LABS: Lactic Acid 6.3 mmol/L (0.5-2.2)
[2020-05-09] MEDS ORDERED: Atorvastatin Calcium 20 MG TAB PO SCH (21:00)
[2020-05-09 21:30] LABS: Anion Gap 24 mmol/L (10-20); BUN (Urea Nitrogen) 24 mg/dL (8.4-25.7); Calc. Creatinine Clearance 22 mL/min (70-130); Calcium 8.8 mg/dL (7.8-10.44); Carbon Dioxide 21 mmol/L (23-31); Chloride 97 mmol/L (98-107); Glucose 70 mg/dL (83-110); Sodium 138 mmol/L (136-145)
[2020-05-10] MEDS ORDERED: Ondansetron PF 4 MG/2 ML Vial IVP SCH (00:30)
[2020-05-10] MEDS ORDERED: Sodium Chloride 0.9% (PF) 10 ML VIAL FS PRN (00:30)
[2020-05-10] MEDS ORDERED: Pantoprazole 40 MG VIAL IVP SCH (00:30)
[2020-05-10 01:07] LABS: Hemoglobin 12.3 g/dL (14.0-18.0); Mean Corpuscular HGB CONC 32.5 g/dL (32.0-36.0); Mean Corpuscular Hemoglobin 35.3 pg (27.0-31.0); Mean Platelet Volume 11.3 fL (7.4-10.4); Platelet Count 45 thou/uL (130-400); RBC Distribution Width 15.8 % (11.5-14.5); Red Blood Cell (RBC) Count 3.49 mill/uL (4.70-6.10)
[2020-05-10 01:21] LABS: Band 27 % (5-11); Lymphocytes 6 % (21-51); MDiff Complete? YES; Monocytes 2 % (0-10); Neutrophil 65 % (42-75); Platelet Morphology Comment Appears Decreased
[2020-05-10] MEDS ORDERED: Pantoprazole 80 MG in Sodium Chloride 0.9% 100 ML IVPB SCH (03:30)
[2020-05-10 04:13] LABS: Anion Gap 27 mmol/L (10-20); BUN (Urea Nitrogen) 34 mg/dL (8.4-25.7); Calc. Creatinine Clearance 18 mL/min (70-130); Calcium 8.3 mg/dL (7.8-10.44); Carbon Dioxide 18 mmol/L (23-31); Chloride 98 mmol/L (98-107); Glucose 95 mg/dL (83-110); Potassium 4.9 mmol/L (3.5-5.1); Sodium 138 mmol/L (136-145)
[2020-05-10 04:16] LABS: Band 30 % (5-11); Lymphocytes 4 % (21-51); MDiff Complete? YES; Mean Corpuscular HGB CONC 30.9 g/dL (32.0-36.0); Mean Corpuscular Hemoglobin 33.5 pg (27.0-31.0); Mean Platelet Volume 11.6 fL (7.4-10.4); Monocytes 7 % (0-10); Neutrophil 59 % (42-75); Platelet Count 46 thou/uL (130-400); Platelet Morphology Comment Appears Decreased; RBC Distribution Width 15.7 % (11.5-14.5); Red Blood Cell (RBC) Count 3.59 mill/uL (4.70-6.10); White Blood Cell (WBC) Count 16.4 thou/uL (4.8-10.8)
[2020-05-10] MEDS ORDERED: Levothyroxine Sodium 50 MCG TAB PO SCH ×2 (06:00)
[2020-05-10 08:14] LABS: Vancomycin, Random 9.4 ug/mL (See Comment)
[2020-05-10] MEDS ORDERED: Allopurinol 100 MG TAB PO SCH (09:00)
[2020-05-10] MEDS ORDERED: Morphine 2 MG/ML VIAL SLOW IVP SCH (09:15)
[2020-05-10] MEDS: Folic Acid 1 MG TAB PO SCH (09:47)
[2020-05-10] MEDS: Thiamine 100 MG TAB PO SCH (09:47)
[2020-05-10] MEDS: Pantoprazole 40 MG VIAL IVP SCH ×2 (09:50→21:06)
[2020-05-10] MEDS ORDERED: Dexamethasone 20 MG/5 ML VIAL ONE (11:36)
[2020-05-10] MEDS ORDERED: Rocuronium Bromide 10 MG/ML (10ML VIAL) ONE (11:36)
[2020-05-10] MEDS ORDERED: PHENYLEPHRINE-NS 100 MCG/ML 10 ML SYRINGE ONE (11:36)
[2020-05-10] MEDS ORDERED: Succinylcholine 200 MG/10 ml SYRINGE FS ONE (11:36)
[2020-05-10] MEDS ORDERED: ePHEDrine 50 MG/ML VIAL ONE (11:36)
[2020-05-10] MEDS ORDERED: Ondansetron PF 4 MG/2 ML Vial ONE (11:36)
[2020-05-10] MEDS ORDERED: Ketamine 50 MG/ML (10ML VIAL) ONE (12:04)
[2020-05-10] MEDS ORDERED: Albumin 5% 250 ML ONE (12:53)
[2020-05-10] MEDS ORDERED: Vecuronium 10 MG VIAL ONE ×2 (13:29→15:02)
[2020-05-10] MEDS: Sodium Chloride 0.9% 1,000 ML IV SCH ×3 (13:40→18:58)
[2020-05-10 13:47] LABS: ALV-art Gradient 229.475 mmHg (0-20); Actual Bicarbonate (HCO3a) 16.6 mEq/L (22-28); Base Excess (BEa) -5.2 mEq/L (-2.0 to +3.0); CO2 Tension 22.5 mmHg (35.0-45.0); Calcium, Ionized (arterial) 0.91 mmol/L (1.12-1.30); Carboxyhemoglobin (COHb) 0.4 gm% (0.0-3.0); Hemoglobin (Hb) 11.4 g/dL (14.0-18.0); O2 Tension (PaO2), arterial 98.9 mmHg (> 70.0); Potassium - ABG Lab 5.67 mmol/L (3.70-5.30); Puncture Site LFA; pH, Arterial 7.49 (7.35-7.45)
[2020-05-10] MEDS ORDERED: Iopamidol 370 76% 100 ML VIAL ONE (14:15)
[2020-05-10] MEDS ORDERED: Lorazepam 2 MG/ML VIAL SLOW IVP PRN (16:00)
[2020-05-10] MEDS ORDERED: Fentanyl CADD 100 ML IV SCH (16:00)
[2020-05-10] MEDS ORDERED: Propofol BOLUS 1,000 MG/100 ML VIAL IV PRN (16:00)
[2020-05-10] MEDS ORDERED: Fentanyl BOLUS 250 ML IVPB PRN (16:00)
[2020-05-10] MEDS ORDERED: DISCONTINUE PREVIOUS NARCOTIC PAIN MEDICATIONS AND BENZODIAZEPINES FS SCH (16:00)
[2020-05-10] MEDS ORDERED: Morphine 2 MG/ML VIAL SLOW IVP PRN (16:00)
[2020-05-10] MEDS: Meropenem 500 MG in Sodium Chloride 0.9% 100 ML IVPB SCH (16:09)
[2020-05-10 16:55] LABS: ALT (SGPT) 901 U/L (8-55); AST (SGOT) 1493 U/L (5-34); Albumin 2.8 g/dL (3.4-4.8); Alkaline Phosphatase 120 U/L (40-110); Anion Gap 31 mmol/L (10-20); BUN (Urea Nitrogen) 49 mg/dL (8.4-25.7); Bilirubin, Total 2.6 mg/dL (0.2-1.2); Calc. Creatinine Clearance 14 mL/min (70-130); Calcium 7.6 mg/dL (7.8-10.44); Carbon Dioxide 11 mmol/L (23-31); Chloride 99 mmol/L (98-107); Globulin 3.3 g/dL (2.4-3.5); Glucose 93 mg/dL (83-110); Potassium 6.1 mmol/L (3.5-5.1); Protein, Total 6.1 g/dL (5.8-8.1); Sodium 135 mmol/L (136-145)
[2020-05-10 16:56] LABS: Hemoglobin 11.2 g/dL (14.0-18.0); Mean Corpuscular HGB CONC 32.2 g/dL (32.0-36.0); Mean Corpuscular Hemoglobin 35.3 pg (27.0-31.0); Mean Platelet Volume 11.4 fL (7.4-10.4); Platelet Count 44 thou/uL (130-400); Red Blood Cell (RBC) Count 3.16 mill/uL (4.70-6.10); White Blood Cell (WBC) Count 13.2 thou/uL (4.8-10.8)
[2020-05-10] MEDS ORDERED: Cefepime 0.5 GM, IV Admixture Fee-Chemo 1 UNITS in Sodium Chloride 0.9% 100 ML IVPB SCH (17:00)
[2020-05-10 17:21] LABS: Anisocytosis SLIGHT = 6-15 cells (100X) (0-5/hpf); Band 29 % (5-11); Burr Cells SLIGHT = 2-5 cells (100X) (0-1/hpf); Lymphocytes 4 % (21-51); MDiff Complete? YES; Macrocytosis SLIGHT = 6-15 cells (100X) (0-5/hpf); Metamyelocyte 2 % (0-0); Monocytes 2 % (0-10); Neutrophil 62 % (42-75); Platelet Morphology Comment Appears Decreased; Poikilocytosis SLIGHT = 6-15 cells (100X) (0-5/hpf); Polychromasia SLIGHT = 2-3 cells (100X) (0-2/hpf); Reactive Lymphocytes 1 % (0-10); Tear Drops SLIGHT = 2-5 cells (100X) (0-1/hpf)
[2020-05-10 22:03] LABS: Hemoglobin 11.6 g/dL (14.0-18.0)
[2020-05-11] MEDS: Meropenem 500 MG in Sodium Chloride 0.9% 100 ML IVPB SCH ×2 (03:39→17:10)
[2020-05-11 04:39] LABS: Hemoglobin 11.2 g/dL (14.0-18.0); Mean Corpuscular HGB CONC 32.3 g/dL (32.0-36.0); Mean Corpuscular Hemoglobin 35.8 pg (27.0-31.0); Mean Platelet Volume 11.4 fL (7.4-10.4); Platelet Count 55 thou/uL (130-400); RBC Distribution Width 15.7 % (11.5-14.5); Red Blood Cell (RBC) Count 3.13 mill/uL (4.70-6.10); White Blood Cell (WBC) Count 13.2 thou/uL (4.8-10.8)
[2020-05-11 04:57] LABS: Anion Gap 33 mmol/L (10-20); BUN (Urea Nitrogen) 61 mg/dL (8.4-25.7); Calc. Creatinine Clearance 12 mL/min (70-130); Calcium 7.8 mg/dL (7.8-10.44); Carbon Dioxide 10 mmol/L (23-31); Chloride 99 mmol/L (98-107); Glucose 122 mg/dL (83-110); Potassium 6.1 mmol/L (3.5-5.1); Sodium 136 mmol/L (136-145)
[2020-05-11 05:00] LABS: Band 38 % (5-11); Hypochromia SLIGHT = 6-15 cells (100X) (0-5/hpf); MDiff Complete? YES; Macrocytosis SLIGHT = 6-15 cells (100X) (0-5/hpf); Monocytes 5 % (0-10); Neutrophil 57 % (42-75); Platelet Morphology Comment Appears Decreased
[2020-05-11 07:07] LABS: Actual Bicarbonate (HCO3a) 7.8 mEq/L (22-28); Base Excess (BEa) -16.3 mEq/L (-2.0 to +3.0); Calcium, Ionized (arterial) 0.95 mmol/L (1.12-1.30); Carboxyhemoglobin (COHb) 0.2 gm% (0.0-3.0); Hemoglobin (Hb) 11.4 g/dL (14.0-18.0); O2 Tension (PaO2), arterial 142.1 mmHg (> 70.0); Potassium - ABG Lab 6.27 mmol/L (3.70-5.30)
[2020-05-11] MEDS: Sodium Chloride 0.9% 1,000 ML IV SCH ×3 (07:14→17:38)
[2020-05-11] MEDS: Pantoprazole 40 MG VIAL IVP SCH (08:06)
[2020-05-11 08:26] LABS: CO2 Tension 16.2 mmHg (35.0-45.0)
[2020-05-11 08:27] LABS: Puncture Site RRA
[2020-05-11] MEDS: Propofol 1,000 MG/100 ML VIAL IV PRN ×2 (08:45→17:33)
[2020-05-11] MEDS ORDERED: Norepinephrine 8 MG/0.9% NS 250 ML ONE (09:53)
[2020-05-11] MEDS ORDERED: Sodium Bicarb 50 MEQ/50 ML Abboject 8.4% SYRINGE ONE (09:57)
[2020-05-11] MEDS ORDERED: Sodium Bicarb 50 MEQ/50 ML Abboject 8.4% SYRINGE IVP SCH (10:45)
[2020-05-11] MEDS ORDERED: Norepinephrine 8 MG/0.9% NS 250 ML IVPB SCH (10:45)
[2020-05-11] MEDS ORDERED: Sodium Chloride 0.9% 1,000 ML IV SCH (10:45)
[2020-05-11] MEDS: Dextrose 50% Abboject 50 ML SYRINGE SLOW IVP PRN ×2 (11:08→16:58)
[2020-05-11] MEDS: Folic Acid 1 MG TAB PO SCH (11:55)
[2020-05-11] MEDS: Thiamine 100 MG TAB PO SCH (11:55)
[2020-05-11 12:56] VITALS: BMI 28.8
[2020-05-11] MEDS ORDERED: Fentanyl CADD 100 ML ONE (15:04)
[2020-05-11 15:09] VITALS: BP 115/55
[2020-05-11 17:07] VITALS: TEMP 97.6
[2020-05-11] MEDS ORDERED: Dextrose 5 % And 0.9 % NaCl 1,000 ML IV SCH (17:30)
== END 2020-05-11 18:41 | disposition hospice, inpatient (51) | DRG 871 ==
LOC: ERS 02:32 → 2NO 05:18 → CCU 14:20
PROVIDERS: ADMIT Internal Medicine; ATTEND Internal Medicine
PROC: 5A1D70Z Performance of Urinary Filtration, Intermittent, Less than 6 Hours Per Day (ICD-10-PCS; principal; 2020-05-09)
PROC: 0DJ08ZZ Inspection of Upper Intestinal Tract, Via Natural or Artificial Opening Endoscopic (ICD-10-PCS; 2020-05-10)
PROC: 06HY33Z Insertion of Infusion Device into Lower Vein, Percutaneous Approach (ICD-10-PCS; 2020-05-10)
PROC: 5A1935Z Respiratory Ventilation, Less than 24 Consecutive Hours (ICD-10-PCS; 2020-05-10)
PROC: 3E033XZ Introduction of Vasopressor into Peripheral Vein, Percutaneous Approach (ICD-10-PCS; 2020-05-11)
DX: A41.9 Sepsis, unspecified organism (principal); N18.6 End stage renal disease; J96.00 Acute respiratory failure, unspecified whether with hypoxia or hypercapnia; I50.42 Chronic combined systolic (congestive) and diastolic (congestive) heart failure; I13.2 Hypertensive heart and chronic kidney disease with heart failure and with stage 5 chronic kidney disease, or end stage renal disease; G45.9 Transient cerebral ischemic attack, unspecified; E87.2 Acidosis; Z20.822 Contact with and (suspected) exposure to COVID-19; Z66 Do not resuscitate; Z51.5 Encounter for palliative care; I95.2 Hypotension due to drugs; K31.89 Other diseases of stomach and duodenum; E11.649 Type 2 diabetes mellitus with hypoglycemia without coma; E11.22 Type 2 diabetes mellitus with diabetic chronic kidney disease; E78.5 Hyperlipidemia, unspecified; E03.9 Hypothyroidism, unspecified; D69.6 Thrombocytopenia, unspecified; E11.65 Type 2 diabetes mellitus with hyperglycemia; E87.5 Hyperkalemia; I44.0 Atrioventricular block, first degree; I25.5 Ischemic cardiomyopathy; I25.118 Atherosclerotic heart disease of native coronary artery with other forms of angina pectoris; D63.1 Anemia in chronic kidney disease; E87.70 Fluid overload, unspecified; Z99.2 Dependence on renal dialysis; Z86.73 Personal history of transient ischemic attack (TIA), and cerebral infarction without residual deficits; Z79.890 Hormone replacement therapy; Z79.82 Long term (current) use of aspirin; Z79.899 Other long term (current) drug therapy; Z89.511 Acquired absence of right leg below knee; Z95.5 Presence of coronary angioplasty implant and graft; Z90.49 Acquired absence of other specified parts of digestive tract
CPT/HCPCS: 36415; 36416; 36600; 70450; 70551; 71045; 74176; 74177; 80048; 80053; 80202; 82010; 82553; 82805; 83036; 83605; 83690; 83735; 83880; 84100; 84439; 84443; 84484; 85025; 87040; 87340; 88305; 90935; 93005; 93010; 93306; 94002; 94003; 94660; 96365; C9113; G0257; J0692; J1100; J1644; J2001; J2185; J2270; J2405; J2704; J3010; J3370; J3490; P9045; Q9967; U0002

== ENCOUNTER 2020-05-11 18:47 | Inpatient (IN) | payer OTHER ==
[2020-05-11] MEDS ORDERED: Morphine 2 MG/ML VIAL SLOW IVP PRN (19:00)
[2020-05-11] MEDS ORDERED: Lorazepam 2 MG/ML VIAL SLOW IVP PRN (19:01)
[2020-05-11] MEDS ORDERED: Bisacodyl 10 MG SUPP PR PRN (19:02)
[2020-05-11] MEDS ORDERED: Norepinephrine 8 MG/0.9% NS 250 ML ONE (19:10)
[2020-05-11] MEDS ORDERED: Dextrose 5 % And 0.9 % NaCl 1,000 ML IV SCH (19:30)
[2020-05-11] MEDS ORDERED: Propofol BOLUS 1,000 MG/100 ML VIAL IV PRN (19:30)
[2020-05-11] MEDS ORDERED: fentaNYL Citrate/PF 2,000 MCG in Sodium Chloride 0.9% 60 ML IV SCH (19:30)
[2020-05-11] MEDS ORDERED: Propofol 1,000 MG/100 ML VIAL IV PRN (19:30)
[2020-05-11] MEDS ORDERED: Norepinephrine 8 MG/250 ML IVPB SCH (19:30)
[2020-05-11] MEDS ORDERED: Morphine 4 MG/ML VIAL SLOW IVP SCH (20:00)
[2020-05-11] MEDS ORDERED: Lorazepam 2 MG/ML VIAL SLOW IVP SCH (21:00)
== END 2020-05-11 22:00 | disposition expired | DRG 951 ==
LOC: CCU 18:47
PROVIDERS: ADMIT Family Medicine; ATTEND Family Medicine
DX: Z51.5 Encounter for palliative care (principal); N18.6 End stage renal disease; J96.01 Acute respiratory failure with hypoxia; I13.2 Hypertensive heart and chronic kidney disease with heart failure and with stage 5 chronic kidney disease, or end stage renal disease; I50.42 Chronic combined systolic (congestive) and diastolic (congestive) heart failure; Z66 Do not resuscitate; E11.22 Type 2 diabetes mellitus with diabetic chronic kidney disease; E03.9 Hypothyroidism, unspecified; E87.5 Hyperkalemia; D64.9 Anemia, unspecified; R77.8 Other specified abnormalities of plasma proteins; I25.5 Ischemic cardiomyopathy; I25.10 Atherosclerotic heart disease of native coronary artery without angina pectoris; K31.89 Other diseases of stomach and duodenum; E11.65 Type 2 diabetes mellitus with hyperglycemia; D69.6 Thrombocytopenia, unspecified; Z99.2 Dependence on renal dialysis; Z86.73 Personal history of transient ischemic attack (TIA), and cerebral infarction without residual deficits; Z79.02 Long term (current) use of antithrombotics/antiplatelets; Z89.511 Acquired absence of right leg below knee; Z95.5 Presence of coronary angioplasty implant and graft; Z90.49 Acquired absence of other specified parts of digestive tract
CPT/HCPCS: J2060; J2270